=== PATIENT | male | born 1950 | race Two or more races ===

== ENCOUNTER → 2024-03-27 | Outpatient (CLI) | payer OTHER, SELFPAY ==
[2024-03-29 15:34] LABS: PSA, Free 1.17 ng/mL; PSA, Total 6.9 ng/mL (< OR = 4.0)
[2024-03-30 07:02] LABS: PSA, % Free 17 % (calc) (>25)
== END | disposition home or self-care (01) ==
PROVIDERS: PCP Physician Assistant; Referring Provider Urology; Visit Provider Urology
DX: N40.1 Benign prostatic hyperplasia with lower urinary tract symptoms (principal)
CPT/HCPCS: 36415; 84153; 84154

== ENCOUNTER → 2024-04-03 | Outpatient (BNVA) | payer OTHER, SELFPAY | END | disposition home or self-care (01) | PROVIDERS: PCP Physician Assistant; Referring Provider Physician Assistant; Visit Provider Physician Assistant | DX: N40.1 Benign prostatic hyperplasia with lower urinary tract symptoms (principal); R97.20 Elevated prostate specific antigen [PSA] | CPT/HCPCS: Q3014 ==

== ENCOUNTER → 2024-04-05 | Outpatient (CLI) | payer OTHER, SELFPAY ==
[2024-04-05 08:46] LABS: Collection Type, Urine Clean Catch
[2024-04-05 09:35] LABS: Bilirubin,Urine Negative (Negative); Blood,Urine Trace (Negative); Clarity,Urine Clear (Clear/Hazy); Color,Urine Lt-Yellow (Lt Yel-Yel); Culture Indicated,Urine Not Indicated; Glucose, Urine Negative (Negative); Ketones,Urine Negative (Negative); Leukocyte Esterase,Urine Negative (Negative); Nitrite,Urine Negative (Negative); PH,Urine 6.5 (5.0-7.0); Protein,Urine Negative (Neg - Trace); RBC,Urine 5 /hpf (0-3); Specific Gravity,Urine 1.009 (1.001-1.035); Squamous Epithelial Cell,Urine < 1 /hpf (0-5); Urobilinogen,Urine Negative mg/dL (0.0-1.0); WBC,Urine 1 /hpf (0-5)
[2024-04-05 09:37] LABS: Basophils # (Auto) 0.1 Thou/mm3 (0.0-0.2); Basophils % (Auto) 1 % (0-2.5); Eosinophils # (Auto) 0.3 Thou/mm3 (0.0-0.5); Eosinophils % (Auto) 4 % (0-10); Hematocrit 42.2 % (41.0-53.0); Hemoglobin 14.1 g/dL (13.5-16.0); Immature Granulocytes % (Auto) 0 % (0-0); Immature Granulocytes Auto 0.02 Thou/mm3 (0.00-0.00); Lymphocytes # (Auto) 1.6 Thou/mm3 (1.0-4.8); Lymphocytes % (Auto) 21 % (10-50); Mean Corpuscular HGB Conc 33.4 g/dl (31.0-37.0); Mean Corpuscular Hemoglobin 27.7 pg (25.0-35.0); Mean Corpuscular Volume 83 fL (80-100); Monocytes # (Auto) 0.5 Thou/mm3 (0.0-0.8); Monocytes % (Auto) 6 % (0-12); Neutrophils # (Auto) 5.4 Thou/mm3 (1.8-7.7); Neutrophils % (Auto) 68 % (37-80); Nucleated Red Blood Cell % 0 /100 WBC (0); Platelet Count 261 Thou/mm3 (140-440); Red Blood Count 5.09 Miln/mm3 (4.50-5.90); White Blood Count 7.9 Thou/mm3 (3.8-10.6)
[2024-04-05 10:01] LABS: Vitamin B12 509 pg/mL (211-911); Vitamin D 25 Hydroxy Total 37.8 ng/mL (7.3-40.2)
[2024-04-05 10:04] LABS: Alanine Aminotransferase 20 U/L (10-49); Albumin, Serum 4.4 gm/dL (3.4-4.8); Albumin/Globulin Ratio 1.9 (1.2-2.2); Alkaline Phosphatase 94 U/L (46-116); Anion Gap 8 (7-16); Aspartate Amino Transferase 26 U/L (0-34); BUN/Creatinine Ratio 15 Ratio (12-20); Bilirubin,Total 1.6 mg/dL (0.3-1.2); Blood Urea Nitrogen 15 mg/dL (9-23); Calcium 8.8 mg/dL (8.3-10.6); Calcium (Corrected) 8.8 mg/dL (8.5-10.1); Carbon Dioxide 27.1 mMol/L (20.0-31.0); Cardiac Risk Estimate 4.2 RATIO (4.0-6.7); Chloride 101 mMol/L (98-107); Cholesterol 155 mg/dL (132-200); Globulin 2.3 gm/dL (2.3-3.5); Glucose 102 mg/dL (74-106); HDL Cholesterol 37 mg/dL (40-60); LDL Cholesterol,Calculated 83 mg/dL (0-130); Osmolality,Calculated 272 (275-295); Potassium 4.6 mMol/L (3.4-5.1); Sodium 136 mMol/L (136-145); Thyroid Stimulating Hormone 0.91 uIU/mL (0.55-4.78); Total Protein 6.7 gm/dL (5.7-8.2); Triglycerides 175 mg/dL (30-150); eGFR > 60 See Note
[2024-04-10 06:59] LABS: Fecal Globin Result NOT DETECTED (NOT DETECTED)
[2024-04-11 06:23] LABS: SHBG 34 nmol/L (22-77); Testosterone, Bioavailable 108.3 ng/dL (15.0-150.0); Testosterone, Free 58.9 pg/mL (6.0-73.0); Testosterone,Total 441 ng/dL (250-1100)
== END | disposition home or self-care (01) ==
LOC: COPL 08:06
PROVIDERS: PCP Urology; Referring Provider Physician Assistant; Visit Provider Physician Assistant
DX: Z00.00 Encounter for general adult medical examination without abnormal findings (principal); E03.9 Hypothyroidism, unspecified; E55.9 Vitamin D deficiency, unspecified; I10 Essential (primary) hypertension; E78.5 Hyperlipidemia, unspecified; D51.9 Vitamin B12 deficiency anemia, unspecified; R31.9 Hematuria, unspecified
CPT/HCPCS: 36415; 80053; 80061; 81001; 82040; 82274; 82306; 82607; 84153; 84270; 84403; 84443; 85025; G0328

== ENCOUNTER → 2024-07-04 | Outpatient (BNVA) | payer MEDICARE, MEDICAID, SELFPAY | END | disposition home or self-care (01) | PROVIDERS: PCP Physician Assistant; Referring Provider Physician Assistant; Visit Provider Urology | DX: N40.1 Benign prostatic hyperplasia with lower urinary tract symptoms (principal); N13.8 Other obstructive and reflux uropathy; R97.20 Elevated prostate specific antigen [PSA]; R31.29 Other microscopic hematuria; N28.89 Other specified disorders of kidney and ureter; I10 Essential (primary) hypertension; I25.10 Atherosclerotic heart disease of native coronary artery without angina pectoris; E78.00 Pure hypercholesterolemia, unspecified; E03.9 Hypothyroidism, unspecified | CPT/HCPCS: 81003; 99212; 99213; G0463 ==

== ENCOUNTER → 2024-10-02 | Outpatient (CLI) | payer MEDICARE, MEDICAID, SELFPAY ==
[2024-10-02 09:38] LABS: Alanine Aminotransferase 16 U/L (10-49); Albumin, Serum 4.1 gm/dL (3.4-4.8); Albumin/Globulin Ratio 1.9 (1.2-2.2); Alkaline Phosphatase 70 U/L (46-116); Anion Gap 11 (7-16); BUN/Creatinine Ratio 15 Ratio (12-20); Bilirubin,Total 1.7 mg/dL (0.3-1.2); Blood Urea Nitrogen 16 mg/dL (9-23); Calcium 8.5 mg/dL (8.3-10.6); Calcium (Corrected) 8.5 mg/dL (8.5-10.1); Carbon Dioxide 25.9 mMol/L (20.0-31.0); Cardiac Risk Estimate 3.5 RATIO (4.0-6.7); Chloride 105 mMol/L (98-107); Cholesterol 117 mg/dL (132-200); Creatinine (Component) 1.1 mg/dL (0.6-1.3); Globulin 2.2 gm/dL (2.3-3.5); Glucose 104 mg/dL (74-106); HDL Cholesterol 33 mg/dL (40-60); LDL Cholesterol,Calculated 58 mg/dL (0-130); Osmolality,Calculated 284 (275-295); Potassium 4.3 mMol/L (3.4-5.1); Sodium 142 mMol/L (136-145); Thyroid Stimulating Hormone 0.57 uIU/mL (0.55-4.78); Total Protein 6.3 gm/dL (5.7-8.2); Triglycerides 129 mg/dL (30-150); eGFR > 60 See Note
[2024-10-05 17:52] LABS: PSA, Free 1.22 ng/mL; PSA, Total 5.8 ng/mL (< OR = 4.0)
[2024-10-06 06:57] LABS: PSA, % Free 21 % (calc) (>25)
== END | disposition home or self-care (01) ==
PROVIDERS: PCP Family Medicine; Referring Provider Urology; Visit Provider Urology
DX: R97.20 Elevated prostate specific antigen [PSA] (principal); I10 Essential (primary) hypertension; E03.9 Hypothyroidism, unspecified; E78.5 Hyperlipidemia, unspecified
CPT/HCPCS: 36415; 80053; 80061; 84153; 84154; 84443

== ENCOUNTER 2024-10-21 23:02 | Emergency (ER) | payer MEDICARE, MEDICAID, SELFPAY ==
--- NOTE | 2024-10-21 23:06 | EKG_ITS ---
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
--- NOTE | 2024-10-21 23:17 | PD.EDRME ---
Rapid Medical Screening Exam RME Arrival date/time: 10/21/24 23:02 Chief Complaint: General Adult/Misc Complain Time Seen by Provider: 10/21/24 23:55 Vital signs: Vital Signs Temperature 101.3 F H 10/21/24 23:20 Pulse Rate 96 10/21/24 23:20 Respiratory Rate 20 10/21/24 23:20 Blood Pressure 92/57 L 10/21/24 23:20 Pulse Oximetry (%) 95 10/21/24 23:20 Oxygen Delivery Method Room Air 10/21/24 23:20 RME Narrative: Fever, confusion, diarrhea started today
--- NOTE | 2024-10-21 23:18 | XR_ITS ---
Examination: PA chest single view TECHNIQUE: Upright PA chest single view Date and time: October 21, 2024, 2335 hours. Comparison April 14, 2017 INDICATIONS: Sepsis today FINDINGS: Early pneumonia right base Mild enlargement cardiac contour No pulmonary edema Moderate osteopenia. IMPRESSION: Early pneumonia right base
[2024-10-21 23:20] VITALS: BP 92/57; PULSE 96; RESP 20; TEMP 38.5; O2SAT 95
[2024-10-21 23:26] VITALS: TEMP 38.5
[2024-10-21] MEDS: ACETAMINOPHEN 500 MG TABLET 1000 MG PO (23:26)
[2024-10-21 23:43] LABS: Lactate (Lactic Acid) 2.4 mMol/L (0.4-2.0)
[2024-10-21 23:46] LABS: Basophils % (Auto) 0 % (0-2.5); Eosinophils % (Auto) 0 % (0-10); Hematocrit 36.8 % (41.0-53.0); Hemoglobin 12.8 g/dL (13.5-16.0); Immature Granulocytes % (Auto) 0 % (0-0); Immature Granulocytes Auto 0.02 Thou/mm3 (0.00-0.00); Lymphocytes # (Auto) 0.4 Thou/mm3 (1.0-4.8); Lymphocytes % (Auto) 5 % (10-50); Mean Corpuscular HGB Conc 34.8 g/dl (31.0-37.0); Mean Corpuscular Hemoglobin 28.1 pg (25.0-35.0); Mean Corpuscular Volume 81 fL (80-100); Monocytes # (Auto) 0.1 Thou/mm3 (0.0-0.8); Monocytes % (Auto) 1 % (0-12); Neutrophils # (Auto) 7.9 Thou/mm3 (1.8-7.7); Neutrophils % (Auto) 94 % (37-80); Nucleated Red Blood Cell % 0 /100 WBC (0); Platelet Count 173 Thou/mm3 (140-440); RDW Standard Deviation 39.3 fL (35.1-43.9); Red Blood Count 4.55 Miln/mm3 (4.50-5.90); White Blood Count 8.4 Thou/mm3 (3.8-10.6)
[2024-10-22] VITALS (26 sets, daily range): BP systolic 79–95; BP diastolic 51–66; PULSE 75–121; RESP 16–30; TEMP 36.8–37.1; O2SAT 91–96
[2024-10-22] MEDS: SODIUM CHLORIDE 0.9% 1000 ML 1,000 ML 999 ML IV ×3 (00:05→02:14)
--- NOTE | 2024-10-22 00:07 | PC.NURSE ---
BIB family for ams and fever. was seen at [facility] and was diagnosed with gastritis with WBC of 14 and sent home. today developed a fever and was was trying to use a banana as a phone and had a lower than usual BP so family bought him here to be evaluated.
[2024-10-22 00:37] LABS: Alanine Aminotransferase 15 U/L (10-49); Albumin, Serum 3.9 gm/dL (3.4-4.8); Albumin/Globulin Ratio 1.6 (1.2-2.2); Alkaline Phosphatase 71 U/L (46-116); Anion Gap 11 (7-16); Aspartate Amino Transferase 28 U/L (0-34); BUN/Creatinine Ratio 13 Ratio (12-20); Bilirubin,Total 3.5 mg/dL (0.3-1.2); Blood Urea Nitrogen 21 mg/dL (9-23); Calcium 8.4 mg/dL (8.3-10.6); Calcium (Corrected) 8.5 mg/dL (8.5-10.1); Carbon Dioxide 19.5 mMol/L (20.0-31.0); Chloride 103 mMol/L (98-107); Creatinine (Component) 1.6 mg/dL (0.6-1.3); Globulin 2.4 gm/dL (2.3-3.5); Glucose 97 mg/dL (74-106); Magnesium 1.7 mg/dL (1.6-2.6); Osmolality,Calculated 269 (275-295); Potassium 3.8 mMol/L (3.4-5.1); Procalcitonin 5.33 ng/ml (0.0-0.49); Sodium 133 mMol/L (136-145); Total Protein 6.3 gm/dL (5.7-8.2); Troponin I 0.036 ng/mL (0.0-0.045); eGFR 45 See Note
--- NOTE | 2024-10-22 00:38 | EDNOTE_ITS ---
Altered Mental Status RME/HPI General Chief Complaint: General Adult/Misc Complain Stated Complaint: ALTERED, SWEATING Time Seen by Provider: 10/21/24 23:55 Arrival date/time: 10/21/24 23:02 RME / HPI RME / HPI narrative: Fever, confusion, diarrhea started today DR BARKLEY MAIN ED EVALUATION: 74 y/o male with Hx of Hypertension and Hemorrhoids presents to ED c/o altered mental status, hypotension, and tarry diarrhea x 1 day. Per daughter, patient's handed him a banana and he began using it as a phone. Later, he had made up a story about him going to town, going out to and picking up his medication when he really had not. Earlier today, daughter was trying to get the patient to come to the ED, but he kept insisting that he did not want to and could not complete his sentences. Patient was seen yesterday for epigastric pain, nausea, fever and chills at [facility] and was treated for gastritis. Today patient has only had 2 Pedialytes. He takes Metoprolol. Denies any urinary symptoms. Patient denies nausea today, cough, fever or any other associated symptoms or aggravating factors. No modifying factors, no radiation, no migration. No pain reported overall. Related Data Home Medications ?Medication ?Instructions ?Recorded ?Confirmed apixaban 5 mg tablet (Eliquis) 5 mg PO BID 08/31/19 Held on 04/23/23. Instructions: Resume on 04/25/23. levothyroxine 75 mcg capsule 75 mcg PO QDAY 08/31/19 0 07/04/24 metoprolol tartrate 50 mg tablet 50 mg PO BID 08/31/19 07/04/24 atorvastatin 10 mg tablet 10 mg PO QDAY 06/20/2107/04 melatonin 10 mg capsule 10 mg PO HS PRN Sleep 07/04/24 Allergies Allergy/AdvReac Type Severity Reaction Status Date / Time No Known Allergies Allergy Verified 07/04/24 09:23 Review of Systems Review of Systems Systems Reviewed: All systems reviewed, normal except as documented Past Medical History Past Medical History CARDIAC: Positive Cardiac Disorders, Cardiac Arrhythmia, Angina, Hypercholesterolemia and Hypertension RESPIRATORY: Positive Asthma (many yrs ago) GASTROINTESTINAL: Positive Gastrointestinal Disorders, Hemorrhoids and Obesity GENITOURINARY: Positive Genitourinary Disorders and Benign Prostatic Hyperplasia ENDOCRINE: Positive Endocrine Disorders and Hypothyroidism PSYCHO/SOCIAL: Positive Depression and Anxiety OTHER HISTORY: Positive Hospitalization (irregular HR, surgery), Chicken Pox and Measles Family History FAMILY HISTORY: Positive Family Cardiac Disorders Surgical History SURGICAL: Positive Cardiac Surgery (possible cardioversion in the past) ED Exam Narrative Physical exam: GENERAL APPEARANCE: alert and oriented x 4, well-developed, well-nourished, no acute distress VITALS: All vitals were reviewed and the pulse ox is 94% on room air, which is normal according to my interpretation. HEENT: Normocephalic, atraumatic; pupils equal, round, reactive to light; EOMI; mucous membranes pink, moist; oropharynx clear NECK: Supple LUNGS: CTABL; no wheezes, no rales, no rhonchi HEART: Regular rate, regular rhythm; normal S1, S2; no murmurs ABDOMEN: mild abdominal distention; normal BS; soft, no tenderness, no guarding, no rebound; no masses, no organomegaly, no hernia BACK: no CVA tenderness EXTREMITIES: atraumatic; no edema NEUROLOGIC: awake; alert and oriented x4; cranial nerves II-XII grossly intact; no focal sensory or motor deficits PSYCHIATRIC: appropriate mood and affect SKIN: warm, dry, normal color; no rashes Course Quality Measures none Orders Category Date Time Status Bedside COVID-19 Antigen Test NOW Care 10/21/24 23:18 Active Bedside Influenza A&B Antigen Test NOW Care 10/21/24 23:[address] Screening NOW Care 10/22/24 00:40 Active EKG (ED ONLY) *Do not use* NOW Care 10/21/24 23:07 Completed Fingerstick [Bedside Blood Glucose] NOW Care 10/21/24 23:[address] abdomen pelvis w con Stat Exams 10/22/24 00:40 Taken CXR [XR chest 1V] Stat Exams 10/21/24 23:18 Completed EKG (ED Only) Stat Exams 10/21/24 23:06 Draft US abdomen limited Stat Exams 10/22/24 04:46 Ordered Blood Culture (Lab) Stat Lab 10/21/24 23:35 Received CBC Stat Lab 10/21/24 23:30 Completed CMP [Comprehensive Metabolic Panel] Stat Lab 10/21/24 23:30 Completed Lactate (Lactic Acid) Stat Lab 10/21/24 23:30 Completed Lactic Acid, 3 HR Stat Lab 10/22/24 02:53 Completed Magnesium Stat Lab 10/21/24 23:30 Completed Procalcitonin Stat Lab 10/21/24 23:30 Completed Troponin I Stat Lab 10/21/24 23:30 Completed UA [Urinalysis] Stat Lab 10/21/24 23:18 Ordered Urine Culture Stat Lab 10/21/24 23:18 Ordered Acetaminophen Tab [Tylenol ES Tab] Med 10/21/24 23:18 Discontinued 1,000 mg PO X1 ONE Piper/Tazo 3.375 gm Premix [Zosyn] Med 10/22/24 00:40 Discontinued 3.375 gm in 50 ml IV X1 Sodium Chloride 0.9% 1000 ml [Ns] 1,000 ml Med 10/21/24 23:55 Discontinued IV 999 mls/hr Sodium Chloride 0.9% 1000 ml [Ns] 1,000 ml Med 10/22/24 00:40 Discontinued IV 999 mls/hr Sodium Chloride 0.9% 1000 ml [Ns] 1,000 ml Med 10/22/24 02:07 Discontinued IV 999 mls/hr Vital Signs Vital signs: Vital Signs Temperature 101.3 F H 10/21/24 23:20 Pulse Rate 96 10/21/24 23:20 Respiratory Rate 20 10/21/24 23:20 Blood Pressure 92/57 L 10/21/24 23:20 Pulse Oximetry (%) 95 10/21/24 23:20 Oxygen Delivery Method Room Air 10/21/24 23:20 Altered Mental Status MDM Narrative MDM Narrative:: Scribe Attestation: Blanca Westfall am scribing for and in the presence of Dr. Barkley. Provider Notation: Although this document has been carefully reviewed, there may still be some phonetic and other typographical errors.? These errors are purely grammatical due to imperfections in the software program and should not be construed in any way to? compromise the substance of the patient's medical care during this visit. 0600: Patient pending abdominal ultrasound. Signed-out to oncoming ED physician. Patient data External records reviewed:: [facility] previous records (Reviewed prior ED records from 03/09/23. Patient was seen for Inguinal hernia.) Clinical information provided by:: patient and family (Daughter) Social determinants that could affect healthcare access:: none Patient has the following chronic illnesses:: Cardiac Arrhythmia, Angina, Hypercholesterolemia, Hypertension, Hemorrhoids, Obesity, Benign Prostatic Hyperplasia, Hypothyroidism How is presenting disease/condition affected by chronic disease/condition?: exacerbated by Evaluation data The following diagnostics were reviewed and interpreted by me:: lab results, radiology exam(s) and EKG tracing(s) Lab and/or radiology exams considered but not ordered:: None Interpretation Summary: RADIOLOGY Chest X-Ray: Patient: LENORA VILLAFANA Med. Record#: [id number] Birthdate: 1950 Age/Sex: 74 / M Location: [facility] Attending Dr: Ordering Physician: Ilia Torres PA-C Date of Service: 10/21/24 Procedure(s): XR chest 1V Accession Number(s): [id number] cc: Magen Chang MD; Ilia Torres PA-C~ Examination: PA chest single view TECHNIQUE: Upright PA chest single view Date and time: October 21, 2024, 2335 hours. Comparison April 14, 2017 INDICATIONS: Sepsis today FINDINGS: Early pneumonia right base Mild enlargement cardiac contour No pulmonary edema Moderate osteopenia. IMPRESSION: Early pneumonia right base Dictated By: Magen Chang MD Signed By: <Electronically signed by Magen Chang MD in OV> 10/22/24 0007 Abdomen/Pelvis CT: CT scan of the abdomen and pelvis with intravenous contrast (axial sections with sagittal and coronal reformats) October 22, 2024 0337 hours Clinical History: epigastric pain, diarrhea, fever Comparison: No prior study is available for comparison. Findings: The evaluation is slightly limited due to motion artifact. The lung bases are clear. The gallbladder is distended with mild wall thickening and pericholecystic fat stranding / fluid. Nonspecific perinephric fat stranding is noted bilaterally. The liver, pancreas, spleen and adrenals are unremarkable. No evidence of bowel obstruction. Fluid-filled small and large bowel loops with air-fluid levels in the colon.The appendix is within normal limits (images 71- 86/159). There is no mesenteric or retroperitoneal adenopathy. Calcific densities are seen in the pelvis, likely representing phleboliths. The urinary bladder is incompletely distended at the time of the examination and appears mildly thick walled. There is no free fluid or free air. Degenerative changes are identified in the spine. Impression: 1. Findings consistent with acute cholecystitis. Recommend further evaluation with sonography, if clinically indicated. 2. Fluid-filled small and large bowel loops with air-fluid levels in the colon, which may be nonspecific or related to diarrhea. However, the possibility of mild enterocolitis cannot be excluded. 3. Other findings as described above. Report Electronically Signed By: Serina Reyes 10/22/2024 4:34:47 AM [EST] Abdomen US: Pending official radiology report. Medications / Prescriptions Medications or Prescriptions considered but not ordered:: None Medication administrations:: Medication Administration History Discontinued Medications Acetaminophen (Acetaminophen 500 Mg Tablet) 1,000 mg PO X1 ONE Stop: 10/21/24 23:19 Last Admin: 10/21/24 23:26 Dose: 1,000 mg Documented By: Sodium Chloride (Ns) 1,000 mls @ 999 mls/hr IV .Q1H1M ONE Stop: 10/22/24 00:55 Last Infusion: 10/22/24 01:16 Dose: Infused Documented By: Admin: 10/22/24 00:05 Dose: 999 mls/hr Documented By: ANAHI Sodium Chloride (Ns) 1,000 mls @ 999 mls/hr IV .Q1H1M ONE Stop: 10/22/24 01:40 Last Infusion: 10/22/24 01:49 Dose: Infused Documented By: Admin: 10/22/24 00:45 Dose: 999 mls/hr Documented By: ANAHI Piperacillin/Tazobactam/Dextrose (Zosyn) 3.375 gm in 50 mls @ 100 mls/hr IV X1 ONE Stop: 10/22/24 01:09 Last Infusion: 10/22/24 01:16 Dose: Infused Documented By: Admin: 10/22/24 00:44 Dose: 100 mls/hr Documented By: ANAHI Sodium Chloride (Ns) 1,000 mls @ 999 mls/hr IV .Q1H1M ONE Stop: 10/22/24 03:07 Last Infusion: 10/22/24 03:36 Dose: Infused Documented By: Admin: 10/22/24 02:14 Dose: 999 mls/hr Documented By: ANAHI See above Consultations Consultation(s) initiated? (list below): No Diagnosis Differential diagnosis altered mental status: altered mental status, delirium, dementia, hypoglycemia, hyponatremia, subarachnoid hemorrhage, sepsis and other (Severe dehydration, Anemia) Most likely diagnosis given after review of the tests above:: Sepsis, Diarrhea Admission Indicated Admission indicated?: not indicated Explain why admission is indicated or not indicated:: Pending abdominal ultrasound. Admission Request Was there a request for admission?: No Disposition Plan Disposition Plan: other (specify) (Signed-out to oncoming ED physician at 6 AM.) Discharge Plan Prescriptions/Referrals Prescriptions/Med Rec: No Action Eliquis 5 mg tablet 5 mg PO BID metoprolol tartrate 50 mg tablet 50 mg PO BID levothyroxine 75 mcg capsule 75 mcg PO QDAY atorvastatin 10 mg tablet 10 mg PO QDAY Patient Comments: TAKE 1 TABLET BY MOUTH ONCE DAILY melatonin 10 mg Capsule 10 mg PO HS PRN (Reason: Sleep) Referrals: Beth Lanier PA-C [Primary Care Provider] - In 1 week Problem List Clinical Impression: Sepsis, Diarrhea Patient/Caregiver Discharge Instructions Print Language: Macedonian
--- NOTE | 2024-10-22 00:40 | XR_ITS ---
Examination: CT abdomen with intravenous contrast CT pelvis with intravenous contrast 2-D coronal reconstructions 2-D sagittal reconstructions Date and time of exam:October 22, 2024, 0337 hours Comparison March 09, 2023 INDICATIONS: Onset epigastric pain today. CTDI: vol (mGy) 19 DLP: (mGycm) 1205 Technique: Multiple axial sections of the abdomen and pelvis have been obtained. 64 slice high-resolution scanner used. 3 mm axial sections have been obtained, post intravenous injection of 60 cc [id number] 2-D sagittal, coronal reconstructions obtained. Low dose protocols were performed. One or more of the following dose reduction techniques were used; automated exposure control, adjustment of the mA and/or KV according to patient size, use of iterative reconstruction technique. Findings: Fatty infiltration throughout the liver Gallbladder wall appears markedly thickened No pancreatic or adrenal mass Aorta normal size Perinephric stranding Mild free fluid in the abdomen No hydronephrosis Mildly fluid distended colonic and small bowel loops Normal appendix No bowel obstruction Contracted urinary bladder Transverse prostate dimension 5 cm Fat-containing inguinal hernias IMPRESSION: Acute cholecystitis Colonic and small bowel mild ileus
[2024-10-22] MEDS: PIPER/TAZO 3.375 GM PREMIX 3.375 GM/50 ML BAG IV (00:44)
--- NOTE | 2024-10-22 01:52 | PC.NURSE ---
Lizett daughter phone [phone]
--- NOTE | 2024-10-22 02:10 | PC.NURSE ---
Updated MD simmons about no change in BP after 2L bolus. new verbal orders recieved to give 1L NS bolus
[2024-10-22 02:41] LABS: Reflex Lactate? Y
[2024-10-22 02:59] LABS: Lactic Acid, 3 HR 1.5 mMol/L (0.4-2.0)
--- NOTE | 2024-10-22 04:34 | PRELIM_ITS ---
CT scan of the abdomen and pelvis with intravenous contrast (axial sections with sagittal and coronal reformats) October 22, 2024 0337 hours Clinical History: epigastric pain, diarrhea, fever Comparison: No prior study is available for comparison. Findings: The evaluation is slightly limited due to motion artifact. The lung bases are clear. The gallbladder is distended with mild wall thickening and pericholecystic fat stranding / fluid. Nonspecific perinephric fat stranding is noted bilaterally. The liver, pancreas, spleen and adrenals are unremarkable. No evidence of bowel obstruction. Fluid-filled small and large bowel loops with air-fluid levels in the colon.The appendix is within normal limits (images 71- 86/159). There is no mesenteric or retroperitoneal adenopathy. Calcific densities are seen in the pelvis, likely representing phleboliths. The urinary bladder is incompletely distended at the time of the examination and appears mildly thick walled. There is no free fluid or free air. Degenerative changes are identified in the spine. Impression: 1. Findings consistent with acute cholecystitis. Recommend further evaluation with sonography, if clinically indicated. 2. Fluid-filled small and large bowel loops with air-fluid levels in the colon, which may be nonspecific or related to diarrhea. However, the possibility of mild enterocolitis cannot be excluded. 3. Other findings as described above. Report Electronically Signed By: Serina Reyes 10/22/2024 4:34:47 AM [EST]
--- NOTE | 2024-10-22 04:46 | XR_ITS ---
Examination: Abdomen sonogram, Limited Date and time of exam: October 22, 2024, 0533 hours INDICATIONS: Epigastric pain and nausea beginning 2 days ago Technique: Real-time lutz scale transabdominal sonographic images of the upper abdomen obtained. Findings: Minimal gallbladder sludge No gallstones Gallbladder wall 0.3 cm Common bile duct 0.4 cm Pancreas is obscured by bowel gas Liver 19.5 cm fatty dictation lobular contour and no focal liver lesions Normal hepatopedal portal venous flow Patent IVC IMPRESSION: Negative for cholelithiasis, negative for cholecystitis Moderate hepatomegaly fatty infiltration no focal liver lesions
--- NOTE | 2024-10-22 06:50 | PD.EDADDENDU ---
Emergency Room Addendum Addendum Narrative: 0600: Care assumed from Dr. simmons, the previous shift emergency physician. Past medical, surgical, social and family history reviewed. Vitals and home medications reviewed. I will assume the care of the patient at this time, pending ultrasound report and final disposition. Please refer to the emergency department record for history and examination from initial visit.?The following addendum documentation note is intended to reflect any pending information, findings, or radiology results not included in the patient?s initial chart. Sepsis alert initiated yesterday 10/21/2024 @ 23:26 hours. Patient has been given Zosyn and 3L of IV fluids by previous physician. On my reassessment at 07:30 AM, the patient does not complain of abdominal pain and reports feeling improved. On examination patient has no abdominal tenderness and no tenderness over right upper quadrant. Patient does complain of diarrhea with episode of incontinence here in the ED. Urinalysis pending. Urinalysis shows mild UTI. Plan to discharge home, diagnosis of gastroenteritis and UTI. Will prescribed Flagyl, Bactrim, and Zofran.
[2024-10-22 08:13] LABS: Collection Type, Urine Clean Catch
[2024-10-22] MEDS: LOPERAMIDE 2 MG CAPSULE 4 MG PO (08:34)
[2024-10-22 08:35] LABS: Bacteria,Urine Rare; Bilirubin,Urine Negative (Negative); Blood,Urine 1+ (Negative); Clarity,Urine Clear (Clear/Hazy); Color,Urine Yellow (Lt Yel-Yel); Glucose, Urine Negative (Negative); Ketones,Urine Negative (Negative); Leukocyte Esterase,Urine Negative (Negative); Nitrite,Urine Negative (Negative); PH,Urine 5.5 (5.0-7.0); Protein,Urine Trace (Neg - Trace); RBC,Urine 24 /hpf (0-3); Squamous Epithelial Cell,Urine 1 /hpf (0-5); Transitional Epi Cells,Urine 2 /hpf (0-5); Urobilinogen,Urine Negative mg/dL (0.0-1.0); WBC,Urine 1 /hpf (0-5)
== END 2024-10-22 10:35 | disposition home or self-care (01) ==
PROVIDERS: Physician Assistant; Emergency Provider Emergency Medicine; PCP Physician Assistant
DX: N39.0 Urinary tract infection, site not specified (principal); K52.9 Noninfective gastroenteritis and colitis, unspecified; K76.0 Fatty (change of) liver, not elsewhere classified; K81.0 Acute cholecystitis; K56.7 Ileus, unspecified; J18.9 Pneumonia, unspecified organism; I10 Essential (primary) hypertension; I48.91 Unspecified atrial fibrillation
CPT/HCPCS: 36415; 71045; 74177; 76705; 80053; 81001; 83605; 83735; 84145; 84484; 85025; 87040; 87077; 87086; 87186; 87400; 87811; 93005; 96361; 96365; 99285; A4649; J2543; J7030; Q9967; A9270

== ENCOUNTER 2024-10-23 20:55 | Inpatient (IN) | payer MEDICARE, MEDICAID, SELFPAY ==
--- NOTE | 2024-10-23 20:59 | EKG_ITS ---
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
[2024-10-23 21:12] VITALS: BP 121/75; PULSE 99; RESP 20; TEMP 38; O2SAT 95
--- NOTE | 2024-10-23 21:16 | EDRME_ITS ---
Rapid Medical Screening Exam RME Arrival date/time: 10/23/24 20:55 Chief Complaint: Shortness of Breath/Dyspnea Time Seen by Provider: 10/23/24 21:05 Vital signs: Vital Signs Temperature 100.4 F 10/23/24 21:12 Pulse Rate 99 10/23/24 21:12 Respiratory Rate 20 10/23/24 21:12 Blood Pressure 121/75 10/23/24 21:12 Pulse Oximetry (%) 95 10/23/24 21:12 Oxygen Delivery Method Room Air 10/23/24 21:12 RME Narrative: Shortness of breath, abdominal bloating/distention since this morning. Patient was seen in ED 2 nights ago for fever, confusion and diagnosed with UTI, c urrently on antibiotics.
--- NOTE | 2024-10-23 21:18 | XR_ITS ---
Examination: PA chest single view TECHNIQUE: Upright PA chest single view Date and time: 02/22/2025 at 2123 hours Comparison October 21, 2024 INDICATIONS: Shortness of breath beginning this morning FINDINGS: Mild enlargement in cardiac contour Moderate vascular congestion No current pneumonia Osseous structures intact IMPRESSION: Moderate vascular congestion No current pneumonia
--- NOTE | 2024-10-23 21:19 | XR_ITS ---
Examination: CT abdomen and pelvis without contrast. Coronal 3-D reconstructions. Sagittal 2-D reconstructions. Date and time of exam:October 23, 2024, 1031 hours Comparison October 22, 2024 CTDI: vol (mGy): 11.1 DLP: (mGycm): 746 Technique: Axial images of the abdomen have been obtained, 3 mm slice thickness Intravenous contrast material has not been administered. Low dose protocols were performed. One or more of the following dose reduction techniques were used; automated exposure control, adjustment of the mA and/or KV according to patient size, use of iterative reconstruction technique. Findings: Moderate enlargement cardiac contour Liver is irregular in contour Gallbladder wall is thickened with surrounding inflammation No pancreatic or adrenal mass No renal or ureteral calculi Mild ascites Normal appendix Small bowel mild fluid distention Transverse prostate dimension 5 cm Fat-containing inguinal hernias IMPRESSION: Acute cholecystitis, recommend repeat gallbladder sonography follow-up Cirrhosis. Mild ascites Normal appendix
[2024-10-23 21:44] LABS: Basophils # (Auto) 0.0 Thou/mm3 (0.0-0.2); Basophils % (Auto) 0 % (0-2.5); Eosinophils # (Auto) 0.0 Thou/mm3 (0.0-0.5); Eosinophils % (Auto) 0 % (0-10); Hematocrit 31.1 % (41.0-53.0); Hemoglobin 11.0 g/dL (13.5-16.0); Immature Granulocytes Auto 0.07 Thou/mm3 (0.00-0.00); Lymphocytes # (Auto) 0.7 Thou/mm3 (1.0-4.8); Lymphocytes % (Auto) 4 % (10-50); Mean Corpuscular HGB Conc 35.4 g/dl (31.0-37.0); Mean Corpuscular Hemoglobin 28.3 pg (25.0-35.0); Mean Corpuscular Volume 80 fL (80-100); Monocytes # (Auto) 0.7 Thou/mm3 (0.0-0.8); Monocytes % (Auto) 4 % (0-12); Neutrophils # (Auto) 14.7 Thou/mm3 (1.8-7.7); Neutrophils % (Auto) 91 % (37-80); Nucleated Red Blood Cell # 0.00 Thou/mm3 (0.00-0.00); Nucleated Red Blood Cell % 0 /100 WBC (0); Platelet Count 109 Thou/mm3 (140-440); RDW Standard Deviation 40.2 fL (35.1-43.9); Red Blood Count 3.89 Miln/mm3 (4.50-5.90); White Blood Count 16.2 Thou/mm3 (3.8-10.6)
[2024-10-23 21:57] LABS: B-Type Natriuretic Peptide 296 pg/mL (0-100)
[2024-10-23 22:00] LABS: Alanine Aminotransferase 19 U/L (10-49); Albumin, Serum 3.5 gm/dL (3.4-4.8); Albumin/Globulin Ratio 1.5 (1.2-2.2); Alkaline Phosphatase 82 U/L (46-116); Anion Gap 5 (7-16); Aspartate Amino Transferase 30 U/L (0-34); BUN/Creatinine Ratio 9 Ratio (12-20); Bilirubin,Total 2.3 mg/dL (0.3-1.2); Blood Urea Nitrogen 12 mg/dL (9-23); Calcium 7.4 mg/dL (8.3-10.6); Calcium (Corrected) 7.8 mg/dL (8.5-10.1); Carbon Dioxide 21.6 mMol/L (20.0-31.0); Chloride 100 mMol/L (98-107); Creatinine (Component) 1.3 mg/dL (0.6-1.3); Globulin 2.3 gm/dL (2.3-3.5); Glucose 90 mg/dL (74-106); Lipase 27 U/L (12-53); Osmolality,Calculated 254 (275-295); Potassium 3.4 mMol/L (3.4-5.1); Sodium 127 mMol/L (136-145); Total Protein 5.8 gm/dL (5.7-8.2); eGFR 58 See Note
[2024-10-23 22:03] LABS: Troponin I 0.488 ng/mL (0.0-0.045)
[2024-10-23 22:40] LABS: Collection Type, Urine Clean Catch; Squamous Epithelial Cell,Urine 0 /hpf (0-5)
[2024-10-23 22:45] LABS: Amorphous Crystals,Urine Present (Absent); Bilirubin,Urine Negative (Negative); Blood,Urine 3+ (Negative); Clarity,Urine Clear (Clear/Hazy); Color,Urine Lt-Yellow (Lt Yel-Yel); Glucose, Urine Negative (Negative); Ketones,Urine Negative (Negative); Leukocyte Esterase,Urine Negative (Negative); Nitrite,Urine Negative (Negative); PH,Urine 6.5 (5.0-7.0); Protein,Urine 1+ (Neg - Trace); RBC,Urine 9 /hpf (0-3); Specific Gravity,Urine 1.011 (1.001-1.035); Urobilinogen,Urine Negative mg/dL (0.0-1.0); WBC,Urine 3 /hpf (0-5)
--- NOTE | 2024-10-23 22:58 | EDNOTE_ITS ---
ED SOB =RME/HPI General Chief Complaint: Shortness of Breath/Dyspnea Stated Complaint: SOB,ABD PAIN, BLOATED Time Seen by Provider: 10/23/24 21:05 Arrival date/time: 10/23/24 20:55 RME / HPI RME / HPI Narrative: Shortness of breath, abdominal bloating/distention since this morning. Patient was seen in ED 2 nights ago for fever, confusion and diagnosed with UTI, currently on antibiotics. Dr. Freeman?s Main ED Evaluation: 74yo male with a history of aFib on Eliquis, HTN presents to the ED for complaints of epigastric pain and shortness of breath x this morning. Patient was seen here 2 days ago and was discharged with Flagyl and Bactrim for UTI. Patient states his abdominal pain returned and became short of breath today, so he came in for evaluation. Patient denies any fever, chills, cough, runny nose or any other associated symptoms. Denies any tobacco, alcohol or illicit drug use. Quantitative Analyst is Dr. Dockery. NKA. Related Data Home Medications ?Medication ?Instructions ?Recorded ?Confirmed apixaban 5 mg tablet (Eliquis) 5 mg PO BID 08/31/19 Held on 04/23/23. Instructions: Resume on 04/25/23. levothyroxine 75 mcg capsule 75 mcg PO QDAY 08/31/19 0 07/04/24 metoprolol tartrate 50 mg tablet 50 mg PO BID 08/31/19 07/04/24 atorvastatin 10 mg tablet 10 mg PO QDAY 06/20/2107/04 melatonin 10 mg capsule 10 mg PO HS PRN Sleep 07/04/24 Previous Rx's ?Medication ?Instructions ?Recorded loperamide 2 mg capsule (Imodium 2 mg PO Q6H PRN loose stool #20 10/22/24 A-D) caps metronidazole 500 mg tablet 500 mg PO BID 10 days #20 tabs 10/22/24 ondansetron 4 mg disintegrating 4 mg PO Q6H 5 days #20 tabs 10/22/24 tablet sulfamethoxazole 800 1 tab PO BID #20 tabs mg-trimethoprim 160 mg tablet (Bactrim DS) Allergies Allergy/AdvReac Type Severity Reaction Status Date / Time No Known Allergies Allergy Verified 10/23/24 21:14 Review of Systems Review of Systems Systems Reviewed: All systems reviewed, normal except as documented Past Medical History Past Medical History NEUROLOGIC: Negative Neurological Disorders or Seizures CARDIAC: Positive Cardiac Disorders, Cardiac Arrhythmia, Angina, Hypercholesterolemia and Hypertension; Negative Congestive Heart Failure RESPIRATORY: Positive Asthma (many yrs ago); Negative Chronic Obstructive Pulmonary Disease (COPD) GASTROINTESTINAL: Positive Gastrointestinal Disorders, Hemorrhoids and Obesity; Negative Hepatitis, Ulcer or Gastroesophageal Reflux Disease GENITOURINARY: Positive Genitourinary Disorders and Benign Prostatic Hyperplasia; Negative Renal Disease or Kidney Stones MUSCULOSKELETAL: Negative Musculoskeletal Disorders ENT: Negative Cataracts ENDOCRINE: Positive Endocrine Disorders and Hypothyroidism; Negative Diabetes Mellitus Type 1 or Diabetes Mellitus Type 2 HEMATOLOGIC: Negative Blood Disorders, Anemia or Sickle Cell Disease PSYCHO/SOCIAL: Positive Depression and Anxiety OTHER HISTORY: Positive Hospitalization (irregular HR, surgery), Chicken Pox and Measles; Negative Autoimmune Disease, Shingles, Falls, Blood Transfusions, Blood Transfusion Reaction, Anesthesia Reactions, Organ Transplant, Mumps or Cancer Family History FAMILY HISTORY: Positive Family Cardiac Disorders; Negative Family Psychiatric Problems, Family Respiratory Disorders, Family Gastrointestinal Problems, Family Cancer, Family Surgery or Family Anesthesia Reaction Surgical History SURGICAL: Positive Cardiac Surgery (possible cardioversion in the past); Negative Pacemaker, Endocrine Surgery, Abdominal Surgery, Transurethral Resection, Neurologic Surgery, Vasectomy or Organ Transplant Social History SMOKING STATUS: Never smoker ED Exam Narrative Physical exam: GEN. APPEARANCE: The patient is alert awake oriented X-3 in no distress, appears uncomfortable, does not look ill/toxic. Patient has good eye contact. Patient is cooperative. VITALS: All vitals were reviewed and the pulse ox is 95% on room air which is normal according to my interpretation. HEENT: Normocephalic, atraumatic. Pupils are equal and reactive. Oral mucosa is moist. Patent Nares NECK: Supple, nontender, no thyromegaly, no meningismus, no JVD CHEST: Symmetrical, atraumatic, and with equal expansion , Nontender on palpation no deformity and no crepitus. CARDIOVASCULAR: Heart regular rhythm no murmur or gallop rub or extra beats. LUNGS: Clear to auscultation bilaterally with symmetrical chest rise. No laboring tachypnea or wheezing. No intercostal subcostal retraction. No rales and no rhonchi. ABDOMEN: Soft, flat, nontender to palpation, no guarding or rebound tenderness. There are no abnormal masses palpated. Active and normal bowel sounds. EXTREMITIES: Nontender. No edema. No cyanosis. Patient is able to move all 4 extremities well, with full ROM and good CSM. SKIN: Warm and dry, no jaundice or rashes noted. NEURO: Patient is SCHNEIDER x 4, Cranial nerves II through XII grossly intact. There is no focal neurologic deficits noted. GCS is 15, PNS and CHILD WELFARE SPECIALIST appear grossly intact. PSYCHIATRIC: Patient is in normal mood and affect. Course Course Course Narrative: 0013: Sepsis alert initiated due to the patient developing a fever of 101.0, being tachycardic, and tachypneic. Orders made at this time are congruent with ED Adult Sepsis Order List. Re-evaluation is to be completed. LR IVF ordered. Quality Measures Possible source: GI tract/intra-abdominal Blood cultures ordered: yes Antibiotic ordered: Yes Pertinent labs: 10/23/24 23:18 Lactic Acid 0.9 mMol/L (0.4-2.0) Procalcitonin 9.77 H ng/ml (0.0-0.49) sepsis Orders Category Date Time Status EKG (ED ONLY) *Do not use* NOW Care 10/23/24 20:[address] abdomen pelvis wo con Stat Exams 10/23/24 21:19 Completed CXR [XR chest 1V] Stat Exams 10/23/24 21:18 Completed EKG (ED Only) Stat Exams 10/23/24 20:59 Draft US abdomen limited Stat Exams 10/23/24 23:08 Ordered BNP [B-Type Natriuretic Peptide] Stat Lab 10/23/24 21:29 Completed Blood Culture (Lab) Stat Lab 10/23/24 21:22 Received CBC Stat Lab 10/23/24 21:29 Completed CMP [Comprehensive Metabolic Panel] Stat Lab 10/23/24 21:29 Completed Lactate (Lactic Acid) Stat Lab 10/23/24 23:18 Completed Lipase Stat Lab 10/23/24 21:29 Completed Procalcitonin Stat Lab 10/23/24 23:18 Completed Troponin I Stat Lab 10/23/24 21:29 Completed Troponin I Stat Lab 10/23/24 23:18 Completed UA [Urinalysis] Stat Lab 10/23/24 22:30 Completed Aspirin Chew Med 10/23/24 23:07 Discontinued 81 mg PO X1 ONE Morphine Inj Med 10/23/24 23:17 Discontinued 4 mg IV NOW ONE Piper/Tazo Inj [Zosyn Inj] 4.5 gm Med 10/24/24 00:16 Active Sodium Chloride 0.9% (Pop) [NS 0.9% mini bag] 100 ml IV NOW Ringers Lactated 1000 ml [Lactated Ringers] 1,000 ml Med 10/24/24 00:13 Active IV 999 mls/hr Vancomycin Pharmacy to Dose Med 10/24/24 09:00 Pending 1 each IV QDAY Vancomycin/Ns 1 gm Ivpb 200 ml Med 10/24/24 00:30 Active IV X1 Vital Signs Vital signs: Vital Signs Temperature 100.4 F 10/23/24 21:12 Pulse Rate 99 10/23/24 21:12 Respiratory Rate 20 10/23/24 21:12 Blood Pressure 121/75 10/23/24 21:12 Pulse Oximetry (%) 95 10/23/24 21:12 Oxygen Delivery Method Room Air 10/23/24 21:12 Shortness of Breath / Dyspnea MDM Narrative MDM Narrative:: Scribe Attestation: 10/23/24 - Darlene Westfall am scribing for and in the presence of Dr. Freeman. Patient data External records reviewed:: [facility] previous records (Per chart review, patient was seen here on 10/22/24 for diarrhea and sepsis. At that time, patient had a CT abdomen pelvis that showed acute cholecystitis, but the US was negative.) Clinical information provided by:: patient Social determinants that could affect healthcare access:: none Patient has the following chronic illnesses:: HTN, HLD How is presenting disease/condition affected by chronic disease/condition?: uneffected by Evaluation data The following diagnostics were reviewed and interpreted by me:: lab results, radiology exam(s) and EKG tracing(s) Lab and/or radiology exams considered but not ordered:: none Interpretation Summary: WBC 16.2, Sodium 127, Lactic Acid normal, Calcium 7.4, Total Bilirubin 2.3, T roponin 0.431, BNP 296, Procalcitonin 9.77. EKG done at 2113, aFib RVR, rate of 106, normal intervals, no acute ST or T wave changes, no STEMI, according to my interpretation. [facility] Report Signed Patient: LENORA VILLAFANA [facility]. Record#: [id number] Birthdate: 1950 Age/Sex: 74 / M Location: [facility] Attending Dr: Ordering Physician: Ilia Torres PA-C Date of Service: 10/23/24 Procedure(s): XR chest 1V Accession Number(s): [id number] cc: Magen Chang MD; Ilia Torres PA-C~ Examination: PA chest single view TECHNIQUE: Upright PA chest single view Date and time: 02/22/2025 at 2123 hours Comparison October 21, 2024 INDICATIONS: Shortness of breath beginning this morning FINDINGS: Mild enlargement in cardiac contour Moderate vascular congestion No current pneumonia Osseous structures intact IMPRESSION: Moderate vascular congestion No current pneumonia Dictated By: Magen Chang MD Signed By: <Electronically signed by Magen Chang MD in OV> 10/23/242138 [facility] Report Signed Patient: LENORA VILLAFANA [facility]. Record#: [id number] Birthdate: 1950 Age/Sex: 74 / M Location: [facility]X Attending Dr: Ordering Physician: Ilia Torres PA-C Date of Service: 10/23/24 Procedure(s): CT abdomen pelvis wo con Accession Number(s): [id number] cc: Magen Chang MD; Beth Lanier PA-C; Ilia Torres PA-C~ Examination: CT abdomen and pelvis without contrast. Coronal 3-D reconstructions. Sagittal 2-D reconstructions. Date and time of exam:October 23, 2024, 1031 hours Comparison October 22, 2024 CTDI: vol (mGy): 11.1 DLP: (mGycm): 746 Technique: Axial images of the abdomen have been obtained, 3 mm slice thickness Intravenous contrast material has not been administered. Low dose protocols were performed. One or more of the following dose reduction techniques were used; automated exposure control, adjustment of the mA and/or KV according to patient size, use of iterative reconstruction technique. Findings: Moderate enlargement cardiac contour Liver is irregular in contour Gallbladder wall is thickened with surrounding inflammation No pancreatic or adrenal mass No renal or ureteral calculi Mild ascites Normal appendix Small bowel mild fluid distention Transverse prostate dimension 5 cm Fat-containing inguinal hernias IMPRESSION: Acute cholecystitis, recommend repeat gallbladder sonography follow-up Cirrhosis. Mild ascites Normal appendix Dictated By: Magen Chang MD Signed By: <Electronically signed by Magen Chang MD in OV> 10/23/24 2315 Medications / Prescriptions Medications or Prescriptions considered but not ordered:: none Medication administrations:: Medication Administration History Lactated Ringer's (Lactated Ringers) 1,000 mls @ 999 mls/hr IV .Q1H1M ONE Stop: 10/24/24 01:13 Last Admin: 10/24/24 00:20 Dose: 999 mls/hr Documented By: CG Piperacillin Sod/Tazobactam (Sod 4.5 gm/ Sodium Chloride) 100 mls @ 200 mls/hr IV NOW ONE Stop: 10/24/24 00:45 Vancomycin/Sodium Chloride (Vancomycin/Ns 1 Gm Ivpb) 200 mls @ 120 mls/hr IV X1 ONE Stop: 10/24/24 02:09 Pharmacy Consult (Vancomycin Pharmacy To Dose 1 Each Each) 1 each IV QDAY CLAIRE Stop: 11/23/24 08:59 Discontinued Medications Aspirin (Aspirin 81 Mg Chew) 81 mg PO X1 ONE Stop: 10/23/24 23:08 Last Admin: 10/24/24 00:05 Dose: 81 mg Documented By: SKYLER Morphine Sulfate (Morphine Sulf Inj 10 Mg/Ml Vial) 4 mg IV NOW ONE Stop: 10/23/24 23:18 Last Admin: 10/24/24 00:05 Dose: 4 mg Documented By: SKYLER Comments: given over 2 minutes see above Consultations Consultation(s) initiated? (list below): Yes Consultation #1 (Physician, Specialty, Details): Discussed case with Dr. Titus from general surgery regarding consultation. Discussed patients ED course, exam findings, labs, and radiology results. Agrees to consult. Time: 00:15 Consultation #2 (Physician, Specialty, Details): Discussed case with the resident physician, attending Dr. Rapp from Hospitalist service regarding admission. Discussed patients ED course, exam findings, labs, and radiology results. The Hospitalist agrees to accept the patient for admission. Time: 00:21 Diagnosis Shortness of Breath Differential Diagnosis: other (cholelithiasis, cholecystitis, pancreatitis, sepsis) Most likely diagnosis given after review of the tests above:: cholecystitis, sepsis Admission Indicated Admission indicated?: indicated Admission Request Was there a request for admission?: Yes Admission Attestation Admission request attestation: Discussed case with [] from Hospitalist service regarding admission. Discussed patients ED course, exam findings, labs, and radiology results. The Hospitalist [agrees,declines] to accept the patient for admission. Disposition Plan Disposition Plan: Admit Critical Care Time Critical Care Time Critical Care Time: Yes Total Critical Care Time (min.): 45 Attestation: The high probability of sudden, clinically significant deterioration in the patient?s condition required the highest level of my preparedness to intervene urgently. The services I provided to this patient were to treat and/or prevent clinically significant deterioration. Services included the following: chart data review, reviewing nursing notes and/or old charts, documentation time, program consultant collaboration regarding findings and treatment options, medication orders and management, direct patient care, vital sign assessments and ordering, interpreting and reviewing diagnostic studies and lab tests. Aggregate critical care time includes only time during which I was engaged in work directly related to the patient?s care, as described above, whether at bedside or elsewhere in the Emergency Department. It did not include time spent performing other reported procedures or the services of residents, students, nurses or physician assistants. Discharge Plan Plan Patient Disposition: Admit Acute Care w/in Hospital Prescriptions/Referrals Prescriptions/Med Rec: No Action Eliquis 5 mg tablet 5 mg PO BID metoprolol tartrate 50 mg tablet 50 mg PO BID levothyroxine 75 mcg capsule 75 mcg PO QDAY atorvastatin 10 mg tablet 10 mg PO QDAY Patient Comments: TAKE 1 TABLET BY MOUTH ONCE DAILY sulfamethoxazole-trimethoprim [Bactrim DS] 800-160 mg tablet 1 tab PO BID Qty: 20 0RF metronidazole 500 mg tablet 500 mg PO BID 10 Days Qty: 20 0RF loperamide [Imodium A-D] 2 mg capsule 2 mg PO Q6H PRN (Reason: loose stool) Qty: 20 0RF ondansetron 4 mg tablet,disintegrating 4 mg PO Q6H 5 Days Qty: 20 0RF melatonin 10 mg Capsule 10 mg PO HS PRN (Reason: Sleep) Referrals: Beth Lanier PA-C [Primary Care Provider] - In 1 week Problem List Clinical Impression: Acute cholecystitis, Sepsis Patient/Caregiver Discharge Instructions Print Language: Kyrgyz Stand Alone Forms: Rita Award Info., Patient Portal Info Letter
[2024-10-23 23:00] VITALS: BP 115/76; PULSE 102; RESP 22; TEMP 38.3; O2SAT 94
--- NOTE | 2024-10-23 23:08 | XR_ITS ---
Examination: Abdomen sonogram, Limited Date and time of exam: October 24, 2024, 0021 hours INDICATIONS: Right upper abdominal pain beginning 3 days ago Technique: Real-time lutz scale transabdominal sonographic images of the upper abdomen obtained. Findings: Negative for gallstones Gallbladder wall 0.56 cm Common bile duct appears obscured by bowel gas Never 19.80 cm fatty infiltration Normal hepatopedal portal venous flow Patent IVC IMPRESSION: Suspicious for cholecystitis, consider HIDA scan or MRCP follow-up
[2024-10-23 23:21] LABS: Lactate (Lactic Acid) 0.9 mMol/L (0.4-2.0)
[2024-10-23 23:56] LABS: Procalcitonin 9.77 ng/ml (0.0-0.49)
[2024-10-23 23:57] LABS: Troponin I 0.431 ng/mL (0.0-0.045)
[2024-10-24] VITALS (19 sets, daily range): BP systolic 83–179; BP diastolic 54–106; PULSE 68–120; RESP 16–99; TEMP 36.2–40.2; O2SAT 97–100
[2024-10-24] MEDS: MORPHINE SULF INJ 10 MG/ML VIAL 4 MG IV (00:05)
[2024-10-24] MEDS: ASPIRIN 81 MG CHEW PO (00:05)
[2024-10-24] MEDS: RINGERS LACTATED 1000 ML 1,000 ML 999 ML IV ×3 (00:20→08:58)
[2024-10-24] MEDS: PIPER/TAZO INJ 4.5 GM in SODIUM CHLORIDE 0.9% (POP) 100 ML IV (00:49)
[2024-10-24 01:23] LABS: Base Excess -6 (-3-3); HCO3 18 mEq/L (20-26); Inspired O2, VO2 Liters 4 L/min; Inspired Oxygen, FIO2 21 %; O2 Saturation 99 % (91-98); PCO2 30 mmHg (32.0-48.0); PO2 108 mmHg (83-108); pH, Arterial 7.39 (7.35-7.45)
[2024-10-24 01:24] LABS: Allen Test Performed/OK; Puncture Site Right Radial
[2024-10-24] MEDS: VANCOMYCIN/NS 1 GM IVPB 200 ML IV (01:32)
--- NOTE | 2024-10-24 01:43 | PD.RESHP ---
Documentation for date of: 10/24/24 [facility] History of Present Illness History of present illness: 74-year-old male with past medical history of hypertension, atrial fibrillation, hypothyroidism who presented to the ED due to right upper quadrant pain. Patient came in yesterday to the ER with same pain workup came back negative and was discharged. However today daughter noticed abdomen was getting more distended and patient started becoming short of breath in addition to the right upper quadrant pain now has fevers. Was brought back to the ED had CT scan done which showed acute cholecystitis. Gallbladder ultrasound was done and showed acalculous cholecystitis. ED spoke to general surgeon who recommended admission for IV antibiotics and possible surgical intervention in the a.m. He endorses shortness of breath, but denies chest pain, palpitations, nausea, vomiting,, recent travel, sick contacts. ED course: ED vitals: BP 121/75, HR 99, temp 100.4 ?F, saturating 95% on room air ED labs: Leukocytosis, normocytic anemia, sodium 127, lactic acid 1.7, T. bili 2.3, corrected calcium 7.8, BNP 296, procalcitonin 9.77, UA negative for UTI, CT CT scan abdomen pelvis shows acute cholecystitis, cirrhosis, mild ascites, abdominal ultrasound shows acute acalculous cholecystitis PMHx: As above SX Hx: Cardioversion Social Hx: Denies cigarette use, denies alcohol use, denies illicit substances including THC Hx: Unknown Review of Systems Review of Systems Systems Reviewed: All systems reviewed, normal except as documented Narrative Review of Systems: All 12 systems reviewed and found negative unless otherwise stated in the HPI. Exam Vital Signs Temp Pulse Resp BP Pulse Ox O2 Del Method 101.0 F H 102 H 22 H 115/76 94 L Room Air 10/23/24 23:00 10/23/24 23:00 10/23/24 23:00 10/23/24 23:00 10/23/24 23:00 10/23/24 23:00 Narrative Exam Physical Exam GENERAL: NAD, AAOx3 HEENT: Moist mucosa. Eyes open, symmetrical, & clear CARDIO: Heart RRR, no obvious murmurs PULM: dyspnea CTA B/L, no R/W/R GI: Abdomen soft, distended, pain on palpation on all 4 quadrants more pronounced on the right upper. BSx4 SKIN/MSK/EXT: Cool clammy extremities, decreased capillary refill, no pain on palpation. Pedal pulses present B/L Results: Labs 10/23/24 21:29 10/23/24 21:29 Labs: Short CBC 10/23/24 Range/Units 21:29 WBC 16.2 H D (3.8-10.6) Thou/mm3 Hgb 11.0 L (13.5-16.0) g/dL Hct 31.1 L (41.0-53.0) % Plt Count 109 L D (140-440) Thou/mm3 BMP 10/23/24 21:29 Sodium 127 L Potassium 3.4 Chloride 100 Carbon Dioxide 21.6 BUN 12 Creatinine 1.3 Glucose 90 Calcium 7.4 L Cardiac Enzymes 10/23/24 10/23/24 Range/Units 21:29 23:18 Troponin I 0.488 H* D 0.431 H* (0.0-0.045) ng/mL Liver Function 10/23/24 Range/Units 21:29 Total Bilirubin 2.3 H D (0.3-1.2) mg/dL AST 30 (0-34) U/L ALT 19 (10-49) U/L Alkaline Phosphatase 82 (46-116) U/L Albumin 3.5 (3.4-4.8) gm/dL Urine 10/23/24 Range/Units 22:30 Urine Color Lt-Yellow (Lt Yel-Yel) Urine Clarity Clear (Clear/Hazy) Urine pH 6.5 (5.0-7.0) Ur Specific [place] 1.011 (1.001-1.035) Urine Protein 1+ A (Neg - Trace) Urine Glucose (UA) Negative (Negative) ABG Interpretation ABG results: 10/24/24 01:20 ABG pH 7.39 ABG pCO2 30 L ABG pO2 108 ABG HCO3 18 L ABG O2 Saturation 99 H ABG Base Excess -6 L Quality Measures Quality Measures sepsis Current suspected stage: sepsis Possible source: GI tract/intra-abdominal Blood cultures ordered: yes Antibiotic ordered: Yes Advance care planning discussed with:: patient Medications Home Medications and Allergies Home Medications ?Medication ?Instructions ?Recorded ?Confirmed ?Type apixaban 5 mg tablet (Eliquis) 5 mg PO BID 08/31/19 07/04/24 History Held on 04/23/23. Instructions: Resume on 04/25/23. levothyroxine 75 mcg capsule 75 mcg PO QDAY 08/31/19 07/04/24 History metoprolol tartrate 50 mg tablet 50 mg PO BID 08/31/19 07/04/24 History atorvastatin 10 mg tablet 10 mg PO QDAY 06/20/21 07/04/24 History melatonin 10 mg capsule 10 mg PO HS PRN Sleep 04/22/23 07/04/24 History Allergies Allergy/AdvReac Type Severity Reaction Status Date / Time No Known Allergies Allergy Verified 10/23/24 21:14 Visit Medications Acetaminophen (Acetaminophen 325 Mg Tablet) 650 mg PO Q6H PRN PRN Reason: Fever >100.4 Stop: 11/23/24 01:35 Acetaminophen (Acetaminophen 325 Mg Tablet) 650 mg PO Q6H PRN PRN Reason: PAIN SCALE 1-3 (mild Stop: 11/23/24 01:35 Vancomycin/Sodium Chloride (Vancomycin/Ns 1 Gm Ivpb) 200 mls @ 120 mls/hr IV X1 ONE Stop: 10/24/24 02:09 Last Admin: 10/24/24 01:32 Dose: 120 mls/hr Piperacillin/Tazobactam/Dextrose (Zosyn) 50 mls @ 100 mls/hr IV Q8HR CLAIRE Stop: 10/31/24 01:39 Lactated Ringer's (Lactated Ringers) 1,000 mls @ 999 mls/hr IV .Q1H1M ONE Stop: 10/24/24 02:41 Lactated Ringer's (Lactated Ringers) 1,000 mls @ 125 mls/hr IV .Q8H CLAIRE Stop: 10/24/24 09:40 Ondansetron HCl (Ondansetron Inj 2 Mg/Ml Inj 2 Ml) 4 mg IVP Q6H PRN; Protocol PRN Reason: NAUSEA OR VOMITING Stop: 11/23/24 01:35 Pantoprazole Sodium (Pantoprazole Inj 40 Mg Vial) 40 mg IVP QDAY CLAIRE Stop: 11/23/24 08:59 Pharmacy Consult (Vancomycin Pharmacy To Dose 1 Each Each) 1 each IV QDAY CLAIRE Stop: 11/23/24 08:59 Sennosides (Senna Tablet) 1 tab PO QDAY CLAIRE; Protocol Stop: 11/23/24 08:59 Discontinued Medications Aspirin (Aspirin 81 Mg Chew) 81 mg PO X1 ONE Stop: 10/23/24 23:08 Last Admin: 10/24/24 00:05 Dose: 81 mg Lactated Ringer's (Lactated Ringers) 1,000 mls @ 999 mls/hr IV .Q1H1M ONE Stop: 10/24/24 01:13 Last Admin: 10/24/24 00:20 Dose: 999 mls/hr Piperacillin Sod/Tazobactam (Sod 4.5 gm/ Sodium Chloride) 100 mls @ 200 mls/hr IV NOW ONE Stop: 10/24/24 00:45 Last Admin: 10/24/24 00:49 Dose: 200 mls/hr Morphine Sulfate (Morphine Sulf Inj 10 Mg/Ml Vial) 4 mg IV NOW ONE Stop: 10/23/24 23:18 Last Admin: 10/24/24 00:05 Dose: 4 mg Assessment & Plan Plan 74-year-old male with past medical history as stated above who presented to the ED due to abdominal pain. Patient will be admitted for management of acute cholecystitis. #Acute acalculous cholecystitis Patient presented with leukocytosis, tachycardia, right upper quadrant pain, fevers Evidenced on CT scan, acute cholecystitis Gallbladder ultrasound shows acute acalculous cholecystitis, common bile duct not visualized ? Zosyn ? N.p.o. ? Follow-up cultures ? Surgery consulted appreciate recs ? Pain control #Elevated troponins ? Trend troponin until downtrending, already downtrending no need to continue to trend. #History of A-fib Currently sinus rhythm Patient takes Eliquis ? Hold Eliquis in the setting of possible surgical intervention #Chronically elevated T. bili per chart review, US was done CBD not able to be visualized per report. ? Monitor at this time #Hypertension #Hypothyroidism Health Maintenance: Disposition: Telemetry Fluids: LR Feeding: N.p.o. Thrombo prophylaxis: SCDs Gastric Ulcer prophylaxis: Pantoprazole CODE STATUS: Full code Case discussed with my attending Dr. Ami Stuart MD PGY-2 Disclaimer: Despite multiple revisions, due to the dictation software being used, the document bellow may not be free of grammatical errors including phonetic/typographic errors. However, this does not deter from our commitment to providing health care in the patient's best interest in mind. Attending Provider Attestation/Addendum 74-year-old obese male patient with atrial fibrillation, hypertension, hyperlipidemia, hypothyroidism being admitted for abdominal pain patient has cholecystitis. Surgical evaluation requested. I discussed with and supervised the resident physician who took care of this patient. I agree with the assessment and plan as above.
--- NOTE | 2024-10-24 01:46 | PC.NURSE ---
Ayush Hilton, notified of low b/p
[2024-10-24 01:49] LABS: Lactate (Lactic Acid) 1.7 mMol/L (0.4-2.0)
--- NOTE | 2024-10-24 02:00 | PRELIM_ITS ---
Ultrasound Abdomen. October 24, 2024 0021 hours Clinical history: cholecystitis Technique: Grayscale and color flow images of the abdomen are provided. Hepatic and portal veins were also imaged with color flow images. Comparison: CT of the abdomen and pelvis 10/22/2024 Findings: The liver is enlarged measuring 19 cm in length and increased in echogenicity. No intrahepatic biliary ductal dilatation. No gallbladder calculus. There is gallbladder wall thickening measuring up to 0.6 cm. No pericholecystic fluid is demonstrated. The common bile duct is not visualized. Sonographic Dumont's sign is negative. No free fluid is demonstrated on the submitted images. The pancreas is not visualized. The right kidney is not demonstrated. The portal vein and inferior vena cava the extent visualized are within normal limits. Impression: Findings are suggestive of acute acalculous cholecystitis. Recommend clinical correlation and follow-up. Hepatomegaly. Liver steatosis. Report Electronically Signed By: Gabriele Soria 10/24/2024 1:59:45 AM [EST]
[2024-10-24] MEDS: ACETAMINOPHEN IVPB 1,000 MG/100 ML VIAL 250 MG IV ×3 (02:12→13:12)
[2024-10-24 02:15] LABS: Troponin I 0.382 ng/mL (0.0-0.045)
--- NOTE | 2024-10-24 03:31 | PC.NURSE ---
Ayush Hilton, notified of change in condition, pt has SBP below 90
[2024-10-24] MEDS: RINGERS LACTATED 1000 ML 1,000 ML 125 ML IV (04:11)
[2024-10-24 06:20] LABS: Lactate (Lactic Acid) 1.0 mMol/L (0.4-2.0)
[2024-10-24 06:46] LABS: Alanine Aminotransferase 19 U/L (10-49); Albumin, Serum 3.1 gm/dL (3.4-4.8); Albumin/Globulin Ratio 1.5 (1.2-2.2); Alkaline Phosphatase 103 U/L (46-116); Anion Gap 6 (7-16); Aspartate Amino Transferase 34 U/L (0-34); BUN/Creatinine Ratio 8 Ratio (12-20); Bilirubin,Total 2.2 mg/dL (0.3-1.2); Blood Urea Nitrogen 13 mg/dL (9-23); Calcium 7.4 mg/dL (8.3-10.6); Calcium (Corrected) 8.1 mg/dL (8.5-10.1); Carbon Dioxide 24.1 mMol/L (20.0-31.0); Chloride 101 mMol/L (98-107); Creatinine (Component) 1.6 mg/dL (0.6-1.3); Estimated Creatinine Clearance 42.6 mL/min (>60); Globulin 2.1 gm/dL (2.3-3.5); Glucose 71 mg/dL (74-106); Magnesium 1.8 mg/dL (1.6-2.6); Osmolality,Calculated 260 (275-295); Potassium 3.4 mMol/L (3.4-5.1); Sodium 131 mMol/L (136-145); Total Protein 5.2 gm/dL (5.7-8.2); eGFR 45 See Note
[2024-10-24 06:55] LABS: Basophils # (Auto) 0.0 Thou/mm3 (0.0-0.2); Basophils % (Auto) 0 % (0-2.5); Eosinophils # (Auto) 0.0 Thou/mm3 (0.0-0.5); Eosinophils % (Auto) 0 % (0-10); Hematocrit 30.7 % (41.0-53.0); Hemoglobin 10.5 g/dL (13.5-16.0); Immature Granulocytes Auto 0.81 Thou/mm3 (0.00-0.00); Lymphocytes # (Auto) 0.3 Thou/mm3 (1.0-4.8); Lymphocytes % (Auto) 2 % (10-50); Mean Corpuscular HGB Conc 34.2 g/dl (31.0-37.0); Mean Corpuscular Hemoglobin 28.5 pg (25.0-35.0); Mean Corpuscular Volume 83 fL (80-100); Monocytes # (Auto) 0.5 Thou/mm3 (0.0-0.8); Monocytes % (Auto) 4 % (0-12); Neutrophils # (Auto) 12.5 Thou/mm3 (1.8-7.7); Neutrophils % (Auto) 88 % (37-80); Nucleated Red Blood Cell # 0.00 Thou/mm3 (0.00-0.00); Nucleated Red Blood Cell % 0 /100 WBC (0); Platelet Count 107 Thou/mm3 (140-440); RDW Standard Deviation 42.4 fL (35.1-43.9); Red Blood Count 3.69 Miln/mm3 (4.50-5.90); White Blood Count 14.2 Thou/mm3 (3.8-10.6)
--- NOTE | 2024-10-24 08:38 | PD.SURCONS ---
HPI Consult details History of present illness: 74M with HTN, hypothyroidism, and afib on eliquis (last taken 10/23 afternoon) presenting with abdominal pain, fever and diarrhea. Pt reports symptoms began three days ago with abdominal pain most pronounced in the epigastric region, associated with nausea, fever and diarrhea. He sought care first in [place] and then presented to [facility] ER, initially workup for cholecystitis was equivocal and pt was discharged home with treatment for gastroenteritis and UTI. At home pt noted worsening pain and shortness of breath prompting him to return, this time with fever up to 104, WBC 16 and previously drawn blood cultures growing GNR, with US and CT indicating acalculous cholecystitis as well as signs of cirrhosis with mild ascites Pt denies any history of epigastric/RUQ pain, states his pain has remained stable and he still does not have any appetite PMH: HTN, hypothyroidism, afib; no known liver pathologies PSHx: Hernia repair Meds: includes eliquis, pt confirms he last took it on 10/23 in the afternoon Allergies: NKDA Social hx: at baseline is active and cares for himself, does not drink alcohol or smoke cigarettes Review of Systems Review of Systems ROS Unobtainable: All systems reviewed & no additional complaints except as documented Meds Home Medications and Allergies Home Medications ?Medication ?Instructions ?Recorded ?Confirmed ?Type apixaban 5 mg tablet (Eliquis) 5 mg PO BID 08/31/19 07/04/24 History Held on 04/23/23. Instructions: Resume on 04/25/23. levothyroxine 75 mcg capsule 75 mcg PO QDAY 08/31/19 07/04/24 History metoprolol tartrate 50 mg tablet 50 mg PO BID 08/31/19 07/04/24 History atorvastatin 10 mg tablet 10 mg PO QDAY 06/20/21 07/04/24 History melatonin 10 mg capsule 10 mg PO HS PRN Sleep 04/22/23 07/04/24 History Allergies Allergy/AdvReac Type Severity Reaction Status Date / Time No Known Allergies Allergy Verified 10/23/24 21:14 Exam Vital Signs Temp Pulse Resp BP Pulse Ox O2 Del Method O2 Flow Rate 98.2 F 104 H 17 91/59 L 100 Nasal Cannula 4 10/24/24 07:05 10/24/24 07:05 10/24/24 07:05 10/24/24 07:05 10/24/24 07:05 10/24/24 07:05 10/24/24 07:05 Constitutional Constitutional: no acute distress Routine Respiratory Exam Respiratory: Present no resp distress Routine Abdominal Exam Abdominal: Present soft and tenderness (moderate RUQ tenderness, negative Dumont's sign); Absent distended, rebound or guarding Results Results: Laboratory Laboratory results: results reviewed Results: Imaging CT scan - abdomen: report reviewed and image reviewed US - abdomen: report reviewed Assessment & Plan Plan 74M with HTN, hypothyroidism, and afib on eliquis (last taken 10/23 afternoon) presenting with abdominal pain, fever and diarrhea, with findings of acalculous cholecystitis in the setting of cirrhosis with mild ascites. Per ACS NSQIP risk calculator pt has a >20% risk of serious complication from cholecystectomy, whereas percutaneous cholecystostomy can be curative for acalculous cholecystitis meaning pt will likely not go on to need surgery. I explained this to pt and his daughter and they are agreeable with this plan Percutaneous cholecystostomy (taking into account recent eliquis use) Continue IV abx NPO for now Will follow
[2024-10-24 08:41] LABS: Base Excess -2 (-3-3); HCO3 21 mEq/L (20-26); Inspired O2, VO2 Liters 4 L/min; Inspired Oxygen, FIO2 21 %; O2 Saturation 100 % (91-98); PCO2 31 mmHg (32.0-48.0); PO2 154 mmHg (83-108); pH, Arterial 7.44 (7.35-7.45)
[2024-10-24 08:43] LABS: Allen Test Not Performed; Puncture Site Site Not Noted
[2024-10-24] MEDS: PIPER/TAZO 3.375 GM PREMIX 3.375 GM/50 ML BAG IV ×3 (08:57→21:29)
--- NOTE | 2024-10-24 10:40 | XR_ITS ---
Examination: Abdomen AP single view Technique: AP portable supine abdomen, single view Exam date and time: October 24, 2024 1059 hours INDICATIONS: Abdominal pain and constipation today. FINDINGS: Multiple air distended small bowel loops Mild air and stool throughout the colon No free air IMPRESSION: Multiple air distended small bowel loops, consider small bowel ileus, early small bowel obstruction not excluded, clinical correlation advised
[2024-10-24 12:21] LABS: INR 1.3 (0.9-1.3); Partial Thromboplastin Time 50.5 Seconds (22.0-36.0); Prothrombin Time 14.0 Seconds (9.0-12.2)
--- NOTE | 2024-10-24 12:31 | PC.NURSE ---
consulted Dr. Chang regarding order for percutaneous cholecystostomy. Patient took eliquis yesterday 10/23/24 and aspirin 10/30/24 at 0005, went over PT, PTT, INR and Platelet levels with MD, procedure will be postponed at this time for possibly tomorrow. ER staff made aware.
--- NOTE | 2024-10-24 13:56 | ESPR_ITS ---
<Statement entered by Fabio Martino MD - 10/26/24 13:55> I have discussed and was present for the essential components of the history, physical examination, diagnosis, and treatment plan with the resident. I agree with the patient's care as documented by the resident and amended herein by me. Fabio Martino MD FACP. Documentation for date of: 10/24/24 Subjective Subjective Interval history: Pt reports feeling 8/10 abdominal pain in Right Abdomen Pt reports having taken his home meds 10/23 in the AM (apixaban) Overnight pt recieved 1L LR for HoTN, per ICU reccomendations Gen Surg consulted, no surgery at this time, reccomend percutaneous drainage with IR pt NPO Exam Vital Signs Temp Pulse Resp BP Pulse Ox O2 Del Method O2 Flow Rate 97.9 F 83 16 98/69 97 Nasal Cannula 3 10/24/24 11:57 10/24/24 11:54 10/24/24 11:54 10/24/24 11:54 10/24/24 11:54 10/24/24 11:54 10/24/24 11:54 Vitals over the past 24hours were reviewed: Tmax 102.3 HR: 83-112 BP:90s/50s RR: 22-31 on 4L NC overnight, now sating well on RA. Narrative Exam GENERAL: mild discomfort/distress, AAO x3, laying flat in bed HEENT: Head AT/ NC. CARDIOVASCULAR: RRR. Normal S1/S2, No pitting edema of bilateral LEs. RESPIRATORY: CTAB. No wheezing, rhonchi, crackles. GASTROINTESTINAL: Abdomen soft, tender to palpation in RUQ and mildly ttp RLQ, distended, no palpable masses. Bowel sounds present MUSCULOSKELETAL:? No cyanosis or edema, no visible joint swelling. NEUROLOGICAL: CN II-XII grossly intact. No focal deficits. PSYCHIATRIC: Awake and alert, not agitated, normal mood and affect. SKIN: No obvious rashes, no jaundice Objective Labs 10/24/24 06:03 10/24/24 06:03 Labs: Laboratory Results - last 24 hr 10/23/24 10/23/24 10/23/24 21:29 22:30 23:18 WBC 16.2 H D RBC 3.89 L Hgb 11.0 L Hct 31.1 L MCV 80 MCH 28.3 MCHC 35.4 RDW Std Deviation 40.2 Plt Count 109 L D Neut % (Auto) 91 H Lymph % (Auto) 4 L Holmes % (Auto) 4 Eos % (Auto) 0 Baso % (Auto) 0 Neut # (Auto) 14.7 H Lymph # (Auto) 0.7 L Holmes # (Auto) 0.7 Eos # (Auto) 0.0 Baso # (Auto) 0.0 Immature Gran # (Auto) 0.07 H Absolute Nucleated RBC 0.00 Immature Gran % 0 Nucleated RBC % 0 PT INR APTT Puncture Site ABG pH ABG pCO2 ABG pO2 ABG HCO3 ABG O2 Saturation ABG Base Excess Oxygen Liter Flow FiO2 Sodium 127 L Potassium 3.4 Chloride 100 Carbon Dioxide 21.6 Anion Gap 5 L BUN 12 Creatinine 1.3 Estim Creat Clear Calc Not Performed. eGFR 58 L BUN/Creatinine Ratio 9 L Glucose 90 Calculated Osmolality 254 L Lactic Acid 0.9 Calcium 7.4 L Corrected Calcium 7.8 L Magnesium Total Bilirubin 2.3 H D AST 30 ALT 19 Alkaline Phosphatase 82 Troponin I 0.488 H* D 0.431 H* B-Natriuretic Peptide 296 H Total Protein 5.8 Albumin 3.5 Globulin 2.3 Albumin/Globulin Ratio 1.5 Lipase 27 Procalcitonin 9.77 H Ur Collection Type Clean Catch Urine Color Lt-Yellow Urine Clarity Clear Urine pH 6.5 Ur Specific [place] 1.011 Urine Protein 1+ A Urine Glucose (UA) Negative Urine Ketones Negative Urine Blood 3+ A Urine Nitrite Negative Urine Bilirubin Negative Urine Urobilinogen (Auto) Negative Ur Leukocyte Esterase Negative Urine RBC 9 H Urine WBC 3 Ur Squamous Epith Cells 0 Amorphous Crystals Present A Urine Bacteria None 10/24/24 10/24/24 10/24/24 01:20 01:38 06:03 WBC 14.2 H RBC 3.69 L Hgb 10.5 L Hct 30.7 L MCV 83 MCH 28.5 MCHC 34.2 RDW Std Deviation 42.4 Plt Count 107 L Neut % (Auto) 88 H Lymph % (Auto) 2 L Holmes % (Auto) 4 Eos % (Auto) 0 Baso % (Auto) 0 Neut # (Auto) 12.5 H Lymph # (Auto) 0.3 L Holmes # (Auto) 0.5 Eos # (Auto) 0.0 Baso # (Auto) 0.0 Immature Gran # (Auto) 0.81 H Absolute Nucleated RBC 0.00 Immature Gran % 6 H Nucleated RBC % 0 PT 14.0 H INR 1.3 APTT 50.5 H Puncture Site Right Radial ABG pH 7.39 ABG pCO2 30 L ABG pO2 108 ABG HCO3 18 L ABG O2 Saturation 99 H ABG Base Excess -6 L Oxygen Liter Flow 4 FiO2 21 Sodium 131 L Potassium 3.4 Chloride 101 Carbon Dioxide 24.1 Anion Gap 6 L BUN 13 Creatinine 1.6 H Estim Creat Clear Calc 42.6 L eGFR 45 L BUN/Creatinine Ratio 8 L Glucose 71 L Calculated Osmolality 260 L Lactic Acid 1.7 1.0 Calcium 7.4 L Corrected Calcium 8.1 L Magnesium 1.8 Total Bilirubin 2.2 H AST 34 ALT 19 Alkaline Phosphatase 103 D Troponin I 0.382 H* B-Natriuretic Peptide Total Protein 5.2 L Albumin 3.1 L Globulin 2.1 L Albumin/Globulin Ratio 1.5 Lipase Procalcitonin Ur Collection Type Urine Color Urine Clarity Urine pH Ur Specific [place] Urine Protein Urine Glucose (UA) Urine Ketones Urine Blood Urine Nitrite Urine Bilirubin Urine Urobilinogen (Auto) Ur Leukocyte Esterase Urine RBC Urine WBC Ur Squamous Epith Cells Amorphous Crystals Urine Bacteria 10/24/24 08:32 WBC RBC Hgb Hct MCV MCH MCHC RDW Std Deviation Plt Count Neut % (Auto) Lymph % (Auto) Holmes % (Auto) Eos % (Auto) Baso % (Auto) Neut # (Auto) Lymph # (Auto) Holmes # (Auto) Eos # (Auto) Baso # (Auto) Immature Gran # (Auto) Absolute Nucleated RBC Immature Gran % Nucleated RBC % PT INR APTT Puncture Site Site Not Noted ABG pH 7.44 ABG pCO2 31 L ABG pO2 154 H D ABG HCO3 21 ABG O2 Saturation 100 H ABG Base Excess -2 Oxygen Liter Flow 4 FiO2 21 Sodium Potassium Chloride Carbon Dioxide Anion Gap BUN Creatinine Estim Creat Clear Calc eGFR BUN/Creatinine Ratio Glucose Calculated Osmolality Lactic Acid Calcium Corrected Calcium Magnesium Total Bilirubin AST ALT Alkaline Phosphatase Troponin I B-Natriuretic Peptide Total Protein Albumin Globulin Albumin/Globulin Ratio Lipase Procalcitonin Ur Collection Type Urine Color Urine Clarity Urine pH Ur Specific [place] Urine Protein Urine Glucose (UA) Urine Ketones Urine Blood Urine Nitrite Urine Bilirubin Urine Urobilinogen (Auto) Ur Leukocyte Esterase Urine RBC Urine WBC Ur Squamous Epith Cells Amorphous Crystals Urine Bacteria Imaging and cardiology CT scan - abdomen: Additional comments: Acute cholecystitis, recommend repeat gallbladder sonography follow-up Cirrhosis. Mild ascites Normal appendix US - abdomen: Additional comments: Suspicious for cholecystitis, consider HIDA scan or MRCP follow-up Abdominal x-ray: Additional comments: Multiple air distended small bowel loops, consider small bowel ileus, early small bowel obstruction not excluded, clinical correlation advised Chest x-ray: Additional comments: Moderate vascular congestion No current pneumonia ABG Interpretation ABG results: 10/24/24 10/24/24 01:20 08:32 ABG pH 7.39 7.44 ABG pCO2 30 L 31 L ABG pO2 108 154 H D ABG HCO3 18 L 21 ABG O2 Saturation 99 H 100 H ABG Base Excess -6 L -2 Quality Measures Quality Measures sepsis Current suspected stage: sepsis Possible source: GI tract/intra-abdominal Blood cultures ordered: yes Antibiotic ordered: Yes Advance care planning discussed with:: patient and child Assessment & Plan Assessment Current Active Medications: Generic Name Dose Route Start Last Admin Trade Name Freq PRN Reason Stop Dose Admin Acetaminophen 650 mg 10/24/24 01:36 Acetaminophen 325 Mg Tablet PO 11/23/24 01:35 Q6H PRN Fever >100.4 Acetaminophen 650 mg 10/24/24 01:36 Acetaminophen 325 Mg Tablet PO 11/23/24 01:35 Q6H PRN PAIN SCALE 1-3 (mild Hydromorphone HCl 1 mg 10/24/24 10:37 Hydromorphone Inj 2 Mg/Ml Vial IVP 10/29/24 10:36 Q4HR PRN PAIN SCALE 4-10(Mod-Sev Piperacillin/Tazobactam/Dextrose 3.375 gm in 50 mls @ 12.5 mls/hr 10/24/24 07:30 10/24/24 12:57 Zosyn IV 10/31/24 07:29 Infused Q8HR CLAIRE Infusion Acetaminophen 1,000 mg in 100 mls @ 250 mls/hr 10/24/24 01:50 10/24/24 13:12 Ofirmev Inj IV 10/24/24 18:23 250 mls/hr Q6HR CLAIRE Administration Ondansetron HCl 4 mg 10/24/24 01:36 Ondansetron Inj 2 Mg/Ml Inj 2 Ml IVP 11/23/24 01:35 Q6H PRN NAUSEA OR VOMITING Protocol Pantoprazole Sodium 40 mg 10/24/24 09:00 10/24/24 08:56 Pantoprazole Inj 40 Mg Vial IVP 11/23/24 08:59 40 mg QDAY CLAIRE Administration Sennosides 1 tab 10/24/24 09:00 10/24/24 09:00 Senna Tablet PO 11/23/24 08:59 1 tab QDAY CLAIRE Administration Protocol Plan 74-year-old male with pmh of HTN, Afib on apixaban , and cirrhosis, presented to the ED due to abdominal pain. Patient will be admitted for management of acute cholecystitis. #Acute acalculous cholecystitis Patient presented with leukocytosis (WBC 16), tachycardia, RUQ pain, fevers Evidenced on CT scan, acute cholecystitis Gallbladder ultrasound shows acute acalculous cholecystitis, common bile duct not visualized Dx - COMPLETED 10/23: Abdominal US- Acalculus, c/f cholecystitis - COMPLETED 10/23: CT AP- consistent with cholecystitis - COMPLETED 10/24: KUB- concern for possible small bowel ileus vs early SBO Tx - d/c Vancomycin 10/23 1x ? Pip/Tazo IV Q8H ? NPO pending percutaneous drain with IR on 10/25 - ondansetrol 4mg IV PRN for n/v ? Follow-up BCx: (BCx from 10/23 with Gram Neg Rods) ? Surgery consulted appreciate recs Pain - IV Dilaudid 1mg q4h PRN for pain 4-10 (moderate-severe) #Sepsis #Bacteremia pt presents with concern for sepsis, meeting SIRS 3 criteria, recieve 1L LR bolus for episodes of hoTN overnight. most likely possible sources of infxn are, acute cholecystitis. Bacteremia likely 2/2 acute cholecystitis SCORES - SIRS3 Criteria; Febrile, Tachycardic, Elevated WBC, Tachypnic Dx - follow up Bcx (initially growing GNR) - UCx- negative - Chest XR- no concern for PNA Tx - APAP 650 q6h prn - ICU consulted, appreciate recs #Elevated troponins- RESOLVING troponins initially elevated, on repeat level is downtrending no need to continue trending. - NTD. #History of A-fib Currently sinus rhythm Patient takes apixaban ? HOLD apixaban pending percutaneous drain on 7/2 with IR #Chronically elevated T. bili-STABLE #Cirrhosis ABD US was done CBD not able to be visualized per report. ? CTM #Hypertension-CHRONIC BP soft while inpatient requiring fluid bolus with LR. - HOLD metoprolol 50 BID #Hypothyroidism Health Maintenance: Disposition: Telemetry Fluids: LR PRN Feeding: NPO VTE ppx: SCDs (PAUDA score 6: Mecahnical ppx indicated) Gastric Ulcer ppx: Pantoprazole 40mg qd Bowel Reg: senna 1tab qd CODE STATUS: Full code Case discussed with my attending Dr. Salena Ho MD PGY-1 Patient seen and examined at bedside, no acute overnight events. I discussed and supervised with the general internal medicine physician physician who took care of this patient. I personally saw and examined the patient. I agree with most of the assessment and plan. Plan for percutaneous preston drain placement by IR. Repeat blood cultures positive, ordered another repeat set. Continue antibiotics. Plan of care discussed with attending Dr. Martino. Woodrow Moore MD PGY-2
--- NOTE | 2024-10-24 14:07 | PC.NURSE ---
PT TAKEN TO FLOOR BY THIS RN CONNECTED TO TELE W/O INCIDENT. RN AT BEDSIDE TO ASSUME CARE OF PT.
[2024-10-24] MEDS: DEXTROSE 5%-LACTATED RINGERS 1,000 ML 100 ML IV (16:09)
--- NOTE | 2024-10-24 16:45 | PC.SS ---
Initial assessment: patient is a 74-year old male admitted for cholecystitis. Patient information obtained by his son, Yan Moran at bed side. Patient resides at home with spouse Malaika Mendez. Patient is [place]ish speaking. Patient demographic information was confirmed. Patient is described to be independent with ADL's and son denies any DME use in the home by the patient. Patient's PCP is Beth Lanier. Pharmacy of choice is [facility] in [place]. Patient's alternate medical decision maker is , Malaika. The current discharge plan is to return home. If home health is recommended the family is agreeable, no preferred agency at this time. Community resources handout provided to family at bed side. No further questions or identified needs at this time. D/c plan: home Next of kin: Malaika
--- NOTE | 2024-10-24 18:12 | PC.NURSE ---
Bladder scan obtained on patient. Patient had 934ml of urine. Patient was able to void 600ml into urinal. 300 left in bladder with a second scan post void, Dr. Ho aware. --JA
--- NOTE | 2024-10-24 18:38 | PC.NURSE ---
In and out done x1 removed 300 ml of urine. Patient tolerated well.
--- NOTE | 2024-10-24 20:05 | PC.NURSE ---
Pt having SOB, O2 sats on 86%, O2 at 2LPM placed and O2 sats went up to 92%, pt is wheezing and anxious, MD Caba made aware, MD Caba came and ordered breathing treatment.
--- NOTE | 2024-10-24 20:30 | PC.NURSE ---
RT Santi came and said he called MD You and let him know that breathing treatment will not gonna help pts SOB, pt looks fluid overload, I did called and follow up with MD Gonsales and let her know about the case, MD Gonsales discontinue IV fluids and ordered Lasix IV 40mg x1, Family at bedside made aware.
[2024-10-24] MEDS: LEVALBUTEROL RT 0.63 MG/3 ML NEBU INH (20:45)
[2024-10-24] MEDS: FUROSEMIDE INJ 10 MG/ML 4ML VIAL 40 MG IVP (21:09)
[2024-10-24] MEDS: ACETAMINOPHEN 325 MG TABLET 650 MG PO (21:29)
[2024-10-25] VITALS (19 sets, daily range): BP systolic 91–171; BP diastolic 60–107; PULSE 89–125; RESP 16–99; TEMP 36.3–38.8; O2SAT 92–99
--- NOTE | 2024-10-25 02:04 | PC.NURSE ---
[facility]
[2024-10-25] MEDS: PIPER/TAZO 3.375 GM PREMIX 3.375 GM/50 ML BAG IV ×3 (05:09→21:57)
[2024-10-25 05:53] LABS: Basophils # (Auto) 0.1 Thou/mm3 (0.0-0.2); Basophils % (Auto) 0 % (0-2.5); Eosinophils # (Auto) 0.0 Thou/mm3 (0.0-0.5); Eosinophils % (Auto) 0 % (0-10); Hematocrit 31.8 % (41.0-53.0); Hemoglobin 11.0 g/dL (13.5-16.0); Immature Granulocytes Auto 1.21 Thou/mm3 (0.00-0.00); Lymphocytes # (Auto) 0.4 Thou/mm3 (1.0-4.8); Lymphocytes % (Auto) 3 % (10-50); Mean Corpuscular HGB Conc 34.6 g/dl (31.0-37.0); Mean Corpuscular Hemoglobin 28.8 pg (25.0-35.0); Mean Corpuscular Volume 83 fL (80-100); Monocytes # (Auto) 0.7 Thou/mm3 (0.0-0.8); Monocytes % (Auto) 4 % (0-12); Neutrophils # (Auto) 14.0 Thou/mm3 (1.8-7.7); Neutrophils % (Auto) 85 % (37-80); Nucleated Red Blood Cell # 0.00 Thou/mm3 (0.00-0.00); Nucleated Red Blood Cell % 0 /100 WBC (0); Platelet Count 103 Thou/mm3 (140-440); RDW Standard Deviation 44.0 fL (35.1-43.9); Red Blood Count 3.82 Miln/mm3 (4.50-5.90); White Blood Count 16.4 Thou/mm3 (3.8-10.6)
[2024-10-25 06:00] LABS: Partial Thromboplastin Time 43.8 Seconds (22.0-36.0)
[2024-10-25 06:37] LABS: Alanine Aminotransferase 24 U/L (10-49); Albumin, Serum 3.2 gm/dL (3.4-4.8); Albumin/Globulin Ratio 1.5 (1.2-2.2); Alkaline Phosphatase 143 U/L (46-116); Anion Gap 9 (7-16); Aspartate Amino Transferase 43 U/L (0-34); BUN/Creatinine Ratio 11 Ratio (12-20); Bilirubin,Total 2.1 mg/dL (0.3-1.2); Blood Urea Nitrogen 17 mg/dL (9-23); Calcium 7.5 mg/dL (8.3-10.6); Calcium (Corrected) 8.1 mg/dL (8.5-10.1); Carbon Dioxide 23.9 mMol/L (20.0-31.0); Chloride 103 mMol/L (98-107); Creatinine (Component) 1.6 mg/dL (0.6-1.3); Estimated Creatinine Clearance 42.6 mL/min (>60); Globulin 2.2 gm/dL (2.3-3.5); Glucose 70 mg/dL (74-106); Magnesium 1.9 mg/dL (1.6-2.6); Osmolality,Calculated 271 (275-295); Phosphorous 2.3 mg/dL (2.4-5.1); Potassium 3.6 mMol/L (3.4-5.1); Sodium 136 mMol/L (136-145); Total Protein 5.4 gm/dL (5.7-8.2); eGFR 45 See Note
[2024-10-25 07:35] LABS: INR 1.2 (0.9-1.3); Prothrombin Time 13.4 Seconds (9.0-12.2)
--- NOTE | 2024-10-25 10:29 | XR_ITS ---
Examination: CT-guided percutaneous placement gallbladder drainage catheter CT abdomen without intravenous contrast Date and time of procedure: October 25, 2024 1229 hours INDICATIONS: Abdominal pain this week, acute cholecystitis on abdomen sonogram October 24, 2024 Informed consent provided. A timeout was completed verifying correct patient, procedure, site and positioning. Technique: Axial 3 mm sections were obtained for localization of the inflamed gallbladder Appropriate area is marked. The patient's site was prepped and draped in sterile fashion Maximal sterile barrier technique utilized, including hand hygiene Local anesthesia was obtained with 1% lidocaine. Low dose protocols were performed. One or more of the following dose reduction techniques were used; automated exposure control, adjustment of the mA and/or KV according to patient size, use of iterative reconstruction technique. Utilizing CT fluoroscopic guidance 5 Liberian catheter placed in the gallbladder 0.35 wire guide is introduced through the catheter in the gallbladder followed by dilator 7 6 Liberian pigtail drainage catheter Patient appears in stable condition during this procedure. At completion of the procedure, the patient is in satisfactory condition. Estimated blood loss 2 cc Complete culture and sensitivity report to follow. Impression: Successful CT-guided percutaneous placement gallbladder drainage catheter
--- NOTE | 2024-10-25 11:13 | XR_ITS ---
Examination: Retroperitoneal ultrasound, complete Technique: Multiple high resolution grayscale images of the retroperitoneum obtained, including kidneys and bladder. Exam date and time:October 25, 2024 1507 hours INDICATIONS: Acute renal insufficiency on laboratory examination this week. FINDINGS: Right kidney 11.2 cm cortex 1.8 cm Left kidney 11.8 cm cortex 2.4 cm 8mm lower pole left renal calculus Moderate bilateral renal parenchymal scar formation No bladder mass or bladder calculi. Bladder prevoid volume 620 cc postvoid volume 156 cc Prostate volume 11 cc no prostate nodules IMPRESSION: 8 mm lower pole nonobstructing left renal calculus Moderate bilateral renal parenchymal scar formation, no hydronephrosis
[2024-10-25] MEDS: fentaNYL CIT INJ 50 mCg/ML AMP 2ML 75 MCG IVP (12:55)
[2024-10-25] MEDS: LIDOCAINE INJ PF 1% 30 ML VIAL 8 ML INFL (13:08)
--- NOTE | 2024-10-25 14:06 | ESPR_ITS ---
<Statement entered by Fabio Martino MD - 10/27/24 09:33> I have discussed and was present for the essential components of the history, physical examination, diagnosis, and treatment plan with the resident. I agree with the patient's care as documented by the resident and amended herein by me. Fabio Martino MD FACP. Documentation for date of: 10/25/24 Subjective Subjective Interval history: Post percutaneous drain placement with IR, pt had Rapd Response code called and subsequent sepsis alert, Pt with difficulty breathing (infectious workup pending, likely secondary to breakthrough pain post procedure) No acute events overnight pt NPO for planned percutaneous drain with IR today pt recieved IV Lasix 40 due to c/f volume overload, pt recieved supplemental O2 with NC 4L overnight (pt reports some mild anxiety overnight) Exam Vital Signs Temp Pulse Resp BP Pulse Ox O2 Del Method O2 Flow Rate 97.5 F 105 H 17 125/87 H 99 Nasal Cannula 2 10/25/24 13:40 10/25/24 13:40 10/25/24 13:40 10/25/24 13:40 10/25/24 13:40 10/25/24 13:40 10/25/24 13:40 Vitals over the past 24hours were reviewed: Tmax : 103.4 HR: 70s-105 BP: 90s/60s RR: wnl O2 sat: satting well on RA, Narrative Exam GENERAL: NAD, AAO x3, laying flat in bed HEENT: Head AT/ NC. CARDIOVASCULAR: RRR. Normal S1/S2, No pitting edema of bilateral LEs. RESPIRATORY: CTAB. No wheezing, rhonchi, crackles. GASTROINTESTINAL: Abdomen soft, mildly tender to palpation in RUQ, distended, no palpable masses. Bowel sounds present drain in place on R abdomen (with bloody/serosang drainage) MUSCULOSKELETAL:? No cyanosis or edema, no visible joint swelling. NEUROLOGICAL: CN II-XII grossly intact. No focal deficits. SKIN: No obvious rashes, no jaundice no errythema, no pus @ drain site. Objective Objective Narrative Objective Narrative: WBC remain elevated at 16 from 14 Alk Phos elevated Labs 10/25/24 16:11 10/25/24 16:11 Labs: Laboratory Results - last 24 hr 10/25/24 10/25/24 04:58 07:04 WBC 16.4 H RBC 3.82 L Hgb 11.0 L Hct 31.8 L MCV 83 MCH 28.8 MCHC 34.6 RDW Std Deviation 44.0 H Plt Count 103 L Neut % (Auto) 85 H Lymph % (Auto) 3 L [place] % (Auto) 4 Eos % (Auto) 0 Baso % (Auto) 0 Neut # (Auto) 14.0 H Lymph # (Auto) 0.4 L [place] # (Auto) 0.7 Eos # (Auto) 0.0 Baso # (Auto) 0.1 Immature Gran # (Auto) 1.21 H Absolute Nucleated RBC 0.00 Immature Gran % 7 H Nucleated RBC % 0 PT 13.4 H INR 1.2 APTT 43.8 H Sodium 136 Potassium 3.6 Chloride 103 Carbon Dioxide 23.9 Anion Gap 9 BUN 17 Creatinine 1.6 H Estim Creat Clear Calc 42.6 L eGFR 45 L BUN/Creatinine Ratio 11 L Glucose 70 L Calculated Osmolality 271 L Calcium 7.5 L Corrected Calcium 8.1 L Phosphorus 2.3 L Magnesium 1.9 Total Bilirubin 2.1 H AST 43 H ALT 24 Alkaline Phosphatase 143 H D Total Protein 5.4 L Albumin 3.2 L Globulin 2.2 L Albumin/Globulin Ratio 1.5 ABG Interpretation ABG results: 10/24/24 10/24/24 01:20 08:32 ABG pH 7.39 7.44 ABG pCO2 30 L 31 L ABG pO2 108 154 H D ABG HCO3 18 L 21 ABG O2 Saturation 99 H 100 H ABG Base Excess -6 L -2 Quality Measures Quality Measures sepsis Current suspected stage: sepsis Possible source: GI tract/intra-abdominal Blood cultures ordered: yes Antibiotic ordered: Yes Advance care planning discussed with:: patient Assessment & Plan Assessment Current Active Medications: Generic Name Dose Route Start Last Admin Trade Name Freq PRN Reason Stop Dose Admin Acetaminophen 650 mg 10/24/24 01:36 10/24/24 21:29 Acetaminophen 325 Mg Tablet PO 11/23/24 01:35 650 mg Q6H PRN Administration Fever >100.4 Acetaminophen 650 mg 10/24/24 01:36 Acetaminophen 325 Mg Tablet PO 11/23/24 01:35 Q6H PRN PAIN SCALE 1-3 (mild Hydromorphone HCl 1 mg 10/24/24 10:37 Hydromorphone Inj 2 Mg/Ml Vial IVP 10/29/24 10:36 Q4HR PRN PAIN SCALE 4-10(Mod-Sev Piperacillin/Tazobactam/Dextrose 3.375 gm in 50 mls @ 12.5 mls/hr 10/24/24 07:30 10/25/24 05:09 Zosyn IV 10/31/24 07:29 12.5 mls/hr Q8HR CLAIRE Administration Ondansetron HCl 4 mg 10/24/24 01:36 Ondansetron Inj 2 Mg/Ml Inj 2 Ml IVP 11/23/24 01:35 Q6H PRN NAUSEA OR VOMITING Protocol Pantoprazole Sodium 40 mg 10/24/24 09:00 10/25/24 10:28 Pantoprazole Inj 40 Mg Vial IVP 11/23/24 08:59 40 mg QDAY CLAIRE Administration Sennosides 1 tab 10/24/24 09:00 10/25/24 08:49 Senna Tablet PO 11/23/24 08:59 Not Given QDAY CLAIRE Protocol Plan 74-year-old male with pmh of HTN, Afib on apixaban , and cirrhosis, presented to the ED due to abdominal pain. Patient was admitted for mgmt of cholecystitis, s/p percutaneous drain with IR on 10/25. Pt intermittently with shortness of breath and tremors, pending comprehensive infectious workup, considering tachypnea 2/2 inadequate pain control post procedure. #Acute acalculous cholecystitis Patient presented with leukocytosis (WBC 16), tachycardia, RUQ pain, fevers. S/p percutaneous drain with IR on 10/25. Likely that there is better source control post procedure. Continue Abx Dx - COMPLETED 10/23: Abdominal US- Acalculus, c/f cholecystitis - COMPLETED 10/23: CT AP- consistent with cholecystitis - COMPLETED 10/24: KUB- concern for possible small bowel ileus vs early SBO Tx - d/c Vancomycin 10/23 1x ? Pip/Tazo IV Q8H (10/24- ? s/p percutaneous drain with IR - ondansetrol 4mg IV PRN for n/v ? Follow-up repeat BCx: (BCx from 10/23 with Gram Neg Rods) ? Surgery consulted appreciate recs Pain: post drain placement, pt had pain with inspiration near drain site. - IV Dilaudid 1mg q4h PRN for pain 4-10 (moderate-severe) #Sepsis #Bacteremia pt presents with concern for sepsis, meeting SIRS 3 criteria, recieve 1L LR bolus for episodes of hoTN overnight. most likely possible sources of infxn are, acute cholecystitis. Bacteremia likely 2/2 acute cholecystitis. GNR bacteremia is appropriately covered with pip/tazo SCORES - SIRS3 Criteria; Febrile, Tachycardic, Elevated WBC, Tachypnic Dx - follow up CBC, CMP, Procalcitonin, repeat Bcx drawn 10/25 (initially growing GNR), - 10/25 CXR (consider mild atelectasis) and KUB: Gallbladder drainage catheter satisfactorily positioned. Moderately air distended stomach. Mild colonic ileus - 10/23 UCx- negative - 10/23 Chest XR- no concern for PNA Tx - APAP 650 q6h prn - coverage for GNR with pip/tazo for cholecystitis, see above. - ICU consulted, appreciate recs #History of A-fib on apix ON 10/25 pt had rapid response called due to shortness of breath. Had been holding home apix pending perc drain, ok to restart anticoag tomorrow Dx - 10/25 EKG shows pt in AFib with RVR Tx ? HOLD apixaban iso post procedure, ok to restart tomorrow. #Hypertension-CHRONIC BP soft while inpatient requiring fluid bolus with LR. - Restart metoprolol 50 BID #Chronically elevated T. bili-STABLE #Cirrhosis ABD US was done CBD not able to be visualized per report. ? CTM #Elevated troponins- RESOLVED troponins initially elevated, on repeat level is downtrending no need to continue trending. - NTD. Health Maintenance: Disposition: Telemetry Fluids: LR PRN Feeding: NPO VTE ppx: SCDs (PAUDA score 6: Mecahnical ppx indicated) Gastric Ulcer ppx: Pantoprazole 40mg qd Bowel Reg: senna 1tab qd CODE STATUS: Full code Case discussed with my attending Dr. Salena Ho MD PGY-1 Patient seen and examined at bedside, no acute overnight events. I discussed and supervised with the internal control specialist physician who took care of this patient. I personally saw and examined the patient. I agree with most of the assessment and plan. Patient received percutaneuos drain placement. Rapid response was called for tachycardia, agitation, tachypnea. Patient clinically euvolemic. Started on breathing treatment, given half amp of D50 and dilauded. Patient began showing improvement. Home afib meds resumed. KUB showed distended abdomen, likely due to procedure. Lactate and troponin mildly elevated, trending. Repeat blood cultures drawn. Will closely monitor, continue IV antibiotics. Plan of care discussed with attending Dr. Martino. Woodrow Moore MD PGY-2
[2024-10-25] MEDS: Magnesium Sulfate 2 GM Ivpb 2 GM/50 ML BAG IV (14:13)
--- NOTE | 2024-10-25 16:01 | EKG_ITS ---
[facility] Test Date: 2024-10-25 Pat Name: LENORA VILLAFANA Department: Room: S271A Gender: Male [place]: CHELLY : 1950 Requested By: Justice Odonnell Order Number: [id number] Reading MD: Justice Odonnell Measurements Intervals [place] Rate: 128 P: [place]: QRS: 179 QRSD: 93 T: 180 QT: 293 QTc: 429 Interpretive Statements ATRIAL FIBRILLATION WITH RAPID VENTRICULAR RESPONSE LOW QRS VOLTAGE IN EXTREMITY LEADS LATERAL MYOCARDIAL INFARCTION , OF INDETERMINATE AGE Compared to ECG 10/23/2024 21:13:43 Low QRS voltage now present Myocardial infarct finding now present /store/S0/[id number]/[id number].pdf
--- NOTE | 2024-10-25 16:01 | XR_ITS ---
Examination: AP chest single view. TECHNIQUE: AP portable upright chest single view. Date and time: October 25, 2024, 1609 hours. Comparison October 23, 2024. INDICATIONS: Sepsis alert, rapid response today FINDINGS: Mild to moderate enlargement left ventricle. [id number] elevation right hemidiaphragm. Moderate vascular congestion. No pneumonia or daniela pulmonary edema. Moderate osteopenia. IMPRESSION: Mild to moderate enlargement left ventricle. Moderate vascular congestion. No lobar pneumonia is
[2024-10-25] MEDS: ALBUTEROL/IPRATROPIUM (Duoneb) RT SOL 3 ML NEBU INH (16:05)
--- NOTE | 2024-10-25 16:08 | XR_ITS ---
Examination: Abdomen AP single view Technique: AP portable supine abdomen, single view Exam date and time: October 25, 2024, 6008 hours Comparison October 24, 2024 INDICATIONS: Abdominal pain today. FINDINGS: Nonobstructive bowel gas pattern. Gallbladder drainage catheter satisfactory position. Moderately air distended stomach. No free air Mild colonic ileus IMPRESSION: Gallbladder drainage catheter satisfactorily positioned Moderately air distended stomach Mild colonic ileus
[2024-10-25] MEDS: HYDROmorphone INJ 2 MG/ML VIAL 0.25 MG IVP (16:12)
[2024-10-25] MEDS: DEXTROSE 50%-WATER INJ 50 ML SYRINGE 25 ML IVP (16:24)
[2024-10-25 16:55] LABS: Lactate (Lactic Acid) 2.4 mMol/L (0.4-2.0)
[2024-10-25 16:57] LABS: Base Excess, Venous -2 (-3-3); O2 Saturation, Venous 47 % (96-97); PCO2, Venous 49 mmHg (36-56); PO2, Venous 28 mmHg (15-58); pH, Venous 7.31 (7.33-7.66)
[2024-10-25 17:00] LABS: Basophils # (Auto) 0.0 Thou/mm3 (0.0-0.2); Basophils % (Auto) 0 % (0-2.5); Eosinophils # (Auto) 0.0 Thou/mm3 (0.0-0.5); Eosinophils % (Auto) 0 % (0-10); Hematocrit 34.5 % (41.0-53.0); Hemoglobin 11.9 g/dL (13.5-16.0); Immature Granulocytes Auto 0.22 Thou/mm3 (0.00-0.00); Lymphocytes # (Auto) 1.1 Thou/mm3 (1.0-4.8); Lymphocytes % (Auto) 8 % (10-50); Mean Corpuscular HGB Conc 34.5 g/dl (31.0-37.0); Mean Corpuscular Hemoglobin 28.1 pg (25.0-35.0); Mean Corpuscular Volume 81 fL (80-100); Monocytes # (Auto) 0.5 Thou/mm3 (0.0-0.8); Monocytes % (Auto) 4 % (0-12); Neutrophils # (Auto) 10.9 Thou/mm3 (1.8-7.7); Neutrophils % (Auto) 85 % (37-80); Nucleated Red Blood Cell # 0.00 Thou/mm3 (0.00-0.00); Nucleated Red Blood Cell % 0 /100 WBC (0); Platelet Count 127 Thou/mm3 (140-440); RDW Standard Deviation 44.6 fL (35.1-43.9); Red Blood Count 4.24 Miln/mm3 (4.50-5.90); White Blood Count 12.8 Thou/mm3 (3.8-10.6)
[2024-10-25] MEDS: ACETAMINOPHEN 325 MG TABLET 650 MG PO (17:33)
[2024-10-25 17:42] LABS: Alanine Aminotransferase 28 U/L (10-49); Albumin, Serum 3.6 gm/dL (3.4-4.8); Albumin/Globulin Ratio 1.5 (1.2-2.2); Alkaline Phosphatase 166 U/L (46-116); Anion Gap 7 (7-16); Aspartate Amino Transferase 45 U/L (0-34); BUN/Creatinine Ratio 14 Ratio (12-20); Bilirubin,Total 2.3 mg/dL (0.3-1.2); Blood Urea Nitrogen 20 mg/dL (9-23); Calcium 8.0 mg/dL (8.3-10.6); Calcium (Corrected) 8.3 mg/dL (8.5-10.1); Carbon Dioxide 23.8 mMol/L (20.0-31.0); Chloride 104 mMol/L (98-107); Creatinine (Component) 1.4 mg/dL (0.6-1.3); Estimated Creatinine Clearance 48.6 mL/min (>60); Globulin 2.4 gm/dL (2.3-3.5); Glucose 79 mg/dL (74-106); Osmolality,Calculated 271 (275-295); Potassium 3.3 mMol/L (3.4-5.1); Procalcitonin 20.81 ng/ml (0.0-0.49); Sodium 135 mMol/L (136-145); Total Protein 6.0 gm/dL (5.7-8.2); eGFR 53 See Note
[2024-10-25 17:49] LABS: Troponin I 0.149 ng/mL (0.0-0.045)
[2024-10-25 17:53] LABS: B-Type Natriuretic Peptide 400 pg/mL (0-100)
[2024-10-25 19:45] LABS: Reflex Lactate? Y
--- NOTE | 2024-10-25 19:49 | PD.RESEVENT ---
Documentation for date of: 10/25/24 Event Note Event Note: Rapid response was called at 1600 for agitation, tachycardia, tachypnea. Patioent was post drain placement, noted pleuritic pain and abdominal pain near site of drain. Patient was previously NPO, home meds had been held. Patient euvolemic on exam, lungs had mild expitory wheezing but no rhonchi, rales, or crackles. EKG showed aqfib with RVR. KUB shoowed air-distended abdomen. CXR did not show significant change. Lactate and troponin mildly elevated. Patient received breathing treatment, half amp of d%O for glucose 70, and dilauded. Home metoprolol resumed. Patient showed improvement in vitals and subjective symptoms of SOB. Suspect presentation due to procedure and medications, agitation, and pain. Will trend troponin and lactate, continue to closely monitor. Plan of care discussed with attending Dr. Martino. Woodrow Moore MD PGY-1
[2024-10-25 19:54] LABS: Lactate (Lactic Acid) 0.9 mMol/L (0.4-2.0)
[2024-10-25] MEDS: POTASSIUM CHLORIDE 10% 20 MEQ/15 ML UDC GT (20:10)
[2024-10-25] MEDS: CALCIUM CARBONATE 600 MG TABLET PO (20:11)
[2024-10-25] MEDS: METOPROLOL TARTRATE 25 MG TABLET 50 MG PO (20:20)
[2024-10-25 23:18] LABS: Troponin I 0.122 ng/mL (0.0-0.045)
[2024-10-26] VITALS (12 sets, daily range): BP systolic 100–131; BP diastolic 66–86; PULSE 80–98; RESP 19–95; TEMP 36.4–37.2; O2SAT 92–98; BMI 33.3
[2024-10-26] MEDS: PIPER/TAZO 3.375 GM PREMIX 3.375 GM/50 ML BAG IV (05:41)
[2024-10-26] MEDS: LEVOTHYROXINE SODIUM 25 MCG TABLET 75 MCG PO (05:41)
[2024-10-26 05:58] LABS: Basophils # (Auto) 0.1 Thou/mm3 (0.0-0.2); Basophils % (Auto) 0 % (0-2.5); Eosinophils # (Auto) 0.0 Thou/mm3 (0.0-0.5); Eosinophils % (Auto) 0 % (0-10); Hematocrit 30.5 % (41.0-53.0); Hemoglobin 10.3 g/dL (13.5-16.0); Immature Granulocytes Auto 0.15 Thou/mm3 (0.00-0.00); Lymphocytes # (Auto) 0.7 Thou/mm3 (1.0-4.8); Lymphocytes % (Auto) 5 % (10-50); Mean Corpuscular HGB Conc 33.8 g/dl (31.0-37.0); Mean Corpuscular Hemoglobin 28.1 pg (25.0-35.0); Mean Corpuscular Volume 83 fL (80-100); Monocytes # (Auto) 0.7 Thou/mm3 (0.0-0.8); Monocytes % (Auto) 5 % (0-12); Neutrophils # (Auto) 13.8 Thou/mm3 (1.8-7.7); Neutrophils % (Auto) 90 % (37-80); Nucleated Red Blood Cell # 0.00 Thou/mm3 (0.00-0.00); Nucleated Red Blood Cell % 0 /100 WBC (0); Platelet Count 117 Thou/mm3 (140-440); RDW Standard Deviation 45.3 fL (35.1-43.9); Red Blood Count 3.66 Miln/mm3 (4.50-5.90); White Blood Count 15.4 Thou/mm3 (3.8-10.6)
--- NOTE | 2024-10-26 07:49 | ESPR_ITS ---
<Statement entered by Fabio Martino MD - 10/29/24 14:59> I have discussed and was present for the essential components of the history, physical examination, diagnosis, and treatment plan with the resident. I agree with the patient's care as documented by the resident and amended herein by me. Fabio Martino MD FACP. Documentation for date of: 10/26/24 Subjective Subjective Interval history: No acute events overnight mild tenderness around the site of percutaneous drain Exam Vital Signs Temp Pulse Resp BP Pulse Ox O2 Del Method O2 Flow Rate 97.5 F 92 23 H 121/77 98 Nasal Cannula 2 10/26/24 03:57 10/26/24 07:20 10/26/24 03:57 10/26/24 03:57 10/26/24 03:57 10/26/24 03:57 10/26/24 03:57 Vitals over the past 24hours were reviewed: Temp: Afebrile HR: 90-100s BP: 100-120/60-70s RR: 21-23 O2: satting well on RA BM: 0 Narrative Exam GENERAL: NAD, AAO x3, laying flat in bed HEENT: Head AT/ NC. CARDIOVASCULAR: RRR. Normal S1/S2, No pitting edema of bilateral LEs., SCDs in place BL RESPIRATORY: CTAB. No wheezing, rhonchi, crackles. GASTROINTESTINAL: Abdomen soft, mildly tender to palpation in RUQ, mildly distended, no palpable masses. Bowel sounds present drain in place on R abdomen (with bloody/serosang drainage) MUSCULOSKELETAL:? No cyanosis or edema, no visible joint swelling. NEUROLOGICAL: CN II-XII grossly intact. No focal deficits. SKIN: No obvious rashes, no jaundice no errythema, no pus @ drain site, dressing clean and intact. Objective Labs 10/26/24 04:58 10/26/24 04:58 Labs: Laboratory Results - last 24 hr 10/25/24 10/25/24 10/25/24 16:11 19:51 21:50 WBC 12.8 H RBC 4.24 L Hgb 11.9 L Hct 34.5 L MCV 81 MCH 28.1 MCHC 34.5 RDW Std Deviation 44.6 H Plt Count 127 L D Neut % (Auto) 85 H Lymph % (Auto) 8 L [place] % (Auto) 4 Eos % (Auto) 0 Baso % (Auto) 0 Neut # (Auto) 10.9 H Lymph # (Auto) 1.1 [place] # (Auto) 0.5 Eos # (Auto) 0.0 Baso # (Auto) 0.0 Immature Gran # (Auto) 0.22 H Absolute Nucleated RBC 0.00 Immature Gran % 2 H Nucleated RBC % 0 VBG pH 7.31 L VBG pCO2 49 VBG pO2 28 VBG O2 Sat (Pete) 47 L VBG Base Excess -2 Sodium 135 L Potassium 3.3 L Chloride 104 Carbon Dioxide 23.8 Anion Gap 7 BUN 20 Creatinine 1.4 H Estim Creat Clear Calc 48.6 L eGFR 53 L BUN/Creatinine Ratio 14 Glucose 79 Calculated Osmolality 271 L Lactic Acid 2.4 H 0.9 Calcium 8.0 L Corrected Calcium 8.3 L Total Bilirubin 2.3 H AST 45 H ALT 28 Alkaline Phosphatase 166 H D Troponin I 0.149 H* D 0.122 H* B-Natriuretic Peptide 400 H Total Protein 6.0 Albumin 3.6 Globulin 2.4 Albumin/Globulin Ratio 1.5 Procalcitonin 20.81 H 10/26/24 04:58 WBC 15.4 H RBC 3.66 L Hgb 10.3 L Hct 30.5 L MCV 83 MCH 28.1 MCHC 33.8 RDW Std Deviation 45.3 H Plt Count 117 L Neut % (Auto) 90 H Lymph % (Auto) 5 L [place] % (Auto) 5 Eos % (Auto) 0 Baso % (Auto) 0 Neut # (Auto) 13.8 H Lymph # (Auto) 0.7 L [place] # (Auto) 0.7 Eos # (Auto) 0.0 Baso # (Auto) 0.1 Immature Gran # (Auto) 0.15 H Absolute Nucleated RBC 0.00 Immature Gran % 1 H Nucleated RBC % 0 VBG pH VBG pCO2 VBG pO2 VBG O2 Sat (Pete) VBG Base Excess Sodium Potassium Chloride Carbon Dioxide Anion Gap BUN Creatinine Estim Creat Clear Calc eGFR BUN/Creatinine Ratio Glucose Calculated Osmolality Lactic Acid Calcium Corrected Calcium Total Bilirubin AST ALT Alkaline Phosphatase Troponin I B-Natriuretic Peptide Total Protein Albumin Globulin Albumin/Globulin Ratio Procalcitonin BCx from 10/25, 1 out of 2 cultures growing GPC ABG Interpretation ABG results: 10/24/24 10/24/24 10/25/24 01:20 08:32 16:11 ABG pH 7.39 7.44 ABG pCO2 30 L 31 L ABG pO2 108 154 H D ABG HCO3 18 L 21 ABG O2 Saturation 99 H 100 H ABG Base Excess -6 L -2 VBG pH 7.31 L VBG pCO2 49 VBG pO2 28 VBG Base Excess -2 Quality Measures Quality Measures sepsis Current suspected stage: sepsis Possible source: GI tract/intra-abdominal Blood cultures ordered: yes Antibiotic ordered: Yes Advance care planning discussed with:: patient, spouse and child Assessment & Plan Assessment Current Active Medications: Generic Name Dose Route Start Last Admin Trade Name Freq PRN Reason Stop Dose Admin Acetaminophen 650 mg 10/24/24 01:36 10/25/24 17:33 Acetaminophen 325 Mg Tablet PO 11/23/24 01:35 650 mg Q6H PRN Administration Fever >100.4 Acetaminophen 650 mg 10/24/24 01:36 Acetaminophen 325 Mg Tablet PO 11/23/24 01:35 Q6H PRN PAIN SCALE 1-3 (mild Atorvastatin Calcium 10 mg 10/26/24 09:00 Atorvastatin Calcium 10 Mg Tablet PO 11/25/24 08:59 QDAY REBEKAH Hydromorphone HCl 1 mg 10/24/24 10:37 Hydromorphone Inj 2 Mg/Ml Vial IVP 10/29/24 10:36 Q4HR PRN PAIN SCALE 4-10(Mod-Sev Piperacillin/Tazobactam/Dextrose 3.375 gm in 50 mls @ 12.5 mls/hr 10/24/24 07:30 10/26/24 05:41 Zosyn IV 10/31/24 07:29 12.5 mls/hr Q8HR REBEKAH Administration Levothyroxine Sodium 75 mcg 10/26/24 06:00 10/26/24 05:41 Levothyroxine Sodium 25 Mcg Tablet PO 11/25/24 05:59 75 mcg ACBR REBEKAH Administration Metoprolol Tartrate 50 mg 10/25/24 21:00 10/25/24 20:20 Metoprolol Tartrate 25 Mg Tablet PO 11/24/24 20:59 50 mg BID REBEKAH Administration Ondansetron HCl 4 mg 10/24/24 01:36 Ondansetron Inj 2 Mg/Ml Inj 2 Ml IVP 11/23/24 01:35 Q6H PRN NAUSEA OR VOMITING Protocol Pantoprazole Sodium 40 mg 10/24/24 09:00 10/25/24 10:28 Pantoprazole Inj 40 Mg Vial IVP 11/23/24 08:59 40 mg QDAY REBEKAH Administration Sennosides 1 tab 10/24/24 09:00 10/25/24 08:49 Senna Tablet PO 11/23/24 08:59 Not Given QDAY [facility] Protocol Plan 74-year-old male with pmh of HTN, Afib on apixaban , and cirrhosis, presented to the ED due to abdominal pain. Patient was admitted for mgmt of cholecystitis, s/p percutaneous drain with IR on 10/25. Narrowed abx from Pip/Tazo to CTX. 04/27 blood culture tubes from 10/25/24 growing GPC, started on IV Vanc on 10/26 #Acute acalculous cholecystitis Patient presented with leukocytosis (WBC 16), tachycardia, RUQ pain, fevers. S/p percutaneous drain with IR on 10/25. Likely that there is better source control post procedure. Bcx sensitivities resulted, so Abx narrowed from pip tazo to CTX 1 g qd. CTM WBC. Per Surgery ok to advance diet from clears to low fat diet and ok to dc,pending bcx and pt remaining afebrile while inpatient, plan for outpatient follow up with gen surg. Dx - COMPLETED 10/23: Abdominal US- Acalculus, c/f cholecystitis - COMPLETED 10/23: CT AP- consistent with cholecystitis - COMPLETED 10/24: KUB- concern for possible small bowel ileus vs early SBO - Daily CBC Tx - d/c Vancomycin 10/23 1x ? d/c Pip/Tazo IV Q8H (10/24-10/26) Abx were narrowed according to the 10/23 BCx sensitivities - START CTX 1gm qd (10/26- ? s/p percutaneous drain with IR - ondansetron 4mg IV PRN for n/v ? Follow-up repeat BCx: (BCx from 10/23 with Gram Neg Rods) ? Surgery consulted appreciate recs: Gen Surg will follow up with pt outpatient (Dr. Titus) Pain: - IV Dilaudid 1mg q4h PRN for pain 4-10 (moderate-severe) #Sepsis #Bacteremia pt presents with concern for sepsis, initially met SIRS 3 criteria, . SCORES - SIRS3 Criteria; Febrile, Tachycardic, Elevated WBC, Tachypnic Dx - repeat Bcx drawn 10/25, one of two tubes growing GPC, broaden ABX to cover for MRSA, - reSTART Vanc IV (10/26 - 10/25 CXR (consider mild atelectasis) and KUB: Gallbladder drainage catheter satisfactorily positioned. Moderately air distended stomach. Mild colonic ileus - START incentive spirometry q2h (hold when patient is resting) - 10/23 UCx- negative - 10/23 Chest XR- no concern for PNA Tx - APAP 650 q6h prn - coverage for GNR with CTX for cholecystitis, see above (abx narrowed appropriately) - ICU consulted, appreciate recs #History of A-fib on apix ON 10/25 pt had rapid response called due to shortness of breath. Had been holding home apix pending perc drain, ok to restart anticoag tomorrow Dx - 10/25 EKG shows pt in AFib with RVR Tx ? HOLD apixaban iso post procedure, ok to restart 10/27. #Hypertension-CHRONIC BP soft while inpatient requiring fluid bolus with LR. - Continue home metoprolol 50 BID #Chronically elevated T. bili-STABLE #Cirrhosis ABD US was done CBD not able to be visualized per report. ? CTM #Elevated troponins- RESOLVED troponins initially elevated, on repeat level is downtrending no need to continue trending. - NTD. Health Maintenance: Disposition: Telemetry: pt family would appreciate home health. Fluids: LR PRN Feeding: advance diet per gen trudy recs: low fat diet VTE ppx: SCDs (PAUDA score 6: Mecahnical ppx indicated) Gastric Ulcer ppx: Pantoprazole 40mg qd Bowel Reg: senna 1tab qd rebekah, miralax 17gm qd rebekah, bisacodyl suppository, encourage ambulation CODE STATUS: Full code Case discussed with my attending Dr. Salena Ho MD PGY-1 Patient seen and examined at bedside, no acute overnight events. I discussed and supervised with the internet systems administrator physician who took care of this patient. I personally saw and examined the patient. I agree with most of the assessment and plan. Blood cultures positive for GPC 1/2 bottles, vancomycin initiated. d/c zosyn, on CTX. Lactate normalized, patient reports overall subjective improvement. Resuming patients home eliquis. Bowel regiment, encourage ambulation as tolerated. Plan of care discussed with attending Dr. Martino. Woodrow Moore MD PGY-2
[2024-10-26] MEDS: METOPROLOL TARTRATE 25 MG TABLET 50 MG PO ×2 (08:19→20:58)
[2024-10-26] MEDS: ATORVASTATIN CALCIUM 10 MG TABLET PO (08:19)
[2024-10-26 08:39] LABS: Alanine Aminotransferase 23 U/L (10-49); Albumin, Serum 3.0 gm/dL (3.4-4.8); Albumin/Globulin Ratio 1.4 (1.2-2.2); Alkaline Phosphatase 157 U/L (46-116); Anion Gap 3 (7-16); Aspartate Amino Transferase 34 U/L (0-34); BUN/Creatinine Ratio 15 Ratio (12-20); Bilirubin,Total 2.1 mg/dL (0.3-1.2); Blood Urea Nitrogen 16 mg/dL (9-23); Calcium 7.4 mg/dL (8.3-10.6); Calcium (Corrected) 8.2 mg/dL (8.5-10.1); Carbon Dioxide 27.0 mMol/L (20.0-31.0); Chloride 104 mMol/L (98-107); Creatinine (Component) 1.1 mg/dL (0.6-1.3); Estimated Creatinine Clearance 61.9 mL/min (>60); Globulin 2.2 gm/dL (2.3-3.5); Glucose 105 mg/dL (74-106); Magnesium 2.5 mg/dL (1.6-2.6); Osmolality,Calculated 269 (275-295); Phosphorous 2.2 mg/dL (2.4-5.1); Potassium 4.1 mMol/L (3.4-5.1); Sodium 134 mMol/L (136-145); Total Protein 5.2 gm/dL (5.7-8.2); eGFR > 60 See Note
[2024-10-26] MEDS: POLYETHYLENE GLYCOL 17 GM PACKET PO (10:09)
[2024-10-26] MEDS: cefTRIAXone/D5w 1gm IV premix 1 GM/50 ML BAG IV (10:09)
--- NOTE | 2024-10-26 11:52 | ESPR_ITS ---
Documentation for date of: 10/26/24 Subjective Subjective Brief History: 74M with HTN, hypothyroidism, and afib on eliquis (last taken 10/23 afternoon) presenting with abdominal pain, fever and diarrhea. Pt reports symptoms began three days ago with abdominal pain most pronounced in the epigastric region, associated with nausea, fever and diarrhea. He sought care first in [place] and then presented to [facility] ER, initially workup for cholecystitis was equivocal and pt was discharged home with treatment for gastroenteritis and UTI. At home pt noted worsening pain and shortness of breath prompting him to return, this time with fever up to 104, WBC 16 and previously drawn blood cultures growing GNR, with US and CT indicating acalculous cholecystitis as well as signs of cirrhosis with mild ascites Pt denies any history of epigastric/RUQ pain, states his pain has remained stable and he still does not have any appetite PMH: HTN, hypothyroidism, afib; no known liver pathologies PSHx: Hernia repair Meds: includes eliquis, pt confirms he last took it on 10/23 in the afternoon Allergies: NKDA Social hx: at baseline is active and cares for himself, does not drink alcohol or smoke cigarettes Narrative: Underwent percutaneous cholecystostomy placement yesterday and reports feeling better today with no pain, no nausea, last fever was 101.9 yesterday 5 PM, tolerating diet and had a bowel movement, 120 cc emptied from drain Exam Vital Signs Temp Pulse Resp BP Pulse Ox O2 Del Method O2 Flow Rate 98.2 F 80 19 114/74 96 Room Air 2 10/26/24 08:00 10/26/24 09:00 10/26/24 09:00 10/26/24 08:19 10/26/24 08:00 10/26/24 08:00 10/26/24 03:57 Constitutional Constitutional: no acute distress Routine Respiratory Exam Respiratory: Present no resp distress Routine Abdominal Exam Abdominal: Present soft and drain (Right upper quadrant drain with dark sanguinous output); Absent tenderness or distended Results Results: Laboratory Laboratory results: results reviewed Assessment & Plan Plan 74M with HTN, hypothyroidism, and afib on eliquis (last taken 10/23 afternoon) presenting with abdominal pain, fever and diarrhea, with findings of acalculous cholecystitis in the setting of cirrhosis with mild ascites now s/p percutaneous cholecystostomy 10/25, gradually recovering Advanced to low-fat diet Okay for DC from my standpoint when remains afebrile for 24 hours and pending repeat blood cultures Will follow-up as outpatient Please feel free to contact me with concerns or questions
--- NOTE | 2024-10-26 14:22 | ECHO_ITS ---
Transthoracic Echo Report Ht (in): 65 Wt (lb): 200 Exam Location: Echo Lab Status: Inpatient Stock Fitter: Jaja Rangel Indications: Procedure Performed: BP: 114 / 74 HR: 85 Technical Quality: Technically difficult study MEASUREMENTS (Male / Female) Normal Values 2D ECHO LV Diastolic Diameter PLAX 4.1 cm 4.2 - 5.9 / 3.9 - 5.3 cm LV Systolic Diameter PLAX 2.7 cm IVS Diastolic Thickness 1.3 cm 0.6 - 1.0 / 0.6 - 0.9 cm LVPW Diastolic Thickness 1.1 cm 0.6 - 1.0 / 0.6 - 0.9 cm LV Relative Wall Thickness 0.6 LVOT Diameter 1.8 cm Aortic Root Diameter 3.1 cm LA Systolic Diameter LX 4.6 cm 3.0 - 4.0 / 2.7 - 3.8 cm LV Ejection Fraction MOD BP 52.9 % >= 55 % LV Cardiac Index MOD BP 1741.3 cm?/min?m? LV Ejection Fraction MOD 4C 42.0 % LV Cardiac Index MOD 4C 1073.5 cm?/min?m? LV Ejection Fraction 4C AL 42.4 % LV Cardiac Index 4C AL 1090.4 cm?/min?m? LV Ejection Fraction MOD 2C 63.0 % LV Cardiac Index MOD 2C 2556.6 cm?/min?m? LV Ejection Fraction 2C AL 62.3 % LV Cardiac Index 2C AL 2623.8 cm?/min?m? LA Volume Index 31.1 cm?/m? 16 - 28 cm?/m? Ascending Aorta Diameter 3.1 cm M-MODE Aortic Root Diameter MM 2.5 cm LA Systolic Diameter MM 5.3 cm LA Ao Ratio MM 2.1 AV Cusp Separation MM 1.6 cm DOPPLER AV Peak Velocity 145.0 cm/s AV Peak Gradient 8.4 mmHg AV Mean Gradient 6.0 mmHg AV Velocity Time Integral 28.4 cm AI Peak Velocity 256.5 cm/s AI Peak Gradient 26.3 mmHg AI Pressure Half Time 1587.0 ms LVOT Peak Velocity 132.0 cm/s LVOT Peak Gradient 7.0 mmHg LVOT Velocity Time Integral 24.9 cm LVOT Cardiac Index 2596.1 cm?/min?m? AV Area Cont Eq vti 2.2 cm? AV Area Cont Eq pk 2.3 cm? MV Area PHT 4.3 cm? MR Peak Velocity 320.0 cm/s MR Peak Gradient 41.0 mmHg Mitral E Point Velocity 120.0 cm/s LV E' Lateral Velocity 13.6 cm/s Mitral E to LV E' Lateral Ratio 8.8 LV E' Septal Velocity 9.3 cm/s Mitral E to LV E' Septal Ratio 13.0 TR Peak Velocity 266.0 cm/s TR Peak Gradient 28.3 mmHg PV Peak Velocity 140.0 cm/s PV Peak Gradient 7.8 mmHg FINDINGS Left Ventricle Normal left ventricular size. Mild LVH. systolic function with no obvious regional wall motion abnormalities. Normal left ventricular diastolic filling pattern for age. The ejection fraction is visually estimated at 55-60 %. Right Ventricle The right ventricular size is mildy increased. The right ventricular systolic function is moderately decreased. Left Atrium The left atrium is normal by two-dimensional, color flow and Doppler imaging with no structural abnormalities, no thrombus formation present. Right Atrium The right atrium is normal by two-dimensional imaging, color flow and Doppler imaging with no structural abnormalities, no thrombus formation present. Atrial Septum The interatrial septum appears normal with no evidence of a shunt. Aorta The aorta is normal by two-dimensional, color flow and Doppler interrogation. Mitral Valve The mitral valve is normal by two-dimensional, color flow and Doppler interrogation. Mild mitral regurgitation. Aortic Valve The aortic valve is trileaflet and normal by two-dimensional, color flow and Doppler interrogation. Mild aortic valve regurgitation. Tricuspid Valve The tricuspid valve is normal by two-dimensional, color flow and Doppler interrogation. There is mild tricuspid valve regurgitation. Pulmonic Valve Trivial pulmonic valve regurgitation. Vessels Inferior vena cava not well visualized. Pericardium The pericardium is normal by two-dimensional imaging. There is no significant pericardial effusion. CONCLUSIONS Indication: CHF Normal left ventricular size and function. Approximate ejection fraction is 55-60%. The RV size is mildy increased. The RV systolic function is moderately decreased. Mitral valve thickening with mild MR, Mild aortic regurgitation Mild tricuspid regurgitation IVC not well visualized. Cammie Wallace (Electronically Signed) Final Date: 27 October 2024 16:22
--- NOTE | 2024-10-26 14:44 | PC.SS ---
Rounding note: patient is pending a bowel movement and final cultures. D/c plan is to return home.
[2024-10-26] MEDS: ACETAMINOPHEN 325 MG TABLET 650 MG PO (16:17)
[2024-10-26] MEDS: VANCOMYCIN/D5W 1,250 MG IVPB 250 ML 120 MG IV (18:14)
--- NOTE | 2024-10-26 20:22 | PC.NURSE ---
contacted hospitalist regarding the eliqis that was held this morning per Dr. Barba it is okay to restart pt satish
[2024-10-26] MEDS: APIXABAN 2.5 MG TABLET 5 MG PO (20:58)
[2024-10-27] VITALS (14 sets, daily range): BP systolic 121–160; BP diastolic 84–93; PULSE 77–106; RESP 16–96; TEMP 36.1–37.6; O2SAT 95–99; BMI 35.0
[2024-10-27] MEDS: LEVOTHYROXINE SODIUM 25 MCG TABLET 75 MCG PO (05:15)
[2024-10-27 06:33] LABS: Basophils # (Auto) 0.0 Thou/mm3 (0.0-0.2); Basophils % (Auto) 0 % (0-2.5); Eosinophils # (Auto) 0.0 Thou/mm3 (0.0-0.5); Eosinophils % (Auto) 0 % (0-10); Hematocrit 32.0 % (41.0-53.0); Hemoglobin 11.0 g/dL (13.5-16.0); Immature Granulocytes Auto 0.19 Thou/mm3 (0.00-0.00); Lymphocytes # (Auto) 1.0 Thou/mm3 (1.0-4.8); Lymphocytes % (Auto) 6 % (10-50); Mean Corpuscular HGB Conc 34.4 g/dl (31.0-37.0); Mean Corpuscular Hemoglobin 28.1 pg (25.0-35.0); Mean Corpuscular Volume 82 fL (80-100); Monocytes # (Auto) 0.9 Thou/mm3 (0.0-0.8); Monocytes % (Auto) 6 % (0-12); Neutrophils # (Auto) 14.1 Thou/mm3 (1.8-7.7); Neutrophils % (Auto) 87 % (37-80); Nucleated Red Blood Cell # 0.00 Thou/mm3 (0.00-0.00); Nucleated Red Blood Cell % 0 /100 WBC (0); Platelet Count 155 Thou/mm3 (140-440); RDW Standard Deviation 44.5 fL (35.1-43.9); Red Blood Count 3.91 Miln/mm3 (4.50-5.90); White Blood Count 16.3 Thou/mm3 (3.8-10.6)
[2024-10-27 07:05] LABS: Alanine Aminotransferase 27 U/L (10-49); Albumin, Serum 3.1 gm/dL (3.4-4.8); Albumin/Globulin Ratio 1.4 (1.2-2.2); Alkaline Phosphatase 140 U/L (46-116); Anion Gap 7 (7-16); Aspartate Amino Transferase 39 U/L (0-34); BUN/Creatinine Ratio 14 Ratio (12-20); Bilirubin,Total 2.1 mg/dL (0.3-1.2); Blood Urea Nitrogen 13 mg/dL (9-23); Calcium 7.7 mg/dL (8.3-10.6); Calcium (Corrected) 8.4 mg/dL (8.5-10.1); Carbon Dioxide 27.7 mMol/L (20.0-31.0); Chloride 100 mMol/L (98-107); Creatinine (Component) 0.9 mg/dL (0.6-1.3); Estimated Creatinine Clearance 77.6 mL/min (>60); Globulin 2.2 gm/dL (2.3-3.5); Glucose 98 mg/dL (74-106); Magnesium 2.0 mg/dL (1.6-2.6); Osmolality,Calculated 270 (275-295); Phosphorous 1.6 mg/dL (2.4-5.1); Potassium 3.9 mMol/L (3.4-5.1); Sodium 135 mMol/L (136-145); Total Protein 5.3 gm/dL (5.7-8.2); eGFR > 60 See Note
[2024-10-27] MEDS: cefTRIAXone/D5w 1gm IV premix 1 GM/50 ML BAG IV (09:09)
[2024-10-27] MEDS: CALCIUM CARBONATE 600 MG TABLET PO (09:09)
[2024-10-27] MEDS: POLYETHYLENE GLYCOL 17 GM PACKET PO (09:09)
[2024-10-27] MEDS: METOPROLOL TARTRATE 25 MG TABLET 50 MG PO ×2 (09:10→20:46)
[2024-10-27] MEDS: APIXABAN 2.5 MG TABLET 5 MG PO ×2 (09:10→20:47)
[2024-10-27] MEDS: ATORVASTATIN CALCIUM 10 MG TABLET PO (09:11)
[2024-10-27] MEDS: PANTOPRAZOLE 40 MG TABLET PO (09:11)
[2024-10-27] MEDS: ALBUTEROL/IPRATROPIUM (Duoneb) RT SOL 3 ML NEBU INH (09:48)
[2024-10-27] MEDS: VANCOMYCIN/NS 750 MG IVPB 750 MG/150 ML BAG 120 MG IV (10:00)
[2024-10-27] MEDS: POT PHOS 15 mMol in NS 250 ML 15 MMOL/250 ML BAG 62.5 MMOL IV (10:00)
--- NOTE | 2024-10-27 11:28 | PC.SS ---
Rounding: Pt pending BM, and repeat blood cultures. DC plan home
--- NOTE | 2024-10-27 13:56 | PD.RESPRO ---
Documentation for date of: 10/27/24 Subjective Subjective Interval history: Patient was seen and examined at the bedside. No acute overnight events were reported. Patient reported improvement in his abdominal pain. He denied passing a bowel movement from last 2 days. Patient was also wheezing this morning. He has been able to pass gas.Cholecystostomy drain was having an output around 25 to 30 cc black straw-colored. No fever spikes recorded overnight. Exam Vital Signs Temp Pulse Resp BP Pulse Ox O2 Del Method O2 Flow Rate 99.7 F 94 26 H 134/84 H 96 Room Air 2 10/27/24 12:00 10/27/24 12:00 10/27/24 12:00 10/27/24 12:00 10/27/24 12:00 10/27/24 12:00 10/27/24 08:00 Narrative Exam GENERAL APPEARANCE: Chadian-speaking obese male in no acute distress. HEENT: NC, AT. MMM. EOMI, clear conjunctiva, oropharynx clear. NECK: Supple without lymphadenopathy. No stiffness or restricted ROM. HEART: Irregular rate and irregular rhythm, normal S1/S2, no m/r/g LUNGS: CTAB, moving air well. No crackles or wheezes are heard. ABDOMEN: Soft, nontender, distended/tympanic with good bowel sounds heard. Cholecystostomy drain with straw-colored fluid. BACK: No CVAT, no obvious deformity. EXTREMITIES: Without cyanosis, clubbing or edema. NEUROLOGICAL: Grossly nonfocal. Alert and oriented, moving all 4 extremities. CN not formally tested but appear grossly intact. Skin: Warm and dry without any rash. Psych: Appropriate mood and affect Objective Labs 10/27/24 05:13 10/27/24 05:13 Labs: Laboratory Results - last 24 hr 10/27/24 05:13 WBC 16.3 H RBC 3.91 L Hgb 11.0 L Hct 32.0 L MCV 82 MCH 28.1 MCHC 34.4 RDW Std Deviation 44.5 H Plt Count 155 D Neut % (Auto) 87 H Lymph % (Auto) 6 L [place] % (Auto) 6 Eos % (Auto) 0 Baso % (Auto) 0 Neut # (Auto) 14.1 H Lymph # (Auto) 1.0 [place] # (Auto) 0.9 H Eos # (Auto) 0.0 Baso # (Auto) 0.0 Immature Gran # (Auto) 0.19 H Absolute Nucleated RBC 0.00 Immature Gran % 1 H Nucleated RBC % 0 Sodium 135 L Potassium 3.9 Chloride 100 Carbon Dioxide 27.7 Anion Gap 7 BUN 13 Creatinine 0.9 Estim Creat Clear Calc 77.6 eGFR > 60 BUN/Creatinine Ratio 14 Glucose 98 Calculated Osmolality 270 L Calcium 7.7 L Corrected Calcium 8.4 L Phosphorus 1.6 L Magnesium 2.0 Total Bilirubin 2.1 H AST 39 H ALT 27 Alkaline Phosphatase 140 H Total Protein 5.3 L Albumin 3.1 L Globulin 2.2 L Albumin/Globulin Ratio 1.4 ABG Interpretation ABG results: 10/24/24 10/24/24 10/25/24 01:20 08:32 16:11 ABG pH 7.39 7.44 ABG pCO2 30 L 31 L ABG pO2 108 154 H D ABG HCO3 18 L 21 ABG O2 Saturation 99 H 100 H ABG Base Excess -6 L -2 VBG pH 7.31 L VBG pCO2 49 VBG pO2 28 VBG Base Excess -2 Quality Measures Quality Measures sepsis Current suspected stage: sepsis Possible source: GI tract/intra-abdominal Blood cultures ordered: yes Antibiotic ordered: Yes Advance care planning discussed with:: patient Assessment & Plan Assessment Current Active Medications: Generic Name Dose Route Start Last Admin Trade Name Freq PRN Reason Stop Dose Admin Acetaminophen 650 mg 10/24/24 01:36 10/25/24 17:33 Acetaminophen 325 Mg Tablet PO 11/23/24 01:35 650 mg Q6H PRN Administration Fever >100.4 Acetaminophen 650 mg 10/24/24 01:36 10/26/24 16:17 Acetaminophen 325 Mg Tablet PO 11/23/24 01:35 650 mg Q6H PRN Administration PAIN SCALE 1-3 (mild Albuterol/Ipratropium 3 ml 10/27/24 09:07 Albuterol/Ipratropium (Duoneb) Rt Felicia 3 Ml Nebu INH 11/26/24 12:59 Q6HRRT PRN wheezing Apixaban 5 mg 10/26/24 09:45 10/27/24 09:10 Apixaban 2.5 Mg Tablet PO 11/25/24 09:44 5 mg BID REBEKAH Administration Atorvastatin Calcium 10 mg 10/26/24 09:00 10/27/24 09:11 Atorvastatin Calcium 10 Mg Tablet PO 11/25/24 08:59 10 mg QDAY REBEKAH Administration Hydromorphone HCl 1 mg 10/24/24 10:37 Hydromorphone Inj 2 Mg/Ml Vial IVP 10/29/24 10:36 Q4HR PRN PAIN SCALE 4-10(Mod-Sev Ceftriaxone Sodium/Dextrose 1 gm in 50 mls @ 100 mls/hr 10/26/24 09:48 10/27/24 09:09 Rocephin/D5w 1gm Iv Premix IV 11/02/24 09:47 100 mls/hr QDAY REBEKAH Administration Vancomycin/Sodium Chloride 750 mg in 150 mls @ 120 mls/hr 10/27/24 10:00 10/27/24 10:00 Vancomycin/Ns 750 Mg Ivpb IV 11/03/24 09:59 120 mls/hr BID@1000,2200 REBEKAH Administration Levothyroxine Sodium 75 mcg 10/26/24 06:00 10/27/24 05:15 Levothyroxine Sodium 25 Mcg Tablet PO 11/25/24 05:59 75 mcg ACBR REBEKAH Administration Metoprolol Tartrate 50 mg 10/25/24 21:00 10/27/24 09:10 Metoprolol Tartrate 25 Mg Tablet PO 11/24/24 20:59 50 mg BID REBEKAH Administration Ondansetron HCl 4 mg 10/24/24 01:36 Ondansetron Inj 2 Mg/Ml Inj 2 Ml IVP 11/23/24 01:35 Q6H PRN NAUSEA OR VOMITING Protocol Pantoprazole Sodium 40 mg 10/27/24 09:00 10/27/24 09:11 Pantoprazole 40 Mg Tablet PO 11/23/24 08:59 40 mg QDAY REBEKAH Administration Pharmacy Consult 1 each 10/26/24 17:00 Vancomycin Pharmacy To Dose 1 Each Each IV 11/25/24 16:59 QDAY PRN CONSULT Polyethylene Glycol 17 gm 10/26/24 09:30 10/27/24 09:09 Polyethylene Glycol 17 Gm Packet PO 11/25/24 09:29 17 gm QDAY REBEKAH Administration Sennosides 1 tab 10/24/24 09:00 10/27/24 09:12 Senna Tablet PO 11/23/24 08:59 Not Given QDAY REBEKAH Protocol Plan 74-year-old male with pmh of HTN, Afib on apixaban , and cirrhosis, presented to the ED due to abdominal pain. Patient was admitted for mgmt of cholecystitis, s/p percutaneous drain with IR on 10/25. Narrowed abx from Pip/Tazo to CTX. 04/27 blood culture tubes from 10/25/24 growing GPC, started on IV Vanc on 10/26 #Acute acalculous cholecystitis status post cholecystostomy drain Patient presented with leukocytosis (WBC 16), tachycardia, RUQ pain, fevers. S/p percutaneous drain with IR on 10/25. Likely that there is better source control post procedure. Bcx sensitivities resulted, so Abx narrowed from pip tazo to CTX 1 g qd. CTM WBC. Per Surgery ok to advance diet from clears to low fat diet and ok to dc,pending bcx and pt remaining afebrile while inpatient, plan for outpatient follow up with gen surg. s/p percutaneous drain with IR Dx - COMPLETED 10/23: Abdominal US- Acalculus, c/f cholecystitis - COMPLETED 10/23: CT AP- consistent with cholecystitis - COMPLETED 10/24: KUB- concern for possible small bowel ileus vs early SBO - Daily CBC - New set of blood cultures growing GPC -Patient was wheezing this morning. Tx -Continue vancomycin pharmacy to dose -Continue CTX 1gm qd (10/26- - ondansetron 4mg IV PRN for n/v ? Surgery consulted appreciate recs: Gen Surg will follow up with pt outpatient (Dr. Titus) ? Follow-up on repeat blood cultures ? Breathing treatment as needed - IV Dilaudid 1mg q4h PRN for pain 4-10 (moderate-severe) #Sepsis likely due to acalculous cholecystitis #Concern for GPC bacteremia pt presents with concern for sepsis, initially met SIRS 3 criteria. SCORES - SIRS3 Criteria; Febrile, Tachycardic, Elevated WBC, Tachypnic Dx - 10/25 CXR (consider mild atelectasis) and KUB: Gallbladder drainage catheter satisfactorily positioned. Moderately air distended stomach. Mild colonic ileus - START incentive spirometry q2h (hold when patient is resting) - 10/23 UCx- negative - 10/23 Chest XR- no concern for PNA -Initial cultures grew GNR/E. coli pansensitive. Repeat blood cultures showing GPC. Tx - APAP 650 q6h prn - Appropriate coverage with antibiotics including ceftriaxone and vancomycin - Monitor for signs of infection including fever or clinical deterioration -Follow-up with CBC ? Follow-up on repeat blood cultures #Constipation ? Patient denied having a bowel movement x 2 days ago ? Endorses passage of gas Dx ? Abdominal x-ray showed ileus pattern. Tx ? MiraLAX scheduled every day, senna as needed ? Ordered physical therapy to ambulate patient ?Simethicone for bloating #Leukocytosis, likely related to infection ? No signs of fever and pus from the drain. Tx: ? Follow-up with CBC, white count improving #Normocytic anemia ? Hemoglobin 11 ? No signs of overt bleeding Tx: ? PRBC if hemoglobin drops below 7 ? Monitor for signs of bleeding and bruising #Electrolyte disturbances #Hypophosphatemia #Hypocalcemia ? Tx ? Replating electrolytes as necessary #Transaminitis #Hypoalbuminemia ? Liver enzymes improving Tx ? Avoid hepatotoxic agents ? Monitor liver enzymes #History of A-fib on apix, rate controlled ON 10/25 pt had rapid response called due to shortness of breath. Had been holding home apix pending perc drain, ok to restart anticoag tomorrow Dx - 10/25 EKG shows pt in AFib with RVR Tx ?Metoprolol tartrate 50 mg twice daily ?Continue Eliquis 5 mg twice daily #Hypertension-CHRONIC BP soft while inpatient requiring fluid bolus with LR. - Continue home metoprolol 50 BID #Chronically elevated T. bili-STABLE #Cirrhosis Patient does not have right upper quadrant tenderness post cholecystostomy drain placed. ABD US was done CBD not able to be visualized per report. ? CTM #Elevated troponins- RESOLVED troponins initially elevated, on repeat level is downtrending no need to continue trending. - NTD. Health Maintenance: Disposition: Telemetry: pt family would appreciate home health. Pending repeat blood cultures, ordered PT evaluation and bowel regimen. Fluids: LR PRN Feeding: advance diet per gen trudy recs: low fat diet VTE ppx: Eliquis 5 mg twice daily Gastric Ulcer ppx: Pantoprazole 40mg qd Bowel Reg: senna 1tab qd rebekah, miralax 17gm qd rebekah, bisacodyl suppository, encourage ambulation CODE STATUS: Full code Patient was seen and discussed with attending physician, Dr. Javed Gauthier MD, PGY 3 Attending Provider Attestation/Addendum I, Kathie Burt DO, attest that I was physically present for the richards portions of the service and evaluated the patient with the resident and I reviewed and discussed the case with the resident and agree with the resident's findings and plans of care as documented above Patient seen and evaluated this AM. Cholecystostomy tube draining dark red fluid about 141cc. KUB from 2 days ago noted, likely due to ileus as patient denies any nausea or vomiting. Encouraged patient to work with PT to ambulate. Will give IL glycerin. Blood cultures positive for GPC, will repeat cultures and continue with vancomycin at this time until to rule out bacteremia vs contamination. Continue with IV abx at this time.
[2024-10-27] MEDS: GLYCERIN, ADULT 1 EA SUPP 1 EACH PR (18:14)
[2024-10-28] VITALS (12 sets, daily range): BP systolic 117–140; BP diastolic 76–93; PULSE 94–112; RESP 12–97; TEMP 36.1–37.1; O2SAT 94–96; BMI 35.0
[2024-10-28] MEDS: VANCOMYCIN/NS 750 MG IVPB 750 MG/150 ML BAG 120 MG IV (00:03)
[2024-10-28 02:49] LABS: Chloride,Urine Random 77.2 mMol/L (55.0-125.0); Potassium,Urine Random < 10 mMol/L (12-62); Sodium,Urine Random 95.2 mMol/L (20.0-110.0)
[2024-10-28] MEDS: LEVOTHYROXINE SODIUM 25 MCG TABLET 75 MCG PO (05:24)
[2024-10-28 06:02] LABS: Basophils # (Auto) 0.1 Thou/mm3 (0.0-0.2); Basophils % (Auto) 0 % (0-2.5); Eosinophils # (Auto) 0.1 Thou/mm3 (0.0-0.5); Eosinophils % (Auto) 0 % (0-10); Hematocrit 33.6 % (41.0-53.0); Hemoglobin 11.3 g/dL (13.5-16.0); Immature Granulocytes Auto 0.28 Thou/mm3 (0.00-0.00); Lymphocytes # (Auto) 1.3 Thou/mm3 (1.0-4.8); Lymphocytes % (Auto) 7 % (10-50); Mean Corpuscular HGB Conc 33.6 g/dl (31.0-37.0); Mean Corpuscular Hemoglobin 27.5 pg (25.0-35.0); Mean Corpuscular Volume 82 fL (80-100); Monocytes # (Auto) 1.1 Thou/mm3 (0.0-0.8); Monocytes % (Auto) 6 % (0-12); Neutrophils # (Auto) 15.9 Thou/mm3 (1.8-7.7); Neutrophils % (Auto) 85 % (37-80); Nucleated Red Blood Cell # 0.00 Thou/mm3 (0.00-0.00); Nucleated Red Blood Cell % 0 /100 WBC (0); Platelet Count 247 Thou/mm3 (140-440); RDW Standard Deviation 43.7 fL (35.1-43.9); Red Blood Count 4.11 Miln/mm3 (4.50-5.90); White Blood Count 18.6 Thou/mm3 (3.8-10.6)
[2024-10-28 06:46] LABS: Alanine Aminotransferase 31 U/L (10-49); Albumin, Serum 3.1 gm/dL (3.4-4.8); Albumin/Globulin Ratio 1.3 (1.2-2.2); Alkaline Phosphatase 157 U/L (46-116); Anion Gap 11 (7-16); Aspartate Amino Transferase 41 U/L (0-34); BUN/Creatinine Ratio 14 Ratio (12-20); Bilirubin,Total 2.3 mg/dL (0.3-1.2); Blood Urea Nitrogen 11 mg/dL (9-23); Calcium 7.9 mg/dL (8.3-10.6); Calcium (Corrected) 8.6 mg/dL (8.5-10.1); Carbon Dioxide 26.1 mMol/L (20.0-31.0); Chloride 100 mMol/L (98-107); Creatinine (Component) 0.8 mg/dL (0.6-1.3); Estimated Creatinine Clearance 85.7 mL/min (>60); Globulin 2.4 gm/dL (2.3-3.5); Glucose 91 mg/dL (74-106); Magnesium 1.9 mg/dL (1.6-2.6); Osmolality,Calculated 273 (275-295); Phosphorous 2.3 mg/dL (2.4-5.1); Potassium 4.2 mMol/L (3.4-5.1); Sodium 137 mMol/L (136-145); Total Protein 5.5 gm/dL (5.7-8.2); eGFR > 60 See Note
--- NOTE | 2024-10-28 08:07 | PD.RESPRO ---
Documentation for date of: 10/28/24 Subjective Subjective Interval history: No acute events overnight - Small BM this morning 10/28, pt reports feeling bloated and having increased burping. - BCx 10/27 with NGTD @24 hrs Exam Vital Signs Temp Pulse Resp BP Pulse Ox O2 Del Method O2 Flow Rate 98 F 99 22 H 139/89 H 94 L Room Air 2 10/28/24 05:18 10/28/24 07:31 10/28/24 07:31 10/28/24 05:18 10/28/24 05:18 10/28/24 05:18 10/27/24 08:00 Narrative Exam GENERAL APPEARANCE: [place]-speaking in no acute distress, sitting upright in chair. HEENT: NC, AT. MMM. EOMI, clear conjunctiva, oropharynx clear. HEART: Irregular rate and irregular rhythm (afib), normal S1/S2, no m/r/g LUNGS: CTAB, moving air well on RA. No crackles or wheezes are heard. ABDOMEN: Soft, nontender, distended/tympanic with bowel sounds heard. R side Cholecystostomy drain with blood tinged fluid. BACK: No CVAT, no obvious deformity. EXTREMITIES: Without cyanosis, clubbing or edema., SCDs not on. NEUROLOGICAL: Grossly nonfocal. Alert and oriented, moving all 4 extremities. CN not formally tested but appear grossly intact. Skin: Warm and dry without any rash. Psych: Appropriate mood and affect Objective Labs 10/29/24 05:48 10/29/24 05:48 Labs: Laboratory Results - last 24 hr 10/28/24 10/28/24 01:40 04:20 WBC 18.6 H RBC 4.11 L Hgb 11.3 L Hct 33.6 L MCV 82 MCH 27.5 MCHC 33.6 RDW Std Deviation 43.7 Plt Count 247 D Neut % (Auto) 85 H Lymph % (Auto) 7 L [place] % (Auto) 6 Eos % (Auto) 0 Baso % (Auto) 0 Neut # (Auto) 15.9 H Lymph # (Auto) 1.3 [place] # (Auto) 1.1 H Eos # (Auto) 0.1 Baso # (Auto) 0.1 Immature Gran # (Auto) 0.28 H Absolute Nucleated RBC 0.00 Immature Gran % 2 H Nucleated RBC % 0 Sodium 137 Potassium 4.2 Chloride 100 Carbon Dioxide 26.1 Anion Gap 11 BUN 11 Creatinine 0.8 Estim Creat Clear Calc 85.7 eGFR > 60 BUN/Creatinine Ratio 14 Glucose 91 Calculated Osmolality 273 L Calcium 7.9 L Corrected Calcium 8.6 Phosphorus 2.3 L Magnesium 1.9 Total Bilirubin 2.3 H AST 41 H ALT 31 Alkaline Phosphatase 157 H Total Protein 5.5 L Albumin 3.1 L Globulin 2.4 Albumin/Globulin Ratio 1.3 Ur Random Sodium 95.2 Ur Random Potassium < 10 L Ur Random Chloride 77.2 ABG Interpretation ABG results: 10/24/24 10/24/24 10/25/24 01:20 08:32 16:11 ABG pH 7.39 7.44 ABG pCO2 30 L 31 L ABG pO2 108 154 H D ABG HCO3 18 L 21 ABG O2 Saturation 99 H 100 H ABG Base Excess -6 L -2 VBG pH 7.31 L VBG pCO2 49 VBG pO2 28 VBG Base Excess -2 Quality Measures Quality Measures sepsis Current suspected stage: sepsis Possible source: GI tract/intra-abdominal Blood cultures ordered: yes Antibiotic ordered: Yes Advance care planning discussed with:: patient and child Assessment & Plan Assessment Current Active Medications: Generic Name Dose Route Start Last Admin Trade Name Freq PRN Reason Stop Dose Admin Acetaminophen 650 mg 10/24/24 01:36 10/25/24 17:33 Acetaminophen 325 Mg Tablet PO 11/23/24 01:35 650 mg Q6H PRN Administration Fever >100.4 Acetaminophen 650 mg 10/24/24 01:36 10/26/24 16:17 Acetaminophen 325 Mg Tablet PO 11/23/24 01:35 650 mg Q6H PRN Administration PAIN SCALE 1-3 (mild Albuterol/Ipratropium 3 ml 10/27/24 09:07 Albuterol/Ipratropium (Duoneb) Rt Felicia 3 Ml Nebu INH 11/26/24 12:59 Q6HRRT PRN wheezing Apixaban 5 mg 10/26/24 09:45 10/27/24 20:47 Apixaban 2.5 Mg Tablet PO 11/25/24 09:44 5 mg BID REBEKAH Administration Atorvastatin Calcium 10 mg 10/26/24 09:00 10/27/24 09:11 Atorvastatin Calcium 10 Mg Tablet PO 11/25/24 08:59 10 mg QDAY REBEKAH Administration Hydromorphone HCl 1 mg 10/24/24 10:37 Hydromorphone Inj 2 Mg/Ml Vial IVP 10/29/24 10:36 Q4HR PRN PAIN SCALE 4-10(Mod-Sev Ceftriaxone Sodium/Dextrose 1 gm in 50 mls @ 100 mls/hr 10/26/24 09:48 10/27/24 09:09 Rocephin/D5w 1gm Iv Premix IV 11/02/24 09:47 100 mls/hr QDAY REBEKAH Administration Vancomycin/Sodium Chloride 750 mg in 150 mls @ 120 mls/hr 10/27/24 10:00 10/28/24 00:03 Vancomycin/Ns 750 Mg Ivpb IV 11/03/24 09:59 120 mls/hr BID@1000,2200 REBEKAH Administration Levothyroxine Sodium 75 mcg 10/26/24 06:00 10/28/24 05:24 Levothyroxine Sodium 25 Mcg Tablet PO 11/25/24 05:59 75 mcg ACBR REBEKAH Administration Metoprolol Tartrate 50 mg 10/25/24 21:00 10/27/24 20:46 Metoprolol Tartrate 25 Mg Tablet PO 11/24/24 20:59 50 mg BID REBEKAH Administration Ondansetron HCl 4 mg 10/24/24 01:36 Ondansetron Inj 2 Mg/Ml Inj 2 Ml IVP 11/23/24 01:35 Q6H PRN NAUSEA OR VOMITING Protocol Pantoprazole Sodium 40 mg 10/27/24 09:00 10/27/24 09:11 Pantoprazole 40 Mg Tablet PO 11/23/24 08:59 40 mg QDAY REBEKAH Administration Pharmacy Consult 1 each 10/26/24 17:00 Vancomycin Pharmacy To Dose 1 Each Each IV 11/25/24 16:59 QDAY PRN CONSULT Polyethylene Glycol 17 gm 10/26/24 09:30 10/27/24 09:09 Polyethylene Glycol 17 Gm Packet PO 11/25/24 09:29 17 gm QDAY REBEKAH Administration Sennosides 1 tab 10/24/24 09:00 10/27/24 09:12 Senna Tablet PO 11/23/24 08:59 Not Given QDAY REBEKAH Protocol Simethicone 80 mg 10/27/24 18:49 Simethicone 80 Mg Chew PO 08/03/25 18:48 QID PRN GAS Plan 74-year-old male with pmh of HTN, Afib on apixaban , and cirrhosis, presented to the ED due to abdominal pain. Patient was admitted for mgmt of cholecystitis, s/p percutaneous drain with IR on 10/25. 2/ Bcx growing GPC, pending speciation, started on IV Vanc on 10/26- , repeat Bcx NGTD @24 hrs (will follow up). Clinical picture is mixed, given BCx previously growing GPC on vanc , however wbc is uptrending, pt afebrile, with minimal RUQ pain and mild abdominal discomfort and bloating. #Possible GPC bacteremia #Sepsis likely due to acalculous cholecystitis pt presents with concern for sepsis, initially met SIRS 3 criteria. SCORES - SIRS3 Criteria; Febrile, Tachycardic, Elevated WBC, Tachypnic Dx - 10/25 CXR (consider mild atelectasis) and KUB: Gallbladder drainage catheter satisfactorily positioned. Moderately air distended stomach. Mild colonic ileus - START incentive spirometry q2h (hold when patient is resting) - 10/23 UCx- negative - 10/23 Chest XR- no concern for PNA -Initial cultures grew GNR/E. coli pansensitive. Repeat blood cultures showing GPC. ? Follow-up on repeat blood cultures - ECHO: to r/o possible vegetations given hx positive blood cultures w gpc. Tx - APAP 650 q6h prn - Appropriate coverage with antibiotics including ceftriaxone and vancomycin - Monitor for signs of infection including fever or clinical deterioration -Follow-up with CBC #Leukocytosis, likely related to infection ? No signs of fever and pus from the drain. Consider inflammation response secondary to percutaneous drain placement vs infxn (cholecystitis vs possible GPC bacteremia). Plan to correlate labs with overall clinical picture. Tx: ? Follow-up with CBC, white count fluctuating #Constipation Pt endorses 1 small BM 10/28 in the AM, but feeling increased abdominal fullness and discomfort. Endorses passage of gas, consider repeat KUB. Dx ? Abdominal x-ray showed ileus pattern. Tx ? MiraLAX scheduled every day, senna QD - Fleet enema 10/28 ? Ordered physical therapy to ambulate patient: Spoke to PT sylvain, plan for PT tomorrow 10/29. ?Simethicone for bloating #Acute acalculous cholecystitis status post cholecystostomy drain Patient presented with leukocytosis (WBC 16), tachycardia, RUQ pain, fevers. S/p percutaneous drain with IR on 10/25. Likely that there is better source control post procedure. Bcx sensitivities resulted, so Abx narrowed from pip tazo to CTX 1 g qd. CTM WBC. On low fat diet and ok to dc,pending bcx and pt remaining afebrile while inpatient, plan for outpatient follow up with gen surg. s/p percutaneous drain with IR Dx - Daily CBC Tx -Continue vancomycin pharmacy to dose -Continue CTX 1gm qd (10/26- - ondansetron 4mg IV PRN for n/v ? Surgery consulted appreciate recs: Gen Surg will follow up with pt outpatient (Dr. Titus) ? Breathing treatment as needed - IV Dilaudid 1mg q4h PRN for pain 4-10 (moderate-severe) #Normocytic anemia ? Hemoglobin 11 ? No signs of overt bleeding, Tx: ? PRBC if hemoglobin drops below 7 ? Monitor for signs of bleeding and bruising #Electrolyte disturbances #Hypophosphatemia #Hypocalcemia ? Tx ? Replete electrolytes as necessary #Transaminitis #Hypoalbuminemia ? Liver enzymes improving Tx ? Avoid hepatotoxic agents ? Monitor liver enzymes #History of A-fib on apix, rate controlled ON 10/25 pt had rapid response called due to shortness of breath. Had been holding home apix pending perc drain, restarted apixiban 5 mg BID Dx - 10/25 EKG shows pt in AFib with RVR Tx ?Metoprolol tartrate 50 mg twice daily ?Continue Apixiban 5 mg twice daily #Hypertension-CHRONIC BP soft while inpatient requiring fluid bolus with LR. - Continue home metoprolol 50 BID #Chronically elevated T. bili-STABLE #Cirrhosis Patient does not have right upper quadrant tenderness post cholecystostomy drain placed. ABD US was done CBD not able to be visualized per report. ? CTM #Elevated troponins- RESOLVED troponins initially elevated, on repeat level is downtrending no need to continue trending. - NTD. Health Maintenance: Disposition: Telemetry: pt family would appreciate home health. Pending repeat blood cultures, ordered PT evaluation and bowel regimen. Fluids: LR PRN Feeding: advance diet per gen trudy recs: low fat diet VTE ppx: Eliquis 5 mg twice daily Gastric Ulcer ppx: Pantoprazole 40mg qd Bowel Reg: senna 1tab qd rebekah, miralax 17gm qd rebekah, bisacodyl suppository, fleet enema prn, encourage ambulation CODE STATUS: Full code Case discussed with my attending Dr. Javed Ho MD PGY-1 Attending Provider Attestation/Addendum IKathie, DO, attest that I was physically present for the richards portions of the service and evaluated the patient with the resident and I reviewed and discussed the case with the resident and agree with the resident's findings and plans of care as documented above Patient seen and eval this a.m. He states that he is feeling well. No acute events overnight. Pending physical therapy at this time. Leukocytosis is uptrending. However, patient has been afebrile. Pending repeat blood cultures which have been no growth to date x 24 hours. However initial cultures are pending final sensitivities and speciation. Continue with vancomycin and Rocephin at this time. Patient encouraged to use incentive spirometer. Patient has been tolerating diet and stated had a small bowel movement yesterday. Family at bedside updated. All questions concerns addressed at bedside.
[2024-10-28] MEDS: cefTRIAXone/D5w 1gm IV premix 1 GM/50 ML BAG IV (08:34)
[2024-10-28] MEDS: POLYETHYLENE GLYCOL 17 GM PACKET PO (08:34)
[2024-10-28] MEDS: APIXABAN 2.5 MG TABLET 5 MG PO ×2 (08:35→21:27)
[2024-10-28] MEDS: METOPROLOL TARTRATE 25 MG TABLET 50 MG PO ×2 (08:35→21:27)
[2024-10-28] MEDS: PANTOPRAZOLE 40 MG TABLET PO (08:35)
[2024-10-28] MEDS: ATORVASTATIN CALCIUM 10 MG TABLET PO (08:35)
[2024-10-28 10:08] LABS: Vancomycin,Trough 9.3 mcg/mL (5.0-10.0)
[2024-10-28] MEDS: VANCOMYCIN/NS 1 GM IVPB 200 ML IV ×2 (10:29→21:30)
[2024-10-29] VITALS (12 sets, daily range): BP systolic 119–138; BP diastolic 65–92; PULSE 90–115; RESP 13–97; TEMP 36.1–37.2; O2SAT 94–97; BMI 35.4
[2024-10-29] MEDS: LEVOTHYROXINE SODIUM 25 MCG TABLET 75 MCG PO (05:20)
[2024-10-29 06:12] LABS: Basophils # (Auto) 0.0 Thou/mm3 (0.0-0.2); Basophils % (Auto) 0 % (0-2.5); Eosinophils # (Auto) 0.1 Thou/mm3 (0.0-0.5); Eosinophils % (Auto) 1 % (0-10); Hematocrit 29.5 % (41.0-53.0); Hemoglobin 10.0 g/dL (13.5-16.0); Immature Granulocytes Auto 0.39 Thou/mm3 (0.00-0.00); Lymphocytes # (Auto) 1.3 Thou/mm3 (1.0-4.8); Lymphocytes % (Auto) 7 % (10-50); Mean Corpuscular HGB Conc 33.9 g/dl (31.0-37.0); Mean Corpuscular Hemoglobin 27.9 pg (25.0-35.0); Mean Corpuscular Volume 82 fL (80-100); Monocytes # (Auto) 1.2 Thou/mm3 (0.0-0.8); Monocytes % (Auto) 6 % (0-12); Neutrophils # (Auto) 15.4 Thou/mm3 (1.8-7.7); Neutrophils % (Auto) 84 % (37-80); Nucleated Red Blood Cell # 0.00 Thou/mm3 (0.00-0.00); Nucleated Red Blood Cell % 0 /100 WBC (0); Platelet Count 368 Thou/mm3 (140-440); RDW Standard Deviation 43.5 fL (35.1-43.9); Red Blood Count 3.59 Miln/mm3 (4.50-5.90); White Blood Count 18.3 Thou/mm3 (3.8-10.6)
[2024-10-29 06:41] LABS: Alanine Aminotransferase 42 U/L (10-49); Albumin, Serum 3.1 gm/dL (3.4-4.8); Albumin/Globulin Ratio 1.4 (1.2-2.2); Alkaline Phosphatase 142 U/L (46-116); Anion Gap 8 (7-16); Aspartate Amino Transferase 55 U/L (0-34); BUN/Creatinine Ratio 11 Ratio (12-20); Bilirubin,Total 1.9 mg/dL (0.3-1.2); Blood Urea Nitrogen 9 mg/dL (9-23); Calcium 7.6 mg/dL (8.3-10.6); Calcium (Corrected) 8.3 mg/dL (8.5-10.1); Carbon Dioxide 25.9 mMol/L (20.0-31.0); Chloride 100 mMol/L (98-107); Creatinine (Component) 0.8 mg/dL (0.6-1.3); Estimated Creatinine Clearance 87.9 mL/min (>60); Globulin 2.2 gm/dL (2.3-3.5); Glucose 96 mg/dL (74-106); Magnesium 1.9 mg/dL (1.6-2.6); Osmolality,Calculated 266 (275-295); Phosphorous 2.8 mg/dL (2.4-5.1); Potassium 4.2 mMol/L (3.4-5.1); Sodium 134 mMol/L (136-145); Total Protein 5.3 gm/dL (5.7-8.2); eGFR > 60 See Note
[2024-10-29] MEDS: PANTOPRAZOLE 40 MG TABLET PO (08:57)
[2024-10-29] MEDS: cefTRIAXone/D5w 1gm IV premix 1 GM/50 ML BAG IV (08:57)
[2024-10-29] MEDS: APIXABAN 2.5 MG TABLET 5 MG PO ×2 (08:57→20:30)
[2024-10-29] MEDS: POLYETHYLENE GLYCOL 17 GM PACKET PO (08:57)
[2024-10-29] MEDS: ATORVASTATIN CALCIUM 10 MG TABLET PO (08:58)
[2024-10-29] MEDS: METOPROLOL TARTRATE 25 MG TABLET 50 MG PO ×2 (08:58→20:29)
[2024-10-29] MEDS: AMPICILLIN/SULBAC INJ 3 GM in SODIUM CHLORIDE 0.9% (POP) 100 ML IV ×3 (12:00→23:07)
--- NOTE | 2024-10-29 15:16 | PD.RESPRO ---
Documentation for date of: 10/29/24 Subjective Subjective Interval history: No overnight events. Patient seen examined at bedside, resting comfortably. Patient reports difficulty with bowel movements, passing small stools. Patient denies fevers, chills, chest pain, nausea, vomiting. Blood culture grew Enterococcus species, patient started on Unasyn. Pending ED consult. Exam Vital Signs Temp Pulse Resp BP Pulse Ox O2 Del Method O2 Flow Rate 97.4 F 96 26 H 122/87 H 97 Room Air 2 10/29/24 12:00 10/29/24 12:00 10/29/24 12:00 10/29/24 12:00 10/29/24 12:00 10/29/24 12:00 10/29/24 12:00 Narrative Exam GENERAL APPEARANCE: [place]-speaking in no acute distress, sitting upright in chair. HEENT: NC, AT. MMM. EOMI, clear conjunctiva, oropharynx clear. HEART: Irregular rate and irregular rhythm (afib), normal S1/S2, no m/r/g LUNGS: CTAB, moving air well on RA. No crackles or wheezes are heard. ABDOMEN: Soft, nontender, distended/tympanic with bowel sounds heard. R side Cholecystostomy drain with blood tinged fluid, minimal drainage. BACK: No CVAT, no obvious deformity. EXTREMITIES: Without cyanosis, clubbing or edema., SCDs not on. NEUROLOGICAL: Grossly nonfocal. Alert and oriented, moving all 4 extremities. CN not formally tested but appear grossly intact. Skin: Warm and dry without any rash. Psych: Appropriate mood and affect Objective Labs 10/30/24 05:02 10/30/24 05:02 Labs: Laboratory Results - last 24 hr 10/29/24 05:48 WBC 18.3 H RBC 3.59 L Hgb 10.0 L Hct 29.5 L MCV 82 MCH 27.9 MCHC 33.9 RDW Std Deviation 43.5 Plt Count 368 D Neut % (Auto) 84 H Lymph % (Auto) 7 L [place] % (Auto) 6 Eos % (Auto) 1 Baso % (Auto) 0 Neut # (Auto) 15.4 H Lymph # (Auto) 1.3 [place] # (Auto) 1.2 H Eos # (Auto) 0.1 Baso # (Auto) 0.0 Immature Gran # (Auto) 0.39 H Absolute Nucleated RBC 0.00 Immature Gran % 2 H Nucleated RBC % 0 Sodium 134 L Potassium 4.2 Chloride 100 Carbon Dioxide 25.9 Anion Gap 8 BUN 9 Creatinine 0.8 Estim Creat Clear Calc 87.9 eGFR > 60 BUN/Creatinine Ratio 11 L Glucose 96 Calculated Osmolality 266 L Calcium 7.6 L Corrected Calcium 8.3 L Phosphorus 2.8 Magnesium 1.9 Total Bilirubin 1.9 H AST 55 H ALT 42 Alkaline Phosphatase 142 H Total Protein 5.3 L Albumin 3.1 L Globulin 2.2 L Albumin/Globulin Ratio 1.4 ABG Interpretation ABG results: 10/24/24 10/24/24 10/25/24 01:20 08:32 16:11 ABG pH 7.39 7.44 ABG pCO2 30 L 31 L ABG pO2 108 154 H D ABG HCO3 18 L 21 ABG O2 Saturation 99 H 100 H ABG Base Excess -6 L -2 VBG pH 7.31 L VBG pCO2 49 VBG pO2 28 VBG Base Excess -2 Quality Measures Quality Measures sepsis Current suspected stage: sepsis Possible source: GI tract/intra-abdominal Blood cultures ordered: yes Antibiotic ordered: Yes Advance care planning discussed with:: patient, spouse and child Assessment & Plan Assessment Current Active Medications: Generic Name Dose Route Start Last Admin Trade Name Freq PRN Reason Stop Dose Admin Acetaminophen 650 mg 10/24/24 01:36 10/25/24 17:33 Acetaminophen 325 Mg Tablet PO 11/23/24 01:35 650 mg Q6H PRN Administration Fever >100.4 Acetaminophen 650 mg 10/24/24 01:36 10/26/24 16:17 Acetaminophen 325 Mg Tablet PO 11/23/24 01:35 650 mg Q6H PRN Administration PAIN SCALE 1-3 (mild Albuterol/Ipratropium 3 ml 10/27/24 09:07 Albuterol/Ipratropium (Duoneb) Rt Felicia 3 Ml Nebu INH 11/26/24 12:59 Q6HRRT PRN wheezing Apixaban 5 mg 10/26/24 09:45 10/29/24 08:57 Apixaban 2.5 Mg Tablet PO 11/25/24 09:44 5 mg BID REBEKAH Administration Atorvastatin Calcium 10 mg 10/26/24 09:00 10/29/24 08:58 Atorvastatin Calcium 10 Mg Tablet PO 11/25/24 08:59 10 mg QDAY REBEKAH Administration Ampicillin Sodium/Sulbactam 100 mls @ 200 mls/hr 10/29/24 12:00 10/29/24 12:00 Sodium 3 gm/ Sodium Chloride IV 11/05/24 11:59 200 mls/hr Q6HR REBEKAH Administration Levothyroxine Sodium 75 mcg 10/26/24 06:00 10/29/24 05:20 Levothyroxine Sodium 25 Mcg Tablet PO 11/25/24 05:59 75 mcg ACBR REBEKAH Administration Metoprolol Tartrate 50 mg 10/25/24 21:00 10/29/24 08:58 Metoprolol Tartrate 25 Mg Tablet PO 11/24/24 20:59 50 mg BID REBEKAH Administration Ondansetron HCl 4 mg 10/24/24 01:36 Ondansetron Inj 2 Mg/Ml Inj 2 Ml IVP 11/23/24 01:35 Q6H PRN NAUSEA OR VOMITING Protocol Pantoprazole Sodium 40 mg 10/27/24 09:00 10/29/24 08:57 Pantoprazole 40 Mg Tablet PO 11/23/24 08:59 40 mg QDAY REBEKAH Administration Polyethylene Glycol 17 gm 10/26/24 09:30 10/29/24 08:57 Polyethylene Glycol 17 Gm Packet PO 11/25/24 09:29 17 gm QDAY REBEKAH Administration Sennosides 1 tab 10/24/24 09:00 10/29/24 08:58 Senna Tablet PO 11/23/24 08:59 1 tab QDAY REBEKAH Administration Protocol Simethicone 80 mg 10/27/24 18:49 Simethicone 80 Mg Chew PO 11/26/24 18:48 QID PRN GAS Plan 74-year-old male with pmh of HTN, Afib on apixaban , and cirrhosis, presented to the ED due to abdominal pain. Patient was admitted for mgmt of cholecystitis, s/p percutaneous drain with IR on 10/25. 05/28 Bcx growing GPC, pending speciation, started on IV Vanc on 10/26- , repeat Bcx NGTD @24 hrs (will follow up). Clinical picture is mixed, given BCx previously growing GPC on vanc , however wbc is uptrending, pt afebrile, with minimal RUQ pain and mild abdominal discomfort and bloating. #Enterococcus faecium bacteremia #Sepsis likely due to acalculous cholecystitis pt presents with concern for sepsis, initially met SIRS 3 criteria. SCORES - SIRS3 Criteria; Febrile, Tachycardic, Elevated WBC, Tachypnic Dx - 10/25 CXR (consider mild atelectasis) and KUB: Gallbladder drainage catheter satisfactorily positioned. Moderately air distended stomach. Mild colonic ileus - START incentive spirometry q2h (hold when patient is resting) - 10/23 UCx- negative - 10/23 Chest XR- no concern for PNA -Initial cultures grew GNR/E. coli pansensitive. Repeat blood cultures showing GPC. ? Repeat cx negative x48 hours - ECHO: to r/o possible vegetations given hx positive blood cultures w gpc. Negative Tx - APAP 650 q6h prn - Unasyn 3g IV q6h (started 10/29) - Monitor for signs of infection including fever or clinical deterioration -Follow-up with CBC #Acute acalculous cholecystitis status post cholecystostomy drain Patient presented with leukocytosis (WBC 16), tachycardia, RUQ pain, fevers. S/p percutaneous drain with IR on 10/25. Likely that there is better source control post procedure. Bcx sensitivities resulted, so Abx narrowed from pip tazo to CTX 1 g qd. CTM WBC. On low fat diet and ok to dc,pending bcx and pt remaining afebrile while inpatient, plan for outpatient follow up with gen surg. s/p percutaneous drain with IR Dx - Daily CBC Tx - Unasyn 3gm IV q6h (started 10/29) - ondansetron 4mg IV PRN for n/v ? Surgery consulted appreciate recs: Gen Surg will follow up with pt outpatient (Dr. Titus) ? Breathing treatment as needed - IV Dilaudid 1mg q4h PRN for pain 4-10 (moderate-severe) #Leukocytosis, likely related to infection ? No signs of fever and pus from the drain. Consider inflammation response secondary to percutaneous drain placement vs infxn (cholecystitis vs possible GPC bacteremia). Plan to correlate labs with overall clinical picture. Tx: ? Follow-up with CBC, white count fluctuating #Constipation Pt endorses 1 small BM 7/5 in the AM, but feeling increased abdominal fullness and discomfort. Endorses passage of gas, consider repeat KUB. Dx ? Abdominal x-ray showed ileus pattern. Tx ? MiraLAX scheduled every day, senna QD - Fleet enema 10/28 ? Ordered physical therapy to ambulate patient: Spoke to PT sylvain, plan for PT tomorrow 10/29. ?Simethicone for bloating #Normocytic anemia ? Hemoglobin 11 ? No signs of overt bleeding, Tx: ? PRBC if hemoglobin drops below 7 ? Monitor for signs of bleeding and bruising #Electrolyte disturbances #Hypophosphatemia #Hypocalcemia ? Tx ? Replete electrolytes as necessary #Transaminitis #Hypoalbuminemia ? Liver enzymes improving Tx ? Avoid hepatotoxic agents ? Monitor liver enzymes #History of A-fib on apix, rate controlled ON 10/25 pt had rapid response called due to shortness of breath. Had been holding home apix pending perc drain, restarted apixiban 5 mg BID Dx - 10/25 EKG shows pt in AFib with RVR Tx ?Metoprolol tartrate 50 mg twice daily ?Continue Apixiban 5 mg twice daily #Hypertension-CHRONIC BP soft while inpatient requiring fluid bolus with LR. - Continue home metoprolol 50 BID #Chronically elevated T. bili-STABLE #Cirrhosis Patient does not have right upper quadrant tenderness post cholecystostomy drain placed. ABD US was done CBD not able to be visualized per report. ? CTM #Elevated troponins- RESOLVED troponins initially elevated, on repeat level is downtrending no need to continue trending. - NTD. Health Maintenance: Disposition: Telemetry: pt family would appreciate home health. Pending repeat blood cultures, ordered PT evaluation and bowel regimen. Fluids: LR PRN Feeding: advance diet per gen trudy recs: low fat diet VTE ppx: Eliquis 5 mg twice daily Gastric Ulcer ppx: Pantoprazole 40mg qd Bowel Reg: senna 1tab qd rebekah, miralax 17gm qd rebekah, bisacodyl suppository, fleet enema prn, encourage ambulation CODE STATUS: Full code Case discussed with my attending Dr. Javed Moore MD PGY-2 Attending Provider Attestation/Addendum Kathie Westfall, DO, attest that I was physically present for the richards portions of the service and evaluated the patient with the resident and I reviewed and discussed the case with the resident and agree with the resident's findings and plans of care as documented above Patient seen and evaluated this AM. Patient sitting up in chair and eating his breakfast. Family at bedside. Patient has no acute complaints at this time. Leukocytosis unchanged. Patient is otherwise afebrile. He was able to have a small bowel movement last night. He denies any pain. Minimal drainage from cholecystostomy tube. Pending physical therapy. Will have infectious disease give final antibiotic recommendations. Final cultures of gram-positive cocci show staph epi and Enterococcus patient will switch patient to Unasyn and DC Rocephin. Continue with current management anticipate discharge within the next 24 hours.
[2024-10-29 21:44] LABS: Vancomycin,Trough 4.0 mcg/mL (5.0-10.0)
[2024-10-30] VITALS (11 sets, daily range): BP systolic 107–128; BP diastolic 77–85; PULSE 67–112; RESP 19–97; TEMP 36.2–36.4; O2SAT 91–99; BMI 35.4
[2024-10-30] MEDS: AMPICILLIN/SULBAC INJ 3 GM in SODIUM CHLORIDE 0.9% (POP) 100 ML IV (05:10)
[2024-10-30] MEDS: LEVOTHYROXINE SODIUM 25 MCG TABLET 75 MCG PO (05:10)
[2024-10-30 06:21] LABS: Basophils # (Auto) 0.0 Thou/mm3 (0.0-0.2); Basophils % (Auto) 0 % (0-2.5); Eosinophils # (Auto) 0.1 Thou/mm3 (0.0-0.5); Eosinophils % (Auto) 1 % (0-10); Hematocrit 29.9 % (41.0-53.0); Hemoglobin 10.3 g/dL (13.5-16.0); Immature Granulocytes Auto 0.39 Thou/mm3 (0.00-0.00); Lymphocytes # (Auto) 1.3 Thou/mm3 (1.0-4.8); Lymphocytes % (Auto) 8 % (10-50); Mean Corpuscular HGB Conc 34.4 g/dl (31.0-37.0); Mean Corpuscular Hemoglobin 28.3 pg (25.0-35.0); Mean Corpuscular Volume 82 fL (80-100); Monocytes # (Auto) 1.0 Thou/mm3 (0.0-0.8); Monocytes % (Auto) 7 % (0-12); Neutrophils # (Auto) 12.6 Thou/mm3 (1.8-7.7); Neutrophils % (Auto) 82 % (37-80); Nucleated Red Blood Cell # 0.00 Thou/mm3 (0.00-0.00); Nucleated Red Blood Cell % 0 /100 WBC (0); Platelet Count 343 Thou/mm3 (140-440); RDW Standard Deviation 43.7 fL (35.1-43.9); Red Blood Count 3.64 Miln/mm3 (4.50-5.90); White Blood Count 15.4 Thou/mm3 (3.8-10.6)
[2024-10-30 06:44] LABS: Alanine Aminotransferase 50 U/L (10-49); Albumin, Serum 3.1 gm/dL (3.4-4.8); Albumin/Globulin Ratio 1.3 (1.2-2.2); Alkaline Phosphatase 157 U/L (46-116); Anion Gap 9 (7-16); Aspartate Amino Transferase 60 U/L (0-34); BUN/Creatinine Ratio 11 Ratio (12-20); Bilirubin,Total 1.7 mg/dL (0.3-1.2); Blood Urea Nitrogen 9 mg/dL (9-23); Calcium 8.0 mg/dL (8.3-10.6); Calcium (Corrected) 8.7 mg/dL (8.5-10.1); Carbon Dioxide 27.0 mMol/L (20.0-31.0); Chloride 100 mMol/L (98-107); Creatinine (Component) 0.8 mg/dL (0.6-1.3); Estimated Creatinine Clearance 87.9 mL/min (>60); Globulin 2.3 gm/dL (2.3-3.5); Glucose 96 mg/dL (74-106); Magnesium 2.1 mg/dL (1.6-2.6); Osmolality,Calculated 270 (275-295); Phosphorous 3.1 mg/dL (2.4-5.1); Potassium 4.6 mMol/L (3.4-5.1); Sodium 136 mMol/L (136-145); Total Protein 5.4 gm/dL (5.7-8.2); eGFR > 60 See Note
--- NOTE | 2024-10-30 07:30 | PD.RESPRO ---
Documentation for date of: 10/30/24 Subjective Subjective Interval history: bm? Exam Vital Signs Temp Pulse Resp BP Pulse Ox O2 Del Method O2 Flow Rate 97.6 F 97 25 H 128/85 H 98 Room Air 1 10/30/24 03:59 10/30/24 04:00 10/30/24 03:59 10/30/24 03:59 10/30/24 03:59 10/30/24 03:59 10/29/24 23:58 Objective Labs 10/30/24 05:02 10/30/24 05:02 Labs: Laboratory Results - last 24 hr 10/29/24 10/30/24 20:56 05:02 WBC 15.4 H RBC 3.64 L Hgb 10.3 L Hct 29.9 L MCV 82 MCH 28.3 MCHC 34.4 RDW Std Deviation 43.7 Plt Count 343 Neut % (Auto) 82 H Lymph % (Auto) 8 L [place] % (Auto) 7 Eos % (Auto) 1 Baso % (Auto) 0 Neut # (Auto) 12.6 H Lymph # (Auto) 1.3 [place] # (Auto) 1.0 H Eos # (Auto) 0.1 Baso # (Auto) 0.0 Immature Gran # (Auto) 0.39 H Absolute Nucleated RBC 0.00 Immature Gran % 3 H Nucleated RBC % 0 Sodium 136 Potassium 4.6 Chloride 100 Carbon Dioxide 27.0 Anion Gap 9 BUN 9 Creatinine 0.8 Estim Creat Clear Calc 87.9 eGFR > 60 BUN/Creatinine Ratio 11 L Glucose 96 Calculated Osmolality 270 L Calcium 8.0 L Corrected Calcium 8.7 Phosphorus 3.1 Magnesium 2.1 Total Bilirubin 1.7 H AST 60 H ALT 50 H Alkaline Phosphatase 157 H Total Protein 5.4 L Albumin 3.1 L Globulin 2.3 Albumin/Globulin Ratio 1.3 Vancomycin Trough 4.0 L ABG Interpretation ABG results: 10/24/24 10/24/24 10/25/24 01:20 08:32 16:11 ABG pH 7.39 7.44 ABG pCO2 30 L 31 L ABG pO2 108 154 H D ABG HCO3 18 L 21 ABG O2 Saturation 99 H 100 H ABG Base Excess -6 L -2 VBG pH 7.31 L VBG pCO2 49 VBG pO2 28 VBG Base Excess -2 Quality Measures Quality Measures sepsis Possible source: GI tract/intra-abdominal Blood cultures ordered: yes Assessment & Plan Assessment Current Active Medications: Generic Name Dose Route Start Last Admin Trade Name Freq PRN Reason Stop Dose Admin Acetaminophen 650 mg 10/24/24 01:36 10/25/24 17:33 Acetaminophen 325 Mg Tablet PO 11/23/24 01:35 650 mg Q6H PRN Administration Fever >100.4 Acetaminophen 650 mg 10/24/24 01:36 10/26/24 16:17 Acetaminophen 325 Mg Tablet PO 11/23/24 01:35 650 mg Q6H PRN Administration PAIN SCALE 1-3 (mild Albuterol/Ipratropium 3 ml 10/27/24 09:07 Albuterol/Ipratropium (Duoneb) Rt Felicia 3 Ml Nebu INH 11/26/24 12:59 Q6HRRT PRN wheezing Apixaban 5 mg 10/26/24 09:45 10/29/24 20:30 Apixaban 2.5 Mg Tablet PO 11/25/24 09:44 5 mg BID CLAIRE Administration Atorvastatin Calcium 10 mg 10/26/24 09:00 10/29/24 08:58 Atorvastatin Calcium 10 Mg Tablet PO 11/25/24 08:59 10 mg QDAY CLAIRE Administration Ampicillin Sodium/Sulbactam 100 mls @ 200 mls/hr 10/29/24 12:00 10/30/24 05:10 Sodium 3 gm/ Sodium Chloride IV 11/05/24 11:59 200 mls/hr Q6HR CLAIRE Administration Levothyroxine Sodium 75 mcg 10/26/24 06:00 10/30/24 05:10 Levothyroxine Sodium 25 Mcg Tablet PO 11/25/24 05:59 75 mcg ACBR CLAIRE Administration Metoprolol Tartrate 50 mg 10/25/24 21:00 10/29/24 20:29 Metoprolol Tartrate 25 Mg Tablet PO 11/24/24 20:59 50 mg BID CLAIRE Administration Ondansetron HCl 4 mg 10/24/24 01:36 Ondansetron Inj 2 Mg/Ml Inj 2 Ml IVP 11/23/24 01:35 Q6H PRN NAUSEA OR VOMITING Protocol Pantoprazole Sodium 40 mg 10/27/24 09:00 10/29/24 08:57 Pantoprazole 40 Mg Tablet PO 11/23/24 08:59 40 mg QDAY CLAIRE Administration Polyethylene Glycol 17 gm 10/26/24 09:30 10/29/24 08:57 Polyethylene Glycol 17 Gm Packet PO 11/25/24 09:29 17 gm QDAY CLAIRE Administration Sennosides 1 tab 10/24/24 09:00 10/29/24 08:58 Senna Tablet PO 11/23/24 08:59 1 tab QDAY CLAIRE Administration Protocol Simethicone 80 mg 10/27/24 18:49 Simethicone 80 Mg Chew PO 11/26/24 18:48 QID PRN GAS
[2024-10-30] MEDS: METOPROLOL TARTRATE 25 MG TABLET 50 MG PO (09:34)
[2024-10-30] MEDS: POLYETHYLENE GLYCOL 17 GM PACKET PO (09:34)
[2024-10-30] MEDS: PANTOPRAZOLE 40 MG TABLET PO (09:35)
[2024-10-30] MEDS: ATORVASTATIN CALCIUM 10 MG TABLET PO (09:35)
[2024-10-30] MEDS: APIXABAN 2.5 MG TABLET 5 MG PO (10:36)
--- NOTE | 2024-10-30 10:58 | PD.IDPROG ---
Subjective Subjective Interval history: 74 y/o full code,admitted 10/24 for cholecystitis with menezes s e coli bacteremia and later menezes s kleb from gb. on unasyn and afebrile no surgery, improved. Exam Vital Signs Temp Pulse Resp BP Pulse Ox O2 Del Method O2 Flow Rate 97.3 F 97 20 120/84 91 L Room Air 1 10/30/24 08:00 10/30/24 09:34 10/30/24 08:00 10/30/24 09:34 10/30/24 08:00 10/30/24 08:00 10/29/24 23:58 Narrative Exam doing ok. abd benign. maltese only. ruq drain noted. no surgery. Objective - Internal Medicine Labs 10/30/24 05:02 10/30/24 05:02 Labs: Laboratory Results - last 24 hr 10/29/24 10/30/24 20:56 05:02 WBC 15.4 H RBC 3.64 L Hgb 10.3 L Hct 29.9 L MCV 82 MCH 28.3 MCHC 34.4 RDW Std Deviation 43.7 Plt Count 343 Neut % (Auto) 82 H Lymph % (Auto) 8 L Mccormick % (Auto) 7 Eos % (Auto) 1 Baso % (Auto) 0 Neut # (Auto) 12.6 H Lymph # (Auto) 1.3 Mccormick # (Auto) 1.0 H Eos # (Auto) 0.1 Baso # (Auto) 0.0 Immature Gran # (Auto) 0.39 H Absolute Nucleated RBC 0.00 Immature Gran % 3 H Nucleated RBC % 0 Sodium 136 Potassium 4.6 Chloride 100 Carbon Dioxide 27.0 Anion Gap 9 BUN 9 Creatinine 0.8 Estim Creat Clear Calc 87.9 eGFR > 60 BUN/Creatinine Ratio 11 L Glucose 96 Calculated Osmolality 270 L Calcium 8.0 L Corrected Calcium 8.7 Phosphorus 3.1 Magnesium 2.1 Total Bilirubin 1.7 H AST 60 H ALT 50 H Alkaline Phosphatase 157 H Total Protein 5.4 L Albumin 3.1 L Globulin 2.3 Albumin/Globulin Ratio 1.3 Vancomycin Trough 4.0 L ABG Interpretation ABG results: 10/24/24 10/24/24 10/25/24 01:20 08:32 16:11 ABG pH 7.39 7.44 ABG pCO2 30 L 31 L ABG pO2 108 154 H D ABG HCO3 18 L 21 ABG O2 Saturation 99 H 100 H ABG Base Excess -6 L -2 VBG pH 7.31 L VBG pCO2 49 VBG pO2 28 VBG Base Excess -2 Assessment & Plan A&P Narrative bacteremia cirrhosis with ascites , pt denies etoh use avidly. agrees. will change to augmentin po for 1d and check acute hep panel as he denies etoh use Time Spent With Patient Time: Total time spent is greater than 50% in coordination of care (as documented) at patient's floor/unit and/or counseling patient:
[2024-10-30 12:02] LABS: Hepatitis A Antibody IgM Non Reactive (Non React); Hepatitis B Core Antibody IgM Non Reactive (Non React); Hepatitis B Surface Antigen Non Reactive (Non React); Hepatitis C Antibody Non Reactive (Non React)
--- NOTE | 2024-10-30 14:18 | ESDS_ITS ---
<Statement entered by Kathie Burt DO - 10/31/24 14:26> I, Kathie Burt DO, attest that I was physically present for the richards portions of the service and evaluated the patient with the resident and I reviewed and discussed the case with the resident and agree with the resident's findings and plans of care as documented above Planned Discharge Date 10/30/24 DS: Providers Provider Date of admission: 10/24/24 01:37 Primary care physician: Beth Lanier PA-C Admitting Provider: Yunior Mueller MD Attending Provider on Admission: Kathie Burt DO Consults: 10/27/24 10:32 Referral Physical Therapy Routine Comment: Physician Instructions: 10/29/24 08:01 Consult to Infectious Diseases Routine Comment: Consulting Provider: Jairo Lopez Attending Provider on DC: Dr. Burt Discharging Provider: Cinthia Ho, DS: Diagnosis Problem List Completed Was Problem List Reviewed/Reconciled?: Yes Hospital Course Hospital Course Hospital course: Mr. Moran is a 74 yo gentleman with a history of 74-year-old male with pmh of HTN, Afib on apixaban , and cirrhosis (pt unaware of diagnosis and denies hx of etoh use), presented to the ED due to abdominal pain. Patient was admitted for mgmt of cholecystitis, s/p percutaneous drain with IR on 10/25. Pt required minimal pain medication while admitted, APAP sufficiently managed abdominal pain. 2/2 Bcx growing GPC and Enterococcus faecium. pt had Intermittent fevers early on during his hospital course, and had 1 rapid response called for shortness of breath and tremors. pt has been desating overnight likely 2/2 undiagnosed JULIO (reccomend outpatient sleep study) while in patient requiring 2- 3L NC at night. Bacteremia was treated with Vanc and Zosyn and then narrowed to Vanc and CTX. Echo demonstrated nl LV and nl EF, no evidence of vegitations given bacteremia. Infectious disease consulted and recommended Augmentin. pt kept on low fat diet while inpatient. Constipation managed with suppositories PRN, senna 2tab qd scheduled, and mirilax 17g qd scheduled Diagnoses while in the hospital #Enterococcus faecium bacteremia #Sepsis likely due to acalculous cholecystitis #Acute acalculous cholecystitis status post cholecystostomy drain #Leukocytosis, likely related to infection #Constipation #Normocytic anemia #Electrolyte disturbances #Hypophosphatemia #Hypocalcemia #Transaminitis #Hypoalbuminemia #History of A-fib on apix, rate controlled #Hypertension-CHRONIC #Chronically elevated T. bili-STABLE #Cirrhosis #Elevated troponins- RESOLVED D/c Instructions You have been started on the following medications: -Augmentin twice daily for 5 days Please follow up with your primary car doctor within 7-10 days Please follow up with your primary care doctor for the following - sleep study at home to evaluate you for sleep apnea - Avoid travel until cleared by your primary care doctor Please follow up with Dr. Titus in 1-2 weeks. Please avoid fatty foods. Keep drain clean and dry. Please return to ED if you develop new or worsening symptoms. Case discussed with my attending Dr. Javed Ho MD PGY-1 Status at Discharge Cognitive/behavioral status at discharge: good Time Spent with Patient Time attestation: Total time spent providing and/or coordinating discharge services: Time spent: Greater than 30 minutes Home Health Home Health Referral Orders: 10/30/24 14:06 Home Health Referral Routine Reason For Exam: cholecystitis Home-Bound The patient must either because of illness or injury, need the aid of supportive devices such as crutches, canes, wheelchairs, and walkers; the use of special tra nsportation; or the assistance of another person in order to leave their place of residence; OR have a condition such that leaving his or her home is medically contraindicated. In addition, the patient also meets the following criteria: patient is normally unable to leave the home and leaving home requires considerable taxing effort. Addendum to Home Health Certification Practitioner's Certification: I certify that the patient has been under my care in the hospital and the care of attending physician (see below). We had a fxxi-jm-wine encounter on (see date below). My clinical findings indicate that the patient is home bound per the above criteria and the Home Health Services noted in these orders are medically necessary. The primary reason for the lloz-be-urpu encounter is related to the fact that the patient requires home health services. Date Certifying Azjd-ow-Umma Physician Encounter: 10/30/24 Physician's Name who will Assume Oversight for Services: Beth Lanier Physician's Phone No.who will Assume Oversight for Service: HEAD OF MAINTENANCE - Community Resources: No PT to Evaluate: Yes PT to evaluate and provide a treatmnet plan to increase patient's mobility and strength. Wound Care: No IV Therapy: No RN Safety Evaluation: Yes RN to evaluate and create a plan of care that will produce positive outcomes. Palliative Treatment: No Palliative treatment and evaluate the need for hospice. Home Health Aide - Personal Care: Yes: Cholecystostomy tube intermediate Health Aide to assist with any ADL's. Exam Vital Signs Temp Pulse Resp BP Pulse Ox O2 Del Method O2 Flow Rate 97.1 F 93 25 H 110/79 96 Room Air 1 10/30/24 12:10/30/24 12:10/30/24 12:10/30/24 12:10/30/24 12:10/30/24 12:10/29/24 23:58 Narrative Exam GENERAL APPEARANCE: [place]an-speaking in no acute distress, laying in bed HEENT: NC, AT. MMM. EOMI, clear conjunctiva, oropharynx clear. HEART: Irregular rate and irregular rhythm (afib), normal S1/S2, no m/r/g LUNGS: CTAB, moving air well on RA. No crackles or wheezes are heard. ABDOMEN: Soft, nontender, less distended than prior. R side Cholecystostomy drain with blood tinged fluid, minimal drainage. BACK: No CVAT, no obvious deformity. EXTREMITIES: Without cyanosis, clubbing or edema., SCDs not on. NEUROLOGICAL: Grossly nonfocal. Alert and oriented, moving all 4 extremities. CN not formally tested but appear grossly intact. Skin: Warm and dry without any rash, skin coloration appears a bit jaundiced. . Discharge Plan Plan Patient Disposition: HOME (Self Care) Patient condition on transfer: Stable Care Plan Goals: You have been started on the following medications: -Augmentin twice daily for 5 days Please follow up with your primary car doctor within 7-10 days. Avoid travel until cleared by your PCP. Please avoid fatty foods. Keep drain clean and dry. Please follow up with Dr. Titus in 1-2 weeks. Please return to ED if you develop new or worsening symptoms. Prescriptions/Referrals Prescriptions/Med Rec: New amoxicillin-pot clavulanate 875-125 mg tablet 1 tab PO BID 5 Days Qty: 10 0RF Continued Eliquis 5 mg tablet 5 mg PO BID metoprolol tartrate 50 mg tablet 50 mg PO BID levothyroxine 75 mcg capsule 75 mcg PO QDAY atorvastatin 10 mg tablet 10 mg PO QDAY Patient Comments: TAKE 1 TABLET BY MOUTH ONCE DAILY metronidazole 500 mg tablet 500 mg PO BID 10 Days Qty: 20 0RF loperamide [Imodium A-D] 2 mg capsule 2 mg PO Q6H PRN (Reason: loose stool) Qty: 20 0RF ondansetron 4 mg tablet,disintegrating 4 mg PO Q6H 5 Days Qty: 20 0RF melatonin 10 mg Capsule 10 mg PO HS PRN (Reason: Sleep) sucralfate 1 gram tablet 1 g PO QID PRN (Reason: GI distress) Discontinued sulfamethoxazole-trimethoprim [Bactrim DS] 800-160 mg tablet 1 tab PO BID Qty: 20 0RF Referrals: Priya Titus MD [Physician] - (You will receive a phone call to confirm a follow-up appointment with me in 3 weeks) Beth Lanier PA-C [Primary Care Provider] - Patient/Caregiver Discharge Instructions Discharge Activity: activity as tolerated Print Language: [place]ankan Stand Alone Forms: Rita Award Info., Patient Portal Info Letter Discharge Order Discharge Orders: Discharge (Routine); Ordered 10/30/24 Ordered By: Woodrow Moore Quality Discharge Quality Measures VTE prophylaxis and sepsis
--- NOTE | 2024-10-30 14:25 | ESCONSULT_ITS ---
RE: LENORA VILLAFANA : 1950 DATE OF CONSULTATION: 10/30/2024 REFERRING PHYSICIAN: Yunior Mueller MD REASON FOR CONSULTATION: Cholecystitis and cirrhosis with bacteremia. HISTORY OF PRESENT ILLNESS: The patient had positive blood cultures with E. coli on the 30th and gallbladder drain was placed on the second and grew Klebsiella. Both were pansensitive. The patient has been on Unasyn. I am going to switch him to Augmentin for the last day of treatment. He probably go home at your discretion to finish his treatment as an outpatient at your discretion as well. He denies any history of cirrhosis or alcohol use, so we will get a hepatitis panel as a precaution, but an HIV test if he is under 65, which he is not he is 74. He has had no recent abdominal surgery. ALLERGIES: NONE NOTED. IMMUNIZATIONS: Last tetanus is not known. He does take a flu shot every year. He has had 4 COVID vaccines and has had pneumococcal vaccines as well. FAMILY HISTORY: Unremarkable. SOCIAL HISTORY: He is retired for 12 years. He lives with his who denies any alcohol use for him as well. His echocardiogram showed an ejection fraction that is fairly low 60% on admission, so he probably does not have severe heart failure. He has atrial fibrillation and apparently there is some kind of vascular device in there, but I am not sure what that is about. No vascular device is usually used for atrial fibrillation to my knowledge. ASSESSMENT: Liver disease, cause uncertain with low platelets and mildly elevated INR, but no alcohol use noted with no history to suggest hepatitis C. RECOMMENDATIONS: We are going to get a hepatitis panel on him before he goes and change his therapy to Augmentin as his abdomen is benign. He may go home at your discretion. There is no need for him to follow infectious disease. Furthermore, I will be away the next 2 weeks. DT: 11:51:23 TT: 12:46:00 Ref: [id number] - TID: [id number] MTDD
--- NOTE | 2024-10-30 15:42 | PC.SS ---
Rounding Note: D/C home with home health.
--- NOTE | 2024-10-30 16:24 | PC.SS ---
PROFESSIONAL DRIVER confirmed with patient and patient's daughter that discharge plan is for the patient to return home with home health.
--- NOTE | 2024-10-30 16:30 | PC.SS ---
CRUSHED STONE GRADER informed bedside nurse to confirm that patient's drain will need to be followed by home health services. Bedside nurse to contact transfer nurse to confirm awareness of drain.
--- NOTE | 2024-10-30 16:36 | PC.CM ---
Addendum entered by Susana Rivera RN 10/31/24 12:42: [facility] declined. [facility] accepted and booked. SOC 11/02/24 Addendum entered by Susana Rivera RN 10/30/24 18:45: 1843: received call from STEVE Palacios to provide correct contact information. contact info on facesheet is incorrect. [employer] [phone] is the correct number. Sent this information through messages to both [facility] and [facility]. [facility] accepting patient if [facility] declines. Addendum entered by Susana Rivera RN 10/30/24 16:52: 1651: HH ref sent to [facility] and [facility]. Pt is a [facility] member, waiting for [facility] to accept or decline patient. Addendum entered by Susana Rivera RN 10/30/24 16:42: correction: choleycystomy tube. Original Note: [id number]: received call from STEVE palacios to inform me pt is discharging with home health. The order did not indicated the patient has a cholecystitis tube. I will enter now, but can not provide SOC at this time.
--- NOTE | 2024-10-31 09:59 | PC.ADMIT ---
[facility] declined pt d/t to staffing, [facility] accepted and booked, soc pending
== END 2024-10-30 19:10 | disposition home or self-care (01) | DRG 872 ==
LOC: SERX 10-24 00:23 → SERHOLD 10-24 02:07 → S2NX 10-24 13:43
PROVIDERS: Internal Medicine Infectious Disease; Physician Assistant; Radiology Diagnostic Radiology; Student in an Organized Health Care Education/Training Program; Admitting Provider Internal Medicine; Emergency Provider Emergency Medicine; PCP Physician Assistant; Visit Provider Internal Medicine
DX: A41.81 Sepsis due to Enterococcus (principal); K81.0 Acute cholecystitis; K56.7 Ileus, unspecified; N39.0 Urinary tract infection, site not specified; R18.8 Other ascites; I10 Essential (primary) hypertension; K52.9 Noninfective gastroenteritis and colitis, unspecified; I48.91 Unspecified atrial fibrillation; E03.9 Hypothyroidism, unspecified; R79.89 Other specified abnormal findings of blood chemistry; E78.5 Hyperlipidemia, unspecified; K74.60 Unspecified cirrhosis of liver; D64.9 Anemia, unspecified; E83.39 Other disorders of phosphorus metabolism; E83.51 Hypocalcemia; E88.09 Other disorders of plasma-protein metabolism, not elsewhere classified; F41.9 Anxiety disorder, unspecified; Z79.01 Long term (current) use of anticoagulants; Z79.899 Other long term (current) drug therapy; B96.20 Unspecified Escherichia coli [E. coli] as the cause of diseases classified elsewhere
CPT/HCPCS: 36415; 36600; 71045; 74018; 74176; 75989; 76705; 76770; 80053; 80074; 80202; 81001; 82436; 82803; 83605; 83690; 83735; 83880; 84100; 84133; 84145; 84300; 84484; 85025; 85610; 85730; 87040; 87070; 87077; 87102; 87186; 87205; 87811; 93005; 93306; 94640; 94664; 96361; 96365; 96366; 96367; 96375; 97162; 99291; A9270; J0131; J0295; J0696; J1171; J1938; J2270; J2470; J2543; J3010; J3370; J3373; J3475; J3490; J7120; J7121; J7999

== ENCOUNTER 2024-11-07 16:04 | Inpatient (IN) | payer OTHER, MEDICAID, MEDICARE, SELFPAY ==
[2024-11-07] VITALS (7 sets, daily range): BP systolic 75–108; BP diastolic 50–62; PULSE 66–102; RESP 17–20; TEMP 37.1–39; O2SAT 96–98; BMI 32.5
--- NOTE | 2024-11-07 16:38 | XR_ITS ---
Examination: PA lateral history views TECHNIQUE: Upright PA and lateral chest 2 views Date and time: November 07, 2024 1655 hours Comparison October 25, 2024 INDICATIONS: Coughing shortness of breath chest pain beginning 2 days ago. FINDINGS: Mild enlargement cardiac contour. Subsegmental atelectasis left upper lobe. No lobar pneumonia or pulmonary edema. Mild osteopenia. IMPRESSION: No lobar pneumonia or pulmonary edema.
--- NOTE | 2024-11-07 16:40 | PD.EDRME ---
Rapid Medical Screening Exam RME Arrival date/time: 11/07/24 16:04 74-year-old male with recent history of sepsis and admission presents with concerns for generalized weakness Chief Complaint: General Adult/Misc Complain Time Seen by Provider: 11/07/24 16:28 Vital signs: Vital Signs Temperature 99.9 F 11/07/24 16:33 Pulse Rate 84 11/07/24 16:33 Respiratory Rate 18 11/07/24 16:33 Blood Pressure 98/60 11/07/24 16:33 Pulse Oximetry (%) 97 11/07/24 16:33 Oxygen Delivery Method Room Air 11/07/24 16:33
--- NOTE | 2024-11-07 16:43 | EKG_ITS ---
[facility] Test Date: 2024-11-07 Pat Name: LENORA VILLAFANA Department: Room: - Gender: Male Jde Developer: : 1950 Requested By: Mohan Guzmán (WILLIE) Order Number: [id number] Reading MD: Mohan Guzmán (WILLIE) Measurements Intervals [place] Rate: 81 P: TN: QRS: -16 QRSD: 98 T: 3 QT: 340 QTc: 396 Interpretive Statements ATRIAL FIBRILLATION INFERIOR MYOCARDIAL INFARCTION , PROBABLY OLD [40+ ms Q WAVE AND/OR ST/T ABNORMALITY IN II/aVF] Compared to ECG 10/25/2024 16:19:58 No significant changes /store/S0/[id number].pdf
[2024-11-07 17:02] LABS: Lactate (Lactic Acid) 0.8 mMol/L (0.4-2.0)
[2024-11-07 17:07] LABS: Basophils # (Auto) 0.0 Thou/mm3 (0.0-0.2); Basophils % (Auto) 0 % (0-2.5); Eosinophils # (Auto) 0.0 Thou/mm3 (0.0-0.5); Eosinophils % (Auto) 0 % (0-10); Hematocrit 28.9 % (41.0-53.0); Hemoglobin 10.0 g/dL (13.5-16.0); Immature Granulocytes Auto 0.08 Thou/mm3 (0.00-0.00); Lymphocytes # (Auto) 1.4 Thou/mm3 (1.0-4.8); Lymphocytes % (Auto) 10 % (10-50); Mean Corpuscular HGB Conc 34.6 g/dl (31.0-37.0); Mean Corpuscular Hemoglobin 27.9 pg (25.0-35.0); Mean Corpuscular Volume 81 fL (80-100); Monocytes # (Auto) 1.3 Thou/mm3 (0.0-0.8); Monocytes % (Auto) 9 % (0-12); Neutrophils # (Auto) 11.5 Thou/mm3 (1.8-7.7); Neutrophils % (Auto) 80 % (37-80); Nucleated Red Blood Cell # 0.00 Thou/mm3 (0.00-0.00); Nucleated Red Blood Cell % 0 /100 WBC (0); Platelet Count 526 Thou/mm3 (140-440); RDW Standard Deviation 38.9 fL (35.1-43.9); Red Blood Count 3.58 Miln/mm3 (4.50-5.90); White Blood Count 14.4 Thou/mm3 (3.8-10.6)
[2024-11-07 17:23] LABS: Collection Type, Urine Clean Catch; Squamous Epithelial Cell,Urine 0 /hpf (0-5)
[2024-11-07 17:27] LABS: Alanine Aminotransferase 47 U/L (10-49); Albumin, Serum 3.9 gm/dL (3.4-4.8); Albumin/Globulin Ratio 1.6 (1.2-2.2); Alkaline Phosphatase 145 U/L (46-116); Anion Gap 10 (7-16); Aspartate Amino Transferase 47 U/L (0-34); BUN/Creatinine Ratio 13 Ratio (12-20); Bilirubin,Total 1.9 mg/dL (0.3-1.2); Blood Urea Nitrogen 14 mg/dL (9-23); Calcium 8.8 mg/dL (8.3-10.6); Calcium (Corrected) 8.9 mg/dL (8.5-10.1); Carbon Dioxide 23.3 mMol/L (20.0-31.0); Chloride 93 mMol/L (98-107); Creatinine (Component) 1.1 mg/dL (0.6-1.3); Estimated Creatinine Clearance 61.2 mL/min (>60); Globulin 2.4 gm/dL (2.3-3.5); Glucose 98 mg/dL (74-106); Lipase 91 U/L (12-53); Osmolality,Calculated 253 (275-295); Potassium 4.8 mMol/L (3.4-5.1); Procalcitonin 0.24 ng/ml (0.0-0.49); Sodium 126 mMol/L (136-145); Total Protein 6.3 gm/dL (5.7-8.2); Troponin I < 0.020 ng/mL (0.0-0.045); eGFR > 60 See Note
[2024-11-07 17:56] LABS: Bilirubin,Urine Negative (Negative); Blood,Urine Negative (Negative); Clarity,Urine Turbid (Clear/Hazy); Color,Urine Yellow (Lt Yel-Yel); Glucose, Urine Negative (Negative); Ketones,Urine Negative (Negative); Leukocyte Esterase,Urine Negative (Negative); Nitrite,Urine Negative (Negative); PH,Urine 6.0 (5.0-7.0); Protein,Urine 1+ (Neg - Trace); RBC,Urine 17 /hpf (0-3); Specific Gravity,Urine 1.027 (1.001-1.035); Urobilinogen,Urine Negative mg/dL (0.0-1.0); WBC,Urine 4 /hpf (0-5)
--- NOTE | 2024-11-07 18:27 | PD.EDDIZZY ---
ED Dizzyness RME/HPI General Chief Complaint: General Adult/Misc Complain Stated Complaint: NO APPETITE, FEELING DIZZY, BP LOW; SENT BY PCP Time Seen by Provider: 11/07/24 16:28 Arrival date/time: 11/07/24 16:04 RME / HPI RME / HPI Narrative: 11/07/24 16:04 74-year-old male with recent history of sepsis and admission presents with concerns for generalized weakness ------ This section includes all my notes and documentations, including HPI, PE, and ED course. Randy Clayton MD HPI: 74yo presents to the ED for complaints of generalized weakness and fatigue. Patient was discharged from our facility last Wednesday, 8 days ago. Since then, he's had low grade fevers with malaise and fatigue. Patient does have nausea, decreased appetite, and urinary frequencty. No cough, V/D, or abdominal pain. Last bowel movement was yesterday. No other complaints reported. ROS: All negative except as documented in HPI. Physical Exam: General: Alert and oriented. Appearance of malaise noted. Eyes: Conjunctivae and lids clear. ENT: No nasal congestion. Neck: Supple. Heart: RRR. Lungs: No respiratory distress. Good air movement. No rhonchi, wheezing, rales. Abdomen: Soft and nontender. Normal bowel sounds. No distension. No rebound or guarding. Back: No CVA tenderness. Skin: Warm and dry. Neuro: Alert and oriented X 3. I reviewed all diagnostic test results. My interpretation of the EKG is atrial fibrillation (81 bpm). My interpretation of the chest x-ray is NAD. Blood tests remarkable for WBC 14.4, Sodium 126, Lipase 91, ESR 59, CRP 16.9, Total Bilirubin 1.9. My review of the gallbladder US report is acute cholecystitis. My review of the CT chest abdomen pelvis report is: - Acute acalculus cholecystitis. - The patient's gallbladder drainage tube has been pulled out. UA unremarkable. COVID/Influenza negative. At this point, diagnoses include acute cholecystitis, sepsis, displaced gallbladder drain. Treatment here included Morphine, Zofran, Toradol, Flagyl, Rocephin, Tylenol, and NS. Some improvement noted. I discussed the case with our general surgeon and hospitalist. About the presentation and exam and diagnostics and treatments here. And need of further care in the hospital. Will accept the patient. Randy Clayton MD Related Data Home Medications ?Medication ?Instructions ?Recorded ?Confirmed apixaban 5 mg tablet (Eliquis) 5 mg PO BID 08/31/19 11/08/24 levothyroxine 75 mcg capsule 75 mcg PO QDAY 08/31/19 11/08/24 metoprolol tartrate 50 mg tablet 50 mg PO BID 08/31/19 11/08/24 atorvastatin 10 mg tablet 10 mg PO QDAY 06/20/21 11/08/24 melatonin 10 mg capsule 10 mg PO HS PRN Sleep 04/22/23 11/08/24 sucralfate 1 gram tablet 1 g PO QID PRN GI distress 10/24/24 11/08/24 Previous Rx's ?Medication ?Instructions ?Recorded loperamide 2 mg capsule (Imodium 2 mg PO Q6H PRN loose stool #20 10/22/24 A-D) caps Allergies Allergy/AdvReac Type Severity Reaction Status Date / Time No Known Allergies Allergy Verified 11/07/24 16:08 Review of Systems Review of Systems Systems Reviewed: All systems reviewed, normal except as documented Past Medical History Past Medical History NEUROLOGIC: Negative Neurological Disorders or Seizures CARDIAC: Positive Cardiac Disorders, Cardiac Arrhythmia, Angina, Hypercholesterolemia and Hypertension; Negative Congestive Heart Failure RESPIRATORY: Positive Asthma; Negative Chronic Obstructive Pulmonary Disease (COPD) GASTROINTESTINAL: Positive Gastrointestinal Disorders, Hemorrhoids and Obesity; Negative Hepatitis, Ulcer or Gastroesophageal Reflux Disease GENITOURINARY: Positive Genitourinary Disorders and Benign Prostatic Hyperplasia; Negative Renal Disease or Kidney Stones MUSCULOSKELETAL: Negative Musculoskeletal Disorders ENT: Negative Cataracts ENDOCRINE: Positive Endocrine Disorders and Hypothyroidism; Negative Diabetes Mellitus Type 1 or Diabetes Mellitus Type 2 HEMATOLOGIC: Negative Blood Disorders, Anemia or Sickle Cell Disease PSYCHO/SOCIAL: Positive Depression and Anxiety OTHER HISTORY: Positive Hospitalization, Chicken Pox and Measles; Negative Autoimmune Disease, Shingles, Falls, Blood Transfusions, Blood Transfusion Reaction, Anesthesia Reactions, Organ Transplant, Mumps or Cancer Family History FAMILY HISTORY: Positive Family Cardiac Disorders; Negative Family Psychiatric Problems, Family Respiratory Disorders, Family Gastrointestinal Problems, Family Cancer, Family Surgery or Family Anesthesia Reaction Surgical History SURGICAL: Positive Cardiac Surgery; Negative Pacemaker, Endocrine Surgery, Abdominal Surgery, Transurethral Resection, Neurologic Surgery, Vasectomy or Organ Transplant Social History SMOKING STATUS: Never smoker ED Exam Narrative Physical exam: As noted in HPI. Course Course Course Narrative: 183: Sepsis alert initiated. Orders made at this time are congruent with ED Adult Sepsis Order List. Re-evaluation is to be completed. 1939: NS IVF infused. 2008: Sepsis reassessment performed consisting of lab review, vitals, physical exam including auscultation of heart, lungs, and visual evaluation of capillary refills, mucosal membranes and extremities. Quality Measures Possible source: pulmonary, bone/joint, endocarditis, GI tract/intra-abdominal, CLABSI, implantable device, genitourinary, meningitis, unknown, skin/soft tissue and wound Blood cultures ordered: yes Antibiotic ordered: Yes Pertinent labs: 11/07/24 16:52 Lactic Acid 0.8 mMol/L (0.4-2.0) Procalcitonin 0.24 ng/ml (0.0-0.49) sepsis Orders Category Date Time Status Bedside COVID-19 Antigen Test NOW Care 11/07/24 16:38 Active Bedside Influenza A&B Antigen Test NOW Care 11/07/24 16:38 Completed COVID-19 Screening Questionnaire NOW Care 11/07/24 22:[address] Screening NOW Care 11/07/24 18:40 Active Decision to Admit X1 Care 11/07/24 22:18 Completed EKG (ED ONLY) *Do not use* NOW Care 11/07/24 16:43 Completed Saline [Insert IV] NOW Care 11/07/24 18:39 Active Straight [In and Out Catheter] X1 Care 11/07/24 18:[address] chest abdomen pelvis w Stat Exams 11/07/24 18:40 Completed EKG (ED Only) Stat Exams 11/07/24 16:43 Draft US gall bladder Stat Exams 11/07/24 18:40 Completed XR chest 2V Stat Exams 11/07/24 16:38 Completed Amylase Stat Lab 11/07/24 18:50 Completed Bilirubin,Direct Stat Lab 11/07/24 18:50 Completed Blood Culture (Lab) Stat Lab 11/07/24 16:50 Results CBC Stat Lab 11/07/24 16:52 Completed CRP [C-Reactive Protein] Stat Lab 11/07/24 18:50 Completed Comprehensive Metabolic Panel Stat Lab 11/07/24 16:52 Completed ESR [Sed Rate (ESR)] Stat Lab 11/07/24 18:50 Completed Lactate (Lactic Acid) Stat Lab 11/07/24 16:52 Completed Lipase Stat Lab 11/07/24 16:52 Completed Magnesium Stat Lab 11/07/24 18:50 Completed Procalcitonin Stat Lab 11/07/24 16:52 Completed Troponin I Stat Lab 11/07/24 16:52 Completed Urinalysis Stat Lab 11/07/24 17:18 Completed Urine Culture Stat Lab 11/07/24 17:18 Received Acetaminophen Ivpb [Ofirmev Inj] Med 11/07/24 19:08 Discontinued 1,000 mg in 100 ml IV X1 Ketorolac Inj [Toradol Inj] Med 11/07/24 19:08 Discontinued 12 mg IVP X1 ONE Morphine Inj Med 11/07/24 18:39 Discontinued 4 mg IVP X1 ONE Ondansetron Inj [Zofran Inj] Med 11/07/24 18:39 Discontinued 4 mg IVP X1 ONE Sodium Chloride 0.9% 1000 ml [Ns] 1,000 ml Med 11/07/24 18:39 Discontinued IV 999 mls/hr Sodium Chloride 0.9% 1000 ml [Ns] 1,000 ml Med 11/07/24 21:56 Discontinued IV 999 mls/hr Sodium Chloride 0.9% 1000 ml [Ns] 1,000 ml Med 11/07/24 22:19 Discontinued IV 999 mls/hr cefTRIAXone/D5w 1gm IV premix [Rocephin/D5w 1gm IV Med 11/07/24 19:33 Discontinued premix] 1 gm in 50 ml IV X1 metroNIDAZOLE/NS 500 MG IVPB [Flagyl 500 mg IV] Med 11/07/24 20:49 Discontinued 500 mg in 100 ml IV X1 Vital Signs Vital signs: Vital Signs Temperature 99.9 F 11/07/24 16:33 Pulse Rate 84 11/07/24 16:33 Respiratory Rate 18 11/07/24 16:33 Blood Pressure 98/60 11/07/24 16:33 Pulse Oximetry (%) 97 11/07/24 16:33 Oxygen Delivery Method Room Air 11/07/24 16:33 Dizziness MDM Narrative MDM Narrative:: 74yo presents to the ED for complaints of generalized weakness and fatigue. Patient was discharged from our facility last Wednesday, 8 days ago. Since then, he's had low grade fevers with malaise and fatigue. Patient does have nausea, decreased appetite, and urinary frequencty. No cough, V/D, or abdominal pain. Last bowel movement was yesterday. No other complaints reported. Patient data External records reviewed:: [facility] previous records (Per chart review, patient was admitted here on 10/23/24 for acute cholecystitis.) Clinical information provided by:: patient Social determinants that could affect healthcare access:: none Patient has the following chronic illnesses:: HTN, HLD, hypothyroidism How is presenting disease/condition affected by chronic disease/condition?: uneffected by Evaluation data The following diagnostics were reviewed and interpreted by me:: lab results, radiology exam(s) and EKG tracing(s) Lab and/or radiology exams considered but not ordered:: none Interpretation Summary: I reviewed all diagnostic test results. My interpretation of the EKG is atrial fibrillation (81 bpm). My interpretation of the chest x-ray is NAD. Blood tests remarkable for WBC 14.4, Sodium 126, Lipase 91, ESR 59, CRP 16.9, Total Bilirubin 1.9. My review of the gallbladder US report is acute cholecystitis. My review of the CT chest abdomen pelvis report is: - Acute acalculus cholecystitis. - The patient's gallbladder drainage tube has been pulled out. UA unremarkable. COVID/Influenza negative. Medications / Prescriptions Medications or Prescriptions considered but not ordered:: none Medication administrations:: Medication Administration History Acetaminophen (Acetaminophen 325 Mg Tablet) 650 mg PO Q6H PRN PRN Reason: PAIN SCALE 1-3 (mild Stop: 12/07/24 22:36 Hydrocodone Bitart/Acetaminophen (Hydrocodone/Apap 5/325 Tablet) 1 tab PO Q4HR PRN PRN Reason: PAIN SCALE 4-6 (Moderate Stop: 11/13/24 08:06 Last Admin: 11/08/24 12:56 Dose: 1 tab Documented By: PP Dextrose (Dextrose 50%-Water Inj 50 Ml Syringe) 25 ml IV Q15MIN PRN PRN Reason: BG 50-70 responsive npo pt Stop: 12/07/24 22:40 Dextrose (Dextrose 50%-Water Inj 50 Ml Syringe) 50 ml IV Q15MIN PRN PRN Reason: BG <50 OR BG <70 & pt unresponsive Stop: 12/07/24 22:40 Docusate Sodium (Docusate Sod 100 Mg Capsule) 200 mg PO QDAY CLAIRE; Protocol Stop: 12/09/24 08:59 Glucagon (Glucagon Inj 1 Mg Vial) 1 mg IM Q15MIN PRN PRN Reason: BG <70, and no IV access Vancomycin HCl/Dextrose (Vancomycin/D5w 1,250 Mg Ivpb) 250 mls @ 120 mls/hr IV DAILY@1000 [facility] Stop: 11/16/24 09:59 Sodium Chloride (Ns) 500 mls @ 20 mls/hr IV .Q24H [facility] Stop: 12/08/24 11:19 Last Infusion: 11/08/24 12:02 Dose: 0 mls/hr Documented By: Admin: 11/08/24 11:42 Dose: 20 mls/hr Documented By: EG Piperacillin/Tazobactam/Dextrose (Zosyn) 3.375 g in 50 mls @ 12.5 mls/hr IV Q8HR [facility] Stop: 11/15/24 15:59 Last Admin: 11/08/24 16:42 Dose: 12.5 mls/hr Documented By: MELCHOR Insulin Human Lispro (Insulin Lispro (Admelog) 1 Unit/0.01 Ml Unit) 0 unit SC [facility]; Protocol Stop: 12/08/24 07:29 Last Admin: 11/08/24 20:28 Dose: Not Given Documented By: PG Non-Admin Reason: Contraindicated Admin: 11/08/24 16:12 Dose: Not Given Documented By: PP Non-Admin Reason: Per Protocol Admin: 11/08/24 13:02 Dose: Not Given Documented By: PP Non-Admin Reason: Glucose, LOW Admin: 11/08/24 08:19 Dose: Not Given Documented By: PP Non-Admin Reason: Per Protocol Levothyroxine Sodium (Levothyroxine Sodium 25 Mcg Tablet) 75 mcg PO ACBR [facility] Stop: 12/08/24 05:59 Morphine Sulfate (Morphine Sulf Inj 10 Mg/Ml Vial) 1 mg IVP Q4HR PRN PRN Reason: PAIN SCALE 7-10 (Severe Stop: 11/13/24 08:06 Ondansetron HCl (Ondansetron Inj 2 Mg/Ml Inj 2 Ml) 4 mg IVP Q6H PRN; Protocol PRN Reason: NAUSEA OR VOMITING Stop: 12/07/24 22:36 Pharmacy Consult (Vancomycin Pharmacy To Dose 1 Each Each) 1 each IV QDAY PRN PRN Reason: CONSULT Stop: 12/08/24 08:59 Sennosides (Senna Tablet) 1 tab PO QDAY PRN; Protocol PRN Reason: constipation Stop: 12/07/24 22:36 Discontinued Medications Apixaban (Apixaban 2.5 Mg Tablet) 5 mg PO BID [facility]IRE Stop: 12/08/24 08:59 Atropine Sulfate (Atropine Sulf Inj 1 Mg/Ml Vial) Confirm Administered Dose 1 mg .ROUTE .STK-MED ONE Stop: 11/08/24 10:13 Last Admin: 11/08/24 12:39 Dose: Not Given Documented By: EG Non-Admin Reason: not needed Calcium Gluconate (Calcium Gluconate 10% Inj 1 Gm/10 Ml Vial) 1 gm IV X1 ONE Stop: 11/08/24 21:07 Last Admin: 11/08/24 23:07 Dose: 1 gm Documented By: PG Fentanyl Citrate (Fentanyl Cit Inj 50 Mcg/Ml Amp 2ml) Confirm Administered Dose 100 mcg .ROUTE .STK-MED ONE Stop: 11/08/24 10:13 Last Admin: 11/08/24 12:39 Dose: Not Given Documented By: EG Non-Admin Reason: Duplicate Medication on eMAR Fentanyl Citrate (Fentanyl Cit Inj 50 Mcg/Ml Amp 2ml) 75 mcg IVP X1 ONE Stop: 11/08/24 11:44 Last Admin: 11/08/24 11:44 Dose: 75 mcg Documented By: DULCE Sodium Chloride (Ns) 1,000 mls @ 999 mls/hr IV .Q1H1M ONE Stop: 11/07/24 19:39 Last Infusion: 11/07/24 20:10 Dose: Infused Documented By: Admin: 11/07/24 18:59 Dose: 999 mls/hr Documented By: DB Acetaminophen (Ofirmev Inj) 1,000 mg in 100 mls @ 250 mls/hr IV X1 ONE Stop: 11/07/24 19:31 Last Infusion: 11/07/24 19:50 Dose: Infused Documented By: Admin: 11/07/24 19:26 Dose: 250 mls/hr Documented By: CB Ceftriaxone Sodium/Dextrose (Rocephin/D5w 1gm Iv Premix) 1 gm in 50 mls @ 100 mls/hr IV X1 ONE Stop: 11/07/24 20:02 Last Infusion: 11/07/24 20:38 Dose: Infused Documented By: Admin: 11/07/24 20:08 Dose: 100 mls/hr Documented By: EE Metronidazole (Flagyl 500 Mg Iv) 500 mg in 100 mls @ 100 mls/hr IV X1 ONE Stop: 11/07/24 21:48 Last Infusion: 11/07/24 22:37 Dose: Infused Documented By: Admin: 11/07/24 21:37 Dose: 100 mls/hr Documented By: EE Sodium Chloride (Ns) 1,000 mls @ 999 mls/hr IV .Q1H1M ONE Stop: 11/07/24 22:56 Last Infusion: 11/08/24 00:09 Dose: Infused Documented By: Admin: 11/07/24 23:06 Dose: 999 mls/hr Documented By: EE Sodium Chloride (Ns) 1,000 mls @ 999 mls/hr IV .Q1H1M ONE Stop: 11/07/24 23:19 Last Infusion: 11/08/24 00:09 Dose: Infused Documented By: Admin: 11/07/24 23:07 Dose: 999 mls/hr Documented By: EE Piperacillin/Tazobactam/Dextrose (Zosyn) 3.375 g in 50 mls @ 100 mls/hr IV Q6HR CLAIRE Stop: 11/14/24 22:38 Last Admin: 11/08/24 16:01 Dose: Not Given Documented By: RADHA Non-Admin Reason: Discontinued Admin: 11/08/24 05:59 Dose: 100 mls/hr Documented By: Admin: 11/08/24 00:07 Dose: Not Given Documented By: EE Non-Admin Reason: Duplicate Medication on eMAR Infusion: 11/07/24 23:35 Dose: Infused Documented By: Admin: 11/07/24 23:05 Dose: 100 mls/hr Documented By: EE Lactated Ringer's (Lactated Ringers) 500 mls @ 999 mls/hr IV .Q31M ONE Stop: 11/08/24 00:33 Last Infusion: 11/08/24 01:14 Dose: Infused Documented By: Admin: 11/08/24 00:07 Dose: 999 mls/hr Documented By: EE Comments: unable to scan. Lactated Ringer's (Lactated Ringers) 500 mls @ 999 mls/hr IV .Q31M ONE Stop: 11/08/24 01:13 Last Admin: 11/08/24 01:00 Dose: 999 mls/hr Documented By: EE Vancomycin HCl 1,500 mg/ (Sodium Chloride) 500 mls @ 200 mls/hr IV X1 ONE Stop: 11/08/24 11:59 Last Admin: 11/08/24 15:59 Dose: 200 mls/hr Documented By: PP Ketorolac Tromethamine (Ketorolac Inj 30 Mg/Ml Vial) 12 mg IVP X1 ONE Stop: 11/07/24 19:09 Last Admin: 11/07/24 19:27 Dose: 12 mg Documented By: CB Levothyroxine Sodium (Levothyroxine Sodium 88 Mcg Tablet) 75 mcg PO ACBR [facility]IRE Stop: 12/08/24 05:59 Last Admin: 11/08/24 05:58 Dose: 75 mcg Documented By: WO Lidocaine HCl (Lidocaine Inj Pf 1% 30 Ml Vial) Confirm Administered Dose 30 ml .ROUTE .STK-MED ONE Stop: 11/08/24 10:13 Last Admin: 11/08/24 12:39 Dose: Not Given Documented By: EG Non-Admin Reason: not needed Metoclopramide HCl (Metoclopramide Inj 5 Mg/Ml Vial 2 Ml) 5 mg IVP Q8HR PRN; Protocol PRN Reason: Breakthrough Nausea Stop: 12/07/24 23:29 Morphine Sulfate (Morphine Sulf Inj 10 Mg/Ml Vial) 4 mg IVP X1 ONE Stop: 11/07/24 18:40 Last Admin: 11/07/24 19:00 Dose: 4 mg Documented By: DB Naloxone HCl (Naloxone Inj 0.4 Mg/Ml Vial) Confirm Administered Dose 0.4 mg .ROUTE .STK-MED ONE Stop: 11/08/24 10:13 Last Admin: 11/08/24 12:39 Dose: Not Given Documented By: EG Non-Admin Reason: not needed Ondansetron HCl (Ondansetron Inj 2 Mg/Ml Inj 2 Ml) 4 mg IVP X1 ONE; Protocol Stop: 11/07/24 18:40 Last Admin: 11/07/24 18:59 Dose: 4 mg Documented By: DB Ondansetron HCl (Ondansetron Inj 2 Mg/Ml Inj 2 Ml) Confirm Administered Dose 4 mg .ROUTE .STK-MED ONE Stop: 11/08/24 10:13 Last Admin: 11/08/24 12:39 Dose: Not Given Documented By: EG Non-Admin Reason: not needed Treatment from me included morphine, Zofran, Toradol, Flagyl, Rocephin, Tylenol, NS. Consultations Consultation(s) initiated? (list below): Yes Consultation #1 (Physician, Specialty, Details): I discussed the case with our general surgeon and hospitalist. About the presentation and exam and diagnostics and treatments here. And need of further care in the hospital. Will accept the patient. Diagnosis Dizziness Differential Diagnosis: other (UTI, pneumonia, sepsis, acute cholecystitis) Most likely diagnosis given after review of the tests above:: At this point, diagnoses include acute cholecystitis, sepsis, displaced gallbladder drain. Admission Indicated Admission indicated?: indicated Explain why admission is indicated or not indicated:: Acute cholecystitis, sepsis, displaced gallbladder drain. Admission Request Was there a request for admission?: Yes Admission Attestation Admission request attestation: Discussed case with Hospitalist service regarding admission. Discussed patients ED course, exam findings, labs, and radiology results. The Hospitalist [agrees] to accept the patient for admission. Disposition Plan Disposition Plan: Admit Discharge Plan Plan Patient Disposition: Admit Acute Care w/in Hospital Problem List Clinical Impression: Sepsis, Acute cholecystitis
--- NOTE | 2024-11-07 18:40 | XR_ITS ---
Examination: Abdomen sonogram, Limited Date and time of exam: November 07, 2024 2108 hours INDICATIONS: Right upper abdominal pain beginning one week ago Technique: Real-time lutz scale transabdominal sonographic images of the upper abdomen obtained. Findings: Gallbladder sludge Gallbladder wall is thickened 0.8 cm Common bile duct 0.4 cm Pancreatic head 3.0 cm Liver 16.7 cm lobular contours fatty infiltration Normal hepatopedal portal venous flow Patent IVC IMPRESSION: Acute cholecystitis Cirrhosis
--- NOTE | 2024-11-07 18:40 | XR_ITS ---
Examination: CT chest with intravenous contrast CT abdomen with intravenous contrast CT pelvis with intravenous contrast 2-D coronal and sagittal reconstructions Time of exam: November 07, 2024, 1938 hours INDICATIONS: Weakness fever, shortness of breath chest pain today CTDI: vol (mGy) : 9.38 DLP: (mGycm): 781 Technique: Multiple axial images of the chest, abdomen and pelvis with intravenous contrast, 3.0 mm slice thickness. Images obtained post intravenous injection Isovue 370 60 cc. 2-D sagittal and coronal reconstructions. Low dose protocols were performed. One or more of the following dose reduction techniques were used; automated exposure control, adjustment of the mA and/or KV according to patient size, use of iterative reconstruction technique. Findings: No thoracic aortic aneurysmal dilatation No pulmonary artery filling defects Atelectasis in the lingular segment and left lower lobe Cirrhosis, liver is irregular in contour Acute acalculus cholecystitis The patient's gallbladder drainage tube has been pulled out No pancreatic mass No hydronephrosis Normal appendix No bowel obstruction Bladder intact Mild prostatomegaly Moderate osteopenia IMPRESSION: Cirrhosis Acute acalculus cholecystitis The patient's gallbladder drainage tube has been pulled out and needs to be replaced
[2024-11-07] MEDS: ONDANSETRON INJ 2 MG/ML INJ 2 ML 4 MG IVP (18:59)
[2024-11-07] MEDS: SODIUM CHLORIDE 0.9% 1000 ML 1,000 ML 999 ML IV ×3 (18:59→23:07)
[2024-11-07] MEDS: MORPHINE SULF INJ 10 MG/ML VIAL 4 MG IVP (19:00)
[2024-11-07 19:04] LABS: Sed Rate (ESR) 59 mm/hr (0-20)
[2024-11-07] MEDS: ACETAMINOPHEN IVPB 1,000 MG/100 ML VIAL 250 MG IV (19:26)
[2024-11-07] MEDS: KETOROLAC INJ 30 MG/ML VIAL 12 MG IVP (19:27)
[2024-11-07] MEDS: cefTRIAXone/D5w 1gm IV premix 1 GM/50 ML BAG IV (20:08)
[2024-11-07 21:08] LABS: C-Reactive Protein 16.9 mg/dL (0.0-0.9)
[2024-11-07 21:09] LABS: Bilirubin,Direct 0.7 mg/dL (0.0-0.3); Magnesium 2.1 mg/dL (1.6-2.6)
[2024-11-07 21:21] LABS: Amylase 126 U/L (30-118)
[2024-11-07] MEDS: metroNIDAZOLE/NS 500 MG IVPB 500 MG/100 ML BAG 100 MG IV (21:37)
--- NOTE | 2024-11-07 23:00 | PD.RESHP ---
Documentation for date of: 11/07/24 [facility] History of Present Illness History of present illness: Williams Moran is a 74-year-old M with a PMH of atrial fibrillation on metoprolol and Eliquis, hyperlipidemia on atorvastatin, hypothyroidism on levothyroxine, liver cirrhosis, obstructive sleep apnea on BiPAP, hypertension, and prediabetes who presents today with weakness and dizziness. Patient is [place]-speaking and his daughter was present at bedside to translate for us. She reports that patient's weakness and dizziness began yesterday along with appetite loss. The dizziness was characterized as feeling like the room was spinning (vertigo) and worsened when he stood up. At that time, patient's also noticed that his skin was becoming more yellow and that he was developing a fever. Today, symptoms worsened and patient went to go see his primary care provider who then sent him here to the ED. Daughter reports that patient's fever was around 102.2 at around 4 PM when he arrived and that this was still present when she herself arrived at around 7-8 PM. At the time of interview, the patient did not endorse associated abdominal pain but rather abdominal discomfort at the drain site. The patient also endorsed shortness of breath and nausea earlier that was now absent at the time of interview. He reports that his last bowel movement occurred yesterday (producing normal, brown stool) and that he had associated constipation. On a scale from 1-10, patient rated his current pain level as a 0/10. In the ED, vitals showed: BP 98/60 HR 84 RR 18 temp 99.9 SpO2 97% on room air CBC showed high WBC 14.4 (consistently elevated since 10/23), low Hgb 10.0, and high platelet count 526. CMP showed low sodium 126, low chloride 93, high bilirubin 1.9, high direct bilirubin 0.7, slightly high AST 47, high alkaline phosphatase 145, high CRP 16.9, slightly high amylase 126, and high lipase 91. UA was turbid and showed 1+ protein and high RBC 17. On imaging: Chest x-ray was unremarkable. EKG showed atrial fibrillation with signs of old inferior myocardial infarction on machine read. Gallbladder ultrasound showed acute cholecystitis with gallbladder sludge and cirrhosis. CT CAP showed acute acalculus cholecystitis, cirrhosis, and that the patient's gallbladder drainage tube had been pulled out and needed to be replaced. In the ED, patient was infused with 1 L NS bolus x3, and 0.5 L LR bolus x2 (total of 4 L infused), given IV ceftriaxone 1 gm x1 and IV metronidazole 500 mg x1, and started on IV Zosyn 3.375 gm q6HR. Patient was admitted for the work-up and management of sepsis and acute acalculus cholecystitis. Review of Systems Review of Systems Narrative Review of Systems: General: Endorses fever. Endorses generalized weakness. Denies chills HEENT: Endorses dizziness (vertigo-like symptoms). Denies congestion or sore throat Heart: Denies chest pain or palpitations Lungs: Endorses shortness of breath. Denies cough Abdomen: Endorses loss of appetite. Endorses abdominal discomfort (at drain site). Endorses nausea. Endorses constipation. Denies abdominal pain, vomiting, diarrhea, or blood in stool Genitourinary: Endorses urinary frequency and urgency. Denies dysuria or hematuria Neurology: Endorses orthostatic hypotension. Denies any changes in vision, muscular weakness or difficulty speaking Review of systems otherwise negative except what is mentioned above. Past Medical History Past Medical History NEUROLOGIC: Negative Neurological Disorders or Seizures CARDIAC: Positive Cardiac Disorders, Cardiac Arrhythmia, Angina, Hypercholesterolemia and Hypertension; Negative Congestive Heart Failure RESPIRATORY: Positive Asthma; Negative Chronic Obstructive Pulmonary Disease (COPD) GASTROINTESTINAL: Positive Gastrointestinal Disorders, Hemorrhoids and Obesity; Negative Hepatitis, Ulcer or Gastroesophageal Reflux Disease GENITOURINARY: Positive Genitourinary Disorders and Benign Prostatic Hyperplasia; Negative Renal Disease or Kidney Stones MUSCULOSKELETAL: Negative Musculoskeletal Disorders ENT: Negative Cataracts ENDOCRINE: Positive Endocrine Disorders, Diabetes Mellitus Type 2 (DIET CONTROL) and Hypothyroidism; Negative Diabetes Mellitus Type 1 HEMATOLOGIC: Negative Blood Disorders, Anemia or Sickle Cell Disease PSYCHO/SOCIAL: Positive Depression and Anxiety OTHER HISTORY: Positive Hospitalization, Chicken Pox and Measles; Negative Autoimmune Disease, Shingles, Falls, Blood Transfusions, Blood Transfusion Reaction, Anesthesia Reactions, Organ Transplant, Mumps or Cancer Family History FAMILY HISTORY: Positive Family Cardiac Disorders; Negative Family Psychiatric Problems, Family Respiratory Disorders, Family Gastrointestinal Problems, Family Cancer, Family Surgery or Family Anesthesia Reaction Surgical History SURGICAL: Positive Cardiac Surgery; Negative Pacemaker, Endocrine Surgery, Abdominal Surgery, Transurethral Resection, Neurologic Surgery, Vasectomy or Organ Transplant Social History SMOKING STATUS: Never smoker Past Medical History Comments PMH COMMENT: PMH: Hypothyroidism, atrial fibrillation, cirrhosis, obstructive sleep apnea, hyperlipidemia, hypertension, prediabetes PSH: Inguinal hernia repair Medications: Levothyroxine, metoprolol, Eliquis, atorvastatin, vitamin C, melatonin Allergies: None FH: Dad from gallbladder bursting, mom of cholesterol issues (stroke, embolisms) SH: Lives in [place] in a house with , no drinking history, no smoking history, no recreational drug use history Exam Vital Signs Temp Pulse Resp BP Pulse Ox O2 Del Method 99.8 F 83 17 89/51 L 96 Room Air 11/07/24 21:10 11/07/24 21:40 11/07/24 21:10 11/07/24 21:40 11/07/24 21:10 11/07/24 21:10 Narrative Exam Physical Exam: General: Alert, no acute distress. Skin: No jaundice noted. Warm, dry, intact, no obvious rash. Head: Normocephalic, atraumatic. Eye: Normal conjunctiva, PERRL. Throat: Oral mucosa moist. No obvious lesions in oropharynx. Cardiovascular: Regular rate and rhythm, no murmur, +S1/S2. Respiratory: Lungs are clear to auscultation, respirations unlabored, no crackles, no wheezing. Gastrointestinal: Gallbladder drain noted at RUQ. Soft, nontender, non-distended. No guarding or rebound tenderness. Extremities: No edema, no cyanosis, no clubbing. 2+ radial pulse bilaterally, 2+ posterior tibial pulse bilaterally. Neuro: No focal deficits observed. Conversant, moving all extremities. No overt cerebellar signs/incoordination. Psychiatric: Cooperative, appropriate affect. Results: Labs 11/08/24 05:15 11/07/24 16:52 Labs: Short CBC 11/07/24 Range/Units 16:52 WBC 14.4 H (3.8-10.6) Thou/mm3 Hgb 10.0 L (13.5-16.0) g/dL Hct 28.9 L (41.0-53.0) % Plt Count 526 H D (140-440) Thou/mm3 BMP 11/07/24 16:52 Sodium 126 L Potassium 4.8 Chloride 93 L Carbon Dioxide 23.3 BUN 14 Creatinine 1.1 Glucose 98 Calcium 8.8 Cardiac Enzymes 11/07/24 Range/Units 16:52 Troponin I < 0.020 (0.0-0.045) ng/mL Liver Function 11/07/24 11/07/24 Range/Units 16:52 18:50 Total Bilirubin 1.9 H (0.3-1.2) mg/dL Direct Bilirubin 0.7 H (0.0-0.3) mg/dL AST 47 H (0-34) U/L ALT 47 (10-49) U/L Alkaline Phosphatase 145 H (46-116) U/L Albumin 3.9 (3.4-4.8) gm/dL Urine 11/07/24 Range/Units 17:18 Urine Color Yellow (Lt Yel-Yel) Urine Clarity Turbid A (Clear/Hazy) Urine pH 6.0 (5.0-7.0) Ur Specific [place] 1.027 (1.001-1.035) Urine Protein 1+ A (Neg - Trace) Urine Glucose (UA) Negative (Negative) Quality Measures Quality Measures sepsis Current suspected stage: sepsis (acute acalculus cholecystitis) Possible source: GI tract/intra-abdominal Blood cultures ordered: no Antibiotic ordered: Yes Advance care planning discussed with:: patient and child Medications Home Medications and Allergies Home Medications ?Medication ?Instructions ?Recorded ?Confirmed ?Type apixaban 5 mg tablet (Eliquis) 5 mg PO BID 08/31/19 11/08/24 History levothyroxine 75 mcg capsule 75 mcg PO QDAY 08/31/19 11/08/24 History metoprolol tartrate 50 mg tablet 50 mg PO BID 08/31/19 11/08/24 History atorvastatin 10 mg tablet 10 mg PO QDAY 06/20/21 11/08/24 History melatonin 10 mg capsule 10 mg PO HS PRN Sleep 04/22/23 11/08/24 History sucralfate 1 gram tablet 1 g PO QID PRN GI distress 10/24/24 11/08/24 History Allergies Allergy/AdvReac Type Severity Reaction Status Date / Time No Known Allergies Allergy Verified 11/07/24 16:08 Visit Medications Acetaminophen (Acetaminophen 325 Mg Tablet) 650 mg PO Q6H PRN PRN Reason: PAIN SCALE 1-3 (mild Stop: 12/07/24 22:36 Apixaban (Apixaban 2.5 Mg Tablet) 5 mg PO BID CLAIRE Stop: 12/08/24 08:59 Dextrose (Dextrose 50%-Water Inj 50 Ml Syringe) 25 ml IV Q15MIN PRN PRN Reason: BG 50-70 responsive npo pt Stop: 12/07/24 22:40 Dextrose (Dextrose 50%-Water Inj 50 Ml Syringe) 50 ml IV Q15MIN PRN PRN Reason: BG <50 OR BG <70 & pt unresponsive Stop: 12/07/24 22:40 Glucagon (Glucagon Inj 1 Mg Vial) 1 mg IM Q15MIN PRN PRN Reason: BG <70, and no IV access Sodium Chloride (Ns) 1,000 mls @ 999 mls/hr IV .Q1H1M ONE Stop: 11/07/24 23:19 Piperacillin/Tazobactam/Dextrose (Zosyn) 3.375 g in 50 mls @ 100 mls/hr IV Q6HR CLAIRE Stop: 11/14/24 22:38 Insulin Human Lispro (Insulin Lispro (Admelog) 1 Unit/0.01 Ml Unit) 0 unit SC ACHS CLAIRE; Protocol Stop: 12/08/24 07:29 Levothyroxine Sodium (Levothyroxine Sodium 88 Mcg Tablet) 75 mcg PO ACBR CLAIRE Stop: 12/08/24 05:59 Ondansetron HCl (Ondansetron Inj 2 Mg/Ml Inj 2 Ml) 4 mg IVP Q6H PRN; Protocol PRN Reason: NAUSEA OR VOMITING Stop: 12/07/24 22:36 Sennosides (Senna Tablet) 1 tab PO QDAY PRN; Protocol PRN Reason: constipation Stop: 12/07/24 22:36 Discontinued Medications Sodium Chloride (Ns) 1,000 mls @ 999 mls/hr IV .Q1H1M ONE Stop: 11/07/24 19:39 Last Infusion: 11/07/24 20:10 Dose: Infused Acetaminophen (Ofirmev Inj) 1,000 mg in 100 mls @ 250 mls/hr IV X1 ONE Stop: 11/07/24 19:31 Last Infusion: 11/07/24 19:50 Dose: Infused Ceftriaxone Sodium/Dextrose (Rocephin/D5w 1gm Iv Premix) 1 gm in 50 mls @ 100 mls/hr IV X1 ONE Stop: 11/07/24 20:02 Last Infusion: 11/07/24 20:38 Dose: Infused Metronidazole (Flagyl 500 Mg Iv) 500 mg in 100 mls @ 100 mls/hr IV X1 ONE Stop: 11/07/24 21:48 Last Admin: 11/07/24 21:37 Dose: 100 mls/hr Sodium Chloride (Ns) 1,000 mls @ 999 mls/hr IV .Q1H1M ONE Stop: 11/07/24 22:56 Ketorolac Tromethamine (Ketorolac Inj 30 Mg/Ml Vial) 12 mg IVP X1 ONE Stop: 11/07/24 19:09 Last Admin: 11/07/24 19:27 Dose: 12 mg Morphine Sulfate (Morphine Sulf Inj 10 Mg/Ml Vial) 4 mg IVP X1 ONE Stop: 11/07/24 18:40 Last Admin: 11/07/24 19:00 Dose: 4 mg Ondansetron HCl (Ondansetron Inj 2 Mg/Ml Inj 2 Ml) 4 mg IVP X1 ONE; Protocol Stop: 11/07/24 18:40 Last Admin: 11/07/24 18:59 Dose: 4 mg Assessment & Plan Assessment Williams Moran is a 74-year-old M with a PMH of atrial fibrillation on metoprolol and Eliquis, hyperlipidemia on atorvastatin, hypothyroidism on levothyroxine, liver cirrhosis, obstructive sleep apnea on BiPAP, hypertension, and prediabetes who presents today with weakness and dizziness. Patient was admitted for the work-up and management of sepsis and acute acalculus cholecystitis. #Sepsis #likely 2/2 acute acalculus cholecystitis #Percutaneous biliary drain #Hypotension #Leukocytosis Upon admission, patient met septic criteria by rationale of a temperature > 100.4 (102.2), WBC > 12,000 (14,400), and present source of infection (acute acalculus cholecystitis). Both gallbladder ultrasound and CT CAP showed findings interpreted to be acute cholecystitis. TBili was elevated at 1.9 (Dbili 0.7) and alkaline phosphatase was elevated at 145. Systolic blood pressure has ranged between 75-108 and diastolic pressure has ranged between 47-63 (s/p infusion of 4 L of fluid) UA was clean (negative for urine bacteria, nitrites, and LE), making cholecystitis the likely source of WBC elevation and septic-like response. Due to patient's liver cirrhosis, they are not a surgical candidate for cholecystectomy. Plan: -Started on IV Zosyn 3.375 gm q6HR for coverage of common gram-negative and anaerobic bacteria responsible for cholecystitis and cholangitis -Pending replacement of biliary drain by IR for the purpose of draining the sludge seen on gallbladder ultrasound -Continue monitoring blood pressure in case of septic shock #Chronic health problems #Atrial fibrillation #Hypothyroidism #Hyperlipidemia #Prediabetes Plan: -Restarted the following home medications: PO levothyroxine 75 mcg ACBR and PO Eliquis 5 mg BID -Holding the following home medications: PO atorvastatin 10 mg qD and PO metoprolol tartrate 50 mg BID -Started on insulin sliding scale Hospital Management: Disposition: awaiting biliary drain exchange by IR Diet: cardiac GI Prophylaxis: none Bowel Prophylaxis: senna DVT Prophylaxis: Eliquis CODE STATUS: Full Code I have examined the patient and conferred with my attending, Dr. Shepard, and my senior resident, Dr. Caba, regarding them. Balta Butt, PGY-1 Internal Medicine Attending Provider Attestation/Addendum I reviewed labs, imaging, EKG, home medications and prior available records. Face to face evaluation was performed by me. I have personally examined the patient and discussed assessment and plan with the IM team. I reviewed the resident note and agree with the plan with exceptions as below. Acute cholecystitis, status post drain that was dislodged Acute hypotension A-fib with controlled ventricular rhythm Liver cirrhosis, unclear etiology Start IV Zosyn Continue IV fluids MAP goal is 65. ICU for vasopressors if continues to drop despite aggressive fluid resuscitation Consult IR for reinsertion of the drain At this time, he is a poor surgical candidate given his multiple comorbidities. Appreciate surgery recommendations Management of pain/nausea as needed
[2024-11-07] MEDS: PIPER/TAZO 3.375 GM PREMIX 3.375 G/50 ML BAG IV (23:05)
[2024-11-08] VITALS (16 sets, daily range): BP systolic 86–117; BP diastolic 47–72; PULSE 75–108; RESP 12–20; TEMP 36.2–37.2; O2SAT 93–99; BMI 33.8
--- NOTE | 2024-11-08 00:05 | PC.NURSE ---
CALLED DR TOUSSAINT AND INFORMED HIM OF PT'S BP 75/50 HR 77. PT ASYMPTOMATIC. A/OX3 GCS 15, DENIES ANY PAIN, DIZZINESS. PT RESTING IN BED COMFORTABLY. NEW ORDERS RECEIVED.
[2024-11-08] MEDS: RINGERS LACTATED 500 ML 500 ML 999 ML IV ×2 (00:07→01:00)
[2024-11-08 00:22] LABS: Lactate (Lactic Acid) 0.5 mMol/L (0.4-2.0)
--- NOTE | 2024-11-08 00:26 | PC.NURSE ---
DR HERNADEZ, DR HUFFMAN, DR TOUSSAINT AT BEDSIDE ASSESSING PT AT THIS TIME. LR 500ML BOLUS IN, AND BP:89/49 WITH MAP ON MONITOR 70. PER MD HERNADEZ WAIT 15-30 MIN AND REASSESS BP.
[2024-11-08] MEDS: LEVOTHYROXINE SODIUM 88 MCG TABLET 75 MCG PO (05:58)
[2024-11-08] MEDS: PIPER/TAZO 3.375 GM PREMIX 3.375 G/50 ML BAG IV ×2 (05:59→16:42)
[2024-11-08 06:03] LABS: Basophils # (Auto) 0.0 Thou/mm3 (0.0-0.2); Basophils % (Auto) 0 % (0-2.5); Eosinophils # (Auto) 0.0 Thou/mm3 (0.0-0.5); Eosinophils % (Auto) 0 % (0-10); Hematocrit 25.9 % (41.0-53.0); Immature Granulocytes Auto 0.06 Thou/mm3 (0.00-0.00); Lymphocytes # (Auto) 0.9 Thou/mm3 (1.0-4.8); Lymphocytes % (Auto) 7 % (10-50); Mean Corpuscular HGB Conc 33.6 g/dl (31.0-37.0); Mean Corpuscular Hemoglobin 27.8 pg (25.0-35.0); Mean Corpuscular Volume 83 fL (80-100); Monocytes # (Auto) 1.3 Thou/mm3 (0.0-0.8); Monocytes % (Auto) 11 % (0-12); Neutrophils # (Auto) 9.5 Thou/mm3 (1.8-7.7); Neutrophils % (Auto) 81 % (37-80); Nucleated Red Blood Cell # 0.00 Thou/mm3 (0.00-0.00); Nucleated Red Blood Cell % 0 /100 WBC (0); Platelet Count 362 Thou/mm3 (140-440); RDW Standard Deviation 41.0 fL (35.1-43.9); Red Blood Count 3.13 Miln/mm3 (4.50-5.90); White Blood Count 11.7 Thou/mm3 (3.8-10.6)
[2024-11-08 06:16] LABS: Hemoglobin 8.7 g/dL (13.5-16.0)
[2024-11-08 06:19] LABS: INR 1.3 (0.9-1.3); Prothrombin Time 14.2 Seconds (9.0-12.2)
[2024-11-08 06:29] LABS: Alanine Aminotransferase 40 U/L (10-49); Albumin, Serum 2.8 gm/dL (3.4-4.8); Albumin/Globulin Ratio 1.2 (1.2-2.2); Alkaline Phosphatase 131 U/L (46-116); Anion Gap 7 (7-16); Aspartate Amino Transferase 47 U/L (0-34); BUN/Creatinine Ratio 12 Ratio (12-20); Bilirubin,Total 1.1 mg/dL (0.3-1.2); Blood Urea Nitrogen 12 mg/dL (9-23); Calcium 7.1 mg/dL (8.3-10.6); Calcium (Corrected) 8.1 mg/dL (8.5-10.1); Carbon Dioxide 21.8 mMol/L (20.0-31.0); Chloride 101 mMol/L (98-107); Creatinine (Component) 1.0 mg/dL (0.6-1.3); Estimated Creatinine Clearance 68.7 mL/min (>60); Globulin 2.4 gm/dL (2.3-3.5); Glucose 88 mg/dL (74-106); Osmolality,Calculated 259 (275-295); Potassium 4.4 mMol/L (3.4-5.1); Sodium 130 mMol/L (136-145); Total Protein 5.2 gm/dL (5.7-8.2); eGFR > 60 See Note
[2024-11-08 06:43] LABS: Glucose Estimated Average 114 mg/dL (80-131); Hemoglobin A1C 5.6 % Hgb (4.8-6.0)
--- NOTE | 2024-11-08 07:37 | ESPR_ITS ---
<Statement entered by Woodrow Moore MD - 11/08/24 16:58> Patient seen and examined at bedside, no acute overnight events. I discussed and supervised with the manufacturing intern physician who took care of this patient. I personally saw and examined the patient. I agree with most of the assessment and plan. Percutaneous gallbladder drainage cath placed with CT guidance. Empiric antibiotics with vancomycin and zosyn, pending cultures. WBCs downtrending, Tmax 102.2. Expect improvement in condition following drain placement. Plan of care discussed with attending Dr. Stephanie Moore MD PGY-2 Documentation for date of: 11/08/24 Subjective Subjective Interval history: No acute events overnight CTAP with percutaneous drain not in gallbladder Patient underwent exchange of percutaneous [place] drain Exam Vital Signs Temp Pulse Resp BP Pulse Ox O2 Del Method 97.8 F 88 18 95/71 96 Room Air 11/08/24 04:00 11/08/24 04:00 11/08/24 04:00 11/08/24 04:00 11/08/24 04:00 11/08/24 02:00 24-hour vital signs reviewed Narrative Exam General: Alert, no acute distress. Skin: Mild jaundice noted to face and arms. Warm, dry, intact, no obvious rash. Head: Normocephalic, atraumatic. Eye: Normal conjunctiva, PERRL. Throat: Oral mucosa moist. No obvious lesions in oropharynx. Cardiovascular: Regular rate and rhythm, no murmur, +S1/S2. Respiratory: Lungs are clear to auscultation, respirations unlabored, no crackles, no wheezing. Gastrointestinal: Gallbladder drain noted at RUQ. No erythema at base no pus so ft, nontender, non-distended. No guarding or rebound tenderness. Extremities: No edema, no cyanosis, no clubbing. 2+ radial pulse bilaterally, 2+ posterior tibial pulse bilaterally. Neuro: No focal deficits observed. Conversant, moving all extremities. No overt cerebellar signs/incoordination. Psychiatric: appropriate affect. Objective Labs 11/10/24 05:14 11/10/24 05:14 Labs: Laboratory Results - last 24 hr 11/07/24 11/07/24 11/07/24 16:52 17:18 18:50 WBC 14.4 H RBC 3.58 L Hgb 10.0 L Hct 28.9 L MCV 81 MCH 27.9 MCHC 34.6 RDW Std Deviation 38.9 Plt Count 526 H D Neut % (Auto) 80 Lymph % (Auto) 10 [place] % (Auto) 9 Eos % (Auto) 0 Baso % (Auto) 0 Neut # (Auto) 11.5 H Lymph # (Auto) 1.4 Floyd # (Auto) 1.3 H Eos # (Auto) 0.0 Baso # (Auto) 0.0 Immature Gran # (Auto) 0.08 H Absolute Nucleated RBC 0.00 Immature Gran % 1 H Nucleated RBC % 0 ESR 59 H PT INR Sodium 126 L Potassium 4.8 Chloride 93 L Carbon Dioxide 23.3 Anion Gap 10 BUN 14 Creatinine 1.1 Estim Creat Clear Calc 61.2 eGFR > 60 BUN/Creatinine Ratio [address] Glu mg/dL Hemoglobin A1c Calculated Osmolality 253 L Lactic Acid 0.8 Calcium 8.8 Corrected Calcium 8.9 Magnesium 2.1 Total Bilirubin 1.9 H Direct Bilirubin 0.7 H AST 47 H ALT 47 Alkaline Phosphatase 145 H Troponin I < 0.020 C-Reactive Prot, Quant 16.9 H Total Protein 6.3 Albumin 3.9 Globulin 2.4 Albumin/Globulin Ratio 1.6 Amylase 126 H Lipase 91 H Procalcitonin 0.24 Ur Collection Type Clean Catch Urine Color Yellow Urine Clarity Turbid A Urine pH 6.0 Ur Specific [place] 1.027 Urine Protein 1+ A Urine Glucose (UA) Negative Urine Ketones Negative Urine Blood Negative Urine Nitrite Negative Urine Bilirubin Negative Urine Urobilinogen (Auto) Negative Ur Leukocyte Esterase Negative Urine RBC 17 H Urine WBC 4 Ur Squamous Epith Cells 0 Urine Bacteria None 11/08/24 11/08/24 00:17 05:15 WBC 11.7 H RBC 3.13 L Hgb 8.7 L Hct 25.9 L MCV 83 MCH 27.8 MCHC 33.6 RDW Std Deviation 41.0 Plt Count 362 D Neut % (Auto) 81 H Lymph % (Auto) 7 L [place] % (Auto) 11 Eos % (Auto) 0 Baso % (Auto) 0 Neut # (Auto) 9.5 H Lymph # (Auto) 0.9 L [place] # (Auto) 1.3 H Eos # (Auto) 0.0 Baso # (Auto) 0.0 Immature Gran # (Auto) 0.06 H Absolute Nucleated RBC 0.00 Immature Gran % 1 H Nucleated RBC % 0 ESR PT 14.2 H INR 1.3 Sodium 130 L Potassium 4.4 Chloride 101 Carbon Dioxide 21.8 Anion Gap 7 BUN 12 Creatinine 1.0 Estim Creat Clear Calc 68.7 eGFR > 60 BUN/Creatinine Ratio [address] Glu mg/dL 114 Hemoglobin A1c 5.6 Calculated Osmolality 259 L Lactic Acid 0.5 Calcium 7.1 L D Corrected Calcium 8.1 L Magnesium Total Bilirubin 1.1 D Direct Bilirubin AST 47 H ALT 40 Alkaline Phosphatase 131 H Troponin I C-Reactive Prot, Quant Total Protein 5.2 L Albumin 2.8 L D Globulin 2.4 Albumin/Globulin Ratio 1.2 Amylase Lipase Procalcitonin Ur Collection Type Urine Color Urine Clarity Urine pH Ur Specific [place] Urine Protein Urine Glucose (UA) Urine Ketones Urine Blood Urine Nitrite Urine Bilirubin Urine Urobilinogen (Auto) Ur Leukocyte Esterase Urine RBC Urine WBC Ur Squamous Epith Cells Urine Bacteria Quality Measures Quality Measures sepsis Current suspected stage: sepsis Possible source: GI tract/intra-abdominal Blood cultures ordered: no Antibiotic ordered: Yes Advance care planning discussed with:: patient, significant other and child Assessment & Plan Assessment Current Active Medications: Generic Name Dose Route Start Last Admin Trade Name Freq PRN Reason Stop Dose Admin Acetaminophen 650 mg 11/07/24 22:37 Acetaminophen 325 Mg Tablet PO 12/07/24 22:36 Q6H PRN PAIN SCALE 1-3 (mild Apixaban 5 mg 11/08/24 09:00 Apixaban 2.5 Mg Tablet PO 12/08/24 08:59 BID CLAIRE Dextrose 25 ml 11/07/24 22:41 Dextrose 50%-Water Inj 50 Ml Syringe IV 12/07/24 22:40 Q15MIN PRN BG 50-70 responsive npo pt Dextrose 50 ml 11/07/24 22:41 Dextrose 50%-Water Inj 50 Ml Syringe IV 12/07/24 22:40 Q15MIN PRN BG <50 OR BG <70 & pt unresponsive Glucagon 1 mg 11/07/24 22:41 Glucagon Inj 1 Mg Vial IM Q15MIN PRN BG <70, and no IV access Piperacillin/Tazobactam/Dextrose 3.375 g in 50 mls @ 100 mls/hr 11/07/24 22:39 11/08/24 05:59 Zosyn IV 11/14/24 22:38 100 mls/hr Q6HR CLAIRE Administration Insulin Human Lispro 0 unit 11/08/24 07:30 Insulin Lispro (Admelog) 1 Unit/0.01 Ml Unit SC 12/08/24 07:29 ACHS CLAIRE Protocol Levothyroxine Sodium 75 mcg 11/08/24 06:00 11/08/24 05:58 Levothyroxine Sodium 88 Mcg Tablet PO 12/08/24 05:59 75 mcg ACBR CLAIRE Administration Ondansetron HCl 4 mg 11/07/24 22:37 Ondansetron Inj 2 Mg/Ml Inj 2 Ml IVP 12/07/24 22:36 Q6H PRN NAUSEA OR VOMITING Protocol Sennosides 1 tab 11/07/24 22:37 Senna Tablet PO 12/07/24 22:36 QDAY PRN constipation Protocol Plan 74-year-old male with pmh of HTN, Afib on apixaban , and cirrhosis, presented to the ED due to abdominal pain. Patient was admitted for mgmt of cholecystitis, s/p replacement of percutaneous drain with IR on 11/08. Pending blood cultures pending urine cultures, on Zosyn. #Sepsis / #Acute acalculous cholecystitis status post replacement of cholecystostomy drain #Leukocytosis downtrending SIRS: febrile, wbc 14 on admission Patient presented with leukocytosis (WBC 14),fevers. S/p percutaneous drain with IR on 10/25. and repplacement of drain with IR 11/08. Likely that there is better source control post procedure. Bcx pending. On low fat diet. Dx - Daily CBC Tx - Zosyn - ondansetron 4mg IV PRN for n/v ? Dr. Bradley notified of hospitalization, Dr. Bradley will see patient tomorrow -Pain regimen: IV morphine, [place] #Constipation Patient endorses bowel movement yesterday however per patient has been having straining with bowel movements Tx ?PT ordered ? Senna 1 tab daily as needed ? Colace 100 mg twice daily scheduled #Normocytic anemia ? Hemoglobin 8 ? No signs of overt bleeding, possibly secondary to percutaneous drain placement today Tx: ? PRBC if hemoglobin drops below 7 ? Monitor for signs of bleeding and bruising #Electrolyte disturbances #Hyponatremia #Hypophosphatemia #Hypocalcemia Tx ? Replete electrolytes as necessary #Cirrhosis #Hypoalbuminemia PT and PTT elevated, INR is high normal concern for SBP given procedure with perc drain to GB, and cirrhosis consider diagnostic paracentesis Dx - repeat AM coags -LFTs Tx ? Avoid hepatotoxic agents ? Monitor liver enzymes - consider giving albumin - SBP coverage with zosyn as per acalculus cholecystitis, see above. #History of A-fib on apix, rate controlled Tx ?Metoprolol tartrate 50 mg twice daily ?Held, iso perc drain procedure Apixiban 5 mg BID #Hypertension - Continue home metoprolol 50 BID #query UTI #suspect BPH pt reports urinary urgency and frequency but denies dysuria Dx UA bland UCx pending low threshold for bladder scan, to assess for urinary retention Tx consider outpt urology follow up -continues on abx (zosyn, see acalculus cholecystitis above) Health Maintenance: Disposition: Telemetry: pt family would appreciate placement at SN[facility], Pending blood cultures, ordered PT evaluation. Fluids: LR PRN Feeding: low fat diet VTE ppx: Eliquis 5 mg twice daily, resume tomorrow Gastric Ulcer ppx: Pantoprazole 40mg qd Bowel Reg: senna 1tab qd prn, docusate 100 mg BID scheduled, encourage ambulation CODE STATUS: Full code Attending Provider Attestation/Addendum I attest that I was physically present for the evaluation, physical examination, lab and imaging review of the patient with the residents. I discussed the case with the residents and agree with the findings and plans of care as documented above. Eric Brown MD
[2024-11-08 09:23] LABS: Partial Thromboplastin Time 44.2 Seconds (22.0-36.0)
--- NOTE | 2024-11-08 09:30 | PC.NURSE ---
pt was taken to IR for bili drain replacement.
--- NOTE | 2024-11-08 09:37 | XR_ITS ---
Examination: CT-guided percutaneous placement gallbladder drainage catheter CT abdomen without intravenous contrast INDICATIONS: History acute acalculous cholecystitis, the patient's gallbladder drainage tube has been pulled out and needs to be replaced Date and time of procedure: November 08, 2024 1128 hours Informed consent provided. A timeout was completed verifying correct patient, procedure, site and positioning. . Technique: Axial 3 mm sections were obtained for localization of the abnormal gallbladder Appropriate area is marked. The patient's site was prepped and draped in sterile fashion Maximal sterile barrier technique utilized, including hand hygiene Local anesthesia was obtained with 1% lidocaine. Low dose protocols were performed. One or more of the following dose reduction techniques were used; automated exposure control, adjustment of the mA and/or KV according to patient size, use of iterative reconstruction technique. Utilizing CT fluoroscopic guidance 5 [place] catheter placed in the gallbladder followed by 0.35 wire guide dilators and a 6 [place] pigtail drainage catheter in proper position in the gallbladder Mild aspirated and sent for culture and sensitivity Patient appears in stable condition during this procedure. At completion of the procedure, the patient is in satisfactory condition. Estimated blood loss 2 cc Complete culture and sensitivity report to follow. Impression: Successful CT-guided percutaneous placement gallbladder drainage catheter
--- NOTE | 2024-11-08 10:03 | PC.SS ---
Follow up note: Cultures are pending.
[2024-11-08] MEDS: SODIUM CHLORIDE 0.9% 500 ML 500 ML 20 ML IV (11:42)
[2024-11-08] MEDS: fentaNYL CIT INJ 50 mCg/ML AMP 2ML 75 MCG IVP (11:44)
--- NOTE | 2024-11-08 12:07 | PC.SS ---
SS met with dtr, Jocy Marie regarding patient's d/c plan. Pt is alert/oriented. Pt was admitted for Acalculous Cholecystitis. Pt confirmed demographic and contact information is correct on facesheet. Pt resides with . Pt ambulates independently without assistance or DME. Pt is ok with all ADLs. Patient utilizes [facility] choice [facility]. DaughterJocy is patient's medical decision maker if she is unable. SS provided dtr with verbal options for d/c to home or SNF. DaughterJocy is requesting pt d/c to SNF. Dtr is aware pt has Managed Medicare Plan and requires insurance authorization for SNF and a skilled need for his health insurance to approve (for ex. PT, IV antibiotic, or Wound Care). Pt does not have an advance directive, SS offered, and dtr was receptive. Dtr states pt followed up with PCP yesterday. D/C plan: Possible SNF Next of Kin: Jocy Moran, daughter, phone# [phone] or Lizett Bonner, dtr, phone# [phone] PCP: Dr. Beth Lanier Address: Correct on facesheet
[2024-11-08] MEDS: HYDROcodone/APAP 5/325 TABLET 1 TAB PO (12:56)
--- NOTE | 2024-11-08 12:59 | PC.NURSE ---
hand off report given to davy albert. patient transported via gurney back to room. patient alert and oriented. gcs of 15. Davy albert and I assessed dressing. dressing is clean dry and intact.
[2024-11-08] MEDS: Vancomycin Inj 1,500 MG in SODIUM CHLORIDE 0.9% 500 ML 500 ML 200 MG IV (15:59)
[2024-11-08] MEDS: CALCIUM GLUCONATE 10% INJ 1 GM/10 ML VIAL IV (23:07)
[2024-11-09] VITALS: PULSE 111
[2024-11-09 04:00] VITALS: BP 109/69; PULSE 91; RESP 16; TEMP 36.9; O2SAT 95
[2024-11-09] MEDS: HYDROcodone/APAP 5/325 TABLET 1 TAB PO (05:37)
[2024-11-09] MEDS: LEVOTHYROXINE SODIUM 25 MCG TABLET 75 MCG PO (05:38)
[2024-11-09] MEDS: PIPER/TAZO 3.375 GM PREMIX 3.375 G/50 ML BAG IV ×3 (05:38→21:05)
[2024-11-09 06:00] VITALS: BMI 34.3
[2024-11-09 06:08] LABS: Basophils # (Auto) 0.0 Thou/mm3 (0.0-0.2); Basophils % (Auto) 0 % (0-2.5); Eosinophils # (Auto) 0.0 Thou/mm3 (0.0-0.5); Eosinophils % (Auto) 0 % (0-10); Hematocrit 27.7 % (41.0-53.0); Hemoglobin 9.0 g/dL (13.5-16.0); Immature Granulocytes Auto 0.06 Thou/mm3 (0.00-0.00); Lymphocytes # (Auto) 1.1 Thou/mm3 (1.0-4.8); Lymphocytes % (Auto) 10 % (10-50); Mean Corpuscular HGB Conc 32.5 g/dl (31.0-37.0); Mean Corpuscular Hemoglobin 27.8 pg (25.0-35.0); Mean Corpuscular Volume 86 fL (80-100); Monocytes # (Auto) 1.3 Thou/mm3 (0.0-0.8); Monocytes % (Auto) 12 % (0-12); Neutrophils # (Auto) 8.9 Thou/mm3 (1.8-7.7); Neutrophils % (Auto) 78 % (37-80); Nucleated Red Blood Cell # 0.00 Thou/mm3 (0.00-0.00); Nucleated Red Blood Cell % 0 /100 WBC (0); Platelet Count 439 Thou/mm3 (140-440); RDW Standard Deviation 42.5 fL (35.1-43.9); Red Blood Count 3.24 Miln/mm3 (4.50-5.90); White Blood Count 11.4 Thou/mm3 (3.8-10.6)
[2024-11-09 06:25] LABS: Alanine Aminotransferase 35 U/L (10-49); Albumin, Serum 3.0 gm/dL (3.4-4.8); Albumin/Globulin Ratio 1.3 (1.2-2.2); Alkaline Phosphatase 128 U/L (46-116); Anion Gap 9 (7-16); Aspartate Amino Transferase 33 U/L (0-34); BUN/Creatinine Ratio 9 Ratio (12-20); Bilirubin,Total 0.7 mg/dL (0.3-1.2); Blood Urea Nitrogen 8 mg/dL (9-23); Calcium 7.6 mg/dL (8.3-10.6); Calcium (Corrected) 8.4 mg/dL (8.5-10.1); Carbon Dioxide 21.8 mMol/L (20.0-31.0); Chloride 101 mMol/L (98-107); Creatinine (Component) 0.9 mg/dL (0.6-1.3); Estimated Creatinine Clearance 76.1 mL/min (>60); Globulin 2.4 gm/dL (2.3-3.5); Glucose 102 mg/dL (74-106); Magnesium 1.6 mg/dL (1.6-2.6); Osmolality,Calculated 262 (275-295); Phosphorous 2.1 mg/dL (2.4-5.1); Potassium 4.3 mMol/L (3.4-5.1); Sodium 132 mMol/L (136-145); Total Protein 5.4 gm/dL (5.7-8.2); eGFR > 60 See Note
--- NOTE | 2024-11-09 07:55 | ESPR_ITS ---
<Statement entered by Pillo Gauthier MD - 11/10/24 17:48> Patient was seen and examined at the bedside. No acute overnight events reported. Patient is awaiting bowel movement and insurance authorization for SNF. Added antibiotics for appropriate coverage for urine infection. All labs and orders were reviewed. I discussed and supervised with the international account executive physician who took care of this patient. I personally saw and examined the patient. I agree with most of the assessment and plan. Disclaimer: Despite multiple revisions, due to the dictation software being used, the document bellow may not be free of grammatical errors including phonetic/typographic errors. However, this does not deter from our commitment to providing health care in the patient's best interest in mind. Plan of care discussed with attending Physician Dr. Javed Gauthier MD PGY-3 Documentation for date of: 11/09/24 Subjective Subjective Interval history: no acute events overnight Bcx ngtd Ucx GNR PT eval recomend SNF Exam Vital Signs Temp Pulse Resp BP Pulse Ox O2 Del Method O2 Flow Rate 97.8 F 99 19 110/68 96 Room Air 3 11/10/24 04:00 11/10/24 04:40 11/10/24 04:00 11/10/24 04:00 11/10/24 04:00 11/10/24 04:00 11/08/24 11:50 Narrative Exam General: Alert, no acute distress. Skin: Mild jaundice noted to face and arms. Warm, dry, intact, no obvious rash. Head: Normocephalic, atraumatic. Eye: Normal conjunctiva, PERRL. Throat: Oral mucosa moist. No obvious lesions in oropharynx. Cardiovascular: Regular rate and rhythm, no murmur, +S1/S2. Respiratory: Lungs are clear to auscultation, respirations unlabored, no crackles, no wheezing. Gastrointestinal: Gallbladder drain noted at RUQ. No erythema at base no pus so ft, nontender, non-distended. No guarding or rebound tenderness. Extremities: No edema, no cyanosis, no clubbing. 2+ radial pulse bilaterally, 2+ posterior tibial pulse bilaterally. Neuro: No focal deficits observed. Conversant, moving all extremities. No overt cerebellar signs/incoordination. Psychiatric: appropriate affect. Objective Labs 11/10/24 05:14 11/10/24 05:14 Labs: Laboratory Results - last 24 hr 11/10/24 05:14 WBC 9.6 RBC 3.40 L Hgb 9.5 L Hct 29.2 L MCV 86 MCH 27.9 MCHC 32.5 RDW Std Deviation 42.5 Plt Count 380 D Neut % (Auto) 71 Lymph % (Auto) 15 [place] % (Auto) 12 Eos % (Auto) 1 Baso % (Auto) 1 Neut # (Auto) 6.8 Lymph # (Auto) 1.4 [place] # (Auto) 1.2 H Eos # (Auto) 0.1 Baso # (Auto) 0.1 Immature Gran # (Auto) 0.03 H Absolute Nucleated RBC 0.00 Immature Gran % 0 Nucleated RBC % 0 Sodium 137 Potassium 4.5 Chloride 102 Carbon Dioxide 26.9 Anion Gap 8 BUN 5 L Creatinine 1.0 Estim Creat Clear Calc 67.9 eGFR > 60 BUN/Creatinine Ratio 5 L Glucose 102 Calculated Osmolality 271 L Calcium 7.9 L Corrected Calcium 8.6 Phosphorus 2.4 Magnesium 2.4 Total Bilirubin 0.8 AST 43 H ALT 41 Alkaline Phosphatase 127 H Total Protein 5.7 Albumin 3.1 L Globulin 2.6 Albumin/Globulin Ratio 1.2 Quality Measures Quality Measures sepsis Current suspected stage: sepsis Possible source: pulmonary, bone/joint, endocarditis, GI tract/intra-abdominal, CLABSI, implantable device, genitourinary, meningitis, unknown, skin/soft tissue and wound Blood cultures ordered: yes Antibiotic ordered: Yes Advance care planning discussed with:: patient, spouse and child Assessment & Plan Assessment Current Active Medications: Generic Name Dose Route Start Last Admin Trade Name Danyel PRN Reason Stop Dose Admin Acetaminophen 650 mg 11/07/24 22:37 Acetaminophen 325 Mg Tablet PO 12/07/24 22:36 Q6H PRN PAIN SCALE 1-3 (mild Hydrocodone Bitart/Acetaminophen 1 tab 11/08/24 08:07 11/09/24 05:37 Hydrocodone/Apap 5/325 Tablet PO 11/13/24 08:06 1 tab Q4HR PRN Administration PAIN SCALE 4-6 (Moderate Dextrose 25 ml 11/07/24 22:41 Dextrose 50%-Water Inj 50 Ml Syringe IV 12/07/24 22:40 Q15MIN PRN BG 50-70 responsive npo pt Dextrose 50 ml 11/07/24 22:41 Dextrose 50%-Water Inj 50 Ml Syringe IV 12/07/24 22:40 Q15MIN PRN BG <50 OR BG <70 & pt unresponsive Docusate Sodium 200 mg 11/09/24 09:00 11/09/24 08:29 Docusate Sod 100 Mg Capsule PO 12/09/24 08:59 200 mg QDAY CLAIRE Administration Protocol Glucagon 1 mg 11/07/24 22:41 Glucagon Inj 1 Mg Vial IM Q15MIN PRN BG <70, and no IV access Sodium Chloride 500 mls @ 20 mls/hr 11/08/24 11:20 11/08/24 12:02 Ns IV 12/08/24 11:19 0 mls/hr .Q24H CLAIRE Infusion Piperacillin/Tazobactam/Dextrose 3.375 g in 50 mls @ 12.5 mls/hr 11/08/24 16:00 11/10/24 05:18 Zosyn IV 11/15/24 15:59 12.5 mls/hr Q8HR CLAIRE Administration Insulin Human Lispro 0 unit 11/08/24 07:30 11/10/24 07:39 Insulin Lispro (Admelog) 1 Unit/0.01 Ml Unit SC 12/08/24 07:29 Not Given ACHS CLAIRE Protocol Levothyroxine Sodium 75 mcg 11/09/24 06:00 11/10/24 05:19 Levothyroxine Sodium 25 Mcg Tablet PO 12/08/24 05:59 75 mcg ACBR CLAIRE Administration Morphine Sulfate 1 mg 11/08/24 08:07 Morphine Sulf Inj 10 Mg/Ml Vial IVP 11/13/24 08:06 Q4HR PRN PAIN SCALE 7-10 (Severe Ondansetron HCl 4 mg 11/07/24 22:37 Ondansetron Inj 2 Mg/Ml Inj 2 Ml IVP 12/07/24 22:36 Q6H PRN NAUSEA OR VOMITING Protocol Sennosides 1 tab 11/07/24 22:37 11/09/24 21:06 Senna Tablet PO 12/07/24 22:36 1 tab QDAY PRN Administration constipation Protocol Plan 74-year-old male with pmh of HTN, Afib on apixaban , and cirrhosis, presented to the ED due to abdominal pain. Patient was admitted for mgmt of cholecystitis, s/p replacement of percutaneous drain with IR on 11/08. Blood cx NGTD Ucx GNR, on Zosyn. #Sepsis 05/28 #Acute acalculous cholecystitis status post replacement of cholecystostomy drain #Leukocytosis downtrending SIRS: febrile, wbc 14 on admission Patient presented with leukocytosis (WBC 14),fevers. S/p percutaneous drain with IR on 10/25. and repplacement of drain with IR 11/08. Likely that there is better source control post procedure. Bcx NGTD . On low fat diet. Dx - Daily CBC Tx - Zosyn - ondansetron 4mg IV PRN for n/v ? Dr. Bradley notified of hospitalization, will see outpt -Pain regimen: IV morphine, [place] #Constipation Patient endorses bowel movement yesterday however per patient has been having straining with bowel movements Tx ?PT ordered ? Senna 1 tab daily as needed ? Colace 100 mg twice daily scheduled #Normocytic anemia ? Hemoglobin 8 ? No signs of overt bleeding, possibly secondary to percutaneous drain placement today Tx: ? PRBC if hemoglobin drops below 7 ? Monitor for signs of bleeding and bruising #Electrolyte disturbances #Hyponatremia #Hypophosphatemia #Hypocalcemia Tx ? Replete electrolytes as necessary #Cirrhosis #Hypoalbuminemia PT and PTT elevated, INR is high normal concern for SBP given procedure with perc drain to GB, and cirrhosis consider diagnostic paracentesis Dx - repeat AM coags -LFTs Tx ? Avoid hepatotoxic agents ? Monitor liver enzymes - consider giving albumin - SBP coverage with zosyn as per acalculus cholecystitis, see above. #History of A-fib on apix, rate controlled Tx ?Metoprolol tartrate 50 mg twice daily ?Held, iso perc drain procedure Apixiban 5 mg BID #Hypertension - Continue home metoprolol 50 BID #UTI #suspect BPH pt reports urinary urgency and frequency but denies dysuria Dx UA bland UCx GNR low threshold for bladder scan, to assess for urinary retention Tx -continues on abx (zosyn, see acalculus cholecystitis above) Health Maintenance: Disposition: Telemetry: pt family would appreciate placement at SNF at [facility], UCx GNR , PT eval completed Fluids: LR PRN Feeding: low fat diet VTE ppx: Eliquis 5 mg twice daily, resume tomorrow Gastric Ulcer ppx: Pantoprazole 40mg qd Bowel Reg: senna 1tab qd prn, docusate 100 mg BID scheduled, encourage ambulation CODE STATUS: Full code Case discussed with my senior resident Dr. Gauthier Case discussed with my attending Dr. Javed Ho MD PGY-1 Attending Provider Attestation/Addendum IKathie, DO, attest that I was physically present for the richards portions of the service and evaluated the patient with the resident and I reviewed and discussed the case with the resident and agree with the resident's findings and plans of care as documented above Patient seen and eval this a.m. Pending bowel movement. Daughter is at bedside. Patient resting comfortably and has no acute complaints. Minimal drainage noted from cholecystostomy tube. Cultures obtained from urine and gallbladder drainage. ESBL E. coli noted in urine, sensitive to doxycycline, and E. coli in gallbladder drainage also sensitive to doxycycline. Patient has been afebrile otherwise. Will discharge to SNF once patient has BM. Authorization is otherwise pending.
[2024-11-09 08:00] VITALS: BP 109/67; PULSE 89; RESP 18; TEMP 36.7; O2SAT 95
[2024-11-09] MEDS: DOCUSATE SOD 100 MG CAPSULE 200 MG PO (08:29)
--- NOTE | 2024-11-09 08:55 | PC.SS ---
Addendum entered by Zo Dietz 11/09/24 13:54: SS follow up note; SS sent PT notes to Rosalina from [facility] for auth to be submitted, Rosalina informed SS she would submit for auth. Addendum entered by Zo Dietz 11/09/24 10:36: SS follow up note; Patient would like to discharge to [facility]. SS contacted Rosalina from [facility] and she informed SS they are able to accept patient. will send PASSR through file exchange. Patient is pending PT evaluation, will send it to Rosalina once available. Original Note: SS follow up note; SS sent SNF referral through [employer], SS will present SNF Choices to patient's daughter when available.
[2024-11-09] MEDS: CALCIUM GLUC/NS 1000MG IVPB 1,000 MG/50 ML BAG 50 MG IV (09:56)
[2024-11-09] MEDS: Magnesium Sulfate 4 GM Ivpb 4 GM/50 ML BAG IV (09:57)
[2024-11-09] MEDS: NAPH,KPH MBDB 1 PACKET (1.5 GM) PO (09:57)
[2024-11-09 10:33] VITALS: PULSE 100
[2024-11-09 12:00] VITALS: BP 112/84; PULSE 89; RESP 18; TEMP 36.8; O2SAT 96
--- NOTE | 2024-11-09 12:25 | PD.SURCONS ---
HPI Consult details History of present illness: 74M with HTN, hypothyroidism, and afib on eliquis who presented initially 10/24/24 with acalculous cholecystitis s/p percutaneous cholecystostomy 10/25/24, discharged 10/30/24 then returned 11/07 with weakness and dizziness. Pt was additionally having fever and jaundice, he went to PCP who referred him to ER and workup showed that his percutaneous cholecystostomy had become disloged. Yesterday it was replaced and pt reports feeling ok overall, he does have some soreness at the site and continued dizziness but no nausea and he has been afebrile, tolerating diet with pain controlled Pt denies any history of epigastric/RUQ pain, states his pain has remained stable and he still does not have any appetite PMH: HTN, hypothyroidism, afib; no known liver pathologies PSHx: Hernia repair Meds: includes eliquis Allergies: NKDA Social hx: at baseline is active and cares for himself, does not drink alcohol or smoke cigarettes Review of Systems Review of Systems ROS Unobtainable: All systems reviewed & no additional complaints except as documented Meds Home Medications and Allergies Home Medications ?Medication ?Instructions ?Recorded ?Confirmed ?Type apixaban 5 mg tablet (Eliquis) 5 mg PO BID 08/31/19 11/08/24 History levothyroxine 75 mcg capsule 75 mcg PO QDAY 08/31/19 11/08/24 History metoprolol tartrate 50 mg tablet 50 mg PO BID 08/31/19 11/08/24 History atorvastatin 10 mg tablet 10 mg PO QDAY 06/20/21 11/08/24 History melatonin 10 mg capsule 10 mg PO HS PRN Sleep 04/22/23 11/08/24 History sucralfate 1 gram tablet 1 g PO QID PRN GI distress 10/24/24 11/08/24 History Allergies Allergy/AdvReac Type Severity Reaction Status Date / Time No Known Allergies Allergy Verified 11/07/24 16:08 Exam Vital Signs Temp Pulse Resp BP Pulse Ox O2 Del Method O2 Flow Rate 98.2 F 89 18 112/84 96 Room Air 3 11/09/24 12:00 11/09/24 12:00 11/09/24 12:11/09/24 12:11/09/24 12:11/09/24 12:11/08/24 11:50 Constitutional Constitutional: no acute distress Routine Respiratory Exam Respiratory: Present no resp distress Routine Abdominal Exam Abdominal: Present soft, tenderness (mild RUQ tenderness) and drain (RUQ drain with minimal brown bilious output); Absent distended, rebound or guarding Results Results: Laboratory Laboratory results: results reviewed Results: Imaging US - abdomen: report reviewed Assessment & Plan Plan 74M with HTN, hypothyroidism, and afib on eliquis who presented initially 10/24/24 with acalculous cholecystitis s/p percutaneous cholecystostomy 10/25/24, discharged 10/30/24 then returned 11/07 with weakness and dizziness, with findings of disloged percutaneous cholecystostomy drain which was replaced 11/08/24 OK for dc from my standpoint when afebrile for 24h, tolerating diet and pain controlled with PO meds Will reschedule outpt follow up for 11/27 as drain should remain in place for minimum 3 weeks Please contact me with concerns or questions
--- NOTE | 2024-11-09 13:56 | PC.PT ---
Patient is safe to ambulate to the bathroom with a FWW and 1 staff assist. RN made aware.
[2024-11-09 15:20] VITALS: BMI 34.3
[2024-11-09 20:00] VITALS: BP 92/72; PULSE 95; PULSE 99; RESP 20; TEMP 37.3; O2SAT 95
[2024-11-10] VITALS (7 sets, daily range): BP systolic 92–111; BP diastolic 54–81; PULSE 76–113; RESP 18–25; TEMP 36.1–37.3; O2SAT 94–97; BMI 34.3
[2024-11-10] MEDS: PIPER/TAZO 3.375 GM PREMIX 3.375 G/50 ML BAG IV (05:18)
[2024-11-10] MEDS: LEVOTHYROXINE SODIUM 25 MCG TABLET 75 MCG PO (05:19)
[2024-11-10 06:35] LABS: Basophils # (Auto) 0.1 Thou/mm3 (0.0-0.2); Basophils % (Auto) 1 % (0-2.5); Eosinophils # (Auto) 0.1 Thou/mm3 (0.0-0.5); Eosinophils % (Auto) 1 % (0-10); Hematocrit 29.2 % (41.0-53.0); Hemoglobin 9.5 g/dL (13.5-16.0); Immature Granulocytes Auto 0.03 Thou/mm3 (0.00-0.00); Lymphocytes # (Auto) 1.4 Thou/mm3 (1.0-4.8); Lymphocytes % (Auto) 15 % (10-50); Mean Corpuscular HGB Conc 32.5 g/dl (31.0-37.0); Mean Corpuscular Hemoglobin 27.9 pg (25.0-35.0); Mean Corpuscular Volume 86 fL (80-100); Monocytes # (Auto) 1.2 Thou/mm3 (0.0-0.8); Monocytes % (Auto) 12 % (0-12); Neutrophils # (Auto) 6.8 Thou/mm3 (1.8-7.7); Neutrophils % (Auto) 71 % (37-80); Nucleated Red Blood Cell # 0.00 Thou/mm3 (0.00-0.00); Nucleated Red Blood Cell % 0 /100 WBC (0); Platelet Count 380 Thou/mm3 (140-440); RDW Standard Deviation 42.5 fL (35.1-43.9); Red Blood Count 3.40 Miln/mm3 (4.50-5.90); White Blood Count 9.6 Thou/mm3 (3.8-10.6)
[2024-11-10 06:57] LABS: Alanine Aminotransferase 41 U/L (10-49); Albumin, Serum 3.1 gm/dL (3.4-4.8); Albumin/Globulin Ratio 1.2 (1.2-2.2); Alkaline Phosphatase 127 U/L (46-116); Anion Gap 8 (7-16); Aspartate Amino Transferase 43 U/L (0-34); BUN/Creatinine Ratio 5 Ratio (12-20); Bilirubin,Total 0.8 mg/dL (0.3-1.2); Blood Urea Nitrogen 5 mg/dL (9-23); Calcium 7.9 mg/dL (8.3-10.6); Calcium (Corrected) 8.6 mg/dL (8.5-10.1); Carbon Dioxide 26.9 mMol/L (20.0-31.0); Chloride 102 mMol/L (98-107); Creatinine (Component) 1.0 mg/dL (0.6-1.3); Estimated Creatinine Clearance 67.9 mL/min (>60); Globulin 2.6 gm/dL (2.3-3.5); Glucose 102 mg/dL (74-106); Magnesium 2.4 mg/dL (1.6-2.6); Osmolality,Calculated 271 (275-295); Phosphorous 2.4 mg/dL (2.4-5.1); Potassium 4.5 mMol/L (3.4-5.1); Sodium 137 mMol/L (136-145); Total Protein 5.7 gm/dL (5.7-8.2); eGFR > 60 See Note
--- NOTE | 2024-11-10 08:01 | PD.RESPRO ---
Documentation for date of: 11/10/24 Subjective Subjective Interval history: No acute events overnight Ucx with ESBL and Ecoli, Exam Vital Signs Temp Pulse Resp BP Pulse Ox O2 Del Method O2 Flow Rate 97.8 F 99 19 110/68 96 Room Air 3 11/10/24 04:00 11/10/24 04:40 11/10/24 04:00 11/10/24 04:00 11/10/24 04:00 11/10/24 04:00 11/08/24 11:50 Narrative Exam General: Alert, no acute distress. Skin: Mild jaundice noted to face and arms. Warm, dry, intact, no obvious rash. Head: Normocephalic, atraumatic. Eye: Normal conjunctiva, PERRL. Throat: Oral mucosa moist. No obvious lesions in oropharynx. Cardiovascular: Regular rate and rhythm, no murmur, +S1/S2. Respiratory: Lungs are clear to auscultation, respirations unlabored, no crackles, no wheezing. Gastrointestinal: Gallbladder drain noted at RUQ. No erythema at base no pus soft, nontender, non-distended. No guarding or rebound tenderness. Extremities: No edema, no cyanosis, no clubbing. 2+ radial pulse bilaterally, 2+ posterior tibial pulse bilaterally. Neuro: No focal deficits observed. Conversant, moving all extremities. No overt cerebellar signs/incoordination. Psychiatric: appropriate affect Objective Labs 11/10/24 05:14 11/10/24 05:14 Labs: Laboratory Results - last 24 hr 11/10/24 05:14 WBC 9.6 RBC 3.40 L Hgb 9.5 L Hct 29.2 L MCV 86 MCH 27.9 MCHC 32.5 RDW Std Deviation 42.5 Plt Count 380 D Neut % (Auto) 71 Lymph % (Auto) 15 [place] % (Auto) 12 Eos % (Auto) 1 Baso % (Auto) 1 Neut # (Auto) 6.8 Lymph # (Auto) 1.4 [place] # (Auto) 1.2 H Eos # (Auto) 0.1 Baso # (Auto) 0.1 Immature Gran # (Auto) 0.03 H Absolute Nucleated RBC 0.00 Immature Gran % 0 Nucleated RBC % 0 Sodium 137 Potassium 4.5 Chloride 102 Carbon Dioxide 26.9 Anion Gap 8 BUN 5 L Creatinine 1.0 Estim Creat Clear Calc 67.9 eGFR > 60 BUN/Creatinine Ratio 5 L Glucose 102 Calculated Osmolality 271 L Calcium 7.9 L Corrected Calcium 8.6 Phosphorus 2.4 Magnesium 2.4 Total Bilirubin 0.8 AST 43 H ALT 41 Alkaline Phosphatase 127 H Total Protein 5.7 Albumin 3.1 L Globulin 2.6 Albumin/Globulin Ratio 1.2 Quality Measures Quality Measures sepsis Possible source: pulmonary, bone/joint, endocarditis, GI tract/intra-abdominal, CLABSI, implantable device, genitourinary, meningitis, unknown, skin/soft tissue and wound Blood cultures ordered: yes Assessment & Plan Assessment Current Active Medications: Generic Name Dose Route Start Last Admin Trade Name Freq PRN Reason Stop Dose Admin Acetaminophen 650 mg 11/07/24 22:37 Acetaminophen 325 Mg Tablet PO 12/07/24 22:36 Q6H PRN PAIN SCALE 1-3 (mild Hydrocodone Bitart/Acetaminophen 1 tab 11/08/24 08:07 11/09/24 05:37 Hydrocodone/Apap 5/325 Tablet PO 11/13/24 08:06 1 tab Q4HR PRN Administration PAIN SCALE 4-6 (Moderate Dextrose 25 ml 11/07/24 22:41 Dextrose 50%-Water Inj 50 Ml Syringe IV 12/07/24 22:40 Q15MIN PRN BG 50-70 responsive npo pt Dextrose 50 ml 11/07/24 22:41 Dextrose 50%-Water Inj 50 Ml Syringe IV 12/07/24 22:40 Q15MIN PRN BG <50 OR BG <70 & pt unresponsive Docusate Sodium 200 mg 11/09/24 09:00 11/09/24 08:29 Docusate Sod 100 Mg Capsule PO 12/09/24 08:59 200 mg QDAY CLAIRE Administration Protocol Glucagon 1 mg 11/07/24 22:41 Glucagon Inj 1 Mg Vial IM Q15MIN PRN BG <70, and no IV access Sodium Chloride 500 mls @ 20 mls/hr 11/08/24 11:20 11/08/24 12:02 Ns IV 12/08/24 11:19 0 mls/hr .Q24H CLAIRE Infusion Piperacillin/Tazobactam/Dextrose 3.375 g in 50 mls @ 12.5 mls/hr 11/08/24 16:00 11/10/24 05:18 Zosyn IV 11/15/24 15:59 12.5 mls/hr Q8HR CLAIRE Administration Insulin Human Lispro 0 unit 11/08/24 07:30 11/10/24 07:39 Insulin Lispro (Admelog) 1 Unit/0.01 Ml Unit SC 12/08/24 07:29 Not Given ACHS CLAIRE Protocol Levothyroxine Sodium 75 mcg 11/09/24 06:00 11/10/24 05:19 Levothyroxine Sodium 25 Mcg Tablet PO 12/08/24 05:59 75 mcg ACBR CLAIRE Administration Morphine Sulfate 1 mg 11/08/24 08:07 Morphine Sulf Inj 10 Mg/Ml Vial IVP 11/13/24 08:06 Q4HR PRN PAIN SCALE 7-10 (Severe Ondansetron HCl 4 mg 11/07/24 22:37 Ondansetron Inj 2 Mg/Ml Inj 2 Ml IVP 12/07/24 22:36 Q6H PRN NAUSEA OR VOMITING Protocol Sennosides 1 tab 11/07/24 22:37 11/09/24 21:06 Senna Tablet PO 12/07/24 22:36 1 tab QDAY PRN Administration constipation Protocol Plan 74-year-old male with pmh of HTN, Afib on apixaban , and cirrhosis, presented to the ED due to abdominal pain. Patient was admitted for mgmt of cholecystitis, s/p replacement of percutaneous drain with IR on 11/08. Blood cx ngtd, ucx with esbl and ecoli sensitive to doxy #Sepsis / #Acute acalculous cholecystitis status post replacement of cholecystostomy drain #Leukocytosis downtrending SIRS: febrile, wbc 14 on admission Patient presented with leukocytosis (WBC 14),fevers. S/p percutaneous drain with IR on 10/25. and repplacement of drain with IR 11/08. Likely that there is better source control post procedure. Bcx NGTD . On low fat diet. Dx - Daily CBC Tx - Zosyn - ondansetron 4mg IV PRN for n/v ? Dr. Bradley notified of hospitalization, -Pain regimen: IV morphine, [place] #Constipation Patient endorses bowel movement yesterday however per patient has been having straining with bowel movements Tx ?PT ordered ? Senna 1 tab daily as needed ? Colace 100 mg twice daily scheduled - suppository #Normocytic anemia ? Hemoglobin 8 ? No signs of overt bleeding, possibly secondary to percutaneous drain placement Tx: ? PRBC if hemoglobin drops below 7 ? Monitor for signs of bleeding and bruising #Electrolyte disturbances #Hyponatremia #Hypophosphatemia #Hypocalcemia Tx ? Replete electrolytes as necessary #Cirrhosis #Hypoalbuminemia PT and PTT elevated, INR is high normal concern for SBP given procedure with perc drain to GB, and cirrhosis consider diagnostic paracentesis Dx - repeat AM coags -LFTs Tx ? Avoid hepatotoxic agents ? Monitor liver enzymes - consider giving albumin - SBP coverage with zosyn as per acalculus cholecystitis, see above. #History of A-fib on apix, rate controlled Tx ?Metoprolol tartrate 50 mg twice daily ?Held, iso perc drain procedure Apixiban 5 mg BID #Hypertension - Continue home metoprolol 50 BID #UTI #suspect BPH pt reports urinary urgency and frequency but denies dysuria Dx UA bland UCx GNR, ESBL and ecoli sensitive to low threshold for bladder scan, to assess for urinary retention Tx consider outpt urology follow up -continues on abx (zosyn, see acalculus cholecystitis above) Health Maintenance: Disposition: Telemetry: pt family would appreciate placement at SNF at [facility], Pending blood cultures, ordered PT evaluation. Fluids: LR PRN Feeding: low fat diet VTE ppx: Eliquis 5 mg twice daily, resume tomorrow Gastric Ulcer ppx: Pantoprazole 40mg qd Bowel Reg: senna 1tab qd prn, docusate 100 mg BID scheduled, encourage ambulation CODE STATUS: Full code
[2024-11-10] MEDS: DOCUSATE SOD 100 MG CAPSULE 200 MG PO (08:57)
[2024-11-10] MEDS: DOXYCYCLINE 100 MG TABLET PO (08:58)
--- NOTE | 2024-11-10 11:05 | PC.SS ---
Addendum entered by Zo Dietz 11/10/24 14:15: SS follow up note; SS was contacted by [facility] and spoke to [facility] which provided ETA for 1700. SS notified patient's daughter, Rosalina from [facility] and Patient's nurse, Keyla in regards to ETA. Addendum entered by Zo Dietz 11/10/24 13:53: SS follow up note; SS set up transportation through [facility] [place], Reference # [id number]. SS also contacted patient's daughter, Taylor and informed her that auth was obtained and patient will be transported to [facility] today, Taylor verbalized understanding. Addendum entered by Zo Dietz 11/10/24 13:24: SS follow up note; SS was contacted by Rosalina from [facility] and she informed SS that auth was obtained. SS will set up transportation through [facility] and will notify patient's daughter as well as patient's nurse. Original Note: SS follow up note; SS contacted Rosalina from [facility] and she informed SS that she contacted patients insurance in the morning and it's at the time auth is still pending nurses review. SS will stand by for further needs.
--- NOTE | 2024-11-10 13:48 | ESDS_ITS ---
<Statement entered by Kathie Burt DO - 11/11/24 08:52> I, Kathie Burt DO, attest that I was physically present for the richards portions of the service and evaluated the patient with the resident and I reviewed and discussed the case with the resident and agree with the resident's findings and plans of care as documented above <Statement entered by Pillo Gauthier MD - 11/10/24 16:38> I discussed and supervised with the food and beverage intern physician who took care of this patient. I personally saw and examined the patient. I agree with most of the assessment and plan. Disclaimer: Despite multiple revisions, due to the dictation software being used, the document bellow may not be free of grammatical errors including phonetic/typographic errors. However, this does not deter from our commitment to providing health care in the patient's best interest in mind. Plan of care discussed with attending Physician Dr. Javed Gauthier MD PGY-3 Planned Discharge Date 11/10/24 DS: Providers Provider Date of admission: 11/07/24 22:35 Primary care physician: Beth Lanier PA-C Admitting Provider: Lrary Shepard MD Attending Provider on Admission: Larry Shepard MD Consults: 11/08/24 01:54 [facility] Referral - Knowledge Deficit Routine Comment: Positive screening for knowledge deficit needs. 11/08/24 15:29 PT [Referral Physical Therapy] Routine Comment: Physician Instructions: Attending Provider on DC: RESIDENT Carlene Discharging Provider: RESIDENT Carlene DS: Diagnosis Problem List Completed Was Problem List Reviewed/Reconciled?: Yes Hospital Course Hospital Course Hospital course: Hospital Course Mr. Moran is a 74 yo gentleman with a history of 74-year-old male with pmh of HTN, Afib on apixaban , and cirrhosis (pt unaware of diagnosis and denies hx of etoh use), presented to the ED due to abdominal pain. Patient was recently admitted for mgmt of cholecystitis, s/p percutaneous drain with IR on 10/25. Patient was readmitted to the hospital due to fevers and percutaneous drain found to be out of gallbladder. Patient underwent replacement of percutaneous drain in gallbladder with IR, drain placement was confirmed with CT. Patient received IV antibiotics with Zosyn. Blood cultures were no growth to date at 48 hours, urine cultures with ESBL, gallbladder fluids cultures with E. coli. Based on speciation and susceptibilities patient was placed on doxycycline 100 mg twice daily. Physical therapy has seen patient and evaluated deemed necessary for SNF for rehab needs. Patient stable and medically cleared for discharge Diagnoses #Sepsis likely due to acalculous cholecystitis #Acute acalculous cholecystitis status post cholecystostomy drain replacement with IR #Leukocytosis, resolved #Constipation #Normocytic anemia #Electrolyte disturbances #Transaminitis #Hypoalbuminemia #History of A-fib on apix, rate controlled #Hypertension-CHRONIC #Chronically elevated T. bili-STABLE #Cirrhosis Discharge instructions You are being discharged with the following medications: -Doxycycline 100mg twice daily for 2 weeks Please continue taking all other meds as previously prescribed Please follow up with your PCP within 7-10 days Please follow up with Dr. Titus 11/27 for management of drain. Keep drain site clean and dry. Return to ED if you develop new or worsening symptoms. Case discussed with my senior resident Dr. Gauthier Case discussed with my attending Dr. Javed Ho MD PGY-1 Status at Discharge Functional status at discharge: uses cane/walker Overall status at discharge: patient is progressing back to baseline Time Spent with Patient Time attestation: Total time spent providing and/or coordinating discharge services: Time spent: Greater than 30 minutes Exam Vital Signs Temp Pulse Resp BP Pulse Ox O2 Del Method O2 Flow Rate 97.4 F 88 18 92/54 L 94 L Room Air 3 11/10/24 12:00 11/10/24 12:11/10/24 12:11/10/24 12:11/10/24 12:11/10/24 12:11/08/24 11:50 Narrative Exam GENERAL APPEARANCE: Tamazight-speaking in no acute distress, laying in bed HEENT: NC, AT. MMM. EOMI, clear conjunctiva, oropharynx clear. HEART: Irregular rate and irregular rhythm (afib), normal S1/S2, no m/r/g LUNGS: CTAB, moving air well on RA. No crackles or wheezes are heard. ABDOMEN: Soft, nontender, less distended than prior. R side Cholecystostomy drain with blood tinged fluid, minimal drainage. BACK: No CVAT, no obvious deformity. EXTREMITIES: Without cyanosis, clubbing or edema., SCDs not on. NEUROLOGICAL: Grossly nonfocal. Alert and oriented, moving all 4 extremities. CN not formally tested but appear grossly intact. Skin: Warm and dry without any rash, skin coloration appears a bit jaundiced. Discharge Plan Plan Patient Disposition: Xfer Skilled Nsg Fac (SNF) Patient condition on transfer: Stable Care Plan Goals: You are being discharged with the following medications: -Doxycycline 100mg twice daily for 2 weeks Please continue taking all other meds as previously prescribed Please follow up with your PCP within 7-10 days Please follow up with Dr. Titus 11/27 for management of drain. Keep drain site clean and dry. Return to ED if you develop new or worsening symptoms. Prescriptions/Referrals Prescriptions/Med Rec: New doxycycline hyclate 100 mg Tablet 100 mg PO BID 14 Days Qty: 28 0RF Continued Eliquis 5 mg tablet 5 mg PO BID metoprolol tartrate 50 mg tablet 50 mg PO BID levothyroxine 75 mcg capsule 75 mcg PO QDAY atorvastatin 10 mg tablet 10 mg PO QDAY Patient Comments: TAKE 1 TABLET BY MOUTH ONCE DAILY loperamide [Imodium A-D] 2 mg capsule 2 mg PO Q6H PRN (Reason: loose stool) Qty: 20 0RF melatonin 10 mg Capsule 10 mg PO HS PRN (Reason: Sleep) sucralfate 1 gram tablet 1 g PO QID PRN (Reason: GI distress) Referrals: Priya Titus MD [Physician] - (You will receive a phone call to confirm a follow-up appt with me on 11/27/24) Beth Lanier PA-C [Primary Care Provider] - Patient/Caregiver Discharge Instructions Print Language: Tamazight Stand Alone Forms: Rita Award Info., Patient Portal Info Letter Discharge Order Discharge Orders: Discharge (Routine); Ordered 11/10/24 Ordered By: Woodrow Moore Quality Discharge Quality Measures VTE prophylaxis and sepsis
[2024-11-10] MEDS: MEROPENEM INJ 1,000 MG in SODIUM CHLORIDE 0.9% (Popper) 50 ML 100 MG IV (14:13)
== END 2024-11-10 18:08 | disposition skilled nursing facility (03) | DRG 872 ==
LOC: SERX 22:19 → SERHOLD 23:16 → S2NX 11-08 01:34 → S3SX 11-08 16:24
PROVIDERS: Nurse Practitioner Primary Care; Student in an Organized Health Care Education/Training Program; Admitting Provider Student in an Organized Health Care Education/Training Program; Emergency Provider Emergency Medicine; PCP Physician Assistant; Visit Provider Student in an Organized Health Care Education/Training Program
DX: A41.9 Sepsis, unspecified organism (principal); K81.0 Acute cholecystitis; E87.1 Hypo-osmolality and hyponatremia; N39.0 Urinary tract infection, site not specified; K83.09 Other cholangitis; R53.1 Weakness; R53.83 Other fatigue; E03.9 Hypothyroidism, unspecified; I10 Essential (primary) hypertension; N40.0 Benign prostatic hyperplasia without lower urinary tract symptoms; E78.5 Hyperlipidemia, unspecified; I48.91 Unspecified atrial fibrillation; K74.60 Unspecified cirrhosis of liver; G47.33 Obstructive sleep apnea (adult) (pediatric); R73.03 Prediabetes; D64.9 Anemia, unspecified; I95.9 Hypotension, unspecified; K59.00 Constipation, unspecified; Z97.8 Presence of other specified devices; K82.8 Other specified diseases of gallbladder; E83.39 Other disorders of phosphorus metabolism; E83.51 Hypocalcemia; E88.09 Other disorders of plasma-protein metabolism, not elsewhere classified; I25.2 Old myocardial infarction; Z63.4 Disappearance and death of family member; Z79.01 Long term (current) use of anticoagulants; Z79.899 Other long term (current) drug therapy
CPT/HCPCS: 36415; 71046; 71260; 74177; 76705; 77012; 80053; 81001; 82150; 82248; 83036; 83605; 83690; 83735; 84100; 84145; 84484; 85025; 85610; 85652; 85730; 86140; 87040; 87070; 87077; 87081; 87086; 87102; 87186; 87205; 87400; 87811; 93005; 96361; 96365; 96366; 96375; 97162; A4649; C1769; J0131; J0612; J0613; J0696; J1885; J2185; J2270; J2405; J2543; J3010; J3370; J3475; J3490; J7030; J7050; J7120; J7999; Q9967; A9270; C1725; J1836

== ENCOUNTER 2024-11-20 10:38 | Outpatient (AMB) | payer OTHER, MEDICAID, SELFPAY ==
[2024-11-20 10:55] VITALS: BP 102/68; PULSE 82; RESP 18; TEMP 36.6; O2SAT 96; BMI 31.3
--- NOTE | 2024-11-20 10:55 | PD.GSCLVISIT ---
V[facility] Signs - [facility] 11/20/24 10:55 Height 1.65 m Height Method Stated Weight 85.304 kg Weight Measurement Method Standing Scale BMI 31.3 BP 102/68 Blood Pressure Source Automatic Cuff Blood Pressure Location Left Upper Arm Position Sitting Respiration 18 Pulse 82 Pulse Source Monitor Temp 97.8 F Temp Source Temporal Artery Scan Pulse Oximetry (%) 96 Oxygen Delivery Method Room Air Med/Allergies Allergies & Medications Allergies No Known Allergies Allergy (Verified 11/20/24 10:56) Medication Reconciliation apixaban 5 mg tablet (Eliquis) 5 mg PO BID 08/31/19 [History Confirmed 11/20/24] levothyroxine 75 mcg capsule 75 mcg PO QDAY 08/31/19 [History Confirmed 11/20/24] metoprolol tartrate 50 mg tablet 50 mg PO BID 08/31/19 [History Confirmed 11/20/24] atorvastatin 10 mg tablet 10 mg PO QDAY 06/20/21 [History Confirmed 11/20/24] melatonin 10 mg capsule 10 mg PO HS PRN Sleep 04/22/23 [History Confirmed 11/20/24] loperamide 2 mg capsule (Imodium A-D) 2 mg PO Q6H PRN loose stool #20 caps 10/22/24 [Rx Confirmed 11/20/24] sucralfate 1 gram tablet 1 g PO QID PRN GI distress 10/24/24 [History Confirmed 11/20/24] doxycycline hyclate 100 mg tablet 100 mg PO BID 2 weeks #28 tabs 11/10/24 [Rx Confirmed 11/20/24] MA Intake Visit Data Collection New Patient or Established: Established Patient (seen at [facility] within 3 years) Seen by Clinical Staff ONLY (RN/MA): No Reason for Visit:: DRAIN REMOVAL Pain Present Currently: 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 PCP or OBGYN visit in last 3 months: Yes Hx Now: No Do You Feel Safe at Home: Yes Authorities Contacted: N/A Smoking Status Smoking Status: Never smoker Immunization / Flu Flu Vaccine in the Last 12 Months: No Flu Vaccine Exclusion Criteria: No Exclusion Criteria Past Medical History Past Medical History NEUROLOGIC: Negative Neurological Disorders or Seizures CARDIAC: Positive Cardiac Disorders, Cardiac Arrhythmia, Angina, Hypercholesterolemia and Hypertension; Negative Congestive Heart Failure RESPIRATORY: Positive Asthma; Negative Chronic Obstructive Pulmonary Disease (COPD) GASTROINTESTINAL: Positive Gastrointestinal Disorders, Hemorrhoids and Obesity; Negative Hepatitis, Ulcer or Gastroesophageal Reflux Disease GENITOURINARY: Positive Genitourinary Disorders and Benign Prostatic Hyperplasia; Negative Renal Disease or Kidney Stones ENT: Negative Cataracts ENDOCRINE: Positive Endocrine Disorders, Diabetes Mellitus Type 2 (DIET CONTROL) and Hypothyroidism; Negative Diabetes Mellitus Type 1 HEMATOLOGIC: Negative Blood Disorders, Anemia or Sickle Cell Disease PSYCHO/SOCIAL: Positive Depression and Anxiety OTHER HISTORY: Positive Hospitalization, Chicken Pox and Measles; Negative Autoimmune Disease, Shingles, Falls, Blood Transfusions, Blood Transfusion Reaction, Anesthesia Reactions, Organ Transplant, Mumps or Cancer Family History FAMILY HISTORY: Positive Family Cardiac Disorders; Negative Family Psychiatric Problems, Family Respiratory Disorders, Family Gastrointestinal Problems, Family Cancer, Family Surgery or Family Anesthesia Reaction Surgical History SURGICAL: Negative Pacemaker or Organ Transplant Social History SMOKING STATUS: Smoking status: Never smoker ALCOHOL: Alcohol Intake: Never HOUSING: Housing: House LIVES WITH: Lives With: Spouse HPI HPI Narrative 74M with HTN, hypothyroidism, and afib on eliquis who presented initially 10/24/24 with acalculous cholecystitis s/p percutaneous cholecystostomy 10/25/24, discharged 10/30/24 then returned 11/07 with weakness and dizziness, with findings of disloged percutaneous cholecystostomy drain which was replaced 11/08/24. Patient is now here for planned follow-up, he reports feeling very well with no pain, no nausea, no fever, he is eating well. He has not had any diarrhea and in fact has had some constipation for which he is taking laxatives. Initially when he went home he was draining about a cup daily from the drain but for the last few days he has not had any output and is eager to have it removed. He was discharged to rehab facility due to weakness but is also feeling ready to go home ROS Review of Systems Systems Reviewed: All systems reviewed, normal except as documented Objective/Exam General General Appearance: alert, cooperative and well groomed Resp Respiratory exam: Absent respiratory distress Abdominal Abdominal exam: Present soft and other (Percutaneous cholecystostomy drain with minimal bilious drainage); Absent distention or tenderness Assessment & Plan Diagnosis / Problem List (1) Acute cholecystitis: Status: Acute Assessment & Plan: 74M with HTN, hypothyroidism, and afib on eliquis who presented initially 10/24/24 with acalculous cholecystitis s/p percutaneous cholecystostomy 10/25/24, discharged 10/30/24 then returned 11/07 with weakness and dizziness, with findings of disloged percutaneous cholecystostomy drain which was replaced 11/08/24, recovering well overall with symptoms well-managed. I explained to the patient and his that the drain needs to stay in place for at least 3 weeks to ensure that tract has properly formed. I will also order a HIDA scan to evaluate the patency of the cystic duct before removal. If the HIDA is normal I can remove the drain on 11/30. Patient expressed understanding and is agreeable with this plan Orders: Orders NM HIDA w pharm 11/29/24 K81.0 - Acute cholecystitis Advanced Care Planning Advance care planning discussed with:: patient and spouse Office Procedures GNS Level of Care Nursing/Assessment Patient Status: Established Patient Nursing Assessment/Reassesment: Medication Reconciliation, Update PMH in EMR and Vital Signs Coordination of Care: Complex Care and Chronic Disease 1-5, Consent,records obtained, informed consent, Education Simp Pt/Fam, Results/Orders obtained and Staff clarify orders Special Needs: Language special needs Miscellaneous Interventions: Dressing placement or removal and Wound Cleaning/Preperation Established Patient Charge Established Patient Point Assignment: 135 Established Patient Point Charge: EP Level 4 (120-155) Patient Portal Questionaires Social History Living Situation History Housing: House Housing Other:: Pt lives with Tobacco History Smoking Status: Never smoker Alcohol History Alcohol Intake: Never Domestic Abuse History Do You Feel Safe at Home: Yes Review of Systems Report any current symptoms Only answer those that you have currently: Past Medical History Past Medical History Have you ever been diagnosed with any of the following: Neurological Problems Seizures: No Cardiology Problems Cardiac Arrhythmia: Yes Angina: Yes Hypercholesterolemia: Yes Congestive Heart Failure: No Hypertension: Yes Respiratory Problems Chronic Obstructive Pulmonary Disease (COPD): No Asthma: Yes Stomache/Intestinal Problems Hepatitis: No Ulcer: No Hemorrhoids: Yes Gastroesophageal Reflux Disease: No Obesity: Yes Genital/Urinary Problems Renal Disease: No Kidney Stones: No Benign Prostatic Hyperplasia: Yes Head,Eye,Nose,Throat Problems Cataracts: No Endocrine Problems Diabetes Mellitus Type 1: No Diabetes Mellitus Type 2: Yes (DIET CONTROL) Hypothyroidism: Yes Blood Problems Anemia: No Sickle Cell Disease: No Psychologic Problems Depression: Yes Anxiety: Yes Other Problems Hospitalization: Yes Autoimmune Disease: No Shingles: No Falls: No Blood Transfusions: No Blood Transfusion Reaction: No Anesthesia Reactions: No Organ Transplant: No Chicken Pox: Yes Measles: Yes Mumps: No Cancer: No Surgical History Pacemaker: No
== END 2024-11-20 12:17 | disposition home or self-care (01) ==
PROVIDERS: PCP Physician Assistant; Referring Provider Physician Assistant; Supervising Provider Surgery; Visit Provider Surgery
DX: Z48.815 Encounter for surgical aftercare following surgery on the digestive system (principal); I10 Essential (primary) hypertension; E78.00 Pure hypercholesterolemia, unspecified; E11.9 Type 2 diabetes mellitus without complications; E03.9 Hypothyroidism, unspecified
CPT/HCPCS: 99214; G0463

== ENCOUNTER → 2024-11-28 | Outpatient (CLI) | payer MEDICARE, MEDICAID, SELFPAY ==
[2024-11-28 10:08] LABS: Glucose Estimated Average 131 mg/dL (80-131); Hemoglobin A1C 6.2 % Hgb (4.8-6.0)
[2024-11-28 10:12] LABS: Basophils # (Auto) 0.0 Thou/mm3 (0.0-0.2); Basophils % (Auto) 1 % (0-2.5); Eosinophils # (Auto) 0.2 Thou/mm3 (0.0-0.5); Eosinophils % (Auto) 2 % (0-10); Hematocrit 34.8 % (41.0-53.0); Hemoglobin 11.2 g/dL (13.5-16.0); Immature Granulocytes Auto 0.02 Thou/mm3 (0.00-0.00); Lymphocytes # (Auto) 2.1 Thou/mm3 (1.0-4.8); Lymphocytes % (Auto) 26 % (10-50); Mean Corpuscular HGB Conc 32.2 g/dl (31.0-37.0); Mean Corpuscular Hemoglobin 27.8 pg (25.0-35.0); Mean Corpuscular Volume 86 fL (80-100); Monocytes # (Auto) 0.6 Thou/mm3 (0.0-0.8); Monocytes % (Auto) 8 % (0-12); Neutrophils # (Auto) 4.9 Thou/mm3 (1.8-7.7); Neutrophils % (Auto) 63 % (37-80); Nucleated Red Blood Cell # 0.00 Thou/mm3 (0.00-0.00); Nucleated Red Blood Cell % 0 /100 WBC (0); Platelet Count 327 Thou/mm3 (140-440); RDW Standard Deviation 46.0 fL (35.1-43.9); Red Blood Count 4.03 Miln/mm3 (4.50-5.90); White Blood Count 7.8 Thou/mm3 (3.8-10.6)
[2024-11-28 10:36] LABS: Alanine Aminotransferase 10 U/L (10-49); Albumin, Serum 3.8 gm/dL (3.4-4.8); Albumin/Globulin Ratio 1.7 (1.2-2.2); Alkaline Phosphatase 101 U/L (46-116); Anion Gap 9 (7-16); Aspartate Amino Transferase 16 U/L (0-34); BUN/Creatinine Ratio 11 Ratio (12-20); Bilirubin,Total 1.1 mg/dL (0.3-1.2); Blood Urea Nitrogen 11 mg/dL (9-23); Calcium 8.4 mg/dL (8.3-10.6); Calcium (Corrected) 8.6 mg/dL (8.5-10.1); Carbon Dioxide 27.4 mMol/L (20.0-31.0); Chloride 102 mMol/L (98-107); Creatinine (Component) 1.0 mg/dL (0.6-1.3); Globulin 2.2 gm/dL (2.3-3.5); Glucose 97 mg/dL (74-106); Osmolality,Calculated 275 (275-295); Potassium 4.6 mMol/L (3.4-5.1); Sodium 138 mMol/L (136-145); Total Protein 6.0 gm/dL (5.7-8.2); eGFR > 60 See Note
[2024-11-28 10:52] LABS: Collection Type, Urine Clean Catch; Squamous Epithelial Cell,Urine 0 /hpf (0-5)
[2024-11-28 12:11] LABS: Amorphous Crystals,Urine Present (Absent); Bilirubin,Urine Negative (Negative); Blood,Urine Negative (Negative); Clarity,Urine Clear (Clear/Hazy); Color,Urine Lt-Yellow (Lt Yel-Yel); Culture Indicated,Urine Not Indicated; Glucose, Urine Negative (Negative); Ketones,Urine Negative (Negative); Leukocyte Esterase,Urine Negative (Negative); Nitrite,Urine Negative (Negative); PH,Urine 7.0 (5.0-7.0); Protein,Urine Negative (Neg - Trace); RBC,Urine 3 /hpf (0-3); Specific Gravity,Urine 1.013 (1.001-1.035); Urobilinogen,Urine Negative mg/dL (0.0-1.0); WBC,Urine 1 /hpf (0-5)
== END | disposition home or self-care (01) ==
PROVIDERS: PCP Family Medicine; Referring Provider Physician Assistant; Visit Provider Physician Assistant
DX: K74.60 Unspecified cirrhosis of liver (principal); E11.9 Type 2 diabetes mellitus without complications; A41.9 Sepsis, unspecified organism; K81.0 Acute cholecystitis; N39.0 Urinary tract infection, site not specified
CPT/HCPCS: 36415; 80053; 81001; 83036; 85025

== ENCOUNTER 2024-12-05 12:42 | Outpatient (RCR) | payer MEDICARE, MEDICAID, SELFPAY ==
--- NOTE | 2024-12-05 13:30 | XR_ITS ---
Examination: KEYLA, hepatobiliary radioisotope scan Date and time of exam: December 05, 2024 1304 hours INDICATIONS: Status post gallbladder drain placement 3 weeks ago for acalculous cholecystitis Technique: 5.9 mCi of 99M Hepatolite administered. Serial imaging then obtained from immediate through 60 minutes. . Findings: Radioisotope activity within the liver is reasonably homogenous. There is bile duct small bowel activity noted Impression: No gallbladder activity consistent with cystic duct obstruction
== END 2024-12-10 23:59 | disposition home or self-care (01) ==
LOC: SNUC 12:42
PROVIDERS: PCP Family Medicine; Referring Provider Surgery; Visit Provider Surgery
DX: K81.0 Acute cholecystitis (principal); Z98.890 Other specified postprocedural states
CPT/HCPCS: 78227; A9537

== ENCOUNTER 2024-12-07 10:38 | Outpatient (AMB) | payer OTHER, MEDICAID, SELFPAY ==
[2024-12-07 11:04] VITALS: BP 98/61; PULSE 76; RESP 18; TEMP 36.6; O2SAT 95; BMI 31.1
--- NOTE | 2024-12-07 11:04 | GSCOFFNT_ITS ---
Vital Signs - [facility] 12/07/24 11:04 12/07/24 11:07 Height 1.65 m Height Method Stated Weight 84.964 kg Weight Measurement Method Standing Scale BMI 31.1 BP 98/61 98/61 Blood Pressure Source Automatic Cuff Blood Pressure Location Right Upper Arm Position Sitting Respiration 18 18 Pulse 76 76 Pulse Source Monitor Temp 97.9 F 97.9 F Temp Source Temporal Artery Scan Pulse Oximetry (%) 95 95 Oxygen Delivery Method Room Air Med/Allergies Allergies & Medications Allergies No Known Allergies Allergy (Verified 12/07/24 11:05) Medication Reconciliation apixaban 5 mg tablet (Eliquis) 5 mg PO BID 08/31/19 [History Confirmed 12/07/24] levothyroxine 75 mcg capsule 75 mcg PO QDAY 08/31/19 [History Confirmed 12/07/24] metoprolol tartrate 50 mg tablet 50 mg PO BID 08/31/19 [History Confirmed 12/07/24] atorvastatin 10 mg tablet 10 mg PO QDAY 06/20/21 [History Confirmed 12/07/24] melatonin 10 mg capsule 10 mg PO HS PRN Sleep 04/22/23 [History Confirmed 12/07/24] loperamide 2 mg capsule (Imodium A-D) 2 mg PO Q6H PRN loose stool #20 caps 10/22/24 [Rx Confirmed 12/07/24] sucralfate 1 gram tablet 1 g PO QID PRN GI distress 10/24/24 [History Confirmed 12/07/24] MA Intake Visit Data Collection Reason for Visit:: F/U ON DRAIN AND IMAGING Pain Present Currently: No (ITCHNESS ) PCP or OBGYN visit in last 3 months: Yes Smoking Status Smoking Status: Never smoker Immunization / Flu Flu Vaccine in the Last 12 Months: No Flu Vaccine Exclusion Criteria: No Exclusion Criteria Past Medical History Past Medical History NEUROLOGIC: Negative Neurological Disorders or Seizures CARDIAC: Positive Cardiac Disorders, Cardiac Arrhythmia, Angina, Hypercholesterolemia and Hypertension; Negative Congestive Heart Failure RESPIRATORY: Positive Asthma; Negative Chronic Obstructive Pulmonary Disease (COPD) GASTROINTESTINAL: Positive Gastrointestinal Disorders, Hemorrhoids and Obesity; Negative Hepatitis, Ulcer or Gastroesophageal Reflux Disease GENITOURINARY: Positive Genitourinary Disorders and Benign Prostatic Hyperplasia; Negative Renal Disease or Kidney Stones ENT: Negative Cataracts ENDOCRINE: Positive Endocrine Disorders, Diabetes Mellitus Type 2 (DIET CONTROL) and Hypothyroidism; Negative Diabetes Mellitus Type 1 HEMATOLOGIC: Negative Blood Disorders, Anemia or Sickle Cell Disease PSYCHO/SOCIAL: Positive Depression and Anxiety OTHER HISTORY: Positive Hospitalization, Chicken Pox and Measles; Negative Autoimmune Disease, Shingles, Falls, Blood Transfusions, Blood Transfusion Reaction, Anesthesia Reactions, Organ Transplant, Mumps or Cancer Family History FAMILY HISTORY: Positive Family Cardiac Disorders; Negative Family Psychiatric Problems, Family Respiratory Disorders, Family Gastrointestinal Problems, Family Cancer, Family Surgery or Family Anesthesia Reaction Surgical History SURGICAL: Negative Pacemaker or Organ Transplant Social History SMOKING STATUS: Smoking status: Never smoker ALCOHOL: Alcohol Intake: Never HOUSING: Housing: House LIVES WITH: Lives With: Spouse HPI HPI Narrative Spoke to pt with in-person diplomatic interpreter/translator 74M with HTN, hypothyroidism, and afib on eliquis who presented initially 10/24/24 with acalculous cholecystitis s/p percutaneous cholecystostomy 10/25/24, discharged 10/30/24 then returned 11/07 with weakness and dizziness, with findings of disloged percutaneous cholecystostomy drain which was replaced 11/08/24, here for planned follow up. Pt underwent HIDA 12/05 which unfortunately showed ongoing cystic duct obstruction. Clinically he feels very well, having no pain, no nausea or fever; he is eating well and having regular bowel function. Of note he has not had any output from the drain whatsoever since our last visit, has not once emptied it since being discharged from the rehab facility ROS Review of Systems Systems Reviewed: All systems reviewed, normal except as documented Objective/Exam General General Appearance: alert, cooperative and well groomed Resp Respiratory exam: Absent respiratory distress Abdominal Abdominal exam: Present soft and other (percutaneous cholecystostomy flushed with 20cc of NS after which pus flowed into the bag); Absent distention or tenderness Results HIDA reviewed Assessment & Plan Diagnosis / Problem List (1) Acalculous cholecystitis: Status: Acute Assessment & Plan: 74M with HTN, hypothyroidism, and afib on eliquis who presented initially 10/24/24 with acalculous cholecystitis s/p percutaneous cholecystostomy 10/25/24, discharged 10/30/24 then returned 11/07 with weakness and dizziness, with findings of disloged percutaneous cholecystostomy drain which was replaced 11/08/24, with HIDA done 12/05 showing ongoing cystic duct obstruction. He has not been having any output from the drain however it may have been clogged as there was immediate return of pus upon flushing today. With an diplomatic interpreter/translator I explained again that because pt had acalculous cholecystitis as opposed to calculous cholecystitis, the percutaneous drain can be curative and can prevent him from needing any surgical intervention which confers risks of infection and injury to biliary structures. He is understandably eager to have the drain removed as soon as possible but ultimately agrees to keep it in place for now and would like to have weekly appts for drain flushing/evaluation. Plan: Follow up 12/11 Advanced Care Planning Advance care planning discussed with:: patient Office Procedures GNS Level of Care Nursing/Assessment Patient Status: Established Patient Nursing Assessment/Reassesment: Medication Reconciliation, Update PMH in EMR and Vital Signs Coordination of Care: Complex Care and Chronic Disease 1-5, Consent,records obtained, informed consent, Education Simp Pt/Fam, Results/Orders obtained and Staff clarify orders Established Patient Charge Established Patient Point Assignment: 90 Established Patient Point Charge: EP Level 3 (80-115) Patient Portal Questionaires Social History Living Situation History Housing: House Housing Other:: Pt lives with Tobacco History Smoking Status: Never smoker Alcohol History Alcohol Intake: Never Review of Systems Report any current symptoms Only answer those that you have currently: Past Medical History Past Medical History Have you ever been diagnosed with any of the following: Neurological Problems Seizures: No Cardiology Problems Cardiac Arrhythmia: Yes Angina: Yes Hypercholesterolemia: Yes Congestive Heart Failure: No Hypertension: Yes Respiratory Problems Chronic Obstructive Pulmonary Disease (COPD): No Asthma: Yes Stomache/Intestinal Problems Hepatitis: No Ulcer: No Hemorrhoids: Yes Gastroesophageal Reflux Disease: No Obesity: Yes Genital/Urinary Problems Renal Disease: No Kidney Stones: No Benign Prostatic Hyperplasia: Yes Head,Eye,Nose,Throat Problems Cataracts: No Endocrine Problems Diabetes Mellitus Type 1: No Diabetes Mellitus Type 2: Yes (DIET CONTROL) Hypothyroidism: Yes Blood Problems Anemia: No Sickle Cell Disease: No Psychologic Problems Depression: Yes Anxiety: Yes Other Problems Hospitalization: Yes Autoimmune Disease: No Shingles: No Falls: No Blood Transfusions: No Blood Transfusion Reaction: No Anesthesia Reactions: No Organ Transplant: No Chicken Pox: Yes Measles: Yes Mumps: No Cancer: No Surgical History Pacemaker: No
[2024-12-07 11:07] VITALS: BP 98/61; PULSE 76; RESP 18; TEMP 36.6; O2SAT 95
== END 2024-12-07 11:52 | disposition home or self-care (01) ==
PROVIDERS: PCP Physician Assistant; Referring Provider Physician Assistant; Supervising Provider Surgery; Visit Provider Surgery
DX: Z48.815 Encounter for surgical aftercare following surgery on the digestive system (principal)
CPT/HCPCS: 99213; G0463

== ENCOUNTER → 2024-12-11 | Outpatient (CLI) | payer OTHER, MEDICAID, SELFPAY ==
[2024-12-11 13:24] LABS: Anion Gap 8 (7-16); BUN/Creatinine Ratio 10 Ratio (12-20); Blood Urea Nitrogen 10 mg/dL (9-23); Calcium 9.1 mg/dL (8.3-10.6); Carbon Dioxide 27.3 mMol/L (20.0-31.0); Chloride 103 mMol/L (98-107); Creatinine (Component) 1.0 mg/dL (0.6-1.3); Glucose 104 mg/dL (74-106); Osmolality,Calculated 274 (275-295); Potassium 4.4 mMol/L (3.4-5.1); Sodium 138 mMol/L (136-145); eGFR > 60 See Note
== END | disposition home or self-care (01) ==
LOC: COPL 12:22
PROVIDERS: PCP Family Medicine; Referring Provider Surgery; Visit Provider Surgery
DX: K81.9 Cholecystitis, unspecified (principal)
CPT/HCPCS: 36415; 80048

== ENCOUNTER → 2024-12-12 | Outpatient (CLI) | payer MEDICARE, MEDICAID, SELFPAY ==
--- NOTE | 2024-12-12 08:22 | XR_ITS ---
Examination: CT abdomen with intravenous contrast. Coronal 2-D reconstructions. Sagittal 2-D reconstructions. Date and time of exam:December 12, 2024 0930 hours INDICATIONS: Status post gallbladder drainage tube 5 weeks ago, history acute acalculous cholecystitis CTDI: vol (mGy): 8.86 DLP: (mGycm): 397 Technique: Axial images of the abdomen have been obtained, 3 mm slice thickness, 60 cc [id number] 2-D sagittal coronal reconstructions Low dose protocols were performed. One or more of the following dose reduction techniques were used; automated exposure control, adjustment of the mA and/or KV according to patient size, use of iterative reconstruction technique. Findings: No focal liver lesions Gallbladder drainage tube in the gallbladder The gallbladder is significantly contracted There remains edema in the gallbladder wall No extrahepatic biliary tract dilatation Spleen is not enlarged No pancreatic or adrenal mass No renal or ureteral calculi, no hydronephrosis Aorta normal size Normal appendix No abdominal abscess IMPRESSION: Gallbladder drainage tube in the gallbladder The gallbladder is significantly contracted compared to the November 08, 2024 exam There remains edema involving the gallbladder wall
== END | disposition home or self-care (01) ==
LOC: CDIM 08:07 → CCTX 08:10
PROVIDERS: PCP Physician Assistant; Referring Provider Surgery; Visit Provider Surgery
DX: K82.0 Obstruction of gallbladder (principal); R60.0 Localized edema
CPT/HCPCS: 74160; A4649; Q9967

== ENCOUNTER → 2024-12-14 | Outpatient (CLI) | payer MEDICARE, MEDICAID, SELFPAY ==
[2024-12-14 14:24] LABS: INR 1.1 (0.9-1.3); Prothrombin Time 11.9 Seconds (9.0-12.2)
[2024-12-14 14:36] LABS: Ferritin 45 ng/mL (10.5-307.3); Iron 47 mcg/dL (65-175); Total Iron Binding Capacity 313 mcg/dL (250-425)
[2024-12-14 14:44] LABS: Alanine Aminotransferase 9 U/L (10-49); Albumin, Serum 4.1 gm/dL (3.4-4.8); Alkaline Phosphatase 78 U/L (46-116); Aspartate Amino Transferase 17 U/L (0-34); Bilirubin,Direct 0.3 mg/dL (0.0-0.3); Bilirubin,Total 1.2 mg/dL (0.3-1.2); Total Protein 6.4 gm/dL (5.7-8.2)
[2024-12-14 15:06] LABS: AFP Non-Pregnant 2.90 ng/mL (<8.10); Hepatitis A Antibody IgM Non Reactive (Non React); Hepatitis B Core Antibody IgM Non Reactive (Non React); Hepatitis B Surface Antigen Non Reactive (Non React); Hepatitis C Antibody Non Reactive (Non React)
[2024-12-22 06:58] LABS: ANA Screen, IFA NEGATIVE (NEGATIVE); Actin Antibody (IgG)* <20 U; Alpha-1-Antitrypsin* 150 mg/dL (83-199); Ceruloplasmin* 21 mg/dL (14-30); Copper* 101 mcg/dL (70-175); Mitochondrial Ab NEGATIVE (NEGATIVE); Sm Antibody* <1.0 NEG AI (<1.0 NEGATIVE)
== END | disposition home or self-care (01) ==
LOC: COPL 13:03
PROVIDERS: PCP Family Medicine; Referring Provider Specialist; Visit Provider Specialist
DX: R94.5 Abnormal results of liver function studies (principal)
CPT/HCPCS: 36415; 80074; 80076; 82103; 82105; 82390; 82525; 82728; 83540; 83550; 85610; 86015; 86038; 86235; 86255

== ENCOUNTER 2024-12-18 11:41 | Outpatient (AMB) | payer OTHER, MEDICAID, SELFPAY ==
[2024-12-18 11:48] VITALS: BP 101/65; PULSE 84; RESP 18; TEMP 36.6; O2SAT 94; BMI 31.8
--- NOTE | 2024-12-18 11:48 | GSCOFFNT_ITS ---
Vital Signs - [facility] 12/18/24 11:48 Height 1.65 m Height Method Measured Weight 86.636 kg Weight Measurement Method Standing Scale BMI 31.8 BP 101/65 Blood Pressure Source Automatic Cuff Blood Pressure Location Left Upper Arm Position Sitting Respiration 18 Pulse 84 Pulse Source Monitor Temp 97.8 F Temp Source Temporal Artery Scan Pulse Oximetry (%) 94 L Oxygen Delivery Method Room Air Med/Allergies Allergies & Medications Allergies No Known Allergies Allergy (Verified 12/18/24 11:50) Medication Reconciliation apixaban 5 mg tablet (Eliquis) 5 mg PO BID 08/31/19 [History Confirmed 12/18/24] levothyroxine 75 mcg capsule 75 mcg PO QDAY 08/31/19 [History Confirmed 12/18/24] metoprolol tartrate 50 mg tablet 50 mg PO BID 08/31/19 [History Confirmed 12/18/24] atorvastatin 10 mg tablet 10 mg PO QDAY 06/20/21 [History Confirmed 12/18/24] melatonin 10 mg capsule 10 mg PO HS PRN Sleep 04/22/23 [History Confirmed 12/18/24] loperamide 2 mg capsule (Imodium A-D) 2 mg PO Q6H PRN loose stool #20 caps 10/22/24 [Rx Confirmed 12/18/24] sucralfate 1 gram tablet 1 g PO QID PRN GI distress 10/24/24 [History Confirmed 12/18/24] MA Intake Visit Data Collection New Patient or Established: Established Patient (seen at [facility] within 3 years) Seen by Clinical Staff ONLY (RN/MA): No Pain Present Currently: No Pain Scale Used: Styles-Helms/Numerical Animal Humane Agent Supervisor Required: Yes PCP or OBGYN visit in last 3 months: Yes Hx Now: No Do You Feel Safe at Home: Yes Authorities Contacted: N/A Smoking Status Smoking Status: Never smoker Immunization / Flu Flu Vaccine in the Last 12 Months: Yes Flu Vaccine Exclusion Criteria: Already Received Past Medical History Past Medical History NEUROLOGIC: Negative Neurological Disorders or Seizures CARDIAC: Positive Cardiac Disorders, Cardiac Arrhythmia, Angina, Hypercholesterolemia and Hypertension; Negative Congestive Heart Failure RESPIRATORY: Positive Asthma; Negative Chronic Obstructive Pulmonary Disease (COPD) GASTROINTESTINAL: Positive Gastrointestinal Disorders, Hemorrhoids and Obesity; Negative Hepatitis, Ulcer or Gastroesophageal Reflux Disease GENITOURINARY: Positive Genitourinary Disorders and Benign Prostatic Hyperplasia; Negative Renal Disease or Kidney Stones ENT: Negative Cataracts ENDOCRINE: Positive Endocrine Disorders, Diabetes Mellitus Type 2 (DIET CONTROL) and Hypothyroidism; Negative Diabetes Mellitus Type 1 HEMATOLOGIC: Negative Blood Disorders, Anemia or Sickle Cell Disease PSYCHO/SOCIAL: Positive Depression and Anxiety OTHER HISTORY: Positive Hospitalization, Chicken Pox and Measles; Negative Autoimmune Disease, Shingles, Falls, Blood Transfusions, Blood Transfusion Reaction, Anesthesia Reactions, Organ Transplant, Mumps or Cancer Family History FAMILY HISTORY: Positive Family Cardiac Disorders; Negative Family Psychiatric Problems, Family Respiratory Disorders, Family Gastrointestinal Problems, Family Cancer, Family Surgery or Family Anesthesia Reaction Surgical History SURGICAL: Negative Pacemaker or Organ Transplant Social History SMOKING STATUS: Smoking status: Never smoker ALCOHOL: Alcohol Intake: Never HOUSING: Housing: House LIVES WITH: Lives With: Spouse HPI HPI Narrative Spoke to pt with in-person casino operations supervisor 74M with HTN, hypothyroidism, and afib on eliquis who presented initially 10/24/24 with acalculous cholecystitis s/p percutaneous cholecystostomy 10/25/24, discharged 10/30/24 then returned 11/07 with weakness and dizziness, with findings of disloged percutaneous cholecystostomy drain which was replaced 11/08/24, here for planned follow up. Pt states he continues to have daily drainage (approx 20cc or so) and is feeling well with no pain or nausea. His appetite has actually increased recently and he noticed that he gained a few pounds. Also since last visit he established care with a Rigging Loft Mechanic ROS Review of Systems Systems Reviewed: All systems reviewed, normal except as documented Objective/Exam General General Appearance: alert, cooperative and well groomed Resp Respiratory exam: Absent respiratory distress Abdominal Abdominal exam: Present soft and other (RUQ drain with serous output ); Absent distention or tenderness Results CT reviewed Assessment & Plan Diagnosis / Problem List (1) Acalculous cholecystitis: Status: Acute Assessment & Plan: 74M with HTN, hypothyroidism, and afib on eliquis who presented initially 10/24/24 with acalculous cholecystitis s/p percutaneous cholecystostomy 10/25/24, discharged 10/30/24 then returned 11/07 with weakness and dizziness, with findings of disloged percutaneous cholecystostomy drain which was replaced 11/08/24, here for planned follow up. As the drain output is looking more serous as opposed to the purulent nature it previously had, and as he is feeling noticeably better I explained that I will reorder a HIDA to evaluate the cystic duct again Plan: F/u next week Orders: Orders NM HIDA w pharm 2 Weeks K81.9 - Cholecystitis, unspecified Advanced Care Planning Advance care planning discussed with:: other Office Procedures GNS Level of Care Nursing/Assessment Patient Status: Established Patient Nursing Assessment/Reassesment: Medication Reconciliation, Update PMH in EMR and Vital Signs Coordination of Care: Complex Care and Chronic Disease 1-5, Education Complex Pt/Fam, Consent,records obtained, informed consent, Results/Orders obtained and Staff clarify orders Special Needs: Language special needs Established Patient Charge Established Patient Point Assignment: 95 Established Patient Point Charge: EP Level 3 (80-115) Patient Portal Questionaires Social History Living Situation History Housing: House Housing Other:: Pt lives with Tobacco History Smoking Status: Never smoker Alcohol History Alcohol Intake: Never Domestic Abuse History Do You Feel Safe at Home: Yes Review of Systems Report any current symptoms Only answer those that you have currently: Past Medical History Past Medical History Have you ever been diagnosed with any of the following: Neurological Problems Seizures: No Cardiology Problems Cardiac Arrhythmia: Yes Angina: Yes Hypercholesterolemia: Yes Congestive Heart Failure: No Hypertension: Yes Respiratory Problems Chronic Obstructive Pulmonary Disease (COPD): No Asthma: Yes Stomache/Intestinal Problems Hepatitis: No Ulcer: No Hemorrhoids: Yes Gastroesophageal Reflux Disease: No Obesity: Yes Genital/Urinary Problems Renal Disease: No Kidney Stones: No Benign Prostatic Hyperplasia: Yes Head,Eye,Nose,Throat Problems Cataracts: No Endocrine Problems Diabetes Mellitus Type 1: No Diabetes Mellitus Type 2: Yes (DIET CONTROL) Hypothyroidism: Yes Blood Problems Anemia: No Sickle Cell Disease: No Psychologic Problems Depression: Yes Anxiety: Yes Other Problems Hospitalization: Yes Autoimmune Disease: No Shingles: No Falls: No Blood Transfusions: No Blood Transfusion Reaction: No Anesthesia Reactions: No Organ Transplant: No Chicken Pox: Yes Measles: Yes Mumps: No Cancer: No Surgical History Pacemaker: No
== END 2024-12-18 12:11 | disposition home or self-care (01) ==
LOC: HODSRG 11:41
PROVIDERS: PCP Physician Assistant; Referring Provider Physician Assistant; Supervising Provider Surgery; Visit Provider Surgery
DX: Z48.815 Encounter for surgical aftercare following surgery on the digestive system (principal); I10 Essential (primary) hypertension; E78.00 Pure hypercholesterolemia, unspecified; E11.9 Type 2 diabetes mellitus without complications; E03.9 Hypothyroidism, unspecified; E66.9 Obesity, unspecified; Z68.31 Body mass index [BMI] 31.0-31.9, adult
CPT/HCPCS: 99213; G0463

== ENCOUNTER 2024-12-28 13:21 | Outpatient (AMB) | payer OTHER, MEDICAID, SELFPAY ==
--- NOTE | 2024-12-28 13:25 | PD.GSCLVISIT ---
Vital Signs - [facility] 12/28/24 13:31 Height 1.65 m Height Method Measured Weight 88.139 kg Weight Measurement Method Standing Scale BMI 32.3 BP 121/77 Blood Pressure Source Automatic Cuff Blood Pressure Location Left Upper Arm Position Sitting Respiration 18 Pulse 78 Pulse Source Monitor Temp 97.6 F Temp Source Temporal Artery Scan Pulse Oximetry (%) 95 Oxygen Delivery Method Room Air Med/Allergies Allergies & Medications Allergies No Known Allergies Allergy (Verified 12/28/24 13:33) Medication Reconciliation apixaban 5 mg tablet (Eliquis) 5 mg PO BID 08/31/19 [History Confirmed 12/28/24] levothyroxine 75 mcg capsule 75 mcg PO QDAY 08/31/19 [History Confirmed 12/28/24] metoprolol tartrate 50 mg tablet 50 mg PO BID 08/31/19 [History Confirmed 12/28/24] atorvastatin 10 mg tablet 10 mg PO QDAY 06/20/21 [History Confirmed 12/28/24] melatonin 10 mg capsule 10 mg PO HS PRN Sleep 04/22/23 [History Confirmed 12/28/24] loperamide 2 mg capsule (Imodium A-D) 2 mg PO Q6H PRN loose stool #20 caps 10/22/24 [Rx Confirmed 12/28/24] sucralfate 1 gram tablet 1 g PO QID PRN GI distress 10/24/24 [History Confirmed 12/28/24] MA Intake Visit Data Collection New Patient or Established: Established Patient (seen at [facility] within 3 years) Seen by Clinical Staff ONLY (RN/MA): No Reason for Visit:: 1 WEEK F/U Pain Present Currently: No Pain Scale Used: Styles-Helms/Numerical Cooperative Extension Agent Required: Yes PCP or OBGYN visit in last 3 months: Yes Hx Now: No Do You Feel Safe at Home: Yes Authorities Contacted: N/A Smoking Status Smoking Status: Never smoker Immunization / Flu Flu Vaccine in the Last 12 Months: Yes Flu Vaccine Exclusion Criteria: Already Received Past Medical History Past Medical History NEUROLOGIC: Negative Neurological Disorders or Seizures CARDIAC: Positive Cardiac Disorders, Cardiac Arrhythmia, Angina, Hypercholesterolemia and Hypertension; Negative Congestive Heart Failure RESPIRATORY: Positive Asthma; Negative Chronic Obstructive Pulmonary Disease (COPD) GASTROINTESTINAL: Positive Gastrointestinal Disorders, Hemorrhoids and Obesity; Negative Hepatitis, Ulcer or Gastroesophageal Reflux Disease GENITOURINARY: Positive Genitourinary Disorders and Benign Prostatic Hyperplasia; Negative Renal Disease or Kidney Stones ENT: Negative Cataracts ENDOCRINE: Positive Endocrine Disorders, Diabetes Mellitus Type 2 (DIET CONTROL) and Hypothyroidism; Negative Diabetes Mellitus Type 1 HEMATOLOGIC: Negative Blood Disorders, Anemia or Sickle Cell Disease PSYCHO/SOCIAL: Positive Depression and Anxiety OTHER HISTORY: Positive Hospitalization, Chicken Pox and Measles; Negative Autoimmune Disease, Shingles, Falls, Blood Transfusions, Blood Transfusion Reaction, Anesthesia Reactions, Organ Transplant, Mumps or Cancer Family History FAMILY HISTORY: Positive Family Cardiac Disorders; Negative Family Psychiatric Problems, Family Respiratory Disorders, Family Gastrointestinal Problems, Family Cancer, Family Surgery or Family Anesthesia Reaction Surgical History SURGICAL: Negative Pacemaker or Organ Transplant Social History SMOKING STATUS: Smoking status: Never smoker ALCOHOL: Alcohol Intake: Never HOUSING: Housing: House LIVES WITH: Lives With: Spouse HPI HPI Narrative Spoke to pt with in-person rail signal mechanic 74M with HTN, hypothyroidism, and afib on eliquis who presented initially 10/24/24 with acalculous cholecystitis s/p percutaneous cholecystostomy 10/25/24, discharged 10/30/24 then returned 11/07 with weakness and dizziness, with findings of disloged percutaneous cholecystostomy drain which was replaced 11/08/24, here for planned follow up. Pt states he continues to have daily drainage but feels it has decreased somewhat, today he has not had to empty the bag and it also seems clearer in nature. His appetite is healthy and he has actually been eating spicy chips without any symptoms ROS Review of Systems Systems Reviewed: All systems reviewed, normal except as documented Objective/Exam General General Appearance: alert, cooperative and well groomed Resp Respiratory exam: Absent respiratory distress Abdominal Abdominal exam: Present soft and other (RUQ drain with serous output in accordion, flushes with minimal leakage onto skin (which has been the case for the last few weeks including before CT confirmed proper placement)); Absent distention or tenderness Assessment & Plan Diagnosis / Problem List (1) Acalculous cholecystitis: Status: Acute Assessment & Plan: 74M with HTN, hypothyroidism, and afib on eliquis who presented initially 10/24/24 with acalculous cholecystitis s/p percutaneous cholecystostomy 10/25/24, discharged 10/30/24 then returned 11/07 with weakness and dizziness, with findings of disloged percutaneous cholecystostomy drain which was replaced 11/08/24, here for planned follow up. Pt is recovering well overall, HIDA is scheduled for 01/25 but we will try to expedite this (per radiology the tech is out this week) Advanced Care Planning Advance care planning discussed with:: other Office Procedures GNS Level of Care Nursing/Assessment Patient Status: Established Patient Nursing Assessment/Reassesment: Medication Reconciliation, Update PMH in EMR and Vital Signs Coordination of Care: Complex Care and Chronic Disease 1-5, Consent,records obtained, informed consent, Education Simp Pt/Fam, Results/Orders obtained and Staff clarify orders Special Needs: Language special needs Established Patient Charge Established Patient Point Assignment: 90 Established Patient Point Charge: EP Level 3 (80-115) Patient Portal Questionaires Social History Living Situation History Housing: House Housing Other:: Pt lives with Tobacco History Smoking Status: Never smoker Alcohol History Alcohol Intake: Never Domestic Abuse History Do You Feel Safe at Home: Yes Review of Systems Report any current symptoms Only answer those that you have currently: Past Medical History Past Medical History Have you ever been diagnosed with any of the following: Neurological Problems Seizures: No Cardiology Problems Cardiac Arrhythmia: Yes Angina: Yes Hypercholesterolemia: Yes Congestive Heart Failure: No Hypertension: Yes Respiratory Problems Chronic Obstructive Pulmonary Disease (COPD): No Asthma: Yes Stomache/Intestinal Problems Hepatitis: No Ulcer: No Hemorrhoids: Yes Gastroesophageal Reflux Disease: No Obesity: Yes Genital/Urinary Problems Renal Disease: No Kidney Stones: No Benign Prostatic Hyperplasia: Yes Head,Eye,Nose,Throat Problems Cataracts: No Endocrine Problems Diabetes Mellitus Type 1: No Diabetes Mellitus Type 2: Yes (DIET CONTROL) Hypothyroidism: Yes Blood Problems Anemia: No Sickle Cell Disease: No Psychologic Problems Depression: Yes Anxiety: Yes Other Problems Hospitalization: Yes Autoimmune Disease: No Shingles: No Falls: No Blood Transfusions: No Blood Transfusion Reaction: No Anesthesia Reactions: No Organ Transplant: No Chicken Pox: Yes Measles: Yes Mumps: No Cancer: No Surgical History Pacemaker: No
[2024-12-28 13:31] VITALS: BP 121/77; PULSE 78; RESP 18; TEMP 36.4; O2SAT 95; BMI 32.3
== END 2024-12-28 14:04 | disposition home or self-care (01) ==
PROVIDERS: PCP Physician Assistant; Referring Provider Physician Assistant; Supervising Provider Surgery; Visit Provider Surgery
DX: Z48.815 Encounter for surgical aftercare following surgery on the digestive system (principal); I10 Essential (primary) hypertension; E78.00 Pure hypercholesterolemia, unspecified; E11.9 Type 2 diabetes mellitus without complications; E66.9 Obesity, unspecified; Z68.32 Body mass index [BMI] 32.0-32.9, adult; E03.9 Hypothyroidism, unspecified
CPT/HCPCS: 99213; G0463

== ENCOUNTER 2024-12-29 18:25 | Inpatient (IN) | payer MEDICARE, SELFPAY ==
[2024-12-29 18:59] VITALS: BP 118/73; PULSE 83; RESP 18; TEMP 36.9; O2SAT 96
--- NOTE | 2024-12-29 19:14 | XR_ITS ---
Examination: CT abdomen and pelvis without contrast. Coronal 3-D reconstructions. Sagittal 2-D reconstructions. Date and time of exam:December 29, 2024, 1959 hrs., Comparison December 12, 2024 Indications: Clinical diagnosis Brain post gallbladder surgery CTDI: vol (mGy): 8.86 DLP: (mGycm): 600 Technique: Axial images of the abdomen have been obtained, 3 mm slice thickness Intravenous contrast material has not been administered. Low dose protocols were performed. One or more of the following dose reduction techniques were used; automated exposure control, adjustment of the mA and/or KV according to patient size, use of iterative reconstruction technique. Findings: Mild enlargement cardiac contour with small pericardial effusion Gallbladder drainage tube in the gallbladder fossa in unchanged position compared with December 12, 2024 No adrenal mass or pancreatic mass No hydronephrosis Normal appendix No bowel obstruction bladder is intact Moderate prostatomegaly Impression: Gallbladder drainage tube is in identical position compared with December 12, 2024 The gallbladder fluid collection is very small 12 mm in thickness, consider removal of the drainage tube
--- NOTE | 2024-12-29 19:15 | PD.EDRME ---
Rapid Medical Screening Exam [facility] Arrival date/time: 12/29/24 18:25 74M with history of hypothyroidism and gallbladder drain (put in by Dr. Titus) presents to ED with ab pain and N/V because he bent over and thinks he may have dislodged the tube again. Chief Complaint: Abdominal Pain Vital signs: Vital Signs Temperature 98.5 F 12/29/24 18:59 Pulse Rate 83 12/29/24 18:59 Respiratory Rate 18 12/29/24 18:59 Blood Pressure 118/73 12/29/24 18:59 Pulse Oximetry (%) 96 12/29/24 18:59 Oxygen Delivery Method Room Air 12/29/24 18:59
[2024-12-29 20:23] LABS: Basophils # (Auto) 0.0 Thou/mm3 (0.0-0.2); Basophils % (Auto) 0 % (0-2.5); Eosinophils # (Auto) 0.1 Thou/mm3 (0.0-0.5); Eosinophils % (Auto) 1 % (0-10); Hematocrit 37.8 % (41.0-53.0); Hemoglobin 12.2 g/dL (13.5-16.0); Immature Granulocytes Auto 0.04 Thou/mm3 (0.00-0.00); Lymphocytes # (Auto) 1.5 Thou/mm3 (1.0-4.8); Lymphocytes % (Auto) 12 % (10-50); Mean Corpuscular HGB Conc 32.3 g/dl (31.0-37.0); Mean Corpuscular Hemoglobin 27.9 pg (25.0-35.0); Mean Corpuscular Volume 87 fL (80-100); Monocytes # (Auto) 1.1 Thou/mm3 (0.0-0.8); Monocytes % (Auto) 9 % (0-12); Neutrophils # (Auto) 9.5 Thou/mm3 (1.8-7.7); Neutrophils % (Auto) 77 % (37-80); Nucleated Red Blood Cell # 0.00 Thou/mm3 (0.00-0.00); Nucleated Red Blood Cell % 0 /100 WBC (0); Platelet Count 236 Thou/mm3 (140-440); RDW Standard Deviation 46.9 fL (35.1-43.9); Red Blood Count 4.37 Miln/mm3 (4.50-5.90); White Blood Count 12.3 Thou/mm3 (3.8-10.6)
[2024-12-29 20:49] LABS: Alanine Aminotransferase 61 U/L (10-49); Albumin, Serum 4.4 gm/dL (3.4-4.8); Albumin/Globulin Ratio 1.5 (1.2-2.2); Alkaline Phosphatase 113 U/L (46-116); Anion Gap 9 (7-16); Aspartate Amino Transferase 128 U/L (0-34); BUN/Creatinine Ratio 12 Ratio (12-20); Bilirubin,Total 1.5 mg/dL (0.3-1.2); Blood Urea Nitrogen 12 mg/dL (9-23); Calcium 9.6 mg/dL (8.3-10.6); Calcium (Corrected) 9.6 mg/dL (8.5-10.1); Carbon Dioxide 29.3 mMol/L (20.0-31.0); Chloride 102 mMol/L (98-107); Creatinine (Component) 1.0 mg/dL (0.6-1.3); Globulin 2.9 gm/dL (2.3-3.5); Glucose 107 mg/dL (74-106); Osmolality,Calculated 279 (275-295); Potassium 4.6 mMol/L (3.4-5.1); Sodium 140 mMol/L (136-145); Total Protein 7.3 gm/dL (5.7-8.2); eGFR > 60 See Note
[2024-12-29 22:02] VITALS: BP 183/119; PULSE 92; RESP 20; TEMP 36.6; O2SAT 97
[2024-12-29 22:15] LABS: Lipase 2575 U/L (12-53)
--- NOTE | 2024-12-29 22:42 | PD.EDABDPN ---
ED Abdominal Pain RME/HPI General Chief Complaint: Abdominal Pain Stated complaint: ABD PAIN WITH CILLS. GALLBLADDER DRAINAGE PRESENT Time seen by provider: 12/29/24 21:20 Arrival date/time: 12/29/24 18:25 RME / HPI RME / HPI narrative: 74M with history of hypothyroidism and gallbladder drain (put in by Dr. Titus about 2 months ago) presents to ED with ab pain and N/V because he bent over and thinks he may have dislodged the tube again. Patient has been having pain, described as dull ache, severity moderate. Denies any fever denies any vomiting denies any other complaints no medication was taken prior to arrival. Related Data Home Medications ?Medication ?Instructions ?Recorded ?Confirmed apixaban 5 mg tablet (Eliquis) 5 mg PO BID 08/31/19 12/30/24 levothyroxine 75 mcg capsule 75 mcg PO QDAY 08/31/19 12/30/24 metoprolol tartrate 50 mg tablet 50 mg PO BID 08/31/19 12/28/24 atorvastatin 10 mg tablet 10 mg PO QDAY 06/20/21 12/30/24 melatonin 10 mg capsule 10 mg PO HS PRN Sleep 04/22/23 12/28/24 sucralfate 1 gram tablet 1 g PO QID PRN GI distress 10/24/24 12/28/24 doxycycline hyclate 100 mg tablet 100 mg PO DAILY 12/30/24 12/30/24 Previous Rx's ?Medication ?Instructions ?Recorded loperamide 2 mg capsule (Imodium 2 mg PO Q6H PRN loose stool #20 10/22/24 A-D) caps Allergies Allergy/AdvReac Type Severity Reaction Status Date / Time No Known Allergies Allergy Verified 12/29/24 18:29 Review of Systems Review of Systems Narrative Review of Systems: Review of system reviewed and within normal limits except mentioned in HPI ED Exam Narrative Physical exam: VITAL SIGNS: Reviewed. GENERAL APPEARANCE: Alert and interactive, follows commands, no acute distress, HEAD AND FACE: Non-traumatic. ENT: PERRL, pink conjunctivitis, eyelid no trauma, Mucous membrane moist. NECK: Supple, nontender, no nuchal rigidity. CHEST: No tenderness, no crepitus, no paradoxical movement, no retractions. LUNGS: Clear, well ventilated, symmetric, no rales, no wheezing, no ronchi, no stridor, good breath sounds bilaterally. HEART: Regular rate, regular rhythm, no murmur, no gallops. ABDOMEN: Soft, positive bowel sounds, nondistended, no guarding, upper abdominal tenderness, biliary drain intact, draining bile like fluid, no rebound, no masses, RECTAL: Deferred. GENITAL: Deferred. NEUROLOGICAL: Gross motor function intact sensory function intact, Appropriate for age. MUSCULOSKELETAL: low back nontender, full range of motion. EXTREMITIES: Nontender, full range of motion. SKIN: Color pink, dry, no rash, no lacerations, no abrasions, no contusions. LYMPHATICS: Deferred. Course Quality Measures none Orders Category Date Time Status Admit to Inpatient Status Routine Admission 12/30/24 03:30 Active Patient Condition Routine Admission 12/30/24 03:30 Ordered Activity as Tolerated Routine Care 12/30/24 03:31 Ordered COVID-19 Screening Questionnaire NOW Care 12/29/24 23:47 Active Decision to Admit X1 Care 12/29/24 23:47 Completed Notify provider NEEDED Care 12/30/24 03:30 Active Consult to Gastroenterology Routine Cons 12/30/24 03:34 Ordered Consult to General Surgery Stat Cons 12/29/24 23:47 Ordered Diet Cardiac Diet 12/30/[address] abdomen pelvis wo con Stat Exams 12/29/24 19:14 Completed CBC AM DRAW Lab 12/30/24 05:04 Completed CBC AM DRAW Lab 12/31/24 05:00 Ordered CBC AM DRAW Lab 01/01/25 05:00 Ordered CBC Stat Lab 12/29/24 20:09 Completed CMP [Comprehensive Metabolic Panel] Stat Lab 12/29/24 20:09 Completed Comprehensive Metabolic Panel AM DRAW Lab 12/30/24 05:04 Completed Comprehensive Metabolic Panel AM DRAW Lab 12/31/24 05:00 Ordered Comprehensive Metabolic Panel AM DRAW Lab 01/01/25 05:00 Ordered Lipase Stat Lab 12/29/24 20:09 Completed Lipase Stat Lab 12/29/24 23:11 Completed Lipid Panel Stat Lab 12/29/24 20:09 Completed Magnesium AM DRAW Lab 12/30/24 05:04 Completed Partial Thromboplastin Time AM DRAW Lab 12/31/24 05:00 Ordered Prothrombin Time with INR AM DRAW Lab 12/31/24 05:00 Ordered Thyroid Stimulating Hormone Routine Lab 12/31/24 03:33 Ordered Troponin I Stat Lab 12/29/24 23:11 Completed Enoxaparin [Lovenox] Med 12/30/24 09:00 Discontinued 40 mg SC QDAY Ondansetron Inj [Zofran Inj] Med 12/30/24 03:30 Active 4 mg IVP Q6H PRN Ringers Lactated 1000 ml [Lactated Ringers] 1,000 ml Med 12/29/24 22:42 Discontinued IV 999 mls/hr Code Status Routine Oth 12/30/24 03:30 Ordered Oxygen Delivery PRN RT 12/30/24 03:30 Active Vital Signs Vital signs: Vital Signs Temperature 98.5 F 12/29/24 18:59 Pulse Rate 83 12/29/24 18:59 Respiratory Rate 18 12/29/24 18:59 Blood Pressure 118/73 12/29/24 18:59 Pulse Oximetry (%) 96 12/29/24 18:59 Oxygen Delivery Method Room Air 12/29/24 18:59 Abdominal Pain MDM MDM Narrative MDM Narrative:: 74M with history of hypothyroidism and gallbladder drain (put in by Dr. Titus about 2 months ago) presents to ED with ab pain and N/V because he bent over and thinks he may have dislodged the tube again. Patient has been having pain, described as dull ache, severity moderate. Denies any fever denies any vomiting denies any other complaints no medication was taken prior to arrival. CBC showed leukocytosis of 12.3, CMP total bili 1.5, AST of 128, ALT of 61, lipase was noted to be 2575. CT scan of the abdomen and pelvis showed Gallbladder drainage tube is in identical position compared with December 12, 2024 The gallbladder fluid collection is very small 12 mm in thickness, consider removal of the drainage tube Spoke with Dr. Titus regarding consult and CT scan finding and laboratory finding., thank you Dr For accepting our consult Patient data External records reviewed:: None Clinical information provided by:: patient Social determinants that could affect healthcare access:: none Patient has the following chronic illnesses:: History of biliary drain due to acute acalculous cholecystitis How is presenting disease/condition affected by chronic disease/condition?: exacerbated by Evaluation data The following diagnostics were reviewed and interpreted by me:: lab results and radiology exam(s) Lab and/or radiology exams considered but not ordered:: None Interpretation Summary: Patient's lipase today was noted to be 2575. Total bili 1.5 AST 1.8, ALT of 61 CBC showed leukocytosis 12.3 Medications / Prescriptions Medications or Prescriptions considered but not ordered:: None Medication administrations:: Medication Administration History Apixaban (Apixaban 2.5 Mg Tablet) 5 mg PO BID CLAIRE On Hold: 12/30/24 09:00 Stop: 01/29/25 08:59 Dextrose (Dextrose 50%-Water Inj 50 Ml Syringe) 25 ml IV Q15MIN PRN PRN Reason: BG 50-70 responsive npo pt Stop: 01/29/25 05:36 Dextrose (Dextrose 50%-Water Inj 50 Ml Syringe) 50 ml IV Q15MIN PRN PRN Reason: BG <50 OR BG <70 & pt unresponsive Stop: 01/29/25 05:36 Enoxaparin Sodium (Enoxaparin Sod Inj 40 Mg/0.4 Ml Syringe) 40 mg SC QDAY CLAIRE Stop: 01/13/25 08:59 Last Admin: 12/30/24 09:54 Dose: Not Given Documented By: BRENDAN Non-Admin Reason: Other, see note Glucagon (Glucagon Inj 1 Mg Vial) 1 mg IM Q15MIN PRN PRN Reason: BG <70, and no IV access Hydralazine HCl (Hydralazine Inj 20 Mg/Ml Vial) 10 mg IVP Q6HR PRN PRN Reason: SBP> 180 Stop: 01/29/25 05:35 Lactated Ringer's (Lactated Ringers) 1,000 mls @ 125 mls/hr IV .Q8H ONE Stop: 12/30/24 16:13 Insulin Human Lispro (Insulin Lispro (Admelog) 1 Unit/0.01 Ml Unit) 0 unit SC AC [facility]; Protocol Stop: 01/29/25 07:29 Last Admin: 12/30/24 11:30 Dose: Not Given Documented By: BRENDAN Non-Admin Reason: Per Protocol Admin: 12/30/24 07:52 Dose: Not Given Documented By: BRENDAN Non-Admin Reason: Per Protocol Levothyroxine Sodium (Levothyroxine Sodium 88 Mcg Tablet) 75 mcg PO ACBR CLAIRE Stop: 01/29/25 05:59 Last Admin: 12/30/24 06:20 Dose: 75 mcg Documented By: Metoprolol Succinate (Metoprolol Succinate Xl 25 Mg Tabcr) 50 mg PO QDAY [facility] Stop: 01/29/25 08:59 Last Admin: 12/30/24 09:53 Dose: 50 mg Documented By: BRENDAN Ondansetron HCl (Ondansetron Inj 2 Mg/Ml Inj 2 Ml) 4 mg IVP Q6H PRN; Protocol PRN Reason: NAUSEA OR VOMITING Stop: 01/29/25 03:29 Discontinued Medications Enoxaparin Sodium (Enoxaparin Sod Inj 40 Mg/0.4 Ml Syringe) 40 mg SC QDAY [facility] Stop: 01/13/25 08:59 Lactated Ringer's (Lactated Ringers) 1,000 mls @ 999 mls/hr IV .Q1H1M ONE Stop: 12/29/24 23:42 Last Infusion: 12/30/24 00:32 Dose: Infused Documented By: Admin: 12/29/24 23:02 Dose: 999 mls/hr Documented By: EMMETT IV fluids Consultations Consultation(s) initiated? (list below): Yes Consultation #1 (Physician, Specialty, Details): General surgeon on-call, Dr Titus thank you DrIvan Diagnosis Differential diagnosis abdominal pain: abdominal pain, pancreatitis and small bowel obstruction Most likely diagnosis given after review of the tests above:: Abdominal pain, pancreatitis, biliary drain check Admission Indicated Admission indicated?: indicated Admission Request Was there a request for admission?: Yes Admission Attestation Admission request attestation: Discussed case with [Dr Guzman] from Hospitalist service regarding admission. Discussed patients ED course, exam findings, labs, and radiology results. The Hospitalist [agrees] to accept the patient for admission. Disposition Plan Disposition Plan: Admit Discharge Plan Plan Patient Disposition: Admit Acute Care w/in Hospital Problem List Clinical Impression: Abdominal pain, Acute pancreatitis
[2024-12-29 22:51] LABS: Cardiac Risk Estimate 2.9 RATIO (4.0-6.7); Cholesterol 125 mg/dL (132-200); HDL Cholesterol 43 mg/dL (40-60); LDL Cholesterol,Calculated 62 mg/dL (0-130); Triglycerides 100 mg/dL (30-150)
[2024-12-29] MEDS: RINGERS LACTATED 1000 ML 1,000 ML 999 ML IV (23:02)
[2024-12-29 23:50] VITALS: BP 176/123; PULSE 76; RESP 17; TEMP 37; O2SAT 100
[2024-12-30] VITALS (10 sets, daily range): BP systolic 115–153; BP diastolic 77–92; PULSE 77–86; RESP 16–96; TEMP 36.1–37.1; O2SAT 95–99
[2024-12-30 00:02] LABS: Lipase 1333 U/L (12-53); Troponin I 0.028 ng/mL (0.0-0.045)
--- NOTE | 2024-12-30 03:36 | PD.HHHP ---
Documentation for date of: 12/30/24 HPI - Hospitalist History of Present Illness History of Present Illness: Abdominal discomfort, nausea, vomiting. History of present illness: 74-year-old male patient with a PMHx of atrial fibrillation on Eliquis, liver cirrhosis, hypothyroidism, obstructive sleep apnea on BiPAP, hypertension, hyperlipidemia, prediabetes, and acute acalculous cholecystitis s/p biliary drain placement by Dr. Bradley on 10/24 presented to ED with complaints of abdominal discomfort, 1 episode of nausea and vomiting for 1 day. Symptoms started after some physical activity at home after which he thought drain may have been dislodged as it had happened previously back in October, describes mild pain around epigastric area with no radiation to back sometimes lasting for 10 minutes. Patient reports normal appetite with last bowel movement on day of admission which was normal, denies any symptoms of fever, chest pain, SOB, palpitations, severe abdominal pain, or diarrhea. At ED patient was hemodynamically stable with BP 150/85, labs were noted for WBC 12.5, Hgb 12, T.bili 1.5, AST 128, ALT 61, and lipase of 2500, CT abdomen pelvis showed no abnormalities with biliary drain in place along with minimal fluid collection in the bladder. Patient will be admitted for further evaluation and care of acute liver injury and elevated lipase. Review of Systems Review of Systems Systems Reviewed: All systems reviewed, normal except as documented Past Medical History Past Medical History NEUROLOGIC: Negative Neurological Disorders or Seizures CARDIAC: Positive Cardiac Disorders, Cardiac Arrhythmia, Angina, Hypercholesterolemia and Hypertension; Negative Congestive Heart Failure RESPIRATORY: Positive Asthma; Negative Chronic Obstructive Pulmonary Disease (COPD) GASTROINTESTINAL: Positive Gastrointestinal Disorders, Hemorrhoids and Obesity; Negative Hepatitis, Ulcer or Gastroesophageal Reflux Disease GENITOURINARY: Positive Genitourinary Disorders and Benign Prostatic Hyperplasia; Negative Renal Disease or Kidney Stones MUSCULOSKELETAL: Negative Musculoskeletal Disorders ENT: Negative Cataracts ENDOCRINE: Positive Endocrine Disorders, Diabetes Mellitus Type 2 (DIET CONTROL) and Hypothyroidism; Negative Diabetes Mellitus Type 1 HEMATOLOGIC: Negative Blood Disorders, Anemia or Sickle Cell Disease PSYCHO/SOCIAL: Positive Depression and Anxiety OTHER HISTORY: Positive Hospitalization, Chicken Pox and Measles; Negative Autoimmune Disease, Shingles, Falls, Blood Transfusions, Blood Transfusion Reaction, Anesthesia Reactions, Organ Transplant, Mumps or Cancer Family History FAMILY HISTORY: Positive Family Cardiac Disorders; Negative Family Psychiatric Problems, Family Respiratory Disorders, Family Gastrointestinal Problems, Family Cancer, Family Surgery or Family Anesthesia Reaction Surgical History SURGICAL: Positive Cardiac Surgery; Negative Pacemaker, Endocrine Surgery, Abdominal Surgery, Transurethral Resection, Neurologic Surgery, Vasectomy or Organ Transplant Social History SMOKING STATUS: Never smoker Past Medical History Comments PMH COMMENT: PMH: Hypothyroidism, atrial fibrillation, cirrhosis, obstructive sleep apnea, hyperlipidemia, hypertension, prediabetes PSH: Inguinal hernia repair Medications: Levothyroxine, metoprolol, Eliquis, atorvastatin, vitamin C, melatonin Allergies: None FH: Dad from gallbladder bursting, mom of cholesterol issues (stroke, embolisms) SH: Lives in [place] in a house with , no drinking history, no smoking history, no recreational drug use history Meds Home Medications and Allergies Home Medications ?Medication ?Instructions ?Recorded ?Confirmed ?Type apixaban 5 mg tablet (Eliquis) 5 mg PO BID 08/31/19 12/30/24 History levothyroxine 75 mcg capsule 75 mcg PO QDAY 08/31/19 12/30/24 History atorvastatin 10 mg tablet 10 mg PO QDAY 06/20/21 12/30/24 History melatonin 10 mg capsule 10 mg PO HS PRN Sleep 04/22/23 12/30/24 History sucralfate 1 gram tablet 1 g PO QID PRN GI distress 10/24/24 12/30/24 History doxycycline hyclate 100 mg tablet 100 mg PO DAILY 12/30/24 12/30/24 History Allergies Allergy/AdvReac Type Severity Reaction Status Date / Time No Known Allergies Allergy Verified 12/29/24 18:29 Exam Vital Signs Temp Pulse Resp BP Pulse Ox O2 Del Method 98.8 F 78 16 153/92 H 96 Room Air 12/30/24 02:34 12/30/24 02:34 12/30/24 02:34 12/30/24 02:34 12/30/24 02:34 12/30/24 02:34 Narrative General: Overweight, in no distress, normal mood and affect. HEENT: Normocephalic, atraumatic, anicteric, EOM intact, PERRLA Heart: RRR, no murmur or gallop. Lungs: Clear to auscultation with equal breath sounds bilaterally. Abdomen: Bowel sounds normal, mild epigastric tenderness but no guarding, no CVA tenderness, gallbladder drain noted with trace output in collection bag, no signs of infection/inflammation noted. Extremities: Sensation, circulation, motor function intact and equal in all extremities. Neurologic: Alert and oriented to name, place and date of , CN II-XII intact, DTRs normal Results - Hospitalist Labs Diagrams: 12/29/24 20:09 12/29/24 20:09 Labs: Short CBC 12/29/24 Range/Units 20:09 WBC 12.3 H (3.8-10.6) Thou/mm3 Hgb 12.2 L (13.5-16.0) g/dL Hct 37.8 L (41.0-53.0) % Plt Count 236 D (140-440) Thou/mm3 BMP 12/29/24 20:09 Sodium 140 Potassium 4.6 Chloride 102 Carbon Dioxide 29.3 BUN 12 Creatinine 1.0 Glucose 107 H Calcium 9.6 Cardiac Enzymes 12/29/24 Range/Units 23:11 Troponin I 0.028 (0.0-0.045) ng/mL Liver Function 12/29/24 Range/Units 20:09 Total Bilirubin 1.5 H (0.3-1.2) mg/dL AST 128 H (0-34) U/L ALT 61 H (10-49) U/L Alkaline Phosphatase 113 (46-116) U/L Albumin 4.4 (3.4-4.8) gm/dL Assessment & Plan -Hospitalist Additional Assessment 74-year-old male patient with a PMHx of atrial fibrillation on Eliquis, liver cirrhosis, hypothyroidism, obstructive sleep apnea on BiPAP, hypertension, hyperlipidemia, prediabetes, and acute acalculous cholecystitis s/p biliary drain placement by Dr. Bradley on 10/24, admitted for further evaluation and care of acute liver injury and elevated lipase. #Acute acalculous cholecystitis status post cholecystostomy drain #Acute biliary pancreatitis #Acute liver injury #Hx Cirrhosis Patient received 2L of NS bolus at the ED Denies any symptoms of nausea/vomiting. Encourage fluid intake. Trend LFTs GEN surge consulted, recs appreciated GI consulted, recs appreciated #Leukocytosis, likely reactive No symptoms/signs of infection Biliary drain insertion site negative for erythema/tenderness Follow-up with CBC, white count improving #Chronic normocytic anemia Hemoglobin 12 No symptoms/signs of active bleed Monitor for signs of bleeding and bruising Transfuse PRBC for Hgb<7 #History of A-fib on apix, rate controlled Continue home metoprolol Continue home apixaban #Hypertension-CHRONIC Continue home metoprolol 50 BID #Hx of constipation Milk of mag as needed daily DVT prophylaxis: Apixaban 5mg BID Diet: Cardiac IV access: PIV CODE STATUS: Full code Additional Plan Additional Plan: After examination of the patient and review of the clinical data I feel that this patient needs admission to the hospital for further treatment/evaluation. Plan of care discussed with patient and is in agreement. I Mateo Howard MD, attest that I was physically present for richards portions of evaluation, and examined patient, labs and imagings and plan of care were discussed with IM residents team, and I agree with the findings and plans documented above. Quality Measures Quality Measures VTE prophylaxis Advance care planning discussed with:: patient, spouse and child
[2024-12-30 05:44] LABS: Basophils # (Auto) 0.0 Thou/mm3 (0.0-0.2); Basophils % (Auto) 0 % (0-2.5); Eosinophils # (Auto) 0.1 Thou/mm3 (0.0-0.5); Eosinophils % (Auto) 1 % (0-10); Hematocrit 36.3 % (41.0-53.0); Hemoglobin 11.9 g/dL (13.5-16.0); Immature Granulocytes Auto 0.03 Thou/mm3 (0.00-0.00); Lymphocytes # (Auto) 1.6 Thou/mm3 (1.0-4.8); Lymphocytes % (Auto) 15 % (10-50); Mean Corpuscular HGB Conc 32.8 g/dl (31.0-37.0); Mean Corpuscular Hemoglobin 28.3 pg (25.0-35.0); Mean Corpuscular Volume 86 fL (80-100); Monocytes # (Auto) 0.9 Thou/mm3 (0.0-0.8); Monocytes % (Auto) 8 % (0-12); Neutrophils # (Auto) 8.4 Thou/mm3 (1.8-7.7); Neutrophils % (Auto) 76 % (37-80); Nucleated Red Blood Cell # 0.00 Thou/mm3 (0.00-0.00); Nucleated Red Blood Cell % 0 /100 WBC (0); Platelet Count 245 Thou/mm3 (140-440); RDW Standard Deviation 46.5 fL (35.1-43.9); Red Blood Count 4.21 Miln/mm3 (4.50-5.90); White Blood Count 11.0 Thou/mm3 (3.8-10.6)
[2024-12-30 06:08] LABS: Alanine Aminotransferase 43 U/L (10-49); Albumin, Serum 4.0 gm/dL (3.4-4.8); Albumin/Globulin Ratio 1.7 (1.2-2.2); Alkaline Phosphatase 107 U/L (46-116); Anion Gap 12 (7-16); Aspartate Amino Transferase 56 U/L (0-34); BUN/Creatinine Ratio 9 Ratio (12-20); Bilirubin,Total 2.0 mg/dL (0.3-1.2); Blood Urea Nitrogen 8 mg/dL (9-23); Calcium 9.4 mg/dL (8.3-10.6); Calcium (Corrected) 9.4 mg/dL (8.5-10.1); Carbon Dioxide 27.3 mMol/L (20.0-31.0); Chloride 105 mMol/L (98-107); Creatinine (Component) 0.9 mg/dL (0.6-1.3); Globulin 2.4 gm/dL (2.3-3.5); Glucose 97 mg/dL (74-106); Magnesium 2.2 mg/dL (1.6-2.6); Osmolality,Calculated 285 (275-295); Potassium 4.2 mMol/L (3.4-5.1); Sodium 144 mMol/L (136-145); Total Protein 6.4 gm/dL (5.7-8.2); eGFR > 60 See Note
[2024-12-30] MEDS: LEVOTHYROXINE SODIUM 88 MCG TABLET 75 MCG PO (06:20)
[2024-12-30] MEDS: METOPROLOL SUCCINATE XL 25 MG TABCR 50 MG PO (09:53)
--- NOTE | 2024-12-30 12:01 | PD.SURCONS ---
HPI Consult details History of present illness: 74M with HTN, hypothyroidism, and afib on eliquis who presented initially 10/24/24 with acalculous cholecystitis s/p percutaneous cholecystostomy 10/25/24 which was dislodged and required replacement 11/08, who presented to ER yesterday with abdominal pain and nausea. Pt reports pain occurred after he ate a peach and lasted only for a few minutes, with two consecutive episodes. Also associated with nausea and pt did feel that it was similar to previous recent episodes of pain. His drain has had minimal output, I have been seeing him regularly in clinic for flushing and as of today the drain output appears bilious in nature. In ER workup is consistent with pancreatitis and CT shows the drain remains in place inside the gallbladder As of today pt reports his pain is improved, he has no nausea and is tolerating a regular diet Review of Systems Review of Systems ROS Unobtainable: All systems reviewed & no additional complaints except as documented Meds Home Medications and Allergies Home Medications ?Medication ?Instructions ?Recorded ?Confirmed ?Type apixaban 5 mg tablet (Eliquis) 5 mg PO BID 08/31/19 12/30/24 History levothyroxine 75 mcg capsule 75 mcg PO QDAY 08/31/19 12/30/24 History metoprolol tartrate 50 mg tablet 50 mg PO BID 08/31/19 12/28/24 History atorvastatin 10 mg tablet 10 mg PO QDAY 06/20/21 12/30/24 History melatonin 10 mg capsule 10 mg PO HS PRN Sleep 04/22/23 12/28/24 History sucralfate 1 gram tablet 1 g PO QID PRN GI distress 10/24/24 12/28/24 History doxycycline hyclate 100 mg tablet 100 mg PO DAILY 12/30/24 12/30/24 History Allergies Allergy/AdvReac Type Severity Reaction Status Date / Time No Known Allergies Allergy Verified 12/29/24 18:29 Exam Vital Signs Temp Pulse Resp BP Pulse Ox O2 Del Method 97.6 F 84 16 126/85 H 98 Room Air 12/30/24 08:00 12/30/24 09:53 12/30/24 08:00 12/30/24 09:53 12/30/24 08:00 12/30/24 08:00 Constitutional Constitutional: no acute distress Routine Respiratory Exam Respiratory: Present no resp distress Routine Abdominal Exam Abdominal: Present soft and drain (RUQ drain with bilious output in tubing, no output currently in accordion drain); Absent tenderness or distended Results Results: Laboratory Laboratory results: results reviewed Results: Imaging CT scan - abdomen: report reviewed and image reviewed Assessment & Plan Plan 74M with HTN, hypothyroidism, and afib on eliquis who presented initially 10/24/24 with acalculous cholecystitis s/p percutaneous cholecystostomy 10/25/24, which became dislodged and required replacement 11/08/24. Drain has remained in place because HIDA done in November showed that the cystic duct was still obstructed; he has remained overall clinically well except for an episode of pain yesterday which prompted him to visit ER with findings suggestive of pancreatitis. I had been awaiting repeat HIDA before removing the drain, it was scheduled for Jan 25 but will now plan on performing the test during this admission. I spoke at length with pt and family regarding the possibility of cholecystectomy. I explained that in the setting of acalculous cholecystitis, percutaneous drainage can be curative and that considering his comorbid conditions, surgery confers risk of serious complications. I do understand though that having the drain for such a long time has been uncomfortable and explained that if the HIDA remains positive and/or if he has a recurrence of cholecystitis after the drain is removed I will be happy to discuss the possibility of surgery at that time. All questions were answered and pt and family expressed understanding Continue diet as tolerated NPO after MN tomorrow for HIDA Mon 01/01
--- NOTE | 2024-12-30 13:44 | PC.SS ---
Williams Moran is a 74 year-old male admitted to [facility] for Acute Liver Injury, Lip[ase Elevation. SS conducted bedside contact with the patient to complete initial assessment and to discuss discharge planning. Role and reason explained. Pt was resting therefore, pt dtr Lizett Watsonco [phone] answered on his behalf. Lizett confirmed demographic information. She identifies herself as the pts surrogate decision maker. She states at baseline pt is independent and requires no DME. PCP is Dr. Lanier; last visit was about 4 weeks ago. Pharmacy of choice is [facility]. Discharge options discussed and the pt wishes to return home, but in the case pt needs sx, they are open to SNF ([facility] preference). Pt dtr will provide transport. No further intervention required at this time, social research assistant would be available to address any further concerns. DC Plan: Home Contact: DtLizett fay Address: Confirmed on face sheet PCP: Yolande
[2024-12-30] MEDS: RINGERS LACTATED 1000 ML 1,000 ML 125 ML IV (14:21)
--- NOTE | 2024-12-30 14:30 | PC.SS ---
Rounding: Anthony VALADEZ tomorrow, one more day of monitoring lab levels
--- NOTE | 2024-12-30 17:32 | ESPR_ITS ---
Documentation for date of: 12/30/24 Subjective Subjective Interval history: Patient initially had acute acalculous cholecystitis on 10/24/2024 for which he underwent percutaneous cholecystotomy 10/25/2024 that became dislodged and required replacement on 11/08/2024. Patient came into the hospital in view of suspicion of biliary drain dislodgment but CT abdomen/pelvis done yesterday showed gallbladder drainage tube in the identical position as before. Admitted overnight. Reported that his abdominal pain completely subsided and does not have any other complaints. Denies fever, nausea, vomitings, diarrhea. Vitals are stable. Patient is able to tolerate oral feeds. Labs done this morning showed downtrending WBC, 11,000. Total bilirubin is 2, AST and ALT are downtrending. Lipase down trended to 1333. General surgeon, Dr. Titus was consulted and recommended to continue current management. Exam Vital Signs Temp Pulse Resp BP Pulse Ox O2 Del Method 97.0 F 86 20 115/79 97 Room Air 12/30/24 12:00 12/30/24 12:55 12/30/24 12:55 12/30/24 12:00 12/30/24 12:00 12/30/24 12:00 Narrative Exam General: Awake. HEENT: Normocephalic, atraumatic, mucous membranes moist. Heart: Regular rate and rhythm, no murmurs. Lungs: Clear to auscultation with no wheezing or crackles. Abdomen: Soft, nondistended, nontender, positive bowel sounds. ?No guarding or rebound tenderness. noted drain in the RUQ Neurologic: Alert and oriented x3, no gross neurological deficit, and patient able to move all 4 extremities. Extremities: No edema. Skin: No rash or ecchymoses. Objective Labs 01/01/25 04:46 01/01/25 04:46 Labs: Laboratory Results - last 24 hr 12/29/24 12/29/24 12/30/24 20:09 23:11 05:04 WBC 12.3 H 11.0 H RBC 4.37 L 4.21 L Hgb 12.2 L 11.9 L Hct 37.8 L 36.3 L MCV 87 86 MCH 27.9 28.3 MCHC 32.3 32.8 RDW Std Deviation 46.9 H 46.5 H Plt Count 236 D 245 Neut % (Auto) 77 76 Lymph % (Auto) 12 15 Johnson % (Auto) 9 8 Eos % (Auto) 1 1 Baso % (Auto) 0 0 Neut # (Auto) 9.5 H 8.4 H Lymph # (Auto) 1.5 1.6 Johnson # (Auto) 1.1 H 0.9 H Eos # (Auto) 0.1 0.1 Baso # (Auto) 0.0 0.0 Immature Gran # (Auto) 0.04 H 0.03 H Absolute Nucleated RBC 0.00 0.00 Immature Gran % 0 0 Nucleated RBC % 0 0 Sodium 140 144 Potassium 4.6 4.2 Chloride 102 105 Carbon Dioxide 29.3 27.3 Anion Gap 9 12 BUN 12 8 L Creatinine 1.0 0.9 Estim Creat Clear Calc Not Performed. Not Performed. eGFR > 60 > 60 BUN/Creatinine Ratio 12 9 L Glucose 107 H 97 Calculated Osmolality 279 285 Calcium 9.6 9.4 Corrected Calcium 9.6 9.4 Magnesium 2.2 Total Bilirubin 1.5 H 2.0 H D AST 128 H 56 H ALT 61 H 43 Alkaline Phosphatase 113 107 Troponin I 0.028 Total Protein 7.3 6.4 Albumin 4.4 4.0 Globulin 2.9 2.4 Albumin/Globulin Ratio 1.5 1.7 Triglycerides 100 Cholesterol 125 L LDL Cholesterol, Calc 62 HDL Cholesterol 43 Cholesterol/HDL Ratio 2.9 L Lipase 2575 H* 1333 H* D Quality Measures Quality Measures none Advance care planning discussed with:: patient Assessment & Plan Assessment Current Active Medications: Generic Name Dose Route Start Last Admin Trade Name Freq PRN Reason Stop Dose Admin Apixaban 5 mg 12/30/24 09:00 Apixaban 2.5 Mg Tablet PO 01/29/25 08:59 On Hold: 12/30/24 09:00 BID CLAIRE Dextrose 25 ml 12/30/24 05:37 Dextrose 50%-Water Inj 50 Ml Syringe IV 01/29/25 05:36 Q15MIN PRN BG 50-70 responsive npo pt Dextrose 50 ml 12/30/24 05:37 Dextrose 50%-Water Inj 50 Ml Syringe IV 01/29/25 05:36 Q15MIN PRN BG <50 OR BG <70 & pt unresponsive Enoxaparin Sodium 40 mg 12/30/24 09:00 12/30/24 09:54 Enoxaparin Sod Inj 40 Mg/0.4 Ml Syringe SC 01/13/25 08:59 Not Given QDAY CLAIRE Glucagon 1 mg 12/30/24 05:37 Glucagon Inj 1 Mg Vial IM Q15MIN PRN BG <70, and no IV access Hydralazine HCl 10 mg 12/30/24 05:36 Hydralazine Inj 20 Mg/Ml Vial IVP 01/29/25 05:35 Q6HR PRN SBP> 180 Insulin Human Lispro 0 unit 12/30/24 07:30 12/30/24 17:29 Insulin Lispro (Admelog) 1 Unit/0.01 Ml Unit SC 01/29/25 07:29 Not Given AC CLAIRE Protocol Levothyroxine Sodium 75 mcg 12/31/24 06:00 Levothyroxine Sodium 25 Mcg Tablet PO 01/29/25 05:59 ACBR CLAIRE Metoprolol Succinate 50 mg 12/30/24 09:00 12/30/24 09:53 Metoprolol Succinate Xl 25 Mg Tabcr PO 01/29/25 08:59 50 mg QDAY CLAIRE Administration Ondansetron HCl 4 mg 12/30/24 03:30 Ondansetron Inj 2 Mg/Ml Inj 2 Ml IVP 01/29/25 03:29 Q6H PRN NAUSEA OR VOMITING Protocol Plan 74-year-old male patient with a PMHx of atrial fibrillation on Eliquis, liver cirrhosis, hypothyroidism, obstructive sleep apnea on BiPAP, hypertension, hyperlipidemia, prediabetes, and acute acalculous cholecystitis s/p biliary drain placement by Dr. Bradley on 10/24 presented to ED with complaints of abdominal discomfort, 1 episode of nausea and vomiting for 1 day. #History acalculous cholecystitis 10/24 #Status post percutaneous cholecystectomy 10/25, replaced 11/08 Presented with abdominal pain, nausea and vomiting. CT A/P on 12/30 shows drainage tube is in identical position as before. Lipase down trended yesterday, patient is tolerating normal diet. Total bilirubin remains elevated. Liver enzymes improving. Lipase downtrended. Per surgery, drain remains in place because HIDA in November 2024 shows cystic duct continued to be obstructed. Follows with surgeon Dr. Bradley outpatient. Was initially scheduled for HIDA on 01/25 in anticipation for drain removal. Plan: - Surgeon Dr. Titus consulted, appreciate recommendations - Started on diet as patient is able to tolerate diet #Pancreatitis, resolving - Patient is admitted with abdominal pain which is very short lasting for about less than an hour - Noted to have lipase of 2575 at the time of admission - On examination, patient denies any other complaints and does not have any imaging features suggestive of pancreatitis - Exact cause of pancreatitis is not known at this point Plan - Patient was given IV fluids - Will monitor for pain - As patient is not having any complaints of pain, started on diet #HLD Takes atorvastatin 10 mg at home daily. Lipid panel 12/29 shows trig 100, cholesterol 125, LDL 62, HDL 43. Plan: ? Continue home dose atorvastatin at bedtime #Hx A-fib on Eliquis #Hypothyroidism #Hypertension #Prediabetes Chronic medical problems. Last A1c 11/28/2024 was 6.2. ?Continue home dose levothyroxine 75 mcg daily ?Continue home dose apixaban 5 mg twice daily ?Metoprolol XL 50 mg daily ?CTM glucose, no SSI at this time Health Maintenance Disposition: MedSurg for biliary drain complications DVT prophylaxis: Lovenox GI prophylaxis: Senna Diet: Cardiac CODE STATUS: Full Patient plan of care was discussed with the attending physician, Dr. Cheryl Arora, PGY2 Attending Provider Attestation/Addendum Face to face evaluation was performed by me. I have personally seen and examined the patient. I discussed the assessment and plan with the entire medicine team. I reviewed available medical records, imaging studies, laboratory results. I agree with the above subjective data, objective findings, assessment and plan except as corrected by me or noted below Mild acute pancreatitis Biliary drain in place Acalculous cholecystitis history of this History of liver cirrhosis Hyperlipidemia IV fluids , Epigastric pain-resolved patient tolerating diet discussed with his as well as daughter over phone More than > 30 minutes spent on the encounter
--- NOTE | 2024-12-30 19:54 | PD.IMCONS ---
HPI Data of Consult Requesting Physician: Mateo Howard MD Primary Care Provider: Beth Lanier PA-C Consult Narrative Reason for consult: male abdomen, nausea, elevated lipase 2575 History of present illness: 74 years old male presented to the hospital with nausea and abdominal pain Laboratory showed total bilirubin of 1.5 AST ALT 128 and 61 and alk phos of 113 CT scan of the abdomen pelvis with contrast showed the cholecystostomy tube is in place as compared to the previous imaging study Patient's total bilirubin has gone up to 2.0 AST ALT dropping to 56 and 43 and alk phos dropping to 107 and lipase has come down to 1333 Surgical consultation already been obtained Patient had a [facility] HIDA scan on 12/05/2024 which showed no gallbladder activity but activity in the small bowel suggestive of cystic duct obstruction cc:: cc: Mateo Howard MD Review of Systems Review of Systems Systems Reviewed: All systems reviewed, normal except as documented Past Medical History Surgical History OTHER SURGICAL HX: Chronic A-fib on Eliquis Essential hypertension Hypothyroidism Meds Home Medications and Allergies Home Medications ?Medication ?Instructions ?Recorded ?Confirmed ?Type apixaban 5 mg tablet (Eliquis) 5 mg PO BID 08/31/19 12/30/24 History levothyroxine 75 mcg capsule 75 mcg PO QDAY 08/31/19 12/30/24 History atorvastatin 10 mg tablet 10 mg PO QDAY 06/20/21 12/30/24 History melatonin 10 mg capsule 10 mg PO HS PRN Sleep 04/22/23 12/30/24 History sucralfate 1 gram tablet 1 g PO QID PRN GI distress 10/24/24 12/30/24 History doxycycline hyclate 100 mg tablet 100 mg PO DAILY 12/30/24 12/30/24 History Allergies Allergy/AdvReac Type Severity Reaction Status Date / Time No Known Allergies Allergy Verified 12/29/24 18:29 Exam Vital Signs Temp Pulse Resp BP Pulse Ox O2 Del Method 98.2 F 83 16 117/77 96 Room Air 12/30/24 16:00 12/30/24 16:00 12/30/24 16:00 12/30/24 16:00 12/30/24 16:00 12/30/24 16:00 Constitutional Comments: Chronically ill-appearing Routine Respiratory Exam Comments: Midepigastric tenderness Results Labs 12/30/24 05:04 12/30/24 05:04 Labs: Short CBC 12/29/24 12/30/24 Range/Units 20:09 05:04 WBC 12.3 H 11.0 H (3.8-10.6) Thou/mm3 Hgb 12.2 L 11.9 L (13.5-16.0) g/dL Hct 37.8 L 36.3 L (41.0-53.0) % Plt Count 236 D 245 (140-440) Thou/mm3 BMP 12/29/24 12/30/24 20:09 05:04 Sodium 140 144 Potassium 4.6 4.2 Chloride 102 105 Carbon Dioxide 29.3 27.3 BUN 12 8 L Creatinine 1.0 0.9 Glucose 107 H 97 Calcium 9.6 9.4 Cardiac Enzymes 12/29/24 Range/Units 23:11 Troponin I 0.028 (0.0-0.045) ng/mL Liver Function 12/29/24 12/30/24 Range/Units 20:09 05:04 Total Bilirubin 1.5 H 2.0 H D (0.3-1.2) mg/dL AST 128 H 56 H (0-34) U/L ALT 61 H 43 (10-49) U/L Alkaline Phosphatase 113 107 (46-116) U/L Albumin 4.4 4.0 (3.4-4.8) gm/dL Assessment and Plan Additional Assessment & Plan Additional Plan: Biliary pancreatitis resolving reoccurring abdominal pain with significantly elevated lipase Although the cholecystostomy tube is in place Once the pancreatitis because of in spite of the comorbidities patient should have a cholecystectomy better locally here or at a tertiary center with a liver transplant surgeon As there is a considerable morbidity in this clinical setting Repeat amylase lipase in the morning Continue current management Other medical problems include Chronic A-fib on Eliquis essential hypertension Hypothyroidism Thank you very much for the opportunity to participate in the care of this patient
[2024-12-31] VITALS (9 sets, daily range): BP systolic 109–139; BP diastolic 75–82; PULSE 70–97; RESP 16–96; TEMP 36.3–36.6; O2SAT 96–97
[2024-12-31] MEDS: LEVOTHYROXINE SODIUM 25 MCG TABLET 75 MCG PO (05:33)
[2024-12-31 06:06] LABS: Basophils # (Auto) 0.0 Thou/mm3 (0.0-0.2); Basophils % (Auto) 0 % (0-2.5); Eosinophils # (Auto) 0.1 Thou/mm3 (0.0-0.5); Eosinophils % (Auto) 1 % (0-10); Hematocrit 35.7 % (41.0-53.0); Hemoglobin 11.8 g/dL (13.5-16.0); Immature Granulocytes Auto 0.03 Thou/mm3 (0.00-0.00); Lymphocytes # (Auto) 1.5 Thou/mm3 (1.0-4.8); Lymphocytes % (Auto) 14 % (10-50); Mean Corpuscular HGB Conc 33.1 g/dl (31.0-37.0); Mean Corpuscular Hemoglobin 28.6 pg (25.0-35.0); Mean Corpuscular Volume 86 fL (80-100); Monocytes # (Auto) 0.8 Thou/mm3 (0.0-0.8); Monocytes % (Auto) 7 % (0-12); Neutrophils # (Auto) 8.6 Thou/mm3 (1.8-7.7); Neutrophils % (Auto) 78 % (37-80); Nucleated Red Blood Cell # 0.00 Thou/mm3 (0.00-0.00); Nucleated Red Blood Cell % 0 /100 WBC (0); Platelet Count 227 Thou/mm3 (140-440); RDW Standard Deviation 46.8 fL (35.1-43.9); Red Blood Count 4.13 Miln/mm3 (4.50-5.90); White Blood Count 11.1 Thou/mm3 (3.8-10.6)
[2024-12-31 06:23] LABS: INR 1.1 (0.9-1.3); Partial Thromboplastin Time 30.5 Seconds (22.0-36.0); Prothrombin Time 11.8 Seconds (9.0-12.2)
[2024-12-31] MEDS: ENOXAPARIN SOD INJ 40 MG/0.4 ML SYRINGE SC (08:08)
[2024-12-31] MEDS: METOPROLOL SUCCINATE XL 25 MG TABCR 50 MG PO (08:08)
[2024-12-31 08:45] LABS: Alanine Aminotransferase 31 U/L (10-49); Albumin, Serum 4.0 gm/dL (3.4-4.8); Albumin/Globulin Ratio 1.6 (1.2-2.2); Alkaline Phosphatase 104 U/L (46-116); Anion Gap 12 (7-16); Aspartate Amino Transferase 31 U/L (0-34); BUN/Creatinine Ratio 11 Ratio (12-20); Bilirubin,Total 2.2 mg/dL (0.3-1.2); Blood Urea Nitrogen 11 mg/dL (9-23); Calcium 9.1 mg/dL (8.3-10.6); Calcium (Corrected) 9.1 mg/dL (8.5-10.1); Carbon Dioxide 24.8 mMol/L (20.0-31.0); Chloride 103 mMol/L (98-107); Creatinine (Component) 1.0 mg/dL (0.6-1.3); Estimated Creatinine Clearance 66.5 mL/min (>60); Globulin 2.5 gm/dL (2.3-3.5); Glucose 96 mg/dL (74-106); Osmolality,Calculated 278 (275-295); Potassium 4.0 mMol/L (3.4-5.1); Sodium 140 mMol/L (136-145); Thyroid Stimulating Hormone 0.26 uIU/mL (0.55-4.78); Total Protein 6.5 gm/dL (5.7-8.2); eGFR > 60 See Note
--- NOTE | 2024-12-31 09:26 | ESPR_ITS ---
<Statement entered by Magnus Arora MD - 12/31/24 14:47> No acute overnight events. Patient is complaining that his biliary drainage is becoming more foul-smelling and increased in amount than usual. Denies fever, abdominal pain, other associated symptoms. Able to tolerate diet well. Labs done this morning is significant for WBC 11.1, total bilirubin is 2.2, AST and ALT are downtrending. Noted to have TSH of 0.26 and patient is taking levothyroxine 75 mcg at home. Free T4 is ordered, will follow-up with results and adjust the levothyroxine dosage. Eliquis is on hold as of now as patient is scheduled for HIDA scan, possible surgery following that. Dr. Titus is following the patient and recommended that she will proceed with the cholecystectomy/biliary drain removal based on the HIDA scan results. Lipase levels cannot be repeated today in view of lab unavailability. Patient is kept on n.p.o. since midnight I have personally seen and examined the patient, agree with residents assessment and plan Patient plan of care was discussed with the attending physician, Dr. Cheryl Arora, PGY2 Documentation for date of: 12/31/24 Subjective Subjective Interval history: No acute events overnight. Patient is tolerating diet well. Per daughter POA, patient has been having more malodorous, dark green biliary drainage, requiring more frequent emptying. No fluid in bag this morning as patient has been empyting it himself. Endorses mild dull RUQ pain, denies epigastric pain and no abdmonial tenderness. WBC elevated but improving. No antibiotics as low concern for biliary leakage. Denies fever, chills, abdominal pain, shortness of breath. No new complaints. Consulted surgeon Dr. Bradley who recommended HIDA scan tomorrow and n.p.o. after midnight today. Per her note, we will proceed with cholecystectomy if HIDA scan is positive. No antibiotics recommended at this time. Exam Vital Signs Temp Pulse Resp BP Pulse Ox O2 Del Method FiO2 97.3 F 97 18 117/80 97 Room Air 30 12/31/24 07:55 12/31/24 08:08 12/31/24 07:55 12/31/24 08:08 12/31/24 07:55 12/31/24 07:55 12/30/24 21:15 Narrative Exam Physical Exam General: Awake and in no acute distress. Conversational and non-toxic appearing. HEENT: Normocephalic, atraumatic, mucous membranes moist. Heart: Regular rate and rhythm, normal S1 and S2, no murmurs. Lungs: Clear to auscultation with no wheezing or crackles. Abdomen: Soft, nondistended, nontender, positive bowel sounds. No guarding or rebound tenderness. Biliary drain in place on RUQ, draining light bilious fluid. Site clean, dry, and intact. Neurologic: Alert and oriented x3, no gross neurological deficit, and patient able to move all 4 extremities. Extremities: No edema. Skin: No rash or ecchymoses. Objective Labs 01/01/25 04:46 01/01/25 04:46 Labs: Laboratory Results - last 24 hr 12/31/24 04:31 WBC 11.1 H RBC 4.13 L Hgb 11.8 L Hct 35.7 L MCV 86 MCH 28.6 MCHC 33.1 RDW Std Deviation 46.8 H Plt Count 227 Neut % (Auto) 78 Lymph % (Auto) 14 [facility] % (Auto) 7 Eos % (Auto) 1 Baso % (Auto) 0 Neut # (Auto) 8.6 H Lymph # (Auto) 1.5 [facility] # (Auto) 0.8 Eos # (Auto) 0.1 Baso # (Auto) 0.0 Immature Gran # (Auto) 0.03 H Absolute Nucleated RBC 0.00 Immature Gran % 0 Nucleated RBC % 0 PT 11.8 INR 1.1 APTT 30.5 Sodium 140 Potassium 4.0 Chloride 103 Carbon Dioxide 24.8 Anion Gap 12 BUN 11 Creatinine 1.0 Estim Creat Clear Calc 66.5 eGFR > 60 BUN/Creatinine Ratio 11 L Glucose 96 Calculated Osmolality 278 Calcium 9.1 Corrected Calcium 9.1 Total Bilirubin 2.2 H AST 31 ALT 31 Alkaline Phosphatase 104 Total Protein 6.5 Albumin 4.0 Globulin 2.5 Albumin/Globulin Ratio 1.6 TSH 0.26 L Quality Measures Quality Measures none Advance care planning discussed with:: patient and other (daughter Lizett RETANA) Assessment & Plan Assessment Current Active Medications: Generic Name Dose Route Start Last Admin Trade Name Freq PRN Reason Stop Dose Admin Apixaban 5 mg 12/30/24 09:00 Apixaban 2.5 Mg Tablet PO 01/29/25 08:59 On Hold: 12/30/24 09:00 BID CLAIRE Dextrose 25 ml 12/30/24 05:37 Dextrose 50%-Water Inj 50 Ml Syringe IV 01/29/25 05:36 Q15MIN PRN BG 50-70 responsive npo pt Dextrose 50 ml 12/30/24 05:37 Dextrose 50%-Water Inj 50 Ml Syringe IV 01/29/25 05:36 Q15MIN PRN BG <50 OR BG <70 & pt unresponsive Enoxaparin Sodium 40 mg 12/30/24 09:00 12/31/24 08:08 Enoxaparin Sod Inj 40 Mg/0.4 Ml Syringe SC 01/13/25 08:59 40 mg QDAY CLAIRE Administration Glucagon 1 mg 12/30/24 05:37 Glucagon Inj 1 Mg Vial IM Q15MIN PRN BG <70, and no IV access Hydralazine HCl 10 mg 12/30/24 05:36 Hydralazine Inj 20 Mg/Ml Vial IVP 01/29/25 05:35 Q6HR PRN SBP> 180 Insulin Human Lispro 0 unit 12/30/24 07:30 12/31/24 07:48 Insulin Lispro (Admelog) 1 Unit/0.01 Ml Unit SC 01/29/25 07:29 Not Given AC [facility] Protocol Levothyroxine Sodium 75 mcg 12/31/24 06:00 12/31/24 05:33 Levothyroxine Sodium 25 Mcg Tablet PO 01/29/25 05:59 75 mcg AC CLAIRE Administration Metoprolol Succinate 50 mg 12/30/24 09:00 12/31/24 08:08 Metoprolol Succinate Xl 25 Mg Tabcr PO 01/29/25 08:59 50 mg QDAY CLAIRE Administration Ondansetron HCl 4 mg 12/30/24 03:30 Ondansetron Inj 2 Mg/Ml Inj 2 Ml IVP 01/29/25 03:29 Q6H PRN NAUSEA OR VOMITING Protocol Plan Patient is a 74-year-old male patient with a PMHx of atrial fibrillation on Eliquis, liver cirrhosis, hypothyroidism, obstructive sleep apnea on BiPAP, hypertension, hyperlipidemia, prediabetes, and acute acalculous cholecystitis s/p biliary drain placement by Dr. Bradley on 7/1 presented to ED with complaints of abdominal discomfort, 1 episode of nausea and vomiting for 1 day, admitted for pancreatitis and biliary drain complications. #History acalculous cholecystitis 10/24 #Status post percutaneous cholecystectomy 10/25, replaced 11/08 #Pancreatitis, resolved Presented with abdominal pain, nausea and vomiting. CT A/P on 12/30 shows drainage tube is in identical position as before. Lipase down trended yesterday, patient is tolerating normal diet. Total bilirubin remains elevated. Liver enzymes improving. Lipase downtrended. Per surgery, drain remains in place because HIDA in November 2024 shows cystic duct continued to be obstructed. Follows with surgeon Dr. Bradley outpatient. Was initially scheduled for HIDA on 01/25 in anticipation for drain removal. Plan: - Surgeon Dr. Titus consulted, appreciate recommendations - N.p.o. after midnight ? Scheduled for HIDA tomorrow ? If HIDA positive, plan for cholecystectomy. Will need to obtain consent from daughter Lizett who is patient POA #HLD Takes atorvastatin 10 mg at home daily. Lipid panel 12/29 shows trig 100, cholesterol 125, LDL 62, HDL 43. Plan: ? Continue home dose atorvastatin at bedtime #Hx A-fib on Eliquis #Hypothyroidism #Hypertension #Prediabetes Chronic medical problems. Last A1c 11/28/2024 was 6.2. ?Continue home dose levothyroxine 75 mcg daily ?Continue home dose apixaban 5 mg twice daily ?Metoprolol XL 50 mg daily ?CTM glucose, no SSI at this time Health Maintenance Disposition: MedSurg for biliary drain complications DVT prophylaxis: Lovenox GI prophylaxis: Senna Diet: Cardiac CODE STATUS: Full Patient plan of care was discussed with the resident, Dr. Arora, and attending physician, Dr. Luna. Beverley Gonsales, PGY-1 Attending Provider Attestation/Addendum Face to face evaluation was performed by me. I have personally seen and examined the patient. I discussed the assessment and plan with the entire medicine team. I reviewed available medical records, imaging studies, laboratory results. I agree with the above subjective data, objective findings, assessment and plan except as corrected by me or noted below Mild acute pancreatitis Biliary drain in place Acalculous cholecystitis history of this History of liver cirrhosis Hyperlipidemia IV fluids , General surgery Dr. Millan on board plan for HIDA scan and possible removal of gallbladder along with biliary drain depending on results More than > 30 minutes spent on the encounter
--- NOTE | 2024-12-31 11:52 | XR_ITS ---
Examination: HIDA, hepatobiliary radioisotope scan Date and time of exam: January 01, 2025 0940 hours, comparison November 2024 INDICATIONS: Elevated lipase, abdominal pain nausea this week elevated liver function tests including total bilirubin, status post percutaneous cholecystostomy October 25, 2024 Technique: 5.8 mCi of 99M Hepatolite administered. Serial imaging then obtained from immediate through 60 minutes. Findings: Radioisotope activity within the liver is reasonably homogenous. Gallbladder, common bile duct small bowel activity noted Impression: Gallbladder activity is noted as well as common bile duct and small bowel activity
--- NOTE | 2024-12-31 14:49 | ESPR_ITS ---
Documentation for date of: 12/31/24 Subjective Subjective Brief History: 74M with HTN, hypothyroidism, and afib on eliquis who presented initially 10/24/24 with acalculous cholecystitis s/p percutaneous cholecystostomy 10/25/24 which was dislodged and required replacement 11/08, who presented to ER yesterday with abdominal pain and nausea. Pt reports pain occurred after he ate a peach and lasted only for a few minutes, with two consecutive episodes. Also associated with nausea and pt did feel that it was similar to previous recent episodes of pain. His drain has had minimal output, I have been seeing him regularly in clinic for flushing and as of today the drain output appears bilious in nature. In ER workup is consistent with pancreatitis and CT shows the drain remains in place inside the gallbladder As of today pt reports his pain is improved, he has no nausea and is tolerating a regular diet Narrative: Pt reports still feeling well with no pain since before he presented to ER, no nausea, he is tolerating diet and remains afebrile, WBC stable at 11, drain has not had any output since admission Exam Vital Signs Temp Pulse Resp BP Pulse Ox O2 Del Method FiO2 97.5 F 76 16 120/79 97 Room Air 30 12/31/24 12:00 12/31/24 12:12/31/24 12:12/31/24 12:12/31/24 12:12/31/24 12:12/30/24 21:15 Constitutional Constitutional: no acute distress Routine Respiratory Exam Respiratory: Present no resp distress Routine Abdominal Exam Abdominal: Present soft, normoactive bowel sounds and drain (RUQ drain with bilious output in drain, nothing in accordion); Absent tenderness or distended Results Results: Laboratory Laboratory results: results reviewed Results: Imaging CT scan - abdomen: report reviewed and image reviewed Assessment & Plan Plan 74M with HTN, hypothyroidism, and afib on eliquis who presented initially 10/24/24 with acalculous cholecystitis s/p percutaneous cholecystostomy 10/25/24, which became dislodged and required replacement 11/08/24. Drain has remained in place because HIDA done in November showed that the cystic duct was still obstructed; he has remained overall clinically well except for what he describes as two 10- minute episodes of umbilical pain on 12/29, with ER workup indicating pancreatitis. The etiology of his pancreatitis is unclear but if his HIDA is positive I will offer cholecystectomy; if it is negative I will remove the percutaneous drain and will continue close outpt follow up NPO after MN for HIDA tomorrow
[2024-12-31 16:14] LABS: Free T4 (Free Thyroxine) 1.25 ng/dL (0.89-1.76)
--- NOTE | 2024-12-31 16:15 | PC.SS ---
Rounding: Pending HIDA scan, Dr. Titus following, DC plan home
--- NOTE | 2024-12-31 20:15 | PD.IMPROG ---
Documentation for date of: 12/31/24 Subjective Subjective Interval history: Clinically improving Scheduled for HIDA scan tomorrow by the surgical scrub tech Exam Vital Signs Temp Pulse Resp BP Pulse Ox O2 Del Method FiO2 97.6 F 71 18 124/82 97 Room Air 30 12/31/24 16:00 12/31/24 16:00 12/31/24 16:00 12/31/24 16:00 12/31/24 16:00 12/31/24 16:00 12/30/24 21:15 Objective Labs 12/31/24 04:31 12/31/24 04:31 Labs: Laboratory Results - last 24 hr 12/31/24 12/31/24 04:31 15:04 WBC 11.1 H RBC 4.13 L Hgb 11.8 L Hct 35.7 L MCV 86 MCH 28.6 MCHC 33.1 RDW Std Deviation 46.8 H Plt Count 227 Neut % (Auto) 78 Lymph % (Auto) 14 [place] % (Auto) 7 Eos % (Auto) 1 Baso % (Auto) 0 Neut # (Auto) 8.6 H Lymph # (Auto) 1.5 [place] # (Auto) 0.8 Eos # (Auto) 0.1 Baso # (Auto) 0.0 Immature Gran # (Auto) 0.03 H Absolute Nucleated RBC 0.00 Immature Gran % 0 Nucleated RBC % 0 PT 11.8 INR 1.1 APTT 30.5 Sodium 140 Potassium 4.0 Chloride 103 Carbon Dioxide 24.8 Anion Gap 12 BUN 11 Creatinine 1.0 Estim Creat Clear Calc 66.5 eGFR > 60 BUN/Creatinine Ratio 11 L Glucose 96 Calculated Osmolality 278 Calcium 9.1 Corrected Calcium 9.1 Total Bilirubin 2.2 H AST 31 ALT 31 Alkaline Phosphatase 104 Total Protein 6.5 Albumin 4.0 Globulin 2.5 Albumin/Globulin Ratio 1.6 TSH 0.26 L Free T4 1.25 Impressions Impression: Biliary pancreatitis Improving HIDA scan a.m. Assessment & Plan A&P Narrative Biliary pancreatitis resolving reoccurring abdominal pain with significantly elevated lipase Although the cholecystostomy tube is in place Once the pancreatitis because of in spite of the comorbidities patient should have a cholecystectomy better locally here or at a tertiary center with a liver transplant surgeon As there is a considerable morbidity in this clinical setting Repeat amylase lipase in the morning Continue current management Other medical problems include Chronic A-fib on Eliquis essential hypertension Hypothyroidism Thank you very much for the opportunity to participate in the care of this patient Time Spent With Patient Time: Total time spent is greater than 50% in coordination of care (as documented) at patient's floor/unit and/or counseling patient:
[2024-12-31] MEDS: ATORVASTATIN CALCIUM 10 MG TABLET PO (20:35)
[2025-01-01] VITALS (10 sets, daily range): BP systolic 92–136; BP diastolic 55–91; PULSE 69–89; RESP 17–97; TEMP 36.2–37.1; O2SAT 94–98
[2025-01-01 05:44] LABS: Basophils # (Auto) 0.0 Thou/mm3 (0.0-0.2); Basophils % (Auto) 1 % (0-2.5); Eosinophils # (Auto) 0.2 Thou/mm3 (0.0-0.5); Eosinophils % (Auto) 3 % (0-10); Hematocrit 36.2 % (41.0-53.0); Hemoglobin 12.1 g/dL (13.5-16.0); Immature Granulocytes Auto 0.01 Thou/mm3 (0.00-0.00); Lymphocytes # (Auto) 1.8 Thou/mm3 (1.0-4.8); Lymphocytes % (Auto) 28 % (10-50); Mean Corpuscular HGB Conc 33.4 g/dl (31.0-37.0); Mean Corpuscular Hemoglobin 28.5 pg (25.0-35.0); Mean Corpuscular Volume 85 fL (80-100); Monocytes # (Auto) 0.6 Thou/mm3 (0.0-0.8); Monocytes % (Auto) 10 % (0-12); Neutrophils # (Auto) 3.9 Thou/mm3 (1.8-7.7); Neutrophils % (Auto) 59 % (37-80); Nucleated Red Blood Cell # 0.00 Thou/mm3 (0.00-0.00); Nucleated Red Blood Cell % 0 /100 WBC (0); Platelet Count 228 Thou/mm3 (140-440); RDW Standard Deviation 45.1 fL (35.1-43.9); Red Blood Count 4.24 Miln/mm3 (4.50-5.90); White Blood Count 6.5 Thou/mm3 (3.8-10.6)
[2025-01-01 06:11] LABS: Alanine Aminotransferase 22 U/L (10-49); Albumin, Serum 3.9 gm/dL (3.4-4.8); Albumin/Globulin Ratio 1.6 (1.2-2.2); Alkaline Phosphatase 92 U/L (46-116); Anion Gap 10 (7-16); Aspartate Amino Transferase 21 U/L (0-34); BUN/Creatinine Ratio 12 Ratio (12-20); Bilirubin,Total 1.8 mg/dL (0.3-1.2); Blood Urea Nitrogen 11 mg/dL (9-23); Calcium 9.2 mg/dL (8.3-10.6); Calcium (Corrected) 9.3 mg/dL (8.5-10.1); Carbon Dioxide 26.9 mMol/L (20.0-31.0); Chloride 103 mMol/L (98-107); Creatinine (Component) 0.9 mg/dL (0.6-1.3); Estimated Creatinine Clearance 73.9 mL/min (>60); Globulin 2.4 gm/dL (2.3-3.5); Glucose 97 mg/dL (74-106); Lipase 84 U/L (12-53); Osmolality,Calculated 278 (275-295); Potassium 3.9 mMol/L (3.4-5.1); Sodium 140 mMol/L (136-145); Total Protein 6.3 gm/dL (5.7-8.2); eGFR > 60 See Note
--- NOTE | 2025-01-01 07:35 | PD.RESPRO ---
Documentation for date of: 01/01/25 Exam Vital Signs Temp Pulse Resp BP Pulse Ox O2 Del Method FiO2 97.9 F 72 17 128/77 97 Room Air 30 01/01/25 04:00 01/01/25 07:04 01/01/25 07:04 01/01/25 04:00 01/01/25 07:04 01/01/25 04:00 12/30/24 21:15 Objective Labs 01/01/25 04:46 01/01/25 04:46 Labs: Laboratory Results - last 24 hr 12/31/24 12/31/24 01/01/25 04:31 15:04 04:46 WBC 6.5 D RBC 4.24 L Hgb 12.1 L Hct 36.2 L MCV 85 MCH 28.5 MCHC 33.4 RDW Std Deviation 45.1 H Plt Count 228 Neut % (Auto) 59 Lymph % (Auto) 28 [place] % (Auto) 10 Eos % (Auto) 3 Baso % (Auto) 1 Neut # (Auto) 3.9 Lymph # (Auto) 1.8 [place] # (Auto) 0.6 Eos # (Auto) 0.2 Baso # (Auto) 0.0 Immature Gran # (Auto) 0.01 H Absolute Nucleated RBC 0.00 Immature Gran % 0 Nucleated RBC % 0 Sodium 140 140 Potassium 4.0 3.9 Chloride 103 103 Carbon Dioxide 24.8 26.9 Anion Gap 12 10 BUN 11 11 Creatinine 1.0 0.9 Estim Creat Clear Calc 66.5 73.9 eGFR > 60 > 60 BUN/Creatinine Ratio 11 L 12 Glucose 96 97 Calculated Osmolality 278 278 Calcium 9.1 9.2 Corrected Calcium 9.1 9.3 Total Bilirubin 2.2 H 1.8 H AST 31 21 ALT 31 22 Alkaline Phosphatase 104 92 Total Protein 6.5 6.3 Albumin 4.0 3.9 Globulin 2.5 2.4 Albumin/Globulin Ratio 1.6 1.6 Lipase 84 H D TSH 0.26 L Free T4 1.25 Quality Measures Quality Measures VTE prophylaxis Assessment & Plan Assessment Current Active Medications: Generic Name Dose Route Start Last Admin Trade Name Freq PRN Reason Stop Dose Admin Apixaban 5 mg 12/30/24 09:00 Apixaban 2.5 Mg Tablet PO 01/29/25 08:59 On Hold: 12/30/24 09:00 BID CLAIRE Atorvastatin Calcium 10 mg 12/31/24 21:00 12/31/24 20:35 Atorvastatin Calcium 10 Mg Tablet PO 01/30/25 20:59 10 mg HS CLAIRE Administration Enoxaparin Sodium 40 mg 12/30/24 09:00 12/31/24 08:08 Enoxaparin Sod Inj 40 Mg/0.4 Ml Syringe SC 01/13/25 08:59 40 mg QDAY CLAIRE Administration Hydralazine HCl 10 mg 12/30/24 05:36 Hydralazine Inj 20 Mg/Ml Vial IVP 01/29/25 05:35 Q6HR PRN SBP> 180 Levothyroxine Sodium 75 mcg 12/31/24 06:00 01/01/25 05:02 Levothyroxine Sodium 25 Mcg Tablet PO 01/29/25 05:59 Not Given ACBR CLAIRE Metoprolol Succinate 50 mg 12/30/24 09:00 12/31/24 08:08 Metoprolol Succinate Xl 25 Mg Tabcr PO 01/29/25 08:59 50 mg QDAY CLAIRE Administration Ondansetron HCl 4 mg 12/30/24 03:30 Ondansetron Inj 2 Mg/Ml Inj 2 Ml IVP 01/29/25 03:29 Q6H PRN NAUSEA OR VOMITING Protocol Sennosides 1 tab 12/31/24 13:15 12/31/24 13:39 Senna Tablet PO 01/30/25 13:14 1 tab QDAY CLAIRE Administration Protocol
--- NOTE | 2025-01-01 08:20 | PD.RESDS ---
Planned Discharge Date 01/01/25 DS: Providers Provider Date of admission: 12/30/24 04:10 Primary care physician: Beth Lanier PA-C Admitting Provider: Mateo Howard MD Attending Provider on Admission: Mateo Howard MD Consults: 12/29/24 23:47 Consult to General Surgery Stat Comment: Biliary drain issues Consulting Provider: Priya Titus 12/30/24 03:34 Consult to Gastroenterology Routine Comment: Consulting Provider: Gianfranco Mondragon Attending Provider on DC: RESIDENT Herson Discharging Provider: RESIDENT Herson Hospital Course Hospital Course Hospital course: Clinically improving Scheduled for HIDA scan tomorrow by the leave specialist Time Spent with Patient Time attestation: Total time spent providing and/or coordinating discharge services: Exam Vital Signs Temp Pulse Resp BP Pulse Ox O2 Del Method FiO2 97.9 F 78 17 125/81 97 Room Air 30 01/01/25 04:00 01/01/25 08:01 01/01/25 07:04 01/01/25 08:01 01/01/25 07:04 01/01/25 04:00 12/30/24 21:15 Discharge Plan Prescriptions/Referrals Prescriptions/Med Rec: No Action Eliquis 5 mg tablet 5 mg PO BID levothyroxine 75 mcg capsule 75 mcg PO QDAY atorvastatin 10 mg tablet 10 mg PO QDAY Patient Comments: TAKE 1 TABLET BY MOUTH ONCE DAILY doxycycline hyclate 100 mg tablet 100 mg PO DAILY Patient Comments: TAKE 1 TABLET BY MOUTH TWICE DAILY FOR 2 WEEKS melatonin 10 mg Capsule 10 mg PO HS PRN (Reason: Sleep) sucralfate 1 gram tablet 1 g PO QID PRN (Reason: GI distress) Referrals: Beth Lanier PA-C [Primary Care Provider] Patient/Caregiver Discharge Instructions Print Language: Czech
--- NOTE | 2025-01-01 09:35 | PC.SS ---
Update: Plan is for patient to obtain Hida scan. Dr. Titus is consulting.
--- NOTE | 2025-01-01 11:32 | ESPR_ITS ---
Documentation for date of: 01/01/25 Subjective Subjective Interval history: No acute events overnight. No new complaints. Continues to report malodorous output from cholecystostomy drain. Denies any abdominal pain. Patient n.p.o. since midnight. HIDA scan this a.m. HIDA scan was negative, drain removed by Dr. Bradley. Will watch him overnight and discharge home tomorrow morning. Patient will follow up outpatient with Dr. Titus. Exam Vital Signs Temp Pulse Resp BP Pulse Ox O2 Del Method FiO2 98.6 F 78 18 125/81 95 Room Air 30 01/01/25 08:00 01/01/25 08:01 01/01/25 08:00 01/01/25 08:01 01/01/25 08:00 01/01/25 08:00 12/30/24 21:15 Narrative Exam Physical Exam General: Awake and in no acute distress. Conversational and non-toxic appearing. HEENT: Normocephalic, atraumatic, mucous membranes moist. Heart: Regular rate and rhythm, normal S1 and S2, no murmurs. Lungs: Clear to auscultation with no wheezing or crackles. Abdomen: Soft, nondistended, nontender, positive bowel sounds. No guarding or rebound tenderness. Biliary drain in place on RUQ, draining light bilious fluid. Site clean, dry, and intact. Neurologic: Alert and oriented x3, no gross neurological deficit, and patient able to move all 4 extremities. Extremities: No edema. Skin: No rash or ecchymoses. Objective Labs 01/01/25 04:46 01/01/25 04:46 Labs: Laboratory Results - last 24 hr 12/31/24 01/01/25 15:04 04:46 WBC 6.5 D RBC 4.24 L Hgb 12.1 L Hct 36.2 L MCV 85 MCH 28.5 MCHC 33.4 RDW Std Deviation 45.1 H Plt Count 228 Neut % (Auto) 59 Lymph % (Auto) 28 [place] % (Auto) 10 Eos % (Auto) 3 Baso % (Auto) 1 Neut # (Auto) 3.9 Lymph # (Auto) 1.8 [place] # (Auto) 0.6 Eos # (Auto) 0.2 Baso # (Auto) 0.0 Immature Gran # (Auto) 0.01 H Absolute Nucleated RBC 0.00 Immature Gran % 0 Nucleated RBC % 0 Sodium 140 Potassium 3.9 Chloride 103 Carbon Dioxide 26.9 Anion Gap 10 BUN 11 Creatinine 0.9 Estim Creat Clear Calc 73.9 eGFR > 60 BUN/Creatinine Ratio 12 Glucose 97 Calculated Osmolality 278 Calcium 9.2 Corrected Calcium 9.3 Total Bilirubin 1.8 H AST 21 ALT 22 Alkaline Phosphatase 92 Total Protein 6.3 Albumin 3.9 Globulin 2.4 Albumin/Globulin Ratio 1.6 Lipase 84 H D Free T4 1.25 Quality Measures Quality Measures VTE prophylaxis Advance care planning discussed with:: patient Assessment & Plan Assessment Current Active Medications: Generic Name Dose Route Start Last Admin Trade Name Freq PRN Reason Stop Dose Admin Apixaban 5 mg 12/30/24 09:00 Apixaban 2.5 Mg Tablet PO 01/29/25 08:59 On Hold: 12/30/24 09:00 BID CLAIRE Atorvastatin Calcium 10 mg 12/31/24 21:00 12/31/24 20:35 Atorvastatin Calcium 10 Mg Tablet PO 01/30/25 20:59 10 mg HS CLAIRE Administration Enoxaparin Sodium 40 mg 12/30/24 09:00 01/01/25 08:01 Enoxaparin Sod Inj 40 Mg/0.4 Ml Syringe SC 01/13/25 08:59 Not Given QDAY CLAIRE Hydralazine HCl 10 mg 12/30/24 05:36 Hydralazine Inj 20 Mg/Ml Vial IVP 01/29/25 05:35 Q6HR PRN SBP> 180 Levothyroxine Sodium 75 mcg 12/31/24 06:00 01/01/25 05:02 Levothyroxine Sodium 25 Mcg Tablet PO 01/29/25 05:59 Not Given ACBR CLAIRE Metoprolol Succinate 50 mg 12/30/24 09:00 01/01/25 08:01 Metoprolol Succinate Xl 25 Mg Tabcr PO 01/29/25 08:59 Not Given QDAY [facility] Ondansetron HCl 4 mg 12/30/24 03:30 Ondansetron Inj 2 Mg/Ml Inj 2 Ml IVP 01/29/25 03:29 Q6H PRN NAUSEA OR VOMITING Protocol Sennosides 1 tab 12/31/24 13:15 01/01/25 08:01 Senna Tablet PO 01/30/25 13:14 Not Given QDAY [facility] Protocol Plan Patient is a 74-year-old male patient with a PMHx of atrial fibrillation on Eliquis, liver cirrhosis, hypothyroidism, obstructive sleep apnea on BiPAP, hypertension, hyperlipidemia, prediabetes, and acute acalculous cholecystitis s/p biliary drain placement by Dr. Bradley on 10/24 presented to ED with complaints of abdominal discomfort, 1 episode of nausea and vomiting for 1 day, admitted for pancreatitis and biliary drain complications. #History acalculous cholecystitis 10/24 #Status post percutaneous cholecystectomy 10/25, replaced 11/08 Presented with abdominal pain, nausea and vomiting. CT A/P on 12/30 shows drainage tube is in identical position as before. Per surgery, drain remains in place because HIDA in November 2024 shows cystic duct continued to be obstructed. Follows with surgeon Dr. Bradley outpatient. HIDA 01/01 shows gallbladder activity as well as in common bile duct and small bowel. Drain removed by Dr. Titus today. Plan: - Surgeon Dr. Titus consulted, appreciate recommendations - Will follow up outpatient with Dr. Titus #Pancreatitis, improving Lipase elevated at 2575 on admission, presented with mild epigastric pain. Slowly downtrending. Has been able to tolerate regular diet. Repeat lipase 84 on 01/01. Likely resolved secondary to above. - Management as above - Resume normal diet #HLD Takes atorvastatin 10 mg at home daily. Lipid panel 12/29 shows trig 100, cholesterol 125, LDL 62, HDL 43. Plan: ? Continue home dose atorvastatin at bedtime #Hx A-fib on Eliquis #Hypothyroidism #Hypertension #Prediabetes Chronic medical problems. Last A1c 11/28/2024 was 6.2. TSH low at 0.26 on 12/31, likely over medicated. ?Continue home dose levothyroxine 75 mcg daily, consider decreasing on discharge ?Continue home dose apixaban 5 mg twice daily ?Metoprolol XL 50 mg daily ?CTM glucose, no SSI at this time Health Maintenance Disposition: MedSurg for biliary drain complications DVT prophylaxis: Lovenox GI prophylaxis: Senna Diet: Cardiac CODE STATUS: Full Patient plan of care was discussed with the attending physician, Dr. Luna. Beverley Gonsales, PGY-1
--- NOTE | 2025-01-01 13:39 | PD.ADDPROG ---
Addendum Progress Note Addendum Date of report being addended: 01/01/25 Narrative: Face to face evaluation was performed by me. I have personally seen and examined the patient. I discussed the assessment and plan with the entire medicine team. I reviewed available medical records, imaging studies, laboratory results. I agree with the above subjective data, objective findings, assessment and plan except as corrected by me or noted below Mild acute pancreatitis Biliary drain in place Acalculous cholecystitis history of this History of liver cirrhosis Hyperlipidemia IV fluids , Pending HIDA scan and final surgery recommendations?likely remove biliary drain along with gallbladder if HIDA scan negative no pain tolerating p.o. diet discharge planning More than > 30 minutes spent on the encounter
--- NOTE | 2025-01-01 14:57 | PC.NURSE ---
at bedside removed the drain and pt tolerated well
--- NOTE | 2025-01-01 15:32 | ESPR_ITS ---
Documentation for date of: 01/01/25 Subjective Subjective Brief History: 74M with HTN, hypothyroidism, and afib on eliquis who presented initially 10/24/24 with acalculous cholecystitis s/p percutaneous cholecystostomy 10/25/24 which was dislodged and required replacement 11/08, who presented to ER yesterday with abdominal pain and nausea. Pt reports pain occurred after he ate a peach and lasted only for a few minutes, with two consecutive episodes. Also associated with nausea and pt did feel that it was similar to previous recent episodes of pain. His drain has had minimal output, I have been seeing him regularly in clinic for flushing and as of today the drain output appears bilious in nature. In ER workup is consistent with pancreatitis and CT shows the drain remains in place inside the gallbladder As of today pt reports his pain is improved, he has no nausea and is tolerating a regular diet Narrative: Pt continues to feel well today with no pain or nausea, HIDA negative for cystic duct obstruction Exam Vital Signs Temp Pulse Resp BP Pulse Ox O2 Del Method FiO2 98.7 F 82 18 129/79 98 Room Air 30 01/01/25 12:00 01/01/25 12:01/01/25 12:01/01/25 12:01/01/25 12:01/01/25 12:12/30/24 21:15 Constitutional Constitutional: no acute distress Routine Respiratory Exam Respiratory: Present no resp distress Routine Abdominal Exam Abdominal: Present soft and drain (percutaneous drain removed intact); Absent tenderness or distended Results Results: Laboratory Laboratory results: results reviewed Results: Imaging Imaging narrative: KEYLA reviewed Assessment & Plan Plan 74M with HTN, hypothyroidism, and afib on eliquis who presented initially 10/24/24 with acalculous cholecystitis s/p percutaneous cholecystostomy 10/25/24, which became dislodged and required replacement 11/08/24. Drain has remained in place because HIDA done in November showed that the cystic duct was still obstructed; he has remained overall clinically well except for what he describes as two 10- minute episodes of umbilical pain on 12/29, with ER workup indicating pancreatitis. The etiology of his pancreatitis is unclear but I explained that if he has a recurrence of that or of cholecystitis we can discuss cholecystectomy Drain removed today Will follow up as outpt on 01/22
--- NOTE | 2025-01-01 17:27 | PD.RESDS ---
Planned Discharge Date 01/02/25 DS: Providers Provider Date of admission: 12/30/24 04:10 Primary care physician: Beth Lanier PA-C Admitting Provider: Mateo Howard MD Attending Provider on Admission: Quan Luna MD Consults: 12/29/24 23:47 Consult to General Surgery Stat Comment: Biliary drain issues Consulting Provider: Priya Titus 12/30/24 03:34 Consult to Gastroenterology Routine Comment: Consulting Provider: Gianfranco Mondragon Attending Provider on DC: Eric Brown MD Discharging Provider: RESIDENT Herson Hospital Course Hospital Course Hospital course: Summary: Patient is a 74-year-old male patient with a PMHx of atrial fibrillation on Eliquis, liver cirrhosis, hypothyroidism, obstructive sleep apnea on BiPAP, hypertension, hyperlipidemia, prediabetes, and acute acalculous cholecystitis s/p biliary drain placement by Dr. Bradley on 10/24 presented on 12/30/24 for abdominal discomfort, 1 episode of nausea and vomiting for 1 day, admitted for pancreatitis and biliary drain complications. ED Course: Vitals: BP 150/85, pulse 83, RR 18, temp 8098.5, 96% on room air Labs: WBC 12.5, Hgb 12, T.bili 1.5, AST 128, ALT 61, and lipase of 2500. Imaging: CT abdomen pelvis showed no abnormalities with biliary drain in place along with minimal fluid collection in the bladder. Given in the ED: Lovenox 40 mg x1, Zofran x1, LR 1L bolus Reason for hospitalization: Patient is a 74-year-old male patient with a PMHx of atrial fibrillation on Eliquis, liver cirrhosis, hypothyroidism, obstructive sleep apnea on BiPAP, hypertension, hyperlipidemia, prediabetes, and acute acalculous cholecystitis s/p biliary drain placement (completed by Dr. Bradley on 10/25, replaced on 11/08 due to dislodgement) presented on 12/29/24 for abdominal discomfort, 1 episode of nausea and vomiting for 1 day, admitted for pancreatitis and biliary drain complications.? Consulted surgeon Dr. Bradley, who recently with patient. CT abdomen pelvis showed no abnormalities with biliary drain in place along with minimal fluid collection in the bladder. Upon admission, patient was already able to tolerate regular diet. Pancreatitis improved throughout hospital course with minimal pain management. HIDA scan was completed on 01/01, was negative.? Drain was removed by Dr. Bradley without complications. No antibiotics were required as he remained afebrile and WBC resolved with pain control. He will follow up outpatient with surgeon Dr. Bradley on 12/22. Discharge Recommendations: -Follow up with PCP within 1 week of discharge -Continue rest of medications as previously prescribed -Return to the ED or call EMS if symptoms return and/or worsen. Hospital Diagnoses: #History acalculous cholecystitis 10/24 #Status post percutaneous cholecystectomy 10/25, replaced 11/08 #Pancreatitis, improving #HLD #Hx A-fib on Eliquis #Hypothyroidism #Hypertension #Prediabetes Disposition: Safe discharge to home per surgeon Dr. Titus. Patient plan of care was discussed with the attending physician, Dr. Arora. Beverley Gonsales, PGY-1 Time Spent with Patient Time attestation: Total time spent providing and/or coordinating discharge services: at least 30 minutes of care coordination Exam Vital Signs Temp Pulse Resp BP Pulse Ox O2 Del Method FiO2 97.8 F 86 18 136/91 H 94 L Room Air 30 01/01/25 16:01/01/25 16:01/01/25 16:01/01/25 16:01/01/25 16:01/01/25 16:12/30/24 21:15 Narrative Exam Physical Exam General: Awake and in no acute distress. Conversational and non-toxic appearing. HEENT: Normocephalic, atraumatic, mucous membranes moist. Heart: Regular rate and rhythm, normal S1 and S2, no murmurs. Lungs: Clear to auscultation with no wheezing or crackles. Abdomen: Soft, nondistended, nontender, positive bowel sounds. No guarding or rebound tenderness. Drain removed, site clean, dry, and intact. Neurologic: Alert and oriented x3, no gross neurological deficit, and patient able to move all 4 extremities. Extremities: No edema. Skin: No rash or ecchymoses. Discharge Plan Prescriptions/Referrals Prescriptions/Med Rec: No Action Eliquis 5 mg tablet 5 mg PO BID levothyroxine 75 mcg capsule 75 mcg PO QDAY atorvastatin 10 mg tablet 10 mg PO QDAY Patient Comments: TAKE 1 TABLET BY MOUTH ONCE DAILY doxycycline hyclate 100 mg tablet 100 mg PO DAILY Patient Comments: TAKE 1 TABLET BY MOUTH TWICE DAILY FOR 2 WEEKS melatonin 10 mg Capsule 10 mg PO HS PRN (Reason: Sleep) sucralfate 1 gram tablet 1 g PO QID PRN (Reason: GI distress) Referrals: Beth Lanier PA-C [Primary Care Provider] Patient/Caregiver Discharge Instructions Print Language: Mosotho
[2025-01-01] MEDS: APIXABAN 2.5 MG TABLET 5 MG PO (20:14)
[2025-01-01] MEDS: ATORVASTATIN CALCIUM 10 MG TABLET PO (20:14)
--- NOTE | 2025-01-01 21:37 | ESPR_ITS ---
Documentation for date of: 01/01/25 Subjective Subjective Interval history: HIDA scan shows functioning gallbladder with spillage of material into the small bowel and the gallbladder No more obstruction The cholecystostomy tube has been pulled out Exam Vital Signs Temp Pulse Resp BP Pulse Ox O2 Del Method FiO2 97.2 F 84 18 96/55 L 95 Room Air 30 01/01/25 20:00 01/01/25 20:21 01/01/25 20:21 01/01/25 20:00 01/01/25 20:21 01/01/25 20:00 12/30/24 21:15 Objective Labs 01/01/25 04:46 01/01/25 04:46 Labs: Laboratory Results - last 24 hr 01/01/25 04:46 WBC 6.5 D RBC 4.24 L Hgb 12.1 L Hct 36.2 L MCV 85 MCH 28.5 MCHC 33.4 RDW Std Deviation 45.1 H Plt Count 228 Neut % (Auto) 59 Lymph % (Auto) 28 [place] % (Auto) 10 Eos % (Auto) 3 Baso % (Auto) 1 Neut # (Auto) 3.9 Lymph # (Auto) 1.8 [place] # (Auto) 0.6 Eos # (Auto) 0.2 Baso # (Auto) 0.0 Immature Gran # (Auto) 0.01 H Absolute Nucleated RBC 0.00 Immature Gran % 0 Nucleated RBC % 0 Sodium 140 Potassium 3.9 Chloride 103 Carbon Dioxide 26.9 Anion Gap 10 BUN 11 Creatinine 0.9 Estim Creat Clear Calc 73.9 eGFR > 60 BUN/Creatinine Ratio 12 Glucose 97 Calculated Osmolality 278 Calcium 9.2 Corrected Calcium 9.3 Total Bilirubin 1.8 H AST 21 ALT 22 Alkaline Phosphatase 92 Total Protein 6.3 Albumin 3.9 Globulin 2.4 Albumin/Globulin Ratio 1.6 Lipase 84 H D Impressions Impression: Most likely biliary pancreatitis Well functioning gallbladder Plan It is a difficult call but I do believe patient already had biliary pancreatitis She will have an elective cholecystectomy Assessment & Plan A&P Narrative Biliary pancreatitis resolving reoccurring abdominal pain with significantly elevated lipase Although the cholecystostomy tube is in place Once the pancreatitis because of in spite of the comorbidities patient should have a cholecystectomy better locally here or at a tertiary center with a liver transplant surgeon As there is a considerable morbidity in this clinical setting Repeat amylase lipase in the morning Continue current management Other medical problems include Chronic A-fib on Eliquis essential hypertension Hypothyroidism Thank you very much for the opportunity to participate in the care of this patient Time Spent With Patient Time: Total time spent is greater than 50% in coordination of care (as documented) at patient's floor/unit and/or counseling patient:
[2025-01-02] VITALS (7 sets, daily range): BP systolic 105–142; BP diastolic 63–95; PULSE 80–88; RESP 17–97; TEMP 36.1–36.5; O2SAT 96–98
[2025-01-02] MEDS: LEVOTHYROXINE SODIUM 25 MCG TABLET 75 MCG PO (06:26)
[2025-01-02] MEDS: APIXABAN 2.5 MG TABLET 5 MG PO (09:22)
[2025-01-02] MEDS: METOPROLOL SUCCINATE XL 25 MG TABCR 50 MG PO (09:23)
--- NOTE | 2025-01-02 09:28 | PC.NURSE ---
Dr. Gonsales rounded and did her assessment with patient and stated she would put in d/c orders for patient to go home today.
[2025-01-02 10:14] LABS: Alanine Aminotransferase 19 U/L (10-49); Albumin, Serum 3.8 gm/dL (3.4-4.8); Alkaline Phosphatase 85 U/L (46-116); Aspartate Amino Transferase 20 U/L (0-34); Bilirubin,Direct 0.4 mg/dL (0.0-0.3); Bilirubin,Total 1.5 mg/dL (0.3-1.2); Total Protein 6.2 gm/dL (5.7-8.2)
--- NOTE | 2025-01-02 13:53 | PD.RESDS ---
Planned Discharge Date 01/02/25 DS: Providers Provider Date of admission: 12/30/24 04:10 Primary care physician: Beth Lanier PA-C Admitting Provider: Mateo Howard MD Attending Provider on Admission: Quan Luna MD Consults: 12/29/24 23:47 Consult to General Surgery Stat Comment: Biliary drain issues Consulting Provider: Priya Titus 12/30/24 03:34 Consult to Gastroenterology Routine Comment: Consulting Provider: Gianfranco Mondragon Attending Provider on DC: Eric Brown MD Discharging Provider: RESIDENT Herson DS: Diagnosis Problem List Completed Was Problem List Reviewed/Reconciled?: Yes Hospital Course Hospital Course Hospital course: Summary: Patient is a 74-year-old male patient with a PMHx of atrial fibrillation on Eliquis, liver cirrhosis, hypothyroidism, obstructive sleep apnea on BiPAP, hypertension, hyperlipidemia, prediabetes, and acute acalculous cholecystitis s/p biliary drain placement by Dr. Bradley on 10/24 presented on 12/30/24 for abdominal discomfort, 1 episode of nausea and vomiting for 1 day, admitted for pancreatitis and biliary drain complications. ED Course: Vitals: BP 150/85, pulse 83, RR 18, temp 8098.5, 96% on room air Labs: WBC 12.5, Hgb 12, T.bili 1.5, AST 128, ALT 61, and lipase of 2500. Imaging: CT abdomen pelvis showed no abnormalities with biliary drain in place along with minimal fluid collection in the bladder. Given in the ED: Lovenox 40 mg x1, Zofran x1, LR 1L bolus Reason for hospitalization: Patient is a 74-year-old male patient with a PMHx of atrial fibrillation on Eliquis, liver cirrhosis, hypothyroidism, obstructive sleep apnea on BiPAP, hypertension, hyperlipidemia, prediabetes, and acute acalculous cholecystitis s/p biliary drain placement (completed by Dr. Bradley on 10/25, replaced on 11/08 due to dislodgement) presented on 12/29/24 for abdominal discomfort, 1 episode of nausea and vomiting for 1 day, admitted for pancreatitis and biliary drain complications.? Consulted surgeon Dr. Bradley, who recently with patient. CT abdomen pelvis showed no abnormalities with biliary drain in place along with minimal fluid collection in the bladder. Upon admission, patient was already able to tolerate regular diet. Pancreatitis improved throughout hospital course with minimal pain management. HIDA scan was completed on 01/01, was negative.? Drain was removed by Dr. Bradley without complications. No antibiotics were required as he remained afebrile and WBC resolved with pain control. Stayed an additional night for observation after procedure. TSH was slightly low, likely indicating over treatment with levothyroxine. Recommend following up with PCP regarding adjustment of thyroid medication. No episodes of afib during admission, resumed home Eliquis throughout stay. Patient is medically stable upon discharge. He will follow up outpatient with surgeon Dr. Bradley on 12/22. Discharge Recommendations: Please take metoprolol succinate 50mg by mouth once a day for afib Continue taking all other homedications as prescribed Follow-up with Dr. Titus ([facility]) for your appointment on 12/22 [facility] [address] [place] [id number] Follow-up with your PCP within 1 week of discharge, if you don't have a provider you can schedule an appointment at the [address] [place] [address] Ask your PCP to monitor your thyroid levels; you may need adjustment in your levothyroxine dose If your symptoms worsen or if you develop new chest pain, shortness of breath, severe abdominal pain or bleeding - please come back to the ED immediately. Hospital Diagnoses: #History acalculous cholecystitis 10/24 #Status post percutaneous cholecystectomy 10/25, replaced 11/08 #Pancreatitis, improving #HLD #Hx A-fib on Eliquis #Hypothyroidism #Hypertension #Prediabetes Disposition: Safe discharge to home per surgeon Dr. Titus. Patient plan of care was discussed with the attending physician, Dr. Brown. Beverley Gonsales, PGY-1 Time Spent with Patient Time attestation: Total time spent providing and/or coordinating discharge services: 39 min Time spent: Greater than 30 minutes Exam Vital Signs Temp Pulse Resp BP Pulse Ox O2 Del Method FiO2 97.5 F 87 17 128/87 H 97 Room Air 30 01/02/25 12:01/02/25 12:01/02/25 12:01/02/25 12:01/02/25 12:00 01/02/25 12:00 12/30/24 21:15 Narrative Exam Physical Exam General: Awake and in no acute distress. Conversational and non-toxic appearing. HEENT: Normocephalic, atraumatic, mucous membranes moist. Heart: Regular rate and rhythm, normal S1 and S2, no murmurs. Lungs: Clear to auscultation with no wheezing or crackles. Abdomen: Soft, nondistended, nontender, positive bowel sounds. No guarding or rebound tenderness. Drain removed, site clean, dry, and intact. No bleeding observed. Neurologic: Alert and oriented x3, no gross neurological deficit, and patient able to move all 4 extremities. Extremities: No edema. Skin: No rash or ecchymoses. Discharge Plan Plan Patient Disposition: HOME (Self Care) Patient condition on transfer: Stable Care Plan Goals: Please take metoprolol succinate 50mg by mouth once a day for afib Continue taking all other homedications as prescribed Follow-up with Dr. Titus ([facility]) for your appointment on 12/22 [facility] [address] [place] [id number] Follow-up with your PCP within 1 week of discharge, obtain LFT with your PCP if you don't have a provider you can schedule an appointment at the [address] [place] [address] Ask your PCP to monitor your thyroid levels; you may need adjustment in your levothyroxine dose If your symptoms worsen or if you develop new chest pain, shortness of breath, severe abdominal pain or bleeding - please come back to the ED immediately. Prescriptions/Referrals Prescriptions/Med Rec: New metoprolol succinate 50 mg tablet extended release 24 hr 50 mg PO QDAY 30 Days Qty: 30 1RF Continued Eliquis 5 mg tablet 5 mg PO BID levothyroxine 75 mcg capsule 75 mcg PO QDAY atorvastatin 10 mg tablet 10 mg PO QDAY Patient Comments: TAKE 1 TABLET BY MOUTH ONCE DAILY Discontinued doxycycline hyclate 100 mg tablet 100 mg PO DAILY Patient Comments: TAKE 1 TABLET BY MOUTH TWICE DAILY FOR 2 WEEKS melatonin 10 mg Capsule 10 mg PO HS PRN (Reason: Sleep) sucralfate 1 gram tablet 1 g PO QID PRN (Reason: GI distress) Referrals: Priya Titus MD [Physician, General Surgery] Beth Lanier PA-C [Primary Care Provider] Patient/Caregiver Discharge Instructions Education Materials: Low-Fat Cooking Tips, Cholecystectomy, Eating Heart-Healthy Foods, Understanding Atrial Fibrillation Print Language: Bruneian Stand Alone Forms: Rita Award Info., Patient Portal Info Letter Discharge Order Discharge Orders: Discharge (Routine); Ordered 01/02/25 Ordered By: Eric Brown Quality Discharge Quality Measures VTE prophylaxis MD Attestestation MD Attestation I attest that I was physically present for the evaluation, physical examination, lab and imaging review of the patient with the residents. I discussed the case with the residents and agree with the findings and plans of care as documented above. At bedside today, patient states she is feeling well and denies any new complaints. Denies abdominal pain, nausea, vomiting. Has been tolerating diet well, also having regular bowel movements. HIDA scan done yesterday was negative for cholecystitis. Cholecystostomy drain has been removed without complications with general surgery. Vital signs and lab results are stable. LFTs show improvement in bilirubin. Patient stable for discharge on his home medications. Recommended to follow-up with PCP, general surgery in 1 to 2 weeks of discharge. Recommended to have follow-up LFTs, thyroid function test on next visit with PCP. Eric Brown MD
== END 2025-01-02 16:55 | disposition home or self-care (01) | DRG 439 ==
LOC: SERX 20:55 → SERHOLD 12-30 04:14 → S3NX 12-30 04:33
PROVIDERS: Physician Assistant; Admitting Provider Student in an Organized Health Care Education/Training Program; Emergency Provider Emergency Medicine; PCP Physician Assistant; Visit Provider Internal Medicine
DX: K85.10 Biliary acute pancreatitis without necrosis or infection (principal); I48.20 Chronic atrial fibrillation, unspecified; K81.0 Acute cholecystitis; G47.33 Obstructive sleep apnea (adult) (pediatric); R73.03 Prediabetes; K74.60 Unspecified cirrhosis of liver; E78.5 Hyperlipidemia, unspecified; I10 Essential (primary) hypertension; E03.9 Hypothyroidism, unspecified; Z79.01 Long term (current) use of anticoagulants; Z63.4 Disappearance and death of family member; Z79.890 Hormone replacement therapy; Z79.899 Other long term (current) drug therapy
CPT/HCPCS: 36415; 74176; 78227; 80053; 80061; 80076; 83690; 83735; 84439; 84443; 84484; 85025; 85610; 85730; 94660; 96360; 99284; A9537; J1650; J7120; A9270

== ENCOUNTER → 2025-01-03 | Outpatient (CLI) | payer MEDICARE, SELFPAY ==
[2025-01-03 10:31] LABS: Basophils # (Auto) 0.0 Thou/mm3 (0.0-0.2); Basophils % (Auto) 1 % (0-2.5); Eosinophils # (Auto) 0.2 Thou/mm3 (0.0-0.5); Eosinophils % (Auto) 3 % (0-10); Hematocrit 39.6 % (41.0-53.0); Hemoglobin 13.1 g/dL (13.5-16.0); Immature Granulocytes Auto 0.01 Thou/mm3 (0.00-0.00); Lymphocytes # (Auto) 1.8 Thou/mm3 (1.0-4.8); Lymphocytes % (Auto) 27 % (10-50); Mean Corpuscular HGB Conc 33.1 g/dl (31.0-37.0); Mean Corpuscular Hemoglobin 28.5 pg (25.0-35.0); Mean Corpuscular Volume 86 fL (80-100); Monocytes # (Auto) 0.6 Thou/mm3 (0.0-0.8); Monocytes % (Auto) 8 % (0-12); Neutrophils # (Auto) 4.1 Thou/mm3 (1.8-7.7); Neutrophils % (Auto) 61 % (37-80); Nucleated Red Blood Cell # 0.00 Thou/mm3 (0.00-0.00); Nucleated Red Blood Cell % 0 /100 WBC (0); Platelet Count 282 Thou/mm3 (140-440); RDW Standard Deviation 45.5 fL (35.1-43.9); Red Blood Count 4.60 Miln/mm3 (4.50-5.90); White Blood Count 6.7 Thou/mm3 (3.8-10.6)
[2025-01-03 10:44] LABS: Ferritin 43 ng/mL (10.5-307.3); Iron 45 mcg/dL (65-175)
[2025-01-03 10:45] LABS: Alanine Aminotransferase 23 U/L (10-49); Albumin, Serum 4.2 gm/dL (3.4-4.8); Albumin/Globulin Ratio 1.8 (1.2-2.2); Alkaline Phosphatase 90 U/L (46-116); Anion Gap 9 (7-16); Aspartate Amino Transferase 24 U/L (0-34); BUN/Creatinine Ratio 13 Ratio (12-20); Bilirubin,Total 1.8 mg/dL (0.3-1.2); Blood Urea Nitrogen 14 mg/dL (9-23); Calcium 9.4 mg/dL (8.3-10.6); Calcium (Corrected) 9.4 mg/dL (8.5-10.1); Carbon Dioxide 29.3 mMol/L (20.0-31.0); Cardiac Risk Estimate 3.4 RATIO (4.0-6.7); Chloride 102 mMol/L (98-107); Cholesterol 150 mg/dL (132-200); Creatinine (Component) 1.1 mg/dL (0.6-1.3); Globulin 2.3 gm/dL (2.3-3.5); Glucose 98 mg/dL (74-106); HDL Cholesterol 44 mg/dL (40-60); LDL Cholesterol,Calculated 89 mg/dL (0-130); Osmolality,Calculated 279 (275-295); Potassium 4.5 mMol/L (3.4-5.1); Sodium 140 mMol/L (136-145); Thyroid Stimulating Hormone 0.89 uIU/mL (0.55-4.78); Total Protein 6.5 gm/dL (5.7-8.2); Triglycerides 87 mg/dL (30-150); eGFR > 60 See Note
[2025-01-03 11:00] LABS: Glucose Estimated Average 114 mg/dL (80-131); Hemoglobin A1C 5.6 % Hgb (4.8-6.0)
[2025-01-03 11:33] LABS: Path Review Blood Smear Sent to Pathologist
[2025-01-08 06:33] LABS: Fecal Globin Result NOT DETECTED (NOT DETECTED)
== END | disposition home or self-care (01) ==
PROVIDERS: PCP Physician Assistant; Referring Provider Physician Assistant; Visit Provider Physician Assistant
DX: R73.01 Impaired fasting glucose (principal); D64.9 Anemia, unspecified; E78.5 Hyperlipidemia, unspecified; E03.9 Hypothyroidism, unspecified
CPT/HCPCS: 36415; 80053; 80061; 82274; 82728; 83036; 83540; 84443; 85025; G0328

== ENCOUNTER 2025-01-22 13:21 | Outpatient (AMB) | payer MEDICARE, SELFPAY ==
[2025-01-22 13:41] VITALS: BP 120/87; PULSE 93; RESP 20; TEMP 36.2; O2SAT 95; BMI 30.9
--- NOTE | 2025-01-22 13:41 | GSCOFFNT_ITS ---
Vital Signs - [facility] 01/22/25 13:41 Height 1.65 m Height Method Measured Weight 84.085 kg Weight Measurement Method Standing Scale BMI 30.9 BP 120/87 H Blood Pressure Source Automatic Cuff Blood Pressure Location Left Upper Arm Position Sitting Respiration 20 Pulse 93 Pulse Source Monitor Temp 97.1 F Temp Source Temporal Artery Scan Pulse Oximetry (%) 95 Oxygen Delivery Method Room Air Med/Allergies Allergies & Medications Allergies No Known Allergies Allergy (Verified 01/22/25 13:42) Medication Reconciliation apixaban 5 mg tablet (Eliquis) 5 mg PO BID 08/31/19 [History Confirmed 01/22/25] levothyroxine 75 mcg capsule 75 mcg PO QDAY 08/31/19 [History Confirmed 01/22/25] atorvastatin 10 mg tablet 10 mg PO QDAY 06/20/21 [History Confirmed 01/22/25] metoprolol succinate 50 mg tablet,extended release 24 hr 50 mg PO QDAY 1 month #30 tabs 01/02/25 [Rx Confirmed 01/22/25] MA Intake Visit Data Collection New Patient or Established: Established Patient (seen at [facility] within 3 years) Seen by Clinical Staff ONLY (RN/MA): No Reason for Visit:: F/U Pain Present Currently: No Pain Scale Used: [employer]/Numerical Vendor Specialist Required: Yes PCP or OBGYN visit in last 3 months: Yes Hx Now: No Do You Feel Safe at Home: Yes Authorities Contacted: N/A Smoking Status Smoking Status: Never smoker Immunization / Flu Flu Vaccine in the Last 12 Months: Yes Flu Vaccine Exclusion Criteria: Already Received Past Medical History Past Medical History NEUROLOGIC: Negative Neurological Disorders or Seizures CARDIAC: Positive Cardiac Disorders, Cardiac Arrhythmia, Angina, Hypercholesterolemia and Hypertension; Negative Congestive Heart Failure RESPIRATORY: Positive Asthma; Negative Chronic Obstructive Pulmonary Disease (COPD) GASTROINTESTINAL: Positive Gastrointestinal Disorders, Hemorrhoids and Obesity; Negative Hepatitis, Ulcer or Gastroesophageal Reflux Disease GENITOURINARY: Positive Genitourinary Disorders and Benign Prostatic Hyperplasia; Negative Renal Disease or Kidney Stones ENT: Negative Cataracts ENDOCRINE: Positive Endocrine Disorders, Diabetes Mellitus Type 2 (DIET CONTROL) and Hypothyroidism; Negative Diabetes Mellitus Type 1 HEMATOLOGIC: Negative Blood Disorders, Anemia or Sickle Cell Disease PSYCHO/SOCIAL: Positive Depression and Anxiety OTHER HISTORY: Positive Hospitalization, Chicken Pox and Measles; Negative Autoimmune Disease, Shingles, Falls, Blood Transfusions, Blood Transfusion Reaction, Anesthesia Reactions, Organ Transplant, Mumps or Cancer Family History FAMILY HISTORY: Positive Family Cardiac Disorders; Negative Family Psychiatric Problems, Family Respiratory Disorders, Family Gastrointestinal Problems, Family Cancer, Family Surgery or Family Anesthesia Reaction Surgical History SURGICAL: Negative Pacemaker or Organ Transplant Social History SMOKING STATUS: Smoking status: Never smoker ALCOHOL: Alcohol Intake: Never HOUSING: Housing: House LIVES WITH: Lives With: Spouse HPI HPI Narrative HISTORY OF PRESENT ILLNESS I, Priya Titus, have obtained verbal consent from the patient, to be rec orded during this encounter which may include, but not limited to, medical history, examination, treatment plans, and relevant health information.? Patient was informed that recording will be read and reviewed by myself before inclusion in the medical chart. The patient is a 74M who presents for a follow-up of acalculous cholecystitis. He is accompanied by an laborer starch factory. Patient states he overall feels very well with no abdominal pain, no nausea, his appetite is actually increased and he is having regular bowel movements. He is concerned though that his bowel movements have consistently been black, he denies any weakness or fatigue and does note that the change in stool color has been associated with his taking iron supplements. He did inform his PCP and took a stool test but has not yet received the results, and he is up-to-date on his colonoscopy but has not had an EGD ROS Review of Systems Systems Reviewed: All systems reviewed, normal except as documented Objective/Exam General General Appearance: alert, cooperative and well groomed Resp Respiratory exam: Absent respiratory distress Abdominal Abdominal exam: Present soft; Absent distention or tenderness Assessment & Plan Diagnosis / Problem List (1) Acalculous cholecystitis: Status: Acute Assessment & Plan: As patient is feeling very well with no abdominal pain, tolerating a regular diet I do not recommend any further treatment for now for his gallbladder but will follow-up in 3 months Advanced Care Planning Advance care planning discussed with:: other Office Procedures GNS Level of Care Nursing/Assessment Patient Status: Established Patient Nursing Assessment/Reassesment: Medication Reconciliation, Update PMH in EMR and Vital Signs Coordination of Care: Complex Care and Chronic Disease 1-5, Consent,records obtained, informed consent, Education Simp Pt/Fam, Results/Orders obtained and Staff clarify orders Special Needs: Language special needs Established Patient Charge Established Patient Point Assignment: 90 Established Patient Point Charge: EP Level 3 (80-115) Patient Portal Questionaires Social History Living Situation History Housing: House Housing Other:: Pt lives with Tobacco History Smoking Status: Never smoker Alcohol History Alcohol Intake: Never Domestic Abuse History Do You Feel Safe at Home: Yes Review of Systems Report any current symptoms Only answer those that you have currently: Past Medical History Past Medical History Have you ever been diagnosed with any of the following: Neurological Problems Seizures: No Cardiology Problems Cardiac Arrhythmia: Yes Angina: Yes Hypercholesterolemia: Yes Congestive Heart Failure: No Hypertension: Yes Respiratory Problems Chronic Obstructive Pulmonary Disease (COPD): No Asthma: Yes Stomache/Intestinal Problems Hepatitis: No Ulcer: No Hemorrhoids: Yes Gastroesophageal Reflux Disease: No Obesity: Yes Genital/Urinary Problems Renal Disease: No Kidney Stones: No Benign Prostatic Hyperplasia: Yes Head,Eye,Nose,Throat Problems Cataracts: No Endocrine Problems Diabetes Mellitus Type 1: No Diabetes Mellitus Type 2: Yes (DIET CONTROL) Hypothyroidism: Yes Blood Problems Anemia: No Sickle Cell Disease: No Psychologic Problems Depression: Yes Anxiety: Yes Other Problems Hospitalization: Yes Autoimmune Disease: No Shingles: No Falls: No Blood Transfusions: No Blood Transfusion Reaction: No Anesthesia Reactions: No Organ Transplant: No Chicken Pox: Yes Measles: Yes Mumps: No Cancer: No Surgical History Pacemaker: No
== END 2025-01-22 14:17 | disposition home or self-care (01) ==
LOC: HODSRG 13:21
PROVIDERS: PCP Physician Assistant; Referring Provider Physician Assistant; Supervising Provider Surgery; Visit Provider Surgery
DX: K81.9 Cholecystitis, unspecified (principal); I10 Essential (primary) hypertension; E78.00 Pure hypercholesterolemia, unspecified; E11.9 Type 2 diabetes mellitus without complications; E03.9 Hypothyroidism, unspecified; E66.9 Obesity, unspecified; Z68.30 Body mass index [BMI] 30.0-30.9, adult
CPT/HCPCS: 99213; G0463

== ENCOUNTER → 2025-01-22 | Outpatient (CLI) | payer MEDICARE, SELFPAY ==
[2025-01-24 17:52] LABS: PSA, Free 1.23 ng/mL; PSA, Total 6.5 ng/mL (< OR = 4.0)
[2025-01-25 06:30] LABS: PSA, % Free 19 % (calc) (>25)
== END | disposition home or self-care (01) ==
PROVIDERS: PCP Physician Assistant; Referring Provider Urology; Visit Provider Urology
DX: R97.20 Elevated prostate specific antigen [PSA] (principal)
CPT/HCPCS: 36415; 84153; 84154

== ENCOUNTER → 2025-03-13 | Outpatient (CLI) | payer MEDICARE, SELFPAY ==
[2025-03-13 08:58] LABS: Collection Type, Urine Clean Catch
[2025-03-13 09:21] LABS: Basophils # (Auto) 0.0 Thou/mm3 (0.0-0.2); Basophils % (Auto) 0 % (0-2.5); Eosinophils # (Auto) 0.2 Thou/mm3 (0.0-0.5); Eosinophils % (Auto) 3 % (0-10); Hematocrit 41.7 % (41.0-53.0); Hemoglobin 14.0 g/dL (13.5-16.0); Immature Granulocytes Auto 0.01 Thou/mm3 (0.00-0.00); Lymphocytes # (Auto) 1.7 Thou/mm3 (1.0-4.8); Lymphocytes % (Auto) 25 % (10-50); Mean Corpuscular HGB Conc 33.6 g/dl (31.0-37.0); Mean Corpuscular Hemoglobin 29.3 pg (25.0-35.0); Mean Corpuscular Volume 87 fL (80-100); Monocytes # (Auto) 0.5 Thou/mm3 (0.0-0.8); Monocytes % (Auto) 7 % (0-12); Neutrophils # (Auto) 4.3 Thou/mm3 (1.8-7.7); Neutrophils % (Auto) 64 % (37-80); Nucleated Red Blood Cell # 0.00 Thou/mm3 (0.00-0.00); Nucleated Red Blood Cell % 0 /100 WBC (0); Platelet Count 226 Thou/mm3 (140-440); RDW Standard Deviation 40.1 fL (35.1-43.9); Red Blood Count 4.78 Miln/mm3 (4.50-5.90); White Blood Count 6.8 Thou/mm3 (3.8-10.6)
[2025-03-13 09:25] LABS: Glucose Estimated Average 137 mg/dL (80-131); Hemoglobin A1C 6.4 % Hgb (4.8-6.0)
[2025-03-13 09:28] LABS: Bilirubin,Urine Negative (Negative); Blood,Urine Trace (Negative); Clarity,Urine Clear (Clear/Hazy); Color,Urine Lt-Yellow (Lt Yel-Yel); Culture Indicated,Urine Not Indicated; Glucose, Urine Negative (Negative); Ketones,Urine Negative (Negative); Leukocyte Esterase,Urine Negative (Negative); Nitrite,Urine Negative (Negative); PH,Urine 7.0 (5.0-7.0); Protein,Urine Negative (Neg - Trace); RBC,Urine 3 /hpf (0-3); Specific Gravity,Urine 1.011 (1.001-1.035); Squamous Epithelial Cell,Urine 1 /hpf (0-5); Urobilinogen,Urine Negative mg/dL (0.0-1.0); WBC,Urine 1 /hpf (0-5)
[2025-03-13 09:37] LABS: Alanine Aminotransferase 13 U/L (10-49); Albumin, Serum 4.4 gm/dL (3.4-4.8); Albumin/Globulin Ratio 2.0 (1.2-2.2); Alkaline Phosphatase 72 U/L (46-116); Anion Gap 7 (7-16); Aspartate Amino Transferase 22 U/L (0-34); BUN/Creatinine Ratio 11 Ratio (12-20); Bilirubin,Total 1.5 mg/dL (0.3-1.2); Blood Urea Nitrogen 11 mg/dL (9-23); Calcium 8.7 mg/dL (8.3-10.6); Calcium (Corrected) 8.7 mg/dL (8.5-10.1); Carbon Dioxide 28.9 mMol/L (20.0-31.0); Cardiac Risk Estimate 3.1 RATIO (4.0-6.7); Chloride 104 mMol/L (98-107); Cholesterol 116 mg/dL (132-200); Creatinine (Component) 1.0 mg/dL (0.6-1.3); Globulin 2.2 gm/dL (2.3-3.5); Glucose 98 mg/dL (74-106); HDL Cholesterol 38 mg/dL (40-60); LDL Cholesterol,Calculated 55 mg/dL (0-130); Lipase 40 U/L (12-53); Osmolality,Calculated 278 (275-295); Potassium 4.4 mMol/L (3.4-5.1); Sodium 140 mMol/L (136-145); Thyroid Stimulating Hormone 0.56 uIU/mL (0.55-4.78); Total Protein 6.6 gm/dL (5.7-8.2); Triglycerides 116 mg/dL (30-150); eGFR > 60 See Note
[2025-03-13 09:38] LABS: Vitamin B12 565 pg/mL (211-911); Vitamin D 25 Hydroxy Total 64.4 ng/mL (7.3-40.2)
[2025-03-13 09:40] LABS: Ferritin 19 ng/mL (10.5-307.3); Iron 59 mcg/dL (65-175); Prostate Specific Antigen 5.97 ng/mL (0-4.00)
== END | disposition home or self-care (01) ==
PROVIDERS: PCP Physician Assistant; Referring Provider Physician Assistant; Visit Provider Physician Assistant
DX: E03.9 Hypothyroidism, unspecified (principal); E55.9 Vitamin D deficiency, unspecified; I10 Essential (primary) hypertension; E78.5 Hyperlipidemia, unspecified; D51.9 Vitamin B12 deficiency anemia, unspecified; D50.9 Iron deficiency anemia, unspecified; R73.01 Impaired fasting glucose; Z12.5 Encounter for screening for malignant neoplasm of prostate; K85.90 Acute pancreatitis without necrosis or infection, unspecified
CPT/HCPCS: 36415; 80053; 80061; 81001; 82306; 82607; 82728; 83036; 83540; 83690; 84153; 84443; 85025

== ENCOUNTER → 2025-03-20 | Outpatient (BNVA) | payer MEDICARE, SELFPAY | END | disposition home or self-care (01) | PROVIDERS: PCP Physician Assistant; Referring Provider Physician Assistant; Visit Provider Urology | DX: N40.1 Benign prostatic hyperplasia with lower urinary tract symptoms (principal); N13.8 Other obstructive and reflux uropathy; N28.89 Other specified disorders of kidney and ureter; I10 Essential (primary) hypertension; I25.10 Atherosclerotic heart disease of native coronary artery without angina pectoris; E66.9 Obesity, unspecified; Z68.32 Body mass index [BMI] 32.0-32.9, adult | CPT/HCPCS: 81003; 99212; G0463 ==